=== PATIENT | female | born 1950 | race Caucasian/White ===

== ENCOUNTER 2017-04-17 20:16 | Inpatient (IN) | payer BC, MEDICARE ==
[~2017-04-17] VITALS: Ht 160 cm; Wt 51.5 kg
[~2017-04-17 20:16] MED LIST: ASPIRIN EC81 MG ORAL; BIOTIN5000 MCG PO; CENTRUM SILVER1 EAC4 PO; CRESTOR40 MG ORAL; METOPROLOL SUCC25 MG ORAL; VITAMIN D1000 UNI1 ORAL; VITAMIN E400 UNI5 PO
[2017-04-17] MEDS ORDERED: Hydromorphone 0.5mg/0.5ml inj IVP ONE ×3 (20:30→23:30)
[2017-04-17 20:31] VITALS: BP 158/82
--- NOTE | 2017-04-17 20:36 | Emergency Room Report ---
History of Present Illness General Chief Complaint: Abdominal Pain Source: Patient Present Illness HPI Is a 66-year-old female with no significant past medical history. She presents with chief complaint abdominal pain. Onset was around 2 PM. She has sharp pain mostly in the right lower quadrant. She has nausea and vomiting. Small amount of diarrhea. Pain is 9/10. She took her Compazine without much relief. Been vomiting nonstop. She called 911. Denies any trauma. No fever or chills. Vomiting is nonbloody nonbilious. Ate normally around noon. Allergies: Coded Allergies: No Known Allergies (Unverified , 04/17/17) Patient History Past Medical History: see triage record, old chart reviewed Past Surgical History: other Pertinent Family History: none Social History: Denies: smoking Last Menstrual Period: n/a Now: No Immunizations: other Reviewed Nursing Documentation: PMH: Agreed, PSxH: Agreed Nursing Documentation-PM Past Medical History: No Stated History Review of Systems Eye: Denies: blurred vision, eye pain ENT: Denies: ear pain, nose congestion, throat swelling Respiratory: Denies: cough, shortness of breath Cardiovascular: Denies: chest pain, palpitations Gastrointestinal: Reports: abdominal pain, nausea, vomiting, Denies: diarrhea Musculoskeletal: Denies: back pain, joint pain Skin: Denies: rash Neurological: Denies: headache, numbness Endocrine: Denies: increased thirst, increased urine Hematologic/Lymphatic: Denies: easy bruising All Other Systems: negative except mentioned in HPI Physical Exam Vital Signs Date Time Temp Pulse Resp B/P Pulse Ox O2 Delivery O2 Flow Rate FiO2 04/17/17 20:31 74 19 158/82 100 Room Air vitals with hypertension. Sp02 EP Interpretation: reviewed, normal General Appearance: well appearing, no apparent distress, alert Head: normocephalic, atraumatic Eyes: bilateral eye EOMI, bilateral eye PERRL ENT: hearing grossly normal, normal pharynx Neck: full range of motion, supple, no meningismus Respiratory: chest non-tender, lungs clear, normal breath sounds Cardiovascular #1: regular rate, rhythm, no murmur Gastrointestinal: normal bowel sounds, no mass, no organomegaly, no bruit, non- distended, tenderness - Right lower quadrant Musculoskeletal: back normal, gait/station normal, normal range of motion Psychiatric: mood/affect normal Skin: warm/dry Medical Decision Making Diagnostic Impression: Primary Impression: SBO (small bowel obstruction) ER Course Patient presents with abdominal pain and had a small bowel obstruction. She has no previous abdominal surgery. NG tube placed to low intermittent suction. I discussed the case with Dr. Austin, who will see her as surgical consultation. I discussed the case with Dr. Caldwell who will admit. Lab Results Impression labs with mild leukocytosis Rhythm Strip Diag. Results Rhythm Strip Time: 00:51 EP Interpretation: yes Rate: 70 Rhythm: NSR, no PVC's, no ectopy CT/MRI/US Diagnostic Results CT/MRI/US Diagnostic Results : Imaging Test Ordered: CT abdomen and pelvis Impression read by radiologist. Small bowel obstruction with transition point in the right upper pelvis Last Vital Signs Date Time Temp Pulse Resp B/P Pulse Ox O2 Delivery O2 Flow Rate FiO2 04/17/17 20:31 74 19 158/82 100 Room Air Status: improved Disposition: ADMITTED INPATIENT Condition: Serious JIMMY GRACIA M.D. Apr 17, 2017 20:36
[2017-04-17 20:43] VITALS: BP 156/76
[2017-04-17 20:48] LABS: MEAN CORPUSCULAR HEMOGLOBIN 33.3 PG (27.0-31.0); MEAN CORPUSCULAR HGB CONC 34.6 G/DL (32.0-36.0); MEAN CORPUSCULAR VOLUME 96 FL (80-99); MEAN PLATELET VOLUME 6.6 FL (6.5-10.1); PLATELET COUNT 224 K/UL (150-450); RED BLOOD COUNT 4.18 M/UL (4.20-5.40); RED CELL DISTRIBUTION WIDTH 11.5 % (11.6-14.8); WHITE BLOOD COUNT 13.9 K/UL (4.8-10.8)
[2017-04-17 20:52] LABS: LYMPHOCYTES % (AUTO) 7.9 % (20.0-45.0); MONOCYTES % (AUTO) 3.2 % (1.0-10.0); NEUTROPHILS % (AUTO) 88.4 % (45.0-75.0)
[2017-04-17 20:53] LABS: BASOPHILS % (AUTO) 0.5 % (0.0-2.0)
[2017-04-17 21:03] VITALS: BP 147/66
[2017-04-17 21:06] LABS: ALANINE AMINOTRANSFERASE 24 U/L (3-33); ALBUMIN/GLOBULIN RATIO 1.6 (1.0-2.7); ANION GAP 14 (5-15); ASPARTATE AMINO TRANSFERASE 27 U/L (5-40); CALCIUM 9.5 mg/dL (8.6-10.2); CARBON DIOXIDE 24 mEQ/L (20-30); CHLORIDE 96 mEQ/L (98-107); CREATININE 0.6 mg/dL (0.5-0.9); GLOMERULAR FILTRATION RATE > 60 mL/min (>60); HEMOLYSIS 5; LIPASE 21 U/L (< 60); POTASSIUM 4.2 mEQ/L (3.4-4.9); SODIUM 134 mEQ/L (135-145); TOTAL PROTEIN 7.5 g/dL (6.6-8.7)
[2017-04-17 21:28] LABS: APPEARANCE,URINE SLIGHTLY CLOUDY; KETONES,URINE 3+ (NEGATIVE); LEUKOCYTE ESTERASE ,URINE 1+ (NEGATIVE); NITRITE,URINE NEGATIVE (NEGATIVE); PH,URINE 5 (4.5-8.0); PROTEIN,URINE 2+ (NEGATIVE); UROBILINOGEN,URINE 1 MG/DL (0.0-1.0)
[2017-04-17 21:36] LABS: RBC,URINE 0-2 /HPF (0 - 2); SQUAMOUS EPITHELIAL CELL,UR OCCASIONAL /LPF (NONE/OCC)
[2017-04-17 21:37] LABS: MUCUS,URINE MANY /LPF (NONE/OCC)
[2017-04-17 22:45] VITALS: BP 134/62
[2017-04-17] MEDS ORDERED: LORazepam Inj 2mg/ml 1ml IV ONE (23:30)
[2017-04-18 01:00] VITALS: BP 140/64
[2017-04-18] MEDS ORDERED: Zosyn 3.375gm inj ONE (01:28)
[2017-04-18] MEDS ORDERED: D5NS 1,000 ML IV SCH (01:30)
[2017-04-18] MEDS: Metoprolol Tartrate 12.5mg TAB ORAL SCH ×3 (01:42→21:05)
[2017-04-18] MEDS: Piperacillin/Tazobactam 3.375 GM in D5W 110 ML IVPB SCH ×3 (01:42→17:36)
[2017-04-18] MEDS: Heparin 5000 units/ml inj SUBQ SCH ×3 (01:43→21:06)
[2017-04-18] MEDS: Hydromorphone 0.5mg/0.5ml inj IVP PRN ×4 (04:25→22:07)
[2017-04-18] MEDS ORDERED: Tubing IV Secondary IV ONE (08:14)
[2017-04-18] MEDS ORDERED: D5NS 1000ml IV ONE (08:14)
[2017-04-18 08:21] VITALS: BP 153/79
--- NOTE | 2017-04-18 08:53 | History & Physical ---
History and Physical History & Physicial seen and examined.Dictation completed Marilu Caldwell MD Apr 18, 2017 08:53
--- NOTE | 2017-04-18 08:54 | General Progress Note ---
Assessment/Plan Status: stable Assessment/Plan 1- Acute Abdomen 2- Bowel Obstruction (partial vs complete) 2- HTN 3- Gi-DVT prophylaxia Plan: Surgery and GI services are consulted. Continue NPO. Started empirical antibiotic Subjective ROS Limited/Unobtainable: No Constitutional: Reports: other - pain Cardiovascular: Reports: no symptoms Respiratory: Reports: no symptoms Gastrointestinal/Abdominal: Reports: abdomen distended, abdominal pain Neurologic/Psychiatric: Reports: no symptoms Allergies: Coded Allergies: No Known Allergies (Unverified , 04/17/17) Objective Last 24 Hour Vital Signs Date Time Temp Pulse Resp B/P Pulse Ox O2 Delivery O2 Flow Rate FiO2 04/18/17 08:21 98.3 84 20 153/79 97 Nasal Cannula 2.0 04/18/17 04:00 97.3 82 20 96 04/18/17 01:42 88 140/57 04/18/17 01:00 98.1 91 20 140/64 96 Nasal Cannula 2.0 04/18/17 00:45 88 15 140/57 96 Nasal Cannula 2.0 04/17/17 22:45 97.9 73 12 134/62 96 Room Air 04/17/17 21:03 87 13 147/66 96 Room Air 04/17/17 20:43 97.8 74 22 156/76 100 Room Air 04/17/17 20:31 74 19 158/82 100 Room Air Intake and Output 04/17/17 04/18/17 19:00 07:00 Intake Total 210.0 ml Output Total 100 ml Balance 110.0 ml Intake Oral 25 ml IV Total 185.0 ml Output Gastric Drainage Total 100 ml # Voids 6 Laboratory Tests 04/17/17 20:00: White Blood Count 13.9H, Red Blood Count 4.18L, Hemoglobin 13.9, Hematocrit 40.2 , Mean Corpuscular Volume 96, Mean Corpuscular Hemoglobin 33.3H, Mean Corpuscular Hemoglobin Concent 34.6, Red Cell Distribution Width 11.5L, Platelet Count 224, Mean Platelet Volume 6.6, Neutrophils (%) (Auto) 88.4H, Lymphocytes (%) (Auto) 7.9L, Monocytes (%) (Auto) 3.2, Eosinophils (%) (Auto) 0.0, Basophils (%) (Auto) 0.5, Sodium Level 134L, Potassium Level 4.2, Chloride Level 96L, Carbon Dioxide Level 24, Anion Gap 14, Blood Urea Nitrogen 21, Creatinine 0.6, Estimat Glomerular Filtration Rate > 60, Glucose Level 156H, Calcium Level 9.5, Total Bilirubin 0.3, Aspartate Amino Transf (AST/SGOT) 27, Alanine Aminotransferase (ALT/SGPT) 24, Alkaline Phosphatase 78, Total Protein 7.5, Albumin 4.7, Globulin 2.8, Albumin/Globulin Ratio 1.6, Lipase 21 04/17/17 21:24: Urine Color Yellow, Urine Appearance Slightly cloudy, Urine pH 5, Urine Specific [place] 1.025, Urine Protein 2+H, Urine Glucose (UA) Negative, Urine Ketones 3+H, Urine Occult Blood Negative, Urine Nitrite Negative, Urine Bilirubin Negative, Urine Urobilinogen 1H, Urine Leukocyte Esterase 1+H, Urine RBC 0-2, Urine WBC 2-4, Urine Squamous Epithelial Cells Occasional, Urine Bacteria None, Urine Mucus ManyH Height (Feet): 5 Height (Inches): 3.00 Weight (Pounds): 127 General Appearance: no apparent distress EENT: PERRL/EOMI Neck: supple Extremities: non-tender 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
[2017-04-18 09:22] LABS: PROTHROMBIN TIME 10.1 SEC (9.30-11.50)
--- NOTE | 2017-04-18 10:18 | Diagnostic Imaging Report ---
Indication: Abdominal pain. Comparison: None available. Technique: Utilizing a multislice CT scanner, a CT of the abdomen and pelvis was performed after the administration of intravenous contrast. All CT scans at this facility use dose modulation, iterative reconstruction, and/or weight based dosing when appropriate to reduce radiation dose to as low as reasonably achievable. CTDIvol (mGy): 15 DLP (mGy-cm): 765 Findings: The visualized lung bases are clear. Trace perihepatic ascites is noted. Punctate calcified granuloma is noted in the right hepatic lobe inferiorly. There is a punctate low-attenuation lesion in the right posterior hepatic lobe, likely a cyst but otherwise not accurately characterized. Low attenuation region in the left hepatic lobe adjacent to the falciform ligament likely represents transient hepatic attenuation difference. There is a 20 x 16 mm region of relative hypoenhancement in the left lateral hepatic lobe (segment II) which is not accurately characterized. Further evaluation with triple phase contrast enhanced CT or MRI of the abdomen to exclude malignancy is recommended. The gallbladder is unremarkable. The pancreas, spleen and adrenal glands are unremarkable. No calculus is identified within either kidney, along the expected course of the ureters or within the urinary bladder. There is no evidence of hydronephrosis or asymmetric perirenal inflammatory change. There is a subcentimeter cyst arising exophytically from the upper right kidney. The urinary bladder is grossly unremarkable. The pelvic organs are grossly unremarkable. Trace free pelvic fluid is noted. Moderately dilated small bowel loops in the lower abdomen/pelvis containing fecal/inspissated material are identified, with an apparent transition point in the right lower quadrant and midpelvis. Moderate wall thickening and hyperemia involving several of these bowel loops noted. A short segment of small bowel in the mid pelvis exhibits poor enhancement of its wall with extensive surrounding mesenteric stranding, suspicious for bowel ischemia. Closed-loop obstruction should be considered. Evaluation is limited without enteric contrast. Urgent surgical consultation is recommended. There is no extraluminal gas or organized fluid collection. Mild sigmoid diverticulosis is noted. The sigmoid wall appears diffusely thickened but not optimally evaluated due to under distention. Consider colonoscopy when the appropriate. There are no enlarged lymph nodes. There is extensive calcified atherosclerotic disease of the the abdominal aorta. Moderate degenerative disc disease with disc vacuum phenomenon and endplate sclerotic changes noted at L3-L4. Impression: 1. Moderately distended small bowel loops in the lower abdomen/pelvis, with an apparent transition point in the right lower quadrant and midpelvis. Moderate bowel wall thickening and hyperemia noted involving several loops. However, a short segment of small bowel in the midpelvis exhibits poor wall enhancement with surrounding mesenteric stranding. Closed loop obstruction and bowel ischemia should be considered. Urgent surgical consultation is recommended. Small volume ascites. No evidence of free intraperitoneal air or loculated fluid collection. 2. Sigmoid diverticulosis with apparent sigmoid wall thickening. Consider colonoscopy when possible to exclude underlying malignancy. 3. Nonspecific 2 cm region of relative hypoenhancement in the left hepatic lobe, accurately characterized on single phase CT. Further evaluation with contrast enhanced CT or MRI of the abdomen with liver tumor protocol to exclude malignancy is recommended.
[2017-04-18] MEDS ORDERED: DiphenhydrAMINE 50mg/ml Inj IVP PRN (11:00)
--- NOTE | 2017-04-18 11:09 | Diagnostic Imaging Report ---
Clinical history: Abdominal pain, concern for obstruction. Technique: Single frontal abdominal radiograph was obtained. Comparisons: Abdomen/pelvis CT dated 04/17/17. Findings: An enteric tube ends in the proximal stomach with the sidehole at the GE junction. Recommend advancing the tube by 5 cm. Moderate air distention of several bowel loops in the abdomen is noted. Contrast from recent CT is noted in the urinary bladder. IMPRESSION: 1. Enteric tube ends in the proximal stomach with the sidehole at the GE junction. Recommend advancing the tube by 5 cm. 2. Air distended small bowel loops suspicious for bowel obstruction. Please refer to the recent abdomen/pelvis CT report for description of significant findings.
[2017-04-18 11:43] VITALS: BP 135/86
[2017-04-18 11:46] LABS: MEAN CORPUSCULAR HEMOGLOBIN 32.3 PG (27.0-31.0); MEAN CORPUSCULAR HGB CONC 33.5 G/DL (32.0-36.0); MEAN CORPUSCULAR VOLUME 96 FL (80-99); MEAN PLATELET VOLUME 6.6 FL (6.5-10.1); PLATELET COUNT 229 K/UL (150-450); RED BLOOD COUNT 4.52 M/UL (4.20-5.40); RED CELL DISTRIBUTION WIDTH 11.5 % (11.6-14.8); WHITE BLOOD COUNT 13.9 K/UL (4.8-10.8)
[2017-04-18 13:18] LABS: BAND NEUTROPHILS % (MANUAL) 0 % (0-8); BASOPHILS % (MANUAL) 0 % (0-2); EOSINOPHILS % (MANUAL) 0 % (0-3); LYMPHOCYTES % (MANUAL) 4 % (20-45); NEUTROPHILS % (MANUAL) 92 % (45-75); PLATELET ESTIMATE ADEQUATE; PLATELET MORPHOLOGY NORMAL; TOTAL CELLS COUNTED 100
--- NOTE | 2017-04-18 13:19 | General Surgery Progress Note ---
General Surgery-Progress Note Subjective Reason for Consult abdominal pain, possible SBO. Symptoms: improved - since last pm admission, pain same or less, no further nausea or emesis, no fever or chills. BM yest normal Additional Comments Pt refers 6 weeks or so of softening of bowel movements with watery loose BM like "soup" at the end, 2-4 times a day, no blood or mucus. Had 2-3 " accidents where she thought she was passing flatus and watery diarrhea ocurred. Had weight loss during bad L4 disc herniation period earlier this year, has regained 5 lbs back. No hx of any surgeries, no ruptured ovarian cysts, . Had 1 bout of mild diverticulitis, resolved with antibiotics po. Objective Last 24 Hour Vital Signs Date Time Temp Pulse Resp B/P Pulse Ox O2 Delivery O2 Flow Rate FiO2 04/18/17 11:43 98.1 71 19 135/86 96 Nasal Cannula 2.0 04/18/17 09:21 98.3 04/18/17 08:51 84 153/79 04/18/17 08:21 98.3 84 20 153/79 97 Nasal Cannula 2.0 04/18/17 04:00 97.3 82 20 96 04/18/17 01:42 88 140/57 04/18/17 01:00 98.1 91 20 140/64 96 Nasal Cannula 2.0 04/18/17 00:45 88 15 140/57 96 Nasal Cannula 2.0 04/17/17 22:45 97.9 73 12 134/62 96 Room Air 04/17/17 21:03 87 13 147/66 96 Room Air 04/17/17 20:43 97.8 74 22 156/76 100 Room Air 04/17/17 20:31 74 19 158/82 100 Room Air I&O Intake and Output 04/17/17 04/18/17 19:00 07:00 Intake Total 210.0 ml Output Total 100 ml Balance 110.0 ml Intake Oral 25 ml IV Total 185.0 ml Output Gastric Drainage Total 100 ml # Voids 6 Cardiovascular: RSR Respiratory: clear Abdomen: soft, distended - 1-2 +, , tenderness - 1-2+ lower abdomen, no mass, peristalsis hypoactive with occ minimal "balderrama" but no tinkling or high pitches peristalsis Extremities: edema Laboratory Tests Test 04/17/17 20:00 04/17/17 21:24 04/18/17 09:00 White Blood Count 13.9 K/UL (4.8-10.8) H 13.9 K/UL (4.8-10.8) H Red Blood Count 4.18 M/UL (4.20-5.40) L 4.52 M/UL (4.20-5.40) Hemoglobin 13.9 G/DL (12.0-16.0) 14.6 G/DL (12.0-16.0) Hematocrit 40.2 % (37.0-47.0) 43.6 % (37.0-47.0) Mean Corpuscular Volume 96 FL (80-99) 96 FL (80-99) Mean Corpuscular Hemoglobin 33.3 PG (27.0-31.0) H 32.3 PG (27.0-31.0) H Mean Corpuscular Hemoglobin Concent 34.6 G/DL (32.0-36.0) 33.5 G/DL (32.0-36.0) Red Cell Distribution Width 11.5 % (11.6-14.8) L 11.5 % (11.6-14.8) L Platelet Count 224 K/UL (150-450) 229 K/UL (150-450) Mean Platelet Volume 6.6 FL (6.5-10.1) 6.6 FL (6.5-10.1) Neutrophils (%) (Auto) 88.4 % (45.0-75.0) H % (45.0-75.0) Lymphocytes (%) (Auto) 7.9 % (20.0-45.0) L % (20.0-45.0) Monocytes (%) (Auto) 3.2 % (1.0-10.0) % (1.0-10.0) Eosinophils (%) (Auto) 0.0 % (0.0-3.0) % (0.0-3.0) Basophils (%) (Auto) 0.5 % (0.0-2.0) % (0.0-2.0) Sodium Level 134 mEQ/L (135-145) L Potassium Level 4.2 mEQ/L (3.4-4.9) Chloride Level 96 mEQ/L (98-107) L Carbon Dioxide Level 24 mEQ/L (20-30) Anion Gap 14 (5-15) Blood Urea Nitrogen 21 mg/dL (7-23) Creatinine 0.6 mg/dL (0.5-0.9) Estimat Glomerular Filtration Rate > 60 mL/min (>60) Glucose Level 156 mg/dL (74-106) H Calcium Level 9.5 mg/dL (8.6-10.2) Total Bilirubin 0.3 mg/dL (0.0-1.2) Aspartate Amino Transf (AST/SGOT) 27 U/L (5-40) Alanine Aminotransferase (ALT/SGPT) 24 U/L (3-33) Alkaline Phosphatase 78 U/L (35-104) Total Protein 7.5 g/dL (6.6-8.7) Albumin 4.7 g/dL (3.5-5.2) Globulin 2.8 g/dL Albumin/Globulin Ratio 1.6 (1.0-2.7) Lipase 21 U/L (< 60) Urine Color Yellow Urine Appearance Slightly cloudy Urine pH 5 (4.5-8.0) Urine Specific [place] 1.025 (1.005-1.035) Urine Protein 2+ (NEGATIVE) H Urine Glucose (UA) Negative (NEGATIVE) Urine Ketones 3+ (NEGATIVE) H Urine Occult Blood Negative (NEGATIVE) Urine Nitrite Negative (NEGATIVE) Urine Bilirubin Negative (NEGATIVE) Urine Urobilinogen 1 MG/DL (0.0-1.0) H Urine Leukocyte Esterase 1+ (NEGATIVE) H Urine RBC 0-2 /HPF (0 - 2) Urine WBC 2-4 /HPF (0 - 2) Urine Squamous Epithelial Cells Occasional /LPF Urine Bacteria None /HPF (NONE) Urine Mucus Many /LPF (NONE/OCC) H Neutrophils % (Manual) Pending Lymphocytes % (Manual) Pending Platelet Estimate Pending Platelet Morphology Pending Prothrombin Time 10.1 SEC (9.30-11.50) Prothromb Time International Ratio 1.0 (0.9-1.1) Activated Partial Thromboplast Time 25 SEC (23-33) Lactic Acid Level 1.20 mmol/L (0.66-2.22) Imaging CAT scan of abdomen and pelvis last pm, early this am abd xrays: distal ileum slightly thickened bowel with edema, minimal distention, no proximal bowel or gastric distention. ?? early SBO??, enteritis, IBD ??. Infectious? Trace ascites above liver and minimally in pelvis. No [employer] LEV[employer]RAFTER obvious problems, diverticulosis of low lying sigmoid colon , but no diverticulitis. No abscess. Additional Comments Abdominal pain, distal small bowel inflammatory process, cause undetermined in non-operated abdomen, associated change in stool habits with daily loose or even "watery" BMs. Normal lactate, sl elevated WBC. Not a typical SBO, more likely an inflammatory ileum process, such as Chron's disease or Campylobacter infection, but must be ready to explore either laparoscopically or open if need be, (diagnostic or therapeutic procedure) Discussed at length with Dr. Ashraf and with Dr. Caldwell. suggested an MRI enterography vs UGI with small bowel follow through and stool cultures. Will repeat labs in am and follow clinically. Pt understands and is frustrated about having to stay in the hospital. ARTUR MAJANO Apr 18, 2017 13:19
--- NOTE | 2017-04-18 14:48 | Infectious Diseases Prog Note ---
Assessment/Plan Assessment/Plan ID kristy patterson # [id number] Subjective Allergies: Coded Allergies: No Known Allergies (Unverified , 04/17/17) Objective Vital Signs Last 24 Hour Vital Signs Date Time Temp Pulse Resp B/P Pulse Ox O2 Delivery O2 Flow Rate FiO2 04/18/17 11:43 98.1 71 19 135/86 96 Nasal Cannula 2.0 04/18/17 09:21 98.3 04/18/17 08:51 84 153/79 04/18/17 08:21 98.3 84 20 153/79 97 Nasal Cannula 2.0 04/18/17 04:00 97.3 82 20 96 04/18/17 01:42 88 140/57 04/18/17 01:00 98.1 91 20 140/64 96 Nasal Cannula 2.0 04/18/17 00:45 88 15 140/57 96 Nasal Cannula 2.0 04/17/17 22:45 97.9 73 12 134/62 96 Room Air 04/17/17 21:03 87 13 147/66 96 Room Air 04/17/17 20:43 97.8 74 22 156/76 100 Room Air 04/17/17 20:31 74 19 158/82 100 Room Air Height (Feet): 5 Height (Inches): 3.00 Weight (Pounds): 127 Laboratory Tests Test 04/17/17 20:00 04/17/17 21:24 04/18/17 09:00 White Blood Count 13.9 K/UL (4.8-10.8) H 13.9 K/UL (4.8-10.8) H Red Blood Count 4.18 M/UL (4.20-5.40) L 4.52 M/UL (4.20-5.40) Hemoglobin 13.9 G/DL (12.0-16.0) 14.6 G/DL (12.0-16.0) Hematocrit 40.2 % (37.0-47.0) 43.6 % (37.0-47.0) Mean Corpuscular Volume 96 FL (80-99) 96 FL (80-99) Mean Corpuscular Hemoglobin 33.3 PG (27.0-31.0) H 32.3 PG (27.0-31.0) H Mean Corpuscular Hemoglobin Concent 34.6 G/DL (32.0-36.0) 33.5 G/DL (32.0-36.0) Red Cell Distribution Width 11.5 % (11.6-14.8) L 11.5 % (11.6-14.8) L Platelet Count 224 K/UL (150-450) 229 K/UL (150-450) Mean Platelet Volume 6.6 FL (6.5-10.1) 6.6 FL (6.5-10.1) Neutrophils (%) (Auto) 88.4 % (45.0-75.0) H % (45.0-75.0) Lymphocytes (%) (Auto) 7.9 % (20.0-45.0) L % (20.0-45.0) Monocytes (%) (Auto) 3.2 % (1.0-10.0) % (1.0-10.0) Eosinophils (%) (Auto) 0.0 % (0.0-3.0) % (0.0-3.0) Basophils (%) (Auto) 0.5 % (0.0-2.0) % (0.0-2.0) Sodium Level 134 mEQ/L (135-145) L Potassium Level 4.2 mEQ/L (3.4-4.9) Chloride Level 96 mEQ/L (98-107) L Carbon Dioxide Level 24 mEQ/L (20-30) Anion Gap 14 (5-15) Blood Urea Nitrogen 21 mg/dL (7-23) Creatinine 0.6 mg/dL (0.5-0.9) Estimat Glomerular Filtration Rate > 60 mL/min (>60) Glucose Level 156 mg/dL (74-106) H Calcium Level 9.5 mg/dL (8.6-10.2) Total Bilirubin 0.3 mg/dL (0.0-1.2) Aspartate Amino Transf (AST/SGOT) 27 U/L (5-40) Alanine Aminotransferase (ALT/SGPT) 24 U/L (3-33) Alkaline Phosphatase 78 U/L (35-104) Total Protein 7.5 g/dL (6.6-8.7) Albumin 4.7 g/dL (3.5-5.2) Globulin 2.8 g/dL Albumin/Globulin Ratio 1.6 (1.0-2.7) Lipase 21 U/L (< 60) Urine Color Yellow Urine Appearance Slightly cloudy Urine pH 5 (4.5-8.0) Urine Specific [place] 1.025 (1.005-1.035) Urine Protein 2+ (NEGATIVE) H Urine Glucose (UA) Negative (NEGATIVE) Urine Ketones 3+ (NEGATIVE) H Urine Occult Blood Negative (NEGATIVE) Urine Nitrite Negative (NEGATIVE) Urine Bilirubin Negative (NEGATIVE) Urine Urobilinogen 1 MG/DL (0.0-1.0) H Urine Leukocyte Esterase 1+ (NEGATIVE) H Urine RBC 0-2 /HPF (0 - 2) Urine WBC 2-4 /HPF (0 - 2) Urine Squamous Epithelial Cells Occasional /LPF Urine Bacteria None /HPF (NONE) Urine Mucus Many /LPF (NONE/OCC) H Differential Total Cells Counted 100 Neutrophils % (Manual) 92 % (45-75) H Lymphocytes % (Manual) 4 % (20-45) L Monocytes % (Manual) 4 % (1-10) Eosinophils % (Manual) 0 % (0-3) Basophils % (Manual) 0 % (0-2) Band Neutrophils 0 % (0-8) Platelet Estimate Adequate Platelet Morphology Normal Red Blood Cell Morphology Normal Hypochromasia Prothrombin Time 10.1 SEC (9.30-11.50) Prothromb Time International Ratio 1.0 (0.9-1.1) Activated Partial Thromboplast Time 25 SEC (23-33) Lactic Acid Level 1.20 mmol/L (0.66-2.22) Current Medications Medications (Trade) Dose Ordered Sig/Renuka Route PRN Reason Start Time Stop Time Status Last Admin Dose Admin Dextrose/ Electrolytes (D5 0.45%NS W/ KCl 20mEq) 1,000 ml @ 100 mls/hr Q10H IV 04/18/17 14:00 05/18/17 13:59 Diphenhydramine HCl 25 mg 25 mg Q6H PRN IVP Itching 04/18/17 11:00 05/18/17 10:59 04/18/17 11:11 Heparin Sodium (Porcine) (Heparin 5000 units/ml) 5,000 units EVERY 12 HOURS SUBQ 04/18/17 00:30 05/18/17 00:29 04/18/17 08:53 Hydromorphone HCl (Dilaudid) 0.5 mg Q4H PRN IVP For Pain 04/18/17 04:00 04/25/17 03:59 04/18/17 13:37 Lorazepam (Ativan 2mg/ml 1ml) 0.5 mg Q6H PRN IV For Anxiety 04/18/17 04:00 04/25/17 03:59 Metoprolol Tartrate (Lopressor) 12.5 mg Q12HR ORAL 04/18/17 01:00 05/18/17 00:59 04/18/17 08:51 Ondansetron HCl (Zofran) 4 mg Q6H PRN IVP Nausea & Vomiting 04/18/17 04:00 05/18/17 03:59 04/18/17 13:52 Pantoprazole (Protonix) 40 mg DAILY ORAL 04/18/17 09:00 05/18/17 08:59 04/18/17 08:51 Piperacillin Sod/ Tazobactam Sod/ Dextrose (Zosyn/D5W) 110 ml @ 27.5 mls/hr Q8H IVPB 04/18/17 01:00 04/25/17 00:59 04/18/17 08:51 ADRIANNA FRANZ Apr 18, 2017 14:48
[2017-04-18] MEDS: D5 1/2NS w/KCl 20mEq 1,000 ML IV SCH (14:51)
--- NOTE | 2017-04-18 15:11 | General Progress Note ---
Assessment/Plan Assessment/Plan Assessment Dictated Presentation of segmental SB inflammation and SBO - narrow differential ? Campylobacter ileitis ? Acute Crohn's disease ? mechanical (intussucception, hamartoma) Recommendations - NPO - IVF - NGT - MRE (If not available, then SBFT) to eval small bowel - check stool cultures - check CRP/ESR (will check if lab can run Calprotectin) Thank you Ken Ashraf MD Subjective Allergies: Coded Allergies: No Known Allergies (Unverified , 04/17/17) Objective Last 24 Hour Vital Signs Date Time Temp Pulse Resp B/P Pulse Ox O2 Delivery O2 Flow Rate FiO2 04/18/17 11:43 98.1 71 19 135/86 96 Nasal Cannula 2.0 04/18/17 09:21 98.3 04/18/17 08:51 84 153/79 04/18/17 08:21 98.3 84 20 153/79 97 Nasal Cannula 2.0 04/18/17 04:00 97.3 82 20 96 04/18/17 01:42 88 140/57 04/18/17 01:00 98.1 91 20 140/64 96 Nasal Cannula 2.0 04/18/17 00:45 88 15 140/57 96 Nasal Cannula 2.0 04/17/17 22:45 97.9 73 12 134/62 96 Room Air 04/17/17 21:03 87 13 147/66 96 Room Air 04/17/17 20:43 97.8 74 22 156/76 100 Room Air 04/17/17 20:31 74 19 158/82 100 Room Air Intake and Output 04/17/17 04/18/17 19:00 07:00 Intake Total 210.0 ml Output Total 100 ml Balance 110.0 ml Intake Oral 25 ml IV Total 185.0 ml Output Gastric Drainage Total 100 ml # Voids 6 Laboratory Tests 04/17/17 20:00: White Blood Count 13.9H, Red Blood Count 4.18L, Hemoglobin 13.9, Hematocrit 40.2 , Mean Corpuscular Volume 96, Mean Corpuscular Hemoglobin 33.3H, Mean Corpuscular Hemoglobin Concent 34.6, Red Cell Distribution Width 11.5L, Platelet Count 224, Mean Platelet Volume 6.6, Neutrophils (%) (Auto) 88.4H, Lymphocytes (%) (Auto) 7.9L, Monocytes (%) (Auto) 3.2, Eosinophils (%) (Auto) 0.0, Basophils (%) (Auto) 0.5, Sodium Level 134L, Potassium Level 4.2, Chloride Level 96L, Carbon Dioxide Level 24, Anion Gap 14, Blood Urea Nitrogen 21, Creatinine 0.6, Estimat Glomerular Filtration Rate > 60, Glucose Level 156H, Calcium Level 9.5, Total Bilirubin 0.3, Aspartate Amino Transf (AST/SGOT) 27, Alanine Aminotransferase (ALT/SGPT) 24, Alkaline Phosphatase 78, Total Protein 7.5, Albumin 4.7, Globulin 2.8, Albumin/Globulin Ratio 1.6, Lipase 21 04/17/17 21:24: Urine Color Yellow, Urine Appearance Slightly cloudy, Urine pH 5, Urine Specific [place] 1.025, Urine Protein 2+H, Urine Glucose (UA) Negative, Urine Ketones 3+H, Urine Occult Blood Negative, Urine Nitrite Negative, Urine Bilirubin Negative, Urine Urobilinogen 1H, Urine Leukocyte Esterase 1+H, Urine RBC 0-2, Urine WBC 2-4, Urine Squamous Epithelial Cells Occasional, Urine Bacteria None, Urine Mucus ManyH 04/18/17 09:00: White Blood Count 13.9H, Red Blood Count 4.52, Hemoglobin 14.6, Hematocrit 43.6 , Mean Corpuscular Volume 96, Mean Corpuscular Hemoglobin 32.3H, Mean Corpuscular Hemoglobin Concent 33.5, Red Cell Distribution Width 11.5L, Platelet Count 229, Mean Platelet Volume 6.6, Neutrophils (%) (Auto) , Lymphocytes (%) (Auto) , Monocytes (%) (Auto) , Eosinophils (%) (Auto) , Basophils (%) (Auto) , Differential Total Cells Counted 100, Neutrophils % ( Manual) 92H, Lymphocytes % (Manual) 4L, Monocytes % (Manual) 4, Eosinophils % ( Manual) 0, Basophils % (Manual) 0, Band Neutrophils 0, Platelet Estimate Adequate, Platelet Morphology Normal, Red Blood Cell Morphology Normal, Hypochromasia , Prothrombin Time 10.1, Prothromb Time International Ratio 1.0, Activated Partial Thromboplast Time 25, Lactic Acid Level 1.20 Height (Feet): 5 Height (Inches): 3.00 Weight (Pounds): 127 KEN ASHRAF Apr 18, 2017 15:11
[2017-04-18 16:00] VITALS: BP 169/83
[2017-04-18] MEDS: LORazepam Inj 2mg/ml 1ml IV PRN (19:16)
[2017-04-18 20:00] VITALS: BP 139/85
[2017-04-19] VITALS (7 sets, daily range): BP systolic 125–161; BP diastolic 75–89
--- NOTE | 2017-04-19 00:45 | Consultation ---
DATE OF CONSULTATION: 04/18/2017 INFECTIOUS DISEASE CONSULT This consult is for coverage of Dr. Castro. PRIMARY ATTENDING PHYSICIAN: Marilu Caldwell M.D. REASON FOR CONSULTATION: small bowel obstruction, enteritis. HISTORY OF PRESENT ILLNESS: The patient is a 66-year-old female, admitted yesterday with sudden onset of abdominal pain more in the midline. Had nausea and vomiting. The patient had chronic diarrhea in the past couple of weeks. Denies any fever. PAST MEDICAL HISTORY: Significant except for hypertension. MEDICATIONS: Given Benadryl, Protonix, hydromorphone, Zofran, Zosyn, metoprolol, and heparin. ALLERGIES: No known drug allergies. SOCIAL HISTORY: No history of alcohol or drug abuse or smoking. Single. Not . Has no children. Lives alone. REVIEW OF SYSTEMS: Has pain mostly in the lower part of the abdomen today. PHYSICAL EXAMINATION: VITAL SIGNS: Temperature 98.1 degrees, pulse 71, and blood pressure 135/86. GENERAL APPEARANCE: No acute distress. Awake, alert, and oriented x3. HEAD AND NECK: Has NG tube connected to suction. [place] conjunctivae. No oral lesions. HEART: S1 and S2. Regular. LUNGS: Clear. ABDOMEN: Tender in the lower quadrants, more in the left side. EXTREMITIES: She has no edema. LABORATORY DATA: WBC 13.9, hemoglobin 14.6, hematocrit 43.6, and platelets is 229,000. Sodium 134, potassium 4.2, chloride 96, and bicarbonate 24. BUN 21, creatinine 0.6, and glucose 156. KUB showed extended small bowel loops. CT scan of the abdomen and pelvis showed again distended bowel loops and also showed diverticulosis in sigmoid area. She also had degenerative disk disease. IMPRESSION: Small bowel obstruction, seems to be partial, cannot rule out enteritis. The patient has hypertension and sigmoid diverticulosis. RECOMMENDATIONS: We will continue with Zosyn. We will follow up the labs. At the end of my exam, I thank Dr. Caldwell for involving me in the care of this patient. Yobany Villasenor M.D. DR: BARBARA JOB#: [id number] CC: MOMO
[2017-04-19] MEDS: Piperacillin/Tazobactam 3.375 GM in D5W 110 ML IVPB SCH ×3 (00:53→16:28)
--- NOTE | 2017-04-19 01:30 | Consultation ---
DATE OF CONSULTATION: 04/18/2017 NOTE: POOR AUDIO QUALITY GASTROLOGY CONSULTATION CONSULTING PHYSICIAN: Ken Ashraf M.D. CHIEF COMPLAINT: I was asked to see this patient for abnormal CT scan. HISTORY OF PRESENT ILLNESS: The patient is a pleasant 66-year-old white woman w/o GI history comes in to the hospital with a 4 to 6-week history of diarrhea. The patient states diarrhea is two times a day and often at night as well. She denies any hematochezia or any family history of inflammatory bowel disease. She has had no fevers or chills. Her last colonoscopy was about eight years ago. She did have an episode of diverticulitis several years ago, but that was a one time episode. She has had some occasional dry heaves over the past 4 to 6 weeks, but no fritz vomiting until 24 hours prior to admission. She was admitted to the hospital, was found to have small bowel obstruction from segmental inflammatory process with bowel obstruction in the distal small bowel. PAST MEDICAL HISTORY: History of herniated disk, history of hypercholesterolemia, and history of hypertension. MEDICATIONS: Crestor, lisinopril, and aspirin. SOCIAL HISTORY: The patient smokes one pack of cigarettes a day and drinks occasionally. FAMILY HISTORY: Negative for significant gastroesophageal disorders including inflammatory bowel disease. REVIEW OF SYSTEMS: Otherwise negative. PHYSICAL EXAMINATION: GENERAL: The patient is a pleasant white woman, seen with the surgeon at bedside. HEENT: Normocephalic and atraumatic. Sclerae anicteric. Oropharynx clear. NECK: Supple. CHEST: Clear to auscultation. CARDIOVASCULAR: Regular rhythm and rate. ABDOMEN: Soft. Good bowel sounds. There is some mild lower quadrant tenderness to palpation without guarding or rebound. No masses. EXTREMITIES: Revealed no edema. LABORATORY DATA: Noted. IMAGING STUDIES: CT scan was noted. ASSESSMENT: This patient presents with six weeks history of diarrhea and now the bowel obstruction in the distal small bowel. The differential diagnosis for this time per the patient is somewhat narrow since the patient never had any abdominal surgeries. One possibly would be Campylobacter ileitis although this illness usually does not protracted to six weeks. Stool culture should be checked. There is the new onset of Crohn's disease would be another consideration. The patient will have to have evaluation for that including sedimentation CRP and if it is available at [place], a calprotectin level of stool. The diagnosis of Crohn's disease may be somewhat difficult and further imaging studies such as an MR enterography or small-bowel follow-through can be done to evaluate the area better. For the time being consider management including bowel rest and nasogastric decompression would be appropriate. Endoscopy and colonoscopy can be done once the patient has improved to evaluate the upper and lower gastrointestinal tract to secure more information. Otherwise, the diagnosis may be somewhat difficult. Capsule endoscopy would not be advisable since the capsule be obstructed. The double balloon evaluation can be considered. The patient is a stabilized for outpatient evaluation and blood can be sent for inflammatory bowel disease markers. Although, this is workup would be done sequentially. RECOMMENDATIONS: 1. Keep the patient NPO. 2. IV fluids. 3. Nasogastric decompression. 4. Magnetic resonance enterography if available tomorrow. 5. Check CRP and sedimentation rate in the stools. 6. Check stool calprotectin . 7. Check stool cultures especially for Campylobacter. Thank you for asking me to participate in care of this patient. Ken Ashraf M.D. DR: PHU JOB#: [id number] CC: MOMO
[2017-04-19] MEDS: LORazepam Inj 2mg/ml 1ml IV PRN ×2 (02:49→13:49)
[2017-04-19 07:05] LABS: BASOPHILS % (AUTO) 0.3 % (0.0-2.0); MEAN CORPUSCULAR HEMOGLOBIN 33.4 PG (27.0-31.0); MEAN CORPUSCULAR HGB CONC 34.8 G/DL (32.0-36.0); MEAN CORPUSCULAR VOLUME 96 FL (80-99); MONOCYTES % (AUTO) 8.3 % (1.0-10.0); NEUTROPHILS % (AUTO) 79.4 % (45.0-75.0); PLATELET COUNT 198 K/UL (150-450); RED BLOOD COUNT 4.24 M/UL (4.20-5.40); RED CELL DISTRIBUTION WIDTH 11.5 % (11.6-14.8); WHITE BLOOD COUNT 11.2 K/UL (4.8-10.8)
[2017-04-19 07:53] LABS: ALANINE AMINOTRANSFERASE 14 U/L (3-33); ALBUMIN/GLOBULIN RATIO 1.5 (1.0-2.7); ANION GAP 12 (5-15); ASPARTATE AMINO TRANSFERASE 18 U/L (5-40); CALCIUM 8.3 mg/dL (8.6-10.2); CARBON DIOXIDE 26 mEQ/L (20-30); CHLORIDE 101 mEQ/L (98-107); CREATININE 0.5 mg/dL (0.5-0.9); GLOMERULAR FILTRATION RATE > 60 mL/min (>60); HEMOLYSIS 4; POTASSIUM 3.5 mEQ/L (3.4-4.9); SODIUM 139 mEQ/L (135-145); TOTAL PROTEIN 6.4 g/dL (6.6-8.7)
[2017-04-19] MEDS: Metoprolol Tartrate 12.5mg TAB ORAL SCH ×2 (08:51→21:05)
[2017-04-19] MEDS: Heparin 5000 units/ml inj SUBQ SCH ×2 (09:03→21:07)
[2017-04-19] MEDS: Hydromorphone 0.5mg/0.5ml inj IVP PRN ×3 (09:08→22:28)
[2017-04-19] MEDS: D5 1/2NS w/KCl 20mEq 1,000 ML IV SCH ×3 (10:00→20:00)
--- NOTE | 2017-04-19 10:18 | Infectious Diseases Prog Note ---
Assessment/Plan Assessment/Plan ASSESSMENT: 66 y/o female with: // Distal small bowel process r/o infection - stool studies pending - UGIS/SBFT: pending - CT A/P: Moderately distended small bowel loops in the lower abdomen/pelvis , with an apparent transition point in the right lower quadrant and midpelvis. Moderate bowel wall thickening and hyperemia noted involving several loops. However, a short segment of small bowel in the midpelvis exhibits poor wall enhancement with surrounding mesenteric stranding. Closed loop obstruction and bowel ischemia should be considered. Small volume ascites. No evidence of free intraperitoneal air or loculated fluid collection. // Leukocytosis - improved, afebrile // Possible hepatic mass 2cm // Diverticulosis // Elevated CRP // NKDA // Full Code PLAN: - continue empiric zosyn d# 2 - f/u cultures - f/u UGIS/SBFT - monitor CBC, temperatures - monitor BMP - GI, surgery following Subjective Allergies: Coded Allergies: No Known Allergies (Unverified , 04/17/17) Subjective remains afebrile. no new complaint Objective Vital Signs Last 24 Hour Vital Signs Date Time Temp Pulse Resp B/P Pulse Ox O2 Delivery O2 Flow Rate FiO2 04/19/17 08:51 102 161/88 04/19/17 08:00 98.2 102 20 161/88 93 Room Air 04/19/17 04:00 98.1 87 20 130/75 Room Air 04/19/17 00:00 98.2 85 20 125/84 Room Air 04/18/17 22:34 98.4 04/18/17 21:05 84 139/85 04/18/17 20:00 98.4 84 20 139/85 92 Room Air 04/18/17 16:00 99.0 95 20 169/83 93 Room Air 04/18/17 11:43 98.1 71 19 135/86 96 Nasal Cannula 2.0 Height (Feet): 5 Height (Inches): 3.00 Weight (Pounds): 127 General Appearance: no acute distress Respiratory/Chest: no respiratory distress Cardiovascular: normal rate Abdomen: normal bowel sounds, soft, non tender, non distended Laboratory Tests Test 04/19/17 06:05 White Blood Count 11.2 K/UL (4.8-10.8) H Red Blood Count 4.24 M/UL (4.20-5.40) Hemoglobin 14.2 G/DL (12.0-16.0) Hematocrit 40.7 % (37.0-47.0) Mean Corpuscular Volume 96 FL (80-99) Mean Corpuscular Hemoglobin 33.4 PG (27.0-31.0) H Mean Corpuscular Hemoglobin Concent 34.8 G/DL (32.0-36.0) Red Cell Distribution Width 11.5 % (11.6-14.8) L Platelet Count 198 K/UL (150-450) Mean Platelet Volume 7.0 FL (6.5-10.1) Neutrophils (%) (Auto) 79.4 % (45.0-75.0) H Lymphocytes (%) (Auto) 12.0 % (20.0-45.0) L Monocytes (%) (Auto) 8.3 % (1.0-10.0) Eosinophils (%) (Auto) 0.0 % (0.0-3.0) Basophils (%) (Auto) 0.3 % (0.0-2.0) Erythrocyte Sedimentation Rate 23 MM/HR (0-30) Sodium Level 139 mEQ/L (135-145) Potassium Level 3.5 mEQ/L (3.4-4.9) Chloride Level 101 mEQ/L (98-107) Carbon Dioxide Level 26 mEQ/L (20-30) Anion Gap 12 (5-15) Blood Urea Nitrogen 18 mg/dL (7-23) Creatinine 0.5 mg/dL (0.5-0.9) Estimat Glomerular Filtration Rate > 60 mL/min (>60) Glucose Level 133 mg/dL (74-106) H Lactic Acid Level 1.10 mmol/L (0.66-2.22) Calcium Level 8.3 mg/dL (8.6-10.2) L Total Bilirubin 0.4 mg/dL (0.0-1.2) Aspartate Amino Transf (AST/SGOT) 18 U/L (5-40) Alanine Aminotransferase (ALT/SGPT) 14 U/L (3-33) Alkaline Phosphatase 58 U/L (35-104) C-Reactive Protein, Quantitative 4.5 mg/dL (< 0.5) H Total Protein 6.4 g/dL (6.6-8.7) L Albumin 3.9 g/dL (3.5-5.2) Globulin 2.5 g/dL Albumin/Globulin Ratio 1.5 (1.0-2.7) Current Medications Medications (Trade) Dose Ordered Sig/Renuka Route PRN Reason Start Time Stop Time Status Last Admin Dose Admin Atorvastatin Calcium (Lipitor) 40 mg BEDTIME ORAL 04/18/17 21:00 05/18/17 20:59 04/18/17 21:05 Dextrose/ Electrolytes (D5 0.45%NS W/ KCl 20mEq) 1,000 ml @ 100 mls/hr Q10H IV 04/18/17 14:00 05/18/17 13:59 04/18/17 14:51 Diphenhydramine HCl 25 mg 25 mg Q6H PRN IVP Itching 04/18/17 11:00 05/18/17 10:59 04/18/17 11:11 Heparin Sodium (Porcine) (Heparin 5000 units/ml) 5,000 units EVERY 12 HOURS SUBQ 04/18/17 00:30 05/18/17 00:29 04/19/17 09:03 Hydromorphone HCl (Dilaudid) 0.5 mg Q4H PRN IVP For Pain 04/18/17 04:00 04/25/17 03:59 04/19/17 09:08 Lorazepam (Ativan 2mg/ml 1ml) 0.5 mg Q6H PRN IV For Anxiety 04/18/17 04:00 04/25/17 03:59 04/19/17 02:49 Metoprolol Tartrate (Lopressor) 12.5 mg Q12HR ORAL 04/18/17 01:00 05/18/17 00:59 04/19/17 08:51 Ondansetron HCl (Zofran) 4 mg Q6H PRN IVP Nausea & Vomiting 04/18/17 04:00 05/18/17 03:59 04/19/17 08:46 Pantoprazole (Protonix) 40 mg DAILY ORAL 04/18/17 09:00 05/18/17 08:59 04/19/17 08:51 Piperacillin Sod/ Tazobactam Sod/ Dextrose (Zosyn/D5W) 110 ml @ 27.5 mls/hr Q8H IVPB 04/18/17 01:00 04/25/17 00:59 04/19/17 08:51 JEAN-PIERRE KAY Apr 19, 2017 10:18
--- NOTE | 2017-04-19 11:25 | Diagnostic Imaging Report ---
Indication: ABD DIST abdominal distention Technique: Supine and upright views of the abdomen Comparison: 04/18/2017 Findings: Considerable gas is borderline dilated small bowel loops. There are air-fluid levels in small bowel and colon. Nasogastric tube is again demonstrated, position improved. Air-fluid levels were not evident previously, but the degree of distention is similar. Impression: Mild dilatation of small bowel loops, unchanged over one day, consistent with small bowel obstruction described on prior CT Improved position of nasogastric tube
--- NOTE | 2017-04-19 11:34 | GI Progress Note ---
Assessment/Plan Problems: (1) Ileus ICD Codes: K56.7 - Ileus, unspecified SNOMED: 611990707 (2) Sigmoid thickening ICD Codes: K63.9 - Disease of intestine, unspecified SNOMED: 606415262 (3) Leukocytosis ICD Codes: D72.829 - Elevated white blood cell count, unspecified SNOMED: 618940444, 439129958 (4) SBO (small bowel obstruction) ICD Codes: K56.69 - Other intestinal obstruction SNOMED: 083300518 Status: unchanged Status Narrative Discussed with Dr. Vega. Assessment/Plan Presentation of segmental SB inflammation and SBO - narrow differential ? Campylobacter ileitis ? Acute Crohn's disease ? mechanical (intussucception, hamartoma) Recommendations surgical recs NPO for bowel rest IV hydration NGT for bowel decompression MRE (If not available, then SBFT) to eval small bowel check stool cultures check CRP/ESR (will check if lab can run Calprotectin) fu stool cultures abx fu labs Subjective Gastrointestinal/Abdominal: Reports: no symptoms Objective Last 24 Hour Vital Signs Date Time Temp Pulse Resp B/P Pulse Ox O2 Delivery O2 Flow Rate FiO2 04/19/17 08:51 102 161/88 04/19/17 08:00 98.2 102 20 161/88 93 Room Air 04/19/17 04:00 98.1 87 20 130/75 Room Air 04/19/17 00:00 98.2 85 20 125/84 Room Air 04/18/17 22:34 98.4 04/18/17 21:05 84 139/85 04/18/17 20:00 98.4 84 20 139/85 92 Room Air 04/18/17 16:00 99.0 95 20 169/83 93 Room Air 04/18/17 11:43 98.1 71 19 135/86 96 Nasal Cannula 2.0 Intake and Output 04/18/17 04/19/17 19:00 07:00 Intake Total 312.65 ml 742.5 ml Output Total 100 ml Balance 212.65 ml 742.5 ml Intake Oral 0 ml IV Total 312.65 ml 742.5 ml Output Urine Total 0 ml Emesis 100 ml # Voids 4 1 Laboratory Tests Test 04/19/17 06:05 White Blood Count 11.2 K/UL (4.8-10.8) H Red Blood Count 4.24 M/UL (4.20-5.40) Hemoglobin 14.2 G/DL (12.0-16.0) Hematocrit 40.7 % (37.0-47.0) Mean Corpuscular Volume 96 FL (80-99) Mean Corpuscular Hemoglobin 33.4 PG (27.0-31.0) H Mean Corpuscular Hemoglobin Concent 34.8 G/DL (32.0-36.0) Red Cell Distribution Width 11.5 % (11.6-14.8) L Platelet Count 198 K/UL (150-450) Mean Platelet Volume 7.0 FL (6.5-10.1) Neutrophils (%) (Auto) 79.4 % (45.0-75.0) H Lymphocytes (%) (Auto) 12.0 % (20.0-45.0) L Monocytes (%) (Auto) 8.3 % (1.0-10.0) Eosinophils (%) (Auto) 0.0 % (0.0-3.0) Basophils (%) (Auto) 0.3 % (0.0-2.0) Erythrocyte Sedimentation Rate 23 MM/HR (0-30) Sodium Level 139 mEQ/L (135-145) Potassium Level 3.5 mEQ/L (3.4-4.9) Chloride Level 101 mEQ/L (98-107) Carbon Dioxide Level 26 mEQ/L (20-30) Anion Gap 12 (5-15) Blood Urea Nitrogen 18 mg/dL (7-23) Creatinine 0.5 mg/dL (0.5-0.9) Estimat Glomerular Filtration Rate > 60 mL/min (>60) Glucose Level 133 mg/dL (74-106) H Lactic Acid Level 1.10 mmol/L (0.66-2.22) Calcium Level 8.3 mg/dL (8.6-10.2) L Total Bilirubin 0.4 mg/dL (0.0-1.2) Aspartate Amino Transf (AST/SGOT) 18 U/L (5-40) Alanine Aminotransferase (ALT/SGPT) 14 U/L (3-33) Alkaline Phosphatase 58 U/L (35-104) C-Reactive Protein, Quantitative 4.5 mg/dL (< 0.5) H Total Protein 6.4 g/dL (6.6-8.7) L Albumin 3.9 g/dL (3.5-5.2) Globulin 2.5 g/dL Albumin/Globulin Ratio 1.5 (1.0-2.7) Height (Feet): 5 Height (Inches): 3.00 Weight (Pounds): 127 General Appearance: no apparent distress, alert, thin Cardiovascular: normal rate Respiratory/Chest: normal breath sounds, no respiratory distress, other Abdominal Exam: normal bowel sounds, other - NGT to LIS Extremities: normal range of motion Yaneth Young N.P. Apr 19, 2017 11:34
--- NOTE | 2017-04-19 11:54 | General Progress Note ---
Assessment/Plan Status: stable Assessment/Plan 1- Acute Abdomen 2- Small Bowel Obstruction (partial vs complete) 2- HTN 3- Gi-DVT prophylaxia Plan: Surgery and GI services Notes are reveiwed. Continue NPO. continue with empirical antibiotic Subjective ROS Limited/Unobtainable: No HEENT: Reports: no symptoms Cardiovascular: Reports: no symptoms Gastrointestinal/Abdominal: Reports: abdominal pain Allergies: Coded Allergies: No Known Allergies (Unverified , 04/17/17) Objective Last 24 Hour Vital Signs Date Time Temp Pulse Resp B/P Pulse Ox O2 Delivery O2 Flow Rate FiO2 04/19/17 09:38 98.2 04/19/17 08:51 102 161/88 04/19/17 08:00 98.2 102 20 161/88 93 Room Air 04/19/17 04:00 98.1 87 20 130/75 Room Air 04/19/17 00:00 98.2 85 20 125/84 Room Air 04/18/17 21:05 84 139/85 04/18/17 20:00 98.4 84 20 139/85 92 Room Air 04/18/17 16:00 99.0 95 20 169/83 93 Room Air Intake and Output 04/18/17 04/19/17 19:00 07:00 Intake Total 312.65 ml 742.5 ml Output Total 100 ml Balance 212.65 ml 742.5 ml Intake Oral 0 ml IV Total 312.65 ml 742.5 ml Output Urine Total 0 ml Emesis 100 ml # Voids 4 1 Laboratory Tests 04/19/17 06:05: White Blood Count 11.2H, Red Blood Count 4.24, Hemoglobin 14.2, Hematocrit 40.7 , Mean Corpuscular Volume 96, Mean Corpuscular Hemoglobin 33.4H, Mean Corpuscular Hemoglobin Concent 34.8, Red Cell Distribution Width 11.5L, Platelet Count 198, Mean Platelet Volume 7.0, Neutrophils (%) (Auto) 79.4H, Lymphocytes (%) (Auto) 12.0L, Monocytes (%) (Auto) 8.3, Eosinophils (%) (Auto) 0.0, Basophils (%) (Auto) 0.3, Erythrocyte Sedimentation Rate 23, Sodium Level 139, Potassium Level 3.5, Chloride Level 101, Carbon Dioxide Level 26, Anion Gap 12, Blood Urea Nitrogen 18, Creatinine 0.5, Estimat Glomerular Filtration Rate > 60, Glucose Level 133H, Lactic Acid Level 1.10, Calcium Level 8.3L, Total Bilirubin 0.4, Aspartate Amino Transf (AST/SGOT) 18, Alanine Aminotransferase (ALT/SGPT) 14, Alkaline Phosphatase 58, C-Reactive Protein, Quantitative 4.5H, Total Protein 6.4L, Albumin 3.9, Globulin 2.5, Albumin/ Globulin Ratio 1.5 Height (Feet): 5 Height (Inches): 3.00 Weight (Pounds): 127 General Appearance: WD/WN EENT: PERRL/EOMI Neck: supple Cardiovascular: normal rate Respiratory/Chest: lungs clear Abdomen: distended, guarding Extremities: non-tender Neurologic: director patient financial services II-XII grossly normal Marilu Caldwell MD Apr 19, 2017 11:54
--- NOTE | 2017-04-19 11:55 | History & Physical ---
History and Physical History & Physicial A second HP is Dictated. Confirmation # [id number] Marilu Caldwell MD Apr 19, 2017 11:55
--- NOTE | 2017-04-19 12:28 | General Surgery Progress Note ---
General Surgery-Progress Note Subjective Symptoms: improved Additional Comments patient seen and examined at bedside. no acute events. states pain improved. mild nausea. NG tube output improved. no flatus or BM since admission. Objective Last 24 Hour Vital Signs Date Time Temp Pulse Resp B/P Pulse Ox O2 Delivery O2 Flow Rate FiO2 04/19/17 09:38 98.2 04/19/17 08:51 102 161/88 04/19/17 08:00 98.2 102 20 161/88 93 Room Air 04/19/17 04:00 98.1 87 20 130/75 Room Air 04/19/17 00:00 98.2 85 20 125/84 Room Air 04/18/17 21:05 84 139/85 04/18/17 20:00 98.4 84 20 139/85 92 Room Air 04/18/17 16:00 99.0 95 20 169/83 93 Room Air I&O Intake and Output 04/18/17 04/19/17 19:00 07:00 Intake Total 312.65 ml 742.5 ml Output Total 100 ml Balance 212.65 ml 742.5 ml Intake Oral 0 ml IV Total 312.65 ml 742.5 ml Output Urine Total 0 ml Emesis 100 ml # Voids 4 1 Cardiovascular: RSR Respiratory: clear Abdomen: soft, flat, non-tender, absent bowel sounds Laboratory Tests Test 04/19/17 06:05 White Blood Count 11.2 K/UL (4.8-10.8) H Red Blood Count 4.24 M/UL (4.20-5.40) Hemoglobin 14.2 G/DL (12.0-16.0) Hematocrit 40.7 % (37.0-47.0) Mean Corpuscular Volume 96 FL (80-99) Mean Corpuscular Hemoglobin 33.4 PG (27.0-31.0) H Mean Corpuscular Hemoglobin Concent 34.8 G/DL (32.0-36.0) Red Cell Distribution Width 11.5 % (11.6-14.8) L Platelet Count 198 K/UL (150-450) Mean Platelet Volume 7.0 FL (6.5-10.1) Neutrophils (%) (Auto) 79.4 % (45.0-75.0) H Lymphocytes (%) (Auto) 12.0 % (20.0-45.0) L Monocytes (%) (Auto) 8.3 % (1.0-10.0) Eosinophils (%) (Auto) 0.0 % (0.0-3.0) Basophils (%) (Auto) 0.3 % (0.0-2.0) Erythrocyte Sedimentation Rate 23 MM/HR (0-30) Sodium Level 139 mEQ/L (135-145) Potassium Level 3.5 mEQ/L (3.4-4.9) Chloride Level 101 mEQ/L (98-107) Carbon Dioxide Level 26 mEQ/L (20-30) Anion Gap 12 (5-15) Blood Urea Nitrogen 18 mg/dL (7-23) Creatinine 0.5 mg/dL (0.5-0.9) Estimat Glomerular Filtration Rate > 60 mL/min (>60) Glucose Level 133 mg/dL (74-106) H Lactic Acid Level 1.10 mmol/L (0.66-2.22) Calcium Level 8.3 mg/dL (8.6-10.2) L Total Bilirubin 0.4 mg/dL (0.0-1.2) Aspartate Amino Transf (AST/SGOT) 18 U/L (5-40) Alanine Aminotransferase (ALT/SGPT) 14 U/L (3-33) Alkaline Phosphatase 58 U/L (35-104) C-Reactive Protein, Quantitative 4.5 mg/dL (< 0.5) H Total Protein 6.4 g/dL (6.6-8.7) L Albumin 3.9 g/dL (3.5-5.2) Globulin 2.5 g/dL Albumin/Globulin Ratio 1.5 (1.0-2.7) Plan Problems: (1) SBO (small bowel obstruction) Assessment & Plan: 66F with no prior abdominal surgery who presents with abdominal pain, nausea, and CT scan findings consistent with possible SBO. Thickening of bowel also noted. Afebrile, HD stable, leukocytosis improved. lactate improved. Today pain improved. Exam benign. NG tube output was initially bilious but now just small amounts of clear gastric contents. Unsure of etiology possible SBO for congenital adhesion vs infectious? Fortunately improving with bowel rest NPO with IV fluids NG tube to wall suction Will monitor abdominal exam Improving with bowel rest. If continues to improve will hopefully resolve soon. If worsening will have to consider surgery. Once resolved will also need to further work up etiology (will consider small bowel follow through) Ozzy Yoon Apr 19, 2017 12:28
--- NOTE | 2017-04-19 15:45 | History and Physical Report ---
DATE OF ADMISSION: 04/17/2017 SOURCE OF INFORMATION: The patient and EMR. HISTORY OF PRESENT ILLNESS: The patient is a pleasant 66-year-old white female. The patient is complaining of abdominal pain and bloating for the last three to four days. The patient reported it did get worse and it localized now to the right lower quadrant. Negative for bowel movement. Positive for passing gas. Positive for vomitus x1 bilious content. Negative for diarrhea. REVIEW OF SYSTEMS: All 12 points of review of systems are reviewed. Pertinent positives and negatives reviewed as above. PAST MEDICAL HISTORY: Hypertension. MEDICATIONS: Hospital medications including, but not limited to Zosyn, Zofran, Dilaudid p.r.n. pain management, heparin subcutaneous, and metoprolol. ALLERGIES: NKDA. SOCIAL HISTORY: Negative for history of illicit drug abuse, smoking, or alcohol abuse. The patient is not and no children. The patient lives by herself. PAST SURGICAL HISTORY: Denies. PHYSICAL EXAMINATION: VITAL SIGNS: Blood pressure 130/80, temperature 98.2, pulse oximetry 98% on room air, and pulse rate 92. HEAD AND NECK: Atraumatic and normocephalic. CHEST: Clear to auscultation. HEART: S1 and S2. Regular rate and rhythm. ABDOMEN: Tenderness all over the abdomen. Negative for rebound tenderness. NEUROLOGIC: The patient is awake, alert, and oriented x3. MUSCULOSKELETAL: No gross focal motor deficit. LABORATORY AND DIAGNOSTIC DATA: Results dated 04/17/2017, WBC 13.9, hemoglobin 13.9, and platelets 222,000. Sodium 134, potassium 4.2, BUN 21, and creatinine 0.6. Imaging, CT scan of the abdomen dated 04/17/2017 reviewed. ASSESSMENT: 1. Acute abdomen. 2. Partial versus complete small bowel obstruction. 3. Hypertension. 4. Systemic inflammatory response syndrome. 5. Gastrointestinal and deep vein thrombosis prophylaxis. PLAN OF CARE: Surgeon Dr. Austin and GI Dr. Vega, have been consulted and notified. COMMENT: This is a duplicate dictation. The initial dictation dated 04/18/2017 at 8 a.m. cannot be retrieved. Therefore, a second dictation is made. Obviously, the time of this dictation does not reflect the time of encounter, which happened on 04/18/2017 8 a.m. Marliu Caldwell M.D. DR: BRENDEN JOB#: [id number] CC:
[2017-04-20] VITALS (7 sets, daily range): BP systolic 129–179; BP diastolic 69–98
[2017-04-20] MEDS: Piperacillin/Tazobactam 3.375 GM in D5W 110 ML IVPB SCH ×3 (01:52→17:01)
[2017-04-20] MEDS: D5 1/2NS w/KCl 20mEq 1,000 ML IV SCH ×2 (01:52→17:00)
[2017-04-20] MEDS: LORazepam Inj 2mg/ml 1ml IV PRN ×3 (03:21→21:54)
[2017-04-20 06:41] LABS: BASOPHILS % (AUTO) 0.4 % (0.0-2.0); EOSINOPHILS % (AUTO) 0.1 % (0.0-3.0); LYMPHOCYTES % (AUTO) 11.4 % (20.0-45.0); MEAN CORPUSCULAR HEMOGLOBIN 33.5 PG (27.0-31.0); MEAN CORPUSCULAR HGB CONC 34.6 G/DL (32.0-36.0); MEAN CORPUSCULAR VOLUME 97 FL (80-99); MEAN PLATELET VOLUME 6.7 FL (6.5-10.1); MONOCYTES % (AUTO) 7.5 % (1.0-10.0); NEUTROPHILS % (AUTO) 80.6 % (45.0-75.0); PLATELET COUNT 187 K/UL (150-450); RED CELL DISTRIBUTION WIDTH 11.4 % (11.6-14.8); WHITE BLOOD COUNT 11.6 K/UL (4.8-10.8)
[2017-04-20 07:34] LABS: ALANINE AMINOTRANSFERASE 12 U/L (3-33); ALBUMIN/GLOBULIN RATIO 1.3 (1.0-2.7); ANION GAP 13 (5-15); ASPARTATE AMINO TRANSFERASE 16 U/L (5-40); CALCIUM 8.4 mg/dL (8.6-10.2); CARBON DIOXIDE 26 mEQ/L (20-30); CHLORIDE 101 mEQ/L (98-107); CREATININE 0.5 mg/dL (0.5-0.9); GLOMERULAR FILTRATION RATE > 60 mL/min (>60); HEMOLYSIS 3; POTASSIUM 3.5 mEQ/L (3.4-4.9); SODIUM 140 mEQ/L (135-145); TOTAL PROTEIN 6.2 g/dL (6.6-8.7)
[2017-04-20] MEDS: Metoprolol Tartrate 12.5mg TAB ORAL SCH (09:00)
--- NOTE | 2017-04-20 09:08 | General Progress Note ---
Assessment/Plan Status: stable Assessment/Plan 1- Acute Abdomen 2- Small Bowel Obstruction (partial vs complete) 2- HTN 3- Gi-DVT prophylaxia Plan: Surgery and GI services Notes are reviewed. Continue NPO. continue with empirical antibiotic No BM or Flatus yet Subjective ROS Limited/Unobtainable: No Constitutional: Reports: no symptoms HEENT: Reports: no symptoms Cardiovascular: Reports: no symptoms Gastrointestinal/Abdominal: Reports: abdominal pain Allergies: Coded Allergies: No Known Allergies (Unverified , 04/17/17) Objective Last 24 Hour Vital Signs Date Time Temp Pulse Resp B/P Pulse Ox O2 Delivery O2 Flow Rate FiO2 04/20/17 08:04 97.7 109 19 161/82 95 Room Air 04/20/17 03:51 97.8 76 18 130/74 91 Room Air 04/20/17 00:00 97.3 76 20 129/69 94 Room Air 2.0 04/19/17 22:58 97.3 04/19/17 21:05 98 142/80 04/19/17 20:00 97.3 98 20 142/80 95 Room Air 2.0 04/19/17 18:25 98.4 92 18 140/76 96 Room Air 04/19/17 16:00 98.4 103 16 159/89 92 04/19/17 12:00 98.0 96 20 142/77 Room Air Intake and Output 04/19/17 04/20/17 19:00 07:00 Intake Total 310.0 ml 610.0 ml Output Total 200 ml Balance 110.0 ml 610.0 ml IV Total 310.0 ml 610.0 ml Other 200 ml # Voids 3 5 Laboratory Tests 04/20/17 05:40: White Blood Count 11.6H, Red Blood Count 4.00L, Hemoglobin 13.4, Hematocrit 38.7 , Mean Corpuscular Volume 97, Mean Corpuscular Hemoglobin 33.5H, Mean Corpuscular Hemoglobin Concent 34.6, Red Cell Distribution Width 11.4L, Platelet Count 187, Mean Platelet Volume 6.7, Neutrophils (%) (Auto) 80.6H, Lymphocytes (%) (Auto) 11.4L, Monocytes (%) (Auto) 7.5, Eosinophils (%) (Auto) 0.1, Basophils (%) (Auto) 0.4, Sodium Level 140, Potassium Level 3.5, Chloride Level 101, Carbon Dioxide Level 26, Anion Gap 13, Blood Urea Nitrogen 17, Creatinine 0.5, Estimat Glomerular Filtration Rate > 60, Glucose Level 161H, Calcium Level 8.4L, Total Bilirubin 0.4, Aspartate Amino Transf (AST/SGOT) 16, Alanine Aminotransferase (ALT/SGPT) 12, Alkaline Phosphatase 67, Total Protein 6.2L, Albumin 3.6, Globulin 2.6, Albumin/Globulin Ratio 1.3 Height (Feet): 5 Height (Inches): 3.00 Weight (Pounds): 127 General Appearance: WD/WN, alert EENT: PERRL/EOMI Neck: supple Cardiovascular: normal rate Respiratory/Chest: lungs clear Abdomen: distended, guarding Extremities: non-tender 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
[2017-04-20] MEDS: Heparin 5000 units/ml inj SUBQ SCH ×2 (09:35→21:19)
--- NOTE | 2017-04-20 09:53 | General Surgery Progress Note ---
General Surgery-Progress Note Subjective Symptoms: improved Additional Comments patient seen and examined at bedside. doing well. no acute events. states that she has some nausea with "retching" this morning. passed flatus this AM. NG tube output minimal. Objective Last 24 Hour Vital Signs Date Time Temp Pulse Resp B/P Pulse Ox O2 Delivery O2 Flow Rate FiO2 04/20/17 08:04 97.7 109 19 161/82 95 Room Air 04/20/17 03:51 97.8 76 18 130/74 91 Room Air 04/20/17 00:00 97.3 76 20 129/69 94 Room Air 2.0 04/19/17 22:58 97.3 04/19/17 21:05 98 142/80 04/19/17 20:00 97.3 98 20 142/80 95 Room Air 2.0 04/19/17 18:25 98.4 92 18 140/76 96 Room Air 04/19/17 16:00 98.4 103 16 159/89 92 04/19/17 12:00 98.0 96 20 142/77 Room Air I&O Intake and Output 04/19/17 04/20/17 19:00 07:00 Intake Total 310.0 ml 610.0 ml Output Total 200 ml Balance 110.0 ml 610.0 ml IV Total 310.0 ml 610.0 ml Other 200 ml # Voids 3 5 Cardiovascular: RSR Respiratory: clear Abdomen: soft, non-tender, absent bowel sounds, other - soft, mild distention, minimal tenderness, decreased bowel sounds. Extremities: no tenderness Laboratory Tests Test 04/20/17 05:40 White Blood Count 11.6 K/UL (4.8-10.8) H Red Blood Count 4.00 M/UL (4.20-5.40) L Hemoglobin 13.4 G/DL (12.0-16.0) Hematocrit 38.7 % (37.0-47.0) Mean Corpuscular Volume 97 FL (80-99) Mean Corpuscular Hemoglobin 33.5 PG (27.0-31.0) H Mean Corpuscular Hemoglobin Concent 34.6 G/DL (32.0-36.0) Red Cell Distribution Width 11.4 % (11.6-14.8) L Platelet Count 187 K/UL (150-450) Mean Platelet Volume 6.7 FL (6.5-10.1) Neutrophils (%) (Auto) 80.6 % (45.0-75.0) H Lymphocytes (%) (Auto) 11.4 % (20.0-45.0) L Monocytes (%) (Auto) 7.5 % (1.0-10.0) Eosinophils (%) (Auto) 0.1 % (0.0-3.0) Basophils (%) (Auto) 0.4 % (0.0-2.0) Sodium Level 140 mEQ/L (135-145) Potassium Level 3.5 mEQ/L (3.4-4.9) Chloride Level 101 mEQ/L (98-107) Carbon Dioxide Level 26 mEQ/L (20-30) Anion Gap 13 (5-15) Blood Urea Nitrogen 17 mg/dL (7-23) Creatinine 0.5 mg/dL (0.5-0.9) Estimat Glomerular Filtration Rate > 60 mL/min (>60) Glucose Level 161 mg/dL (74-106) H Calcium Level 8.4 mg/dL (8.6-10.2) L Total Bilirubin 0.4 mg/dL (0.0-1.2) Aspartate Amino Transf (AST/SGOT) 16 U/L (5-40) Alanine Aminotransferase (ALT/SGPT) 12 U/L (3-33) Alkaline Phosphatase 67 U/L (35-104) Total Protein 6.2 g/dL (6.6-8.7) L Albumin 3.6 g/dL (3.5-5.2) Globulin 2.6 g/dL Albumin/Globulin Ratio 1.3 (1.0-2.7) Plan Problems: (1) SBO (small bowel obstruction) Assessment & Plan: 66F with no prior abdominal surgery who presents with abdominal pain, nausea, and CT scan findings consistent with possible SBO. Thickening of bowel also noted. Afebrile, HD stable, leukocytosis improved. lactate improved. Today pain improved. Exam benign. NG tube output was initially bilious but now just small amounts of clear gastric contents. Unsure of etiology possible SBO for congenital adhesion vs infectious? Fortunately improving with bowel rest NPO with IV fluids NG tube to wall suction Will monitor abdominal exam Improving with bowel rest. If continues to improve will hopefully resolve soon. If worsening will have to consider surgery. Once resolved will also need to further work up etiology (will consider small bowel follow through) Ozzy Ospina Apr 20, 2017 09:53
[2017-04-20] MEDS: Pantoprazole Inj IVP SCH (11:05)
[2017-04-20] MEDS ORDERED: Metoprolol Tartrate 12.5mg TAB NG ONE (12:30)
--- NOTE | 2017-04-20 13:54 | GI Progress Note ---
Assessment/Plan Problems: (1) Ileus ICD Codes: K56.7 - Ileus, unspecified SNOMED: 083702631 (2) Sigmoid thickening ICD Codes: K63.9 - Disease of intestine, unspecified SNOMED: 036759177 (3) Leukocytosis ICD Codes: D72.829 - Elevated white blood cell count, unspecified SNOMED: 304817919, 557453573 (4) SBO (small bowel obstruction) ICD Codes: K56.69 - Other intestinal obstruction SNOMED: 110477896 Status: unchanged Status Narrative Discussed with Dr. Vega. Assessment/Plan Presentation of segmental SB inflammation and SBO - narrow differential ? Campylobacter ileitis ? Acute Crohn's disease ? mechanical (intussucception, hamartoma) No BM with small amounts of flatus Recommendations surgical recs NPO for bowel rest IV hydration NGT for bowel decompression consider SBFT fu stool cultures check CRP/ESR fu stool cultures abx prn imaging studies fu labs Subjective Gastrointestinal/Abdominal: Reports: abdomen distended Subjective min amount of flatus Objective Last 24 Hour Vital Signs Date Time Temp Pulse Resp B/P Pulse Ox O2 Delivery O2 Flow Rate FiO2 04/20/17 12:09 107 165/86 04/20/17 11:44 97.1 106 20 179/98 93 Room Air 04/20/17 08:04 97.7 109 19 161/82 95 Room Air 04/20/17 03:51 97.8 76 18 130/74 91 Room Air 04/20/17 00:00 97.3 76 20 129/69 94 Room Air 2.0 04/19/17 22:58 97.3 04/19/17 21:05 98 142/80 04/19/17 20:00 97.3 98 20 142/80 95 Room Air 2.0 04/19/17 18:25 98.4 92 18 140/76 96 Room Air 04/19/17 16:00 98.4 103 16 159/89 92 Intake and Output 04/19/17 04/20/17 19:00 07:00 Intake Total 310.0 ml 610.0 ml Output Total 200 ml Balance 110.0 ml 610.0 ml IV Total 310.0 ml 610.0 ml Other 200 ml # Voids 3 5 Laboratory Tests Test 04/20/17 05:40 White Blood Count 11.6 K/UL (4.8-10.8) H Red Blood Count 4.00 M/UL (4.20-5.40) L Hemoglobin 13.4 G/DL (12.0-16.0) Hematocrit 38.7 % (37.0-47.0) Mean Corpuscular Volume 97 FL (80-99) Mean Corpuscular Hemoglobin 33.5 PG (27.0-31.0) H Mean Corpuscular Hemoglobin Concent 34.6 G/DL (32.0-36.0) Red Cell Distribution Width 11.4 % (11.6-14.8) L Platelet Count 187 K/UL (150-450) Mean Platelet Volume 6.7 FL (6.5-10.1) Neutrophils (%) (Auto) 80.6 % (45.0-75.0) H Lymphocytes (%) (Auto) 11.4 % (20.0-45.0) L Monocytes (%) (Auto) 7.5 % (1.0-10.0) Eosinophils (%) (Auto) 0.1 % (0.0-3.0) Basophils (%) (Auto) 0.4 % (0.0-2.0) Sodium Level 140 mEQ/L (135-145) Potassium Level 3.5 mEQ/L (3.4-4.9) Chloride Level 101 mEQ/L (98-107) Carbon Dioxide Level 26 mEQ/L (20-30) Anion Gap 13 (5-15) Blood Urea Nitrogen 17 mg/dL (7-23) Creatinine 0.5 mg/dL (0.5-0.9) Estimat Glomerular Filtration Rate > 60 mL/min (>60) Glucose Level 161 mg/dL (74-106) H Calcium Level 8.4 mg/dL (8.6-10.2) L Total Bilirubin 0.4 mg/dL (0.0-1.2) Aspartate Amino Transf (AST/SGOT) 16 U/L (5-40) Alanine Aminotransferase (ALT/SGPT) 12 U/L (3-33) Alkaline Phosphatase 67 U/L (35-104) Total Protein 6.2 g/dL (6.6-8.7) L Albumin 3.6 g/dL (3.5-5.2) Globulin 2.6 g/dL Albumin/Globulin Ratio 1.3 (1.0-2.7) Height (Feet): 5 Height (Inches): 3.00 Weight (Pounds): 127 General Appearance: no apparent distress, alert Cardiovascular: normal rate Respiratory/Chest: normal breath sounds, no respiratory distress Abdominal Exam: normal bowel sounds, non tender, soft Extremities: normal range of motion Yaneth Young N.P. Apr 20, 2017 13:54
--- NOTE | 2017-04-20 14:24 | Infectious Diseases Prog Note ---
Assessment/Plan Assessment/Plan ASSESSMENT: 66 y/o female with: // Distal small bowel process r/o infection - stool studies pending - UGIS/SBFT: pending - CT A/P: Moderately distended small bowel loops in the lower abdomen/pelvis , with an apparent transition point in the right lower quadrant and midpelvis. Moderate bowel wall thickening and hyperemia noted involving several loops. However, a short segment of small bowel in the midpelvis exhibits poor wall enhancement with surrounding mesenteric stranding. Closed loop obstruction and bowel ischemia should be considered. Small volume ascites. No evidence of free intraperitoneal air or loculated fluid collection. // Leukocytosis - improved, afebrile // Possible hepatic mass 2cm // Diverticulosis // Elevated CRP // NKDA // Full Code PLAN: - continue empiric zosyn d# 3 - f/u cultures - f/u UGIS/SBFT - monitor CBC, temperatures - monitor BMP - bowel rest - GI, surgery following Subjective Allergies: Coded Allergies: No Known Allergies (Unverified , 04/17/17) Subjective remains afebrile. no new complaint passing flatus Objective Vital Signs Last 24 Hour Vital Signs Date Time Temp Pulse Resp B/P Pulse Ox O2 Delivery O2 Flow Rate FiO2 04/20/17 12:09 107 165/86 04/20/17 11:44 97.1 106 20 179/98 93 Room Air 04/20/17 08:04 97.7 109 19 161/82 95 Room Air 04/20/17 03:51 97.8 76 18 130/74 91 Room Air 04/20/17 00:00 97.3 76 20 129/69 94 Room Air 2.0 04/19/17 22:58 97.3 04/19/17 21:05 98 142/80 04/19/17 20:00 97.3 98 20 142/80 95 Room Air 2.0 04/19/17 18:25 98.4 92 18 140/76 96 Room Air 04/19/17 16:00 98.4 103 16 159/89 92 Height (Feet): 5 Height (Inches): 3.00 Weight (Pounds): 127 General Appearance: no acute distress Respiratory/Chest: no respiratory distress Cardiovascular: normal rate, regular rhythm Abdomen: normal bowel sounds, soft, non tender, non distended Laboratory Tests Test 04/20/17 05:40 White Blood Count 11.6 K/UL (4.8-10.8) H Red Blood Count 4.00 M/UL (4.20-5.40) L Hemoglobin 13.4 G/DL (12.0-16.0) Hematocrit 38.7 % (37.0-47.0) Mean Corpuscular Volume 97 FL (80-99) Mean Corpuscular Hemoglobin 33.5 PG (27.0-31.0) H Mean Corpuscular Hemoglobin Concent 34.6 G/DL (32.0-36.0) Red Cell Distribution Width 11.4 % (11.6-14.8) L Platelet Count 187 K/UL (150-450) Mean Platelet Volume 6.7 FL (6.5-10.1) Neutrophils (%) (Auto) 80.6 % (45.0-75.0) H Lymphocytes (%) (Auto) 11.4 % (20.0-45.0) L Monocytes (%) (Auto) 7.5 % (1.0-10.0) Eosinophils (%) (Auto) 0.1 % (0.0-3.0) Basophils (%) (Auto) 0.4 % (0.0-2.0) Sodium Level 140 mEQ/L (135-145) Potassium Level 3.5 mEQ/L (3.4-4.9) Chloride Level 101 mEQ/L (98-107) Carbon Dioxide Level 26 mEQ/L (20-30) Anion Gap 13 (5-15) Blood Urea Nitrogen 17 mg/dL (7-23) Creatinine 0.5 mg/dL (0.5-0.9) Estimat Glomerular Filtration Rate > 60 mL/min (>60) Glucose Level 161 mg/dL (74-106) H Calcium Level 8.4 mg/dL (8.6-10.2) L Total Bilirubin 0.4 mg/dL (0.0-1.2) Aspartate Amino Transf (AST/SGOT) 16 U/L (5-40) Alanine Aminotransferase (ALT/SGPT) 12 U/L (3-33) Alkaline Phosphatase 67 U/L (35-104) Total Protein 6.2 g/dL (6.6-8.7) L Albumin 3.6 g/dL (3.5-5.2) Globulin 2.6 g/dL Albumin/Globulin Ratio 1.3 (1.0-2.7) Current Medications Medications (Trade) Dose Ordered Sig/Renuka Route PRN Reason Start Time Stop Time Status Last Admin Dose Admin Atorvastatin Calcium (Lipitor) 40 mg BEDTIME ORAL 04/18/17 21:00 05/18/17 20:59 04/19/17 21:05 Dextrose/ Electrolytes (D5 0.45%NS W/ KCl 20mEq) 1,000 ml @ 100 mls/hr Q10H IV 04/18/17 14:00 05/18/17 13:59 04/20/17 01:52 Diphenhydramine HCl 25 mg 25 mg Q6H PRN IVP Itching 04/18/17 11:00 05/18/17 10:59 04/18/17 11:11 Heparin Sodium (Porcine) (Heparin 5000 units/ml) 5,000 units EVERY 12 HOURS SUBQ 04/18/17 00:30 05/18/17 00:29 04/20/17 09:35 Hydromorphone HCl (Dilaudid) 0.5 mg Q4H PRN IVP For Pain 04/18/17 04:00 04/25/17 03:59 04/19/17 22:28 Lorazepam (Ativan 2mg/ml 1ml) 0.5 mg Q6H PRN IV For Anxiety 04/18/17 04:00 04/25/17 03:59 04/20/17 03:21 Metoprolol Tartrate (Lopressor) 12.5 mg Q12HR ORAL 04/18/17 01:00 05/18/17 00:59 04/19/17 21:05 Ondansetron HCl (Zofran) 4 mg Q6H PRN IVP Nausea & Vomiting 04/18/17 04:00 05/18/17 03:59 04/20/17 11:05 Pantoprazole (Protonix) 40 mg DAILY IVP 04/20/17 11:00 05/20/17 10:59 04/20/17 11:05 Piperacillin Sod/ Tazobactam Sod/ Dextrose (Zosyn/D5W) 110 ml @ 27.5 mls/hr Q8H IVPB 04/18/17 01:00 04/25/17 00:59 04/20/17 09:34 JEAN-PIERRE KAY Apr 20, 2017 14:24
[2017-04-20] MEDS ORDERED: Metoprolol 25mg tab NG ONE (17:30)
[2017-04-20 18:00] LABS: TROPONIN I < 0.30 ng/mL (<=0.30)
[2017-04-20] MEDS: Metoprolol Tartrate 12.5mg TAB NG SCH (20:47)
[2017-04-20] MEDS ORDERED: Zolpidem 5mg tab ORAL PRN (21:15)
[2017-04-21] VITALS (8 sets, daily range): BP systolic 122–158; BP diastolic 61–83
[2017-04-21] MEDS: Piperacillin/Tazobactam 3.375 GM in D5W 110 ML IVPB SCH ×3 (00:51→18:10)
[2017-04-21] MEDS: Hydromorphone 0.5mg/0.5ml inj IVP PRN ×3 (00:55→19:11)
[2017-04-21] MEDS: D5 1/2NS w/KCl 20mEq 1,000 ML IV SCH ×3 (03:34→22:24)
[2017-04-21 07:28] LABS: BASOPHILS % (AUTO) 0.5 % (0.0-2.0); EOSINOPHILS % (AUTO) 0.1 % (0.0-3.0); LYMPHOCYTES % (AUTO) 10.3 % (20.0-45.0); MEAN CORPUSCULAR HEMOGLOBIN 32.7 PG (27.0-31.0); MEAN CORPUSCULAR HGB CONC 33.8 G/DL (32.0-36.0); MEAN CORPUSCULAR VOLUME 97 FL (80-99); MEAN PLATELET VOLUME 6.5 FL (6.5-10.1); MONOCYTES % (AUTO) 8.8 % (1.0-10.0); NEUTROPHILS % (AUTO) 80.3 % (45.0-75.0); PLATELET COUNT 206 K/UL (150-450); RED BLOOD COUNT 4.06 M/UL (4.20-5.40); RED CELL DISTRIBUTION WIDTH 11.3 % (11.6-14.8); WHITE BLOOD COUNT 12.4 K/UL (4.8-10.8)
[2017-04-21 07:32] LABS: ALANINE AMINOTRANSFERASE 12 U/L (3-33); ALBUMIN/GLOBULIN RATIO 1.1 (1.0-2.7); ANION GAP 11 (5-15); ASPARTATE AMINO TRANSFERASE 19 U/L (5-40); CALCIUM 8.4 mg/dL (8.6-10.2); CARBON DIOXIDE 27 mEQ/L (20-30); CHLORIDE 98 mEQ/L (98-107); CREATININE 0.5 mg/dL (0.5-0.9); GLOMERULAR FILTRATION RATE > 60 mL/min (>60); HEMOLYSIS 2; POTASSIUM 4.1 mEQ/L (3.4-4.9); SODIUM 136 mEQ/L (135-145)
[2017-04-21] MEDS: Metoprolol Tartrate 12.5mg TAB NG SCH ×2 (08:37→21:46)
[2017-04-21] MEDS: Triamterene/Hctz 37.5/25 cap ORAL SCH (08:37)
--- NOTE | 2017-04-21 08:42 | Diagnostic Imaging Report ---
Indications: Abdominal distention Technique: Portable supine AP abdomen Findings: Comparison: 04/19/17 Gaseous distention of small bowel persists, decreased. Loops now demonstrating more stacked appearance. Nasogastric tube remains within the stomach. Paucity of colonic gas persists. No other interval change IMPRESSION: Decrease in degree of small bowel dilation with reorientation of small bowel loops as described. Small bowel obstruction continues to be a consideration.
[2017-04-21] MEDS: Pantoprazole Inj IVP SCH (08:49)
[2017-04-21] MEDS: Heparin 5000 units/ml inj SUBQ SCH ×2 (08:50→21:00)
--- NOTE | 2017-04-21 08:53 | General Progress Note ---
Assessment/Plan Status: stable Assessment/Plan 1- Acute Abdomen 2- Small Bowel Obstruction (partial vs complete) 3- HTN 4- Gi-DVT prophylaxia Plan: Surgery and GI services Notes are reviewed. Continue NPO. continue with empirical antibiotic positive for BM continue with conservative management Subjective ROS Limited/Unobtainable: No Constitutional: Reports: no symptoms HEENT: Reports: no symptoms Cardiovascular: Reports: no symptoms Gastrointestinal/Abdominal: Reports: abdominal pain - relatively improving Allergies: Coded Allergies: No Known Allergies (Unverified , 04/17/17) Objective Last 24 Hour Vital Signs Date Time Temp Pulse Resp B/P Pulse Ox O2 Delivery O2 Flow Rate FiO2 04/21/17 08:37 91 141/77 04/21/17 08:00 98.1 91 20 141/77 93 Room Air 04/21/17 04:00 98.2 86 19 131/71 91 Room Air 04/21/17 00:00 98.1 84 18 143/83 95 Room Air 04/20/17 20:47 98 171/95 04/20/17 19:53 97.7 98 20 171/95 94 Room Air 04/20/17 18:40 108 150/94 04/20/17 17:37 110 164/100 04/20/17 16:15 98.6 103 21 169/98 97 Room Air 04/20/17 12:09 107 165/86 04/20/17 11:44 97.1 106 20 179/98 93 Room Air Intake and Output 04/20/17 04/21/17 19:00 07:00 Intake Total 155 ml 1265.0 ml Output Total 275 ml 275 ml Balance -120 ml 990.0 ml IV Total 155 ml 1265.0 ml Gastric Drainage Total 275 ml Other 275 ml # Voids 2 2 Laboratory Tests 04/20/17 15:10: Stool Occult Blood [Pending] 04/21/17 06:10: White Blood Count 12.4H, Red Blood Count 4.06L, Hemoglobin 13.3, Hematocrit 39.2 , Mean Corpuscular Volume 97, Mean Corpuscular Hemoglobin 32.7H, Mean Corpuscular Hemoglobin Concent 33.8, Red Cell Distribution Width 11.3L, Platelet Count 206, Mean Platelet Volume 6.5, Neutrophils (%) (Auto) 80.3H, Lymphocytes (%) (Auto) 10.3L, Monocytes (%) (Auto) 8.8, Eosinophils (%) (Auto) 0.1, Basophils (%) (Auto) 0.5, Sodium Level 136, Potassium Level 4.1, Chloride Level 98, Carbon Dioxide Level 27, Anion Gap 11, Blood Urea Nitrogen 18, Creatinine 0.5, Estimat Glomerular Filtration Rate > 60, Glucose Level 178H, Calcium Level 8.4L, Total Bilirubin 0.3, Aspartate Amino Transf (AST/SGOT) 19, Alanine Aminotransferase (ALT/SGPT) 12, Alkaline Phosphatase 58, Total Protein 6.0L, Albumin 3.2L, Globulin 2.8, Albumin/Globulin Ratio 1.1 Height (Feet): 5 Height (Inches): 3.00 Weight (Pounds): 127 General Appearance: WD/WN EENT: PERRL/EOMI Neck: supple Cardiovascular: normal rate Respiratory/Chest: lungs clear Abdomen: guarding - improving Extremities: non-tender 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
[2017-04-21] MEDS ORDERED: LORazepam Inj 2mg/ml 1ml IV ONE (11:00)
--- NOTE | 2017-04-21 12:08 | GI Progress Note ---
Assessment/Plan Problems: (1) Ileus ICD Codes: K56.7 - Ileus, unspecified SNOMED: 419193289 (2) Sigmoid thickening ICD Codes: K63.9 - Disease of intestine, unspecified SNOMED: 629895994 (3) Leukocytosis ICD Codes: D72.829 - Elevated white blood cell count, unspecified SNOMED: 051226531, 539270879 (4) SBO (small bowel obstruction) ICD Codes: K56.69 - Other intestinal obstruction SNOMED: 141872800 Status: stable, progressing Status Narrative Discussed with Dr. Vega. Assessment/Plan Presentation of segmental SB inflammation and SBO - narrow differential BM x1 yesterday >> OB stool negative Recommendations colonoscopy to scheduled this Wednesday surgical recs >> NGT reinserted due to dislodgement. fu SBFT NPO for bowel rest IV hydration NGT for bowel decompression abx prn imaging studies fu labs Subjective Subjective BM x 1 yesterday abdominal distention better Objective Last 24 Hour Vital Signs Date Time Temp Pulse Resp B/P Pulse Ox O2 Delivery O2 Flow Rate FiO2 04/21/17 08:37 91 141/77 04/21/17 08:00 98.1 91 20 141/77 93 Room Air 04/21/17 04:00 98.2 86 19 131/71 91 Room Air 04/21/17 00:00 98.1 84 18 143/83 95 Room Air 04/20/17 20:47 98 171/95 04/20/17 19:53 97.7 98 20 171/95 94 Room Air 04/20/17 18:40 108 150/94 04/20/17 17:37 110 164/100 04/20/17 16:15 98.6 103 21 169/98 97 Room Air 04/20/17 12:09 107 165/86 Intake and Output 04/20/17 04/21/17 19:00 07:00 Intake Total 155 ml 1265.0 ml Output Total 275 ml 275 ml Balance -120 ml 990.0 ml IV Total 155 ml 1265.0 ml Gastric Drainage Total 275 ml Other 275 ml # Voids 2 2 Laboratory Tests Test 04/20/17 15:10 04/21/17 06:10 Stool Occult Blood Negative (NEGATIVE) White Blood Count 12.4 K/UL (4.8-10.8) H Red Blood Count 4.06 M/UL (4.20-5.40) L Hemoglobin 13.3 G/DL (12.0-16.0) Hematocrit 39.2 % (37.0-47.0) Mean Corpuscular Volume 97 FL (80-99) Mean Corpuscular Hemoglobin 32.7 PG (27.0-31.0) H Mean Corpuscular Hemoglobin Concent 33.8 G/DL (32.0-36.0) Red Cell Distribution Width 11.3 % (11.6-14.8) L Platelet Count 206 K/UL (150-450) Mean Platelet Volume 6.5 FL (6.5-10.1) Neutrophils (%) (Auto) 80.3 % (45.0-75.0) H Lymphocytes (%) (Auto) 10.3 % (20.0-45.0) L Monocytes (%) (Auto) 8.8 % (1.0-10.0) Eosinophils (%) (Auto) 0.1 % (0.0-3.0) Basophils (%) (Auto) 0.5 % (0.0-2.0) Sodium Level 136 mEQ/L (135-145) Potassium Level 4.1 mEQ/L (3.4-4.9) Chloride Level 98 mEQ/L (98-107) Carbon Dioxide Level 27 mEQ/L (20-30) Anion Gap 11 (5-15) Blood Urea Nitrogen 18 mg/dL (7-23) Creatinine 0.5 mg/dL (0.5-0.9) Estimat Glomerular Filtration Rate > 60 mL/min (>60) Glucose Level 178 mg/dL (74-106) H Calcium Level 8.4 mg/dL (8.6-10.2) L Total Bilirubin 0.3 mg/dL (0.0-1.2) Aspartate Amino Transf (AST/SGOT) 19 U/L (5-40) Alanine Aminotransferase (ALT/SGPT) 12 U/L (3-33) Alkaline Phosphatase 58 U/L (35-104) Total Protein 6.0 g/dL (6.6-8.7) L Albumin 3.2 g/dL (3.5-5.2) L Globulin 2.8 g/dL Albumin/Globulin Ratio 1.1 (1.0-2.7) Height (Feet): 5 Height (Inches): 3.00 Weight (Pounds): 127 General Appearance: no apparent distress, alert Cardiovascular: normal rate Respiratory/Chest: lungs clear Abdominal Exam: normal bowel sounds, non tender, soft Extremities: normal range of motion Yaneth Young N.P. Apr 21, 2017 12:08
--- NOTE | 2017-04-21 12:54 | Infectious Diseases Prog Note ---
Assessment/Plan Assessment/Plan ASSESSMENT: 66 y/o female with: // Distal small bowel process r/o infection - stool studies pending - UGIS/SBFT: pending - CT A/P: Moderately distended small bowel loops in the lower abdomen/pelvis , with an apparent transition point in the right lower quadrant and midpelvis. Moderate bowel wall thickening and hyperemia noted involving several loops. However, a short segment of small bowel in the midpelvis exhibits poor wall enhancement with surrounding mesenteric stranding. Closed loop obstruction and bowel ischemia should be considered. Small volume ascites. No evidence of free intraperitoneal air or loculated fluid collection. // Leukocytosis - persistent, mild, afebrile // Possible hepatic mass 2cm // Diverticulosis // Elevated CRP // NKDA // Full Code PLAN: - continue empiric zosyn d# 4 / 5-7 - f/u cultures - f/u UGIS/SBFT - monitor CBC, temperatures - monitor BMP - bowel rest - GI, surgery following Subjective Allergies: Coded Allergies: No Known Allergies (Unverified , 04/17/17) Subjective remains afebrile. no new complaint passing flatus Objective Vital Signs Last 24 Hour Vital Signs Date Time Temp Pulse Resp B/P Pulse Ox O2 Delivery O2 Flow Rate FiO2 04/21/17 08:37 91 141/77 04/21/17 08:00 98.1 91 20 141/77 93 Room Air 04/21/17 04:00 98.2 86 19 131/71 91 Room Air 04/21/17 00:00 98.1 84 18 143/83 95 Room Air 04/20/17 20:47 98 171/95 04/20/17 19:53 97.7 98 20 171/95 94 Room Air 04/20/17 18:40 108 150/94 04/20/17 17:37 110 164/100 04/20/17 16:15 98.6 103 21 169/98 97 Room Air Height (Feet): 5 Height (Inches): 3.00 Weight (Pounds): 127 General Appearance: no acute distress Respiratory/Chest: no respiratory distress Cardiovascular: normal rate, regular rhythm Abdomen: normal bowel sounds, soft, non tender, non distended Laboratory Tests Test 04/20/17 15:10 04/21/17 06:10 Stool Occult Blood Negative (NEGATIVE) White Blood Count 12.4 K/UL (4.8-10.8) H Red Blood Count 4.06 M/UL (4.20-5.40) L Hemoglobin 13.3 G/DL (12.0-16.0) Hematocrit 39.2 % (37.0-47.0) Mean Corpuscular Volume 97 FL (80-99) Mean Corpuscular Hemoglobin 32.7 PG (27.0-31.0) H Mean Corpuscular Hemoglobin Concent 33.8 G/DL (32.0-36.0) Red Cell Distribution Width 11.3 % (11.6-14.8) L Platelet Count 206 K/UL (150-450) Mean Platelet Volume 6.5 FL (6.5-10.1) Neutrophils (%) (Auto) 80.3 % (45.0-75.0) H Lymphocytes (%) (Auto) 10.3 % (20.0-45.0) L Monocytes (%) (Auto) 8.8 % (1.0-10.0) Eosinophils (%) (Auto) 0.1 % (0.0-3.0) Basophils (%) (Auto) 0.5 % (0.0-2.0) Sodium Level 136 mEQ/L (135-145) Potassium Level 4.1 mEQ/L (3.4-4.9) Chloride Level 98 mEQ/L (98-107) Carbon Dioxide Level 27 mEQ/L (20-30) Anion Gap 11 (5-15) Blood Urea Nitrogen 18 mg/dL (7-23) Creatinine 0.5 mg/dL (0.5-0.9) Estimat Glomerular Filtration Rate > 60 mL/min (>60) Glucose Level 178 mg/dL (74-106) H Calcium Level 8.4 mg/dL (8.6-10.2) L Total Bilirubin 0.3 mg/dL (0.0-1.2) Aspartate Amino Transf (AST/SGOT) 19 U/L (5-40) Alanine Aminotransferase (ALT/SGPT) 12 U/L (3-33) Alkaline Phosphatase 58 U/L (35-104) Total Protein 6.0 g/dL (6.6-8.7) L Albumin 3.2 g/dL (3.5-5.2) L Globulin 2.8 g/dL Albumin/Globulin Ratio 1.1 (1.0-2.7) Current Medications Medications (Trade) Dose Ordered Sig/Renuka Route PRN Reason Start Time Stop Time Status Last Admin Dose Admin Atorvastatin Calcium (Lipitor) 40 mg BEDTIME ORAL 04/18/17 21:00 05/18/17 20:59 04/20/17 20:48 Clonidine HCl (Catapres) 0.1 mg EVERY 8 HOURS PRN ORAL For High Blood Pressure 04/20/17 21:30 05/20/17 21:29 Dextrose/ Electrolytes (D5 0.45%NS W/ KCl 20mEq) 1,000 ml @ 100 mls/hr Q10H IV 04/18/17 14:00 05/18/17 13:59 04/21/17 03:34 Diphenhydramine HCl 25 mg 25 mg Q6H PRN IVP Itching 04/18/17 11:00 05/18/17 10:59 04/18/17 11:11 Heparin Sodium (Porcine) (Heparin 5000 units/ml) 5,000 units EVERY 12 HOURS SUBQ 04/18/17 00:30 05/18/17 00:29 04/20/17 21:19 Hydromorphone HCl (Dilaudid) 0.5 mg Q4H PRN IVP For Pain 04/18/17 04:00 04/25/17 03:59 04/21/17 07:30 Lorazepam (Ativan 2mg/ml 1ml) 0.5 mg Q6H PRN IV For Anxiety 04/18/17 04:00 04/25/17 03:59 04/20/17 21:54 Metoprolol Tartrate (Lopressor) 25 mg Q12HR NG 04/20/17 21:00 05/20/17 20:59 04/21/17 08:37 Ondansetron HCl (Zofran) 4 mg Q6H PRN IVP Nausea & Vomiting 04/18/17 04:00 05/18/17 03:59 04/21/17 07:32 Pantoprazole (Protonix) 40 mg DAILY IVP 04/20/17 11:00 05/20/17 10:59 04/21/17 08:49 Piperacillin Sod/ Tazobactam Sod/ Dextrose (Zosyn/D5W) 110 ml @ 27.5 mls/hr Q8H IVPB 04/18/17 01:00 04/25/17 00:59 04/21/17 08:38 Triamterene/HCTZ (Dyazide) 1 cap DAILY ORAL 04/21/17 09:00 05/21/17 08:59 04/21/17 08:37 Zolpidem Tartrate (Ambien) 5 mg HSPRN PRN ORAL Insomnia 04/20/17 21:15 05/20/17 21:14 JEAN-PIERRE KAY Apr 21, 2017 12:54
--- NOTE | 2017-04-21 14:08 | General Surgery Progress Note ---
General Surgery-Progress Note Subjective Reason for Consult partial SBO, abd. pain Chief Complaint: still with somee pain, mostly NG related gagging. Symptoms: pain same, BM - small soft BM Additional Comments UGI with SBFT 1 hr: contrast in mid jejunum, not to ileum yet. Mild to moderate SB dilatation as before, some descending colon gas. No abnormal mucosal pattern thus far. Objective Last 24 Hour Vital Signs Date Time Temp Pulse Resp B/P Pulse Ox O2 Delivery O2 Flow Rate FiO2 04/21/17 08:37 91 141/77 04/21/17 08:00 98.1 91 20 141/77 93 Room Air 04/21/17 04:00 98.2 86 19 131/71 91 Room Air 04/21/17 00:00 98.1 84 18 143/83 95 Room Air 04/20/17 20:47 98 171/95 04/20/17 19:53 97.7 98 20 171/95 94 Room Air 04/20/17 18:40 108 150/94 04/20/17 17:37 110 164/100 04/20/17 16:15 98.6 103 21 169/98 97 Room Air I&O Intake and Output 04/20/17 04/21/17 19:00 07:00 Intake Total 155 ml 1365.0 ml Output Total 275 ml 275 ml Balance -120 ml 1090.0 ml IV Total 155 ml 1365.0 ml Gastric Drainage Total 275 ml Other 275 ml # Voids 2 2 Cardiovascular: RSR Respiratory: clear Abdomen: distended - 2-3+, fenton and sl more tender lower abdomen. , present bowel sounds Extremities: no edema Laboratory Tests Test 04/20/17 15:10 04/21/17 06:10 Stool Occult Blood Negative (NEGATIVE) White Blood Count 12.4 K/UL (4.8-10.8) H Red Blood Count 4.06 M/UL (4.20-5.40) L Hemoglobin 13.3 G/DL (12.0-16.0) Hematocrit 39.2 % (37.0-47.0) Mean Corpuscular Volume 97 FL (80-99) Mean Corpuscular Hemoglobin 32.7 PG (27.0-31.0) H Mean Corpuscular Hemoglobin Concent 33.8 G/DL (32.0-36.0) Red Cell Distribution Width 11.3 % (11.6-14.8) L Platelet Count 206 K/UL (150-450) Mean Platelet Volume 6.5 FL (6.5-10.1) Neutrophils (%) (Auto) 80.3 % (45.0-75.0) H Lymphocytes (%) (Auto) 10.3 % (20.0-45.0) L Monocytes (%) (Auto) 8.8 % (1.0-10.0) Eosinophils (%) (Auto) 0.1 % (0.0-3.0) Basophils (%) (Auto) 0.5 % (0.0-2.0) Sodium Level 136 mEQ/L (135-145) Potassium Level 4.1 mEQ/L (3.4-4.9) Chloride Level 98 mEQ/L (98-107) Carbon Dioxide Level 27 mEQ/L (20-30) Anion Gap 11 (5-15) Blood Urea Nitrogen 18 mg/dL (7-23) Creatinine 0.5 mg/dL (0.5-0.9) Estimat Glomerular Filtration Rate > 60 mL/min (>60) Glucose Level 178 mg/dL (74-106) H Calcium Level 8.4 mg/dL (8.6-10.2) L Total Bilirubin 0.3 mg/dL (0.0-1.2) Aspartate Amino Transf (AST/SGOT) 19 U/L (5-40) Alanine Aminotransferase (ALT/SGPT) 12 U/L (3-33) Alkaline Phosphatase 58 U/L (35-104) Total Protein 6.0 g/dL (6.6-8.7) L Albumin 3.2 g/dL (3.5-5.2) L Globulin 2.8 g/dL Albumin/Globulin Ratio 1.1 (1.0-2.7) Additional Comments Partial SBO , r/o Chron's disease , infectious problem Assessment Additional Comments Spoke with Dr. Xavier in Radiology, Dr. Cuello and Dr. Vega. Pt would benefit from colonoscopy and attempt to enter distal ileum and hopefully be able to biopsy involved area and obtain a diagnosis and IF possible, avoid an operation. Dr. Vega will see her and plan on colonoscopy etc if he agrees. For now, will remove NG once UGI with SBFT done, hopefully can remove. MAJANO,ARTUR Apr 21, 2017 14:08
--- NOTE | 2017-04-21 15:45 | History and Physical Report ---
SOURCE OF INFORMATION: The patient and EMR. HISTORY OF PRESENT ILLNESS: The patient is a pleasant 66-year-old female, presented with abdominal pain reported for a couple of hours before coming to the emergency room. The patient describes the pain in the right lower quadrant. Positive for radiation to the inguinal area and to the back. Positive for nausea or vomitus. Denies any hematochezia or diarrhea. ALLERGIES: NKDA. SOCIAL HISTORY: Positive for tobacco. Negative for illicit drug abuse, smoking, or alcohol abuse. FAMILY HISTORY: Reviewed. Noncontributory. PAST MEDICAL HISTORY: Hypertension and hyperlipidemia. PHYSICAL EXAMINATION: VITAL SIGNS: Blood pressure 160/80, temperature 98.2, pulse oximetry 100% on room air, pulse rate 70-80, and respiratory rate 18-20. HEAD AND NECK: Atraumatic and normocephalic. CHEST: Clear to auscultation. HEART: S1 and S2. Regular rate and rhythm. ABDOMEN: Positive for tenderness, more prominent in the periumbilical area. Limited examination for evaluation of his size of the organ. MUSCULOSKELETAL: No gross focal or motor deficit. NEUROLOGY: The patient is awake, alert, and oriented x3. DIAGNOSTIC DATA: Imagings have been reviewed. The official report is pending. LABORATORY DATA: Dated 04/17/2017, showed WBC of 13.9, hemoglobin 13.9, and platelets 224,000. Sodium 134, potassium 4.2, BUN 21, and creatinine 0.6. Urinalysis is positive for 3+ blood, 3+ glucose, otherwise unremarkable. IMPRESSION: 1. Acute abdomen. 2. Hypertension. 3. Gastrointestinal and deep vein thrombosis prophylaxes. PLAN OF CARE: Surgery Dr. Austin and GI Dr. Vega have already been consulted. We will continue to put the patient NPO. Continue with the IV antibiotics. Marilu Caldwell M.D. DR: BRENDEN JOB#: [id number] CC:
[2017-04-21] MEDS: LORazepam Inj 2mg/ml 1ml IV PRN (16:41)
[2017-04-22] MEDS: Piperacillin/Tazobactam 3.375 GM in D5W 110 ML IVPB SCH ×3 (00:46→17:07)
[2017-04-22] MEDS: Hydromorphone 0.5mg/0.5ml inj IVP PRN ×4 (03:15→21:51)
[2017-04-22 04:00] VITALS: BP_SYST 135; BP_SYST 159; BP_DIAS 75; BP_DIAS 99
[2017-04-22 07:12] LABS: BASOPHILS % (AUTO) 0.4 % (0.0-2.0); EOSINOPHILS % (AUTO) 0.1 % (0.0-3.0); MEAN CORPUSCULAR HEMOGLOBIN 32.8 PG (27.0-31.0); MEAN CORPUSCULAR HGB CONC 34.3 G/DL (32.0-36.0); MEAN CORPUSCULAR VOLUME 96 FL (80-99); MEAN PLATELET VOLUME 6.8 FL (6.5-10.1); MONOCYTES % (AUTO) 9.4 % (1.0-10.0); NEUTROPHILS % (AUTO) 79.1 % (45.0-75.0); PLATELET COUNT 231 K/UL (150-450); RED BLOOD COUNT 4.01 M/UL (4.20-5.40); RED CELL DISTRIBUTION WIDTH 11.5 % (11.6-14.8)
[2017-04-22 07:19] LABS: ANION GAP 12 (5-15); CALCIUM 8.4 mg/dL (8.6-10.2); CARBON DIOXIDE 29 mEQ/L (20-30); CHLORIDE 94 mEQ/L (98-107); CREATININE 0.6 mg/dL (0.5-0.9); GLOMERULAR FILTRATION RATE > 60 mL/min (>60); HEMOLYSIS 4; POTASSIUM 3.6 mEQ/L (3.4-4.9); SODIUM 135 mEQ/L (135-145)
[2017-04-22 07:52] VITALS: BP 159/86
[2017-04-22] MEDS: D5 1/2NS w/KCl 20mEq 1,000 ML IV SCH ×2 (08:27→17:59)
[2017-04-22] MEDS: Pantoprazole Inj IVP SCH (08:28)
[2017-04-22] MEDS: Triamterene/Hctz 37.5/25 cap ORAL SCH (08:29)
[2017-04-22] MEDS: Metoprolol Tartrate 12.5mg TAB NG SCH ×2 (08:29→22:05)
[2017-04-22] MEDS: LORazepam Inj 2mg/ml 1ml IV PRN ×2 (08:30→17:07)
[2017-04-22] MEDS: Heparin 5000 units/ml inj SUBQ SCH ×2 (08:35→21:00)
--- NOTE | 2017-04-22 10:22 | General Progress Note ---
Assessment/Plan Status: stable Assessment/Plan 1- Acute Abdomen, currently on conservative management 2. Abdominal pain 2- Small Bowel Obstruction (partial vs complete) 3- HTN 4- Gi-DVT prophylaxia Plan: Surgery and GI services Notes are reviewed. Continue NPO. continue with empirical antibiotic continue with conservative management Surveillance per surgery service Subjective ROS Limited/Unobtainable: No Constitutional: Reports: weakness HEENT: Reports: no symptoms Cardiovascular: Reports: no symptoms Respiratory: Reports: no symptoms Neurologic/Psychiatric: Reports: no symptoms Allergies: Coded Allergies: No Known Allergies (Unverified , 04/17/17) Objective Last 24 Hour Vital Signs Date Time Temp Pulse Resp B/P Pulse Ox O2 Delivery O2 Flow Rate FiO2 04/22/17 08:29 90 159/86 04/22/17 07:52 98.2 90 18 159/86 91 Room Air 04/22/17 04:00 97.9 100 20 159/99 91 Room Air 04/21/17 23:56 97.5 84 20 143/77 92 Room Air 04/21/17 21:46 106 134/75 04/21/17 21:37 134/75 04/21/17 20:00 97.7 106 20 122/81 Room Air 04/21/17 16:00 98.1 100 20 158/61 92 Room Air 04/21/17 12:00 98.6 80 20 157/68 93 Room Air Intake and Output 04/21/17 04/22/17 19:00 07:00 Intake Total 400 ml 1020.0 ml Output Total 150 ml 120 ml Balance 250 ml 900.0 ml IV Total 400 ml 1020.0 ml Other 150 ml 120 ml # Voids 4 2 # Bowel Movements 1 Laboratory Tests 04/22/17 05:50: White Blood Count 13.0H, Red Blood Count 4.01L, Hemoglobin 13.1, Hematocrit 38.3 , Mean Corpuscular Volume 96, Mean Corpuscular Hemoglobin 32.8H, Mean Corpuscular Hemoglobin Concent 34.3, Red Cell Distribution Width 11.5L, Platelet Count 231, Mean Platelet Volume 6.8, Neutrophils (%) (Auto) 79.1H, Lymphocytes (%) (Auto) 11.0L, Monocytes (%) (Auto) 9.4, Eosinophils (%) (Auto) 0.1, Basophils (%) (Auto) 0.4, Sodium Level 135, Potassium Level 3.6, Chloride Level 94L, Carbon Dioxide Level 29, Anion Gap 12, Blood Urea Nitrogen 20, Creatinine 0.6, Estimat Glomerular Filtration Rate > 60, Glucose Level 164H, Lactic Acid Level 1.30, Calcium Level 8.4L, Phosphorus Level 4.0, Magnesium Level 2.0 Height (Feet): 5 Height (Inches): 3.00 Weight (Pounds): 127 General Appearance: no apparent distress EENT: PERRL/EOMI Neck: supple Cardiovascular: normal rate Respiratory/Chest: lungs clear Abdomen: guarding Extremities: non-tender 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
[2017-04-22] MEDS ORDERED: Tubing IV Secondary IV ONE (10:41)
[2017-04-22 11:52] VITALS: BP 165/85
--- NOTE | 2017-04-22 11:56 | General Progress Note ---
Progress Note Progress Note Surgery: patient seen and examined at bedside. still with abdominal pain today. nausea and dry heaves. +soft BM. no fever or chills upper GI yesterday noted very slow transit and pooling in distal small bowel ( stalking). still contrast noted on AM KUB today Leukocytosis 13k. NG tube output noted Unfortunately does not seem to be improving and will likely require a diagnostic laparoscopy at the least. etiology of obstruction unknown. she has a virgin abdomen. could potentially be infections causing significant edema in that area or some for of IBD, could be congenital adhesion cause partial obstruction, but so far diagnostic studies have not identified etiology and clinically not improving. Spoke with patient about above findings and differential. given lack of improvement I believe she warrants a diagnostic laparoscopy. may require exploration and bowel resection if etiology dictates. Plan for surgery tomorrow. Ozzy Yoon Apr 22, 2017 11:56
--- NOTE | 2017-04-22 11:57 | Pre-Procedure Note/Attestation ---
Pre-Procedure Note/Attestation Complete Prior to Procedure Planned Procedure: not applicable Procedure Narrative: diagnostic laparoscopy, possible laparotomy, possible bowel resection Attestation I attest that I discussed the nature of the procedure; its benefits; risks and complications; and alternatives (and the risks and benefits of such alternatives ), prior to the procedure, with the patient (or the patient's legal insurance account representative). I attest that, if there was a reasonable possibility of needing a blood transfusion, the patient (or the patient's legal insurance account representative) was given the [facility] standardized written summary, pursuant to the [employer] Blood Safety Act ([place] Health and Safety Code # 1645, as amended). I attest that I re-evaluated the patient just prior to the surgery and that there has been no change in the patient's H&P, except as documented below: Ozzy Yoon Apr 22, 2017 11:57
--- NOTE | 2017-04-22 13:35 | GI Progress Note ---
Assessment/Plan Problems: (1) Ileus ICD Codes: K56.7 - Ileus, unspecified SNOMED: 482346968 (2) Sigmoid thickening ICD Codes: K63.9 - Disease of intestine, unspecified SNOMED: 784193576 (3) Leukocytosis ICD Codes: D72.829 - Elevated white blood cell count, unspecified SNOMED: 119351641, 596237174 (4) SBO (small bowel obstruction) ICD Codes: K56.69 - Other intestinal obstruction SNOMED: 921134929 Status: stable, unchanged Status Narrative Discussed with Dr. Vega. Assessment/Plan Presentation of segmental SB inflammation and SBO - narrow differential BM x1 yesterday >> OB stool negative SBFT reviewed >> very slow transit and pooling in distal small bowel. Recommendations colonoscopy deferred >> pt scheduled for exp lap tomorrow. NPO IV hydration NGT for bowel decompression abx prn imaging studies fu labs Subjective Subjective BM x 1 abdominal distention better Objective Last 24 Hour Vital Signs Date Time Temp Pulse Resp B/P Pulse Ox O2 Delivery O2 Flow Rate FiO2 04/22/17 11:52 96.8 90 18 165/85 90 Nasal Cannula 04/22/17 08:29 90 159/86 04/22/17 07:52 98.2 90 18 159/86 91 Room Air 04/22/17 04:00 97.9 100 20 159/99 91 Room Air 04/21/17 23:56 97.5 84 20 143/77 92 Room Air 04/21/17 21:46 106 134/75 04/21/17 21:37 134/75 04/21/17 20:00 97.7 106 20 122/81 Room Air 04/21/17 16:00 98.1 100 20 158/61 92 Room Air Intake and Output 04/21/17 04/22/17 19:00 07:00 Intake Total 400 ml 1020.0 ml Output Total 150 ml 120 ml Balance 250 ml 900.0 ml IV Total 400 ml 1020.0 ml Other 150 ml 120 ml # Voids 4 2 # Bowel Movements 1 Laboratory Tests Test 04/22/17 05:50 White Blood Count 13.0 K/UL (4.8-10.8) H Red Blood Count 4.01 M/UL (4.20-5.40) L Hemoglobin 13.1 G/DL (12.0-16.0) Hematocrit 38.3 % (37.0-47.0) Mean Corpuscular Volume 96 FL (80-99) Mean Corpuscular Hemoglobin 32.8 PG (27.0-31.0) H Mean Corpuscular Hemoglobin Concent 34.3 G/DL (32.0-36.0) Red Cell Distribution Width 11.5 % (11.6-14.8) L Platelet Count 231 K/UL (150-450) Mean Platelet Volume 6.8 FL (6.5-10.1) Neutrophils (%) (Auto) 79.1 % (45.0-75.0) H Lymphocytes (%) (Auto) 11.0 % (20.0-45.0) L Monocytes (%) (Auto) 9.4 % (1.0-10.0) Eosinophils (%) (Auto) 0.1 % (0.0-3.0) Basophils (%) (Auto) 0.4 % (0.0-2.0) Sodium Level 135 mEQ/L (135-145) Potassium Level 3.6 mEQ/L (3.4-4.9) Chloride Level 94 mEQ/L (98-107) L Carbon Dioxide Level 29 mEQ/L (20-30) Anion Gap 12 (5-15) Blood Urea Nitrogen 20 mg/dL (7-23) Creatinine 0.6 mg/dL (0.5-0.9) Estimat Glomerular Filtration Rate > 60 mL/min (>60) Glucose Level 164 mg/dL (74-106) H Lactic Acid Level 1.30 mmol/L (0.66-2.22) Calcium Level 8.4 mg/dL (8.6-10.2) L Phosphorus Level 4.0 mg/dL (2.5-4.8) Magnesium Level 2.0 mg/dL (1.7-2.5) Height (Feet): 5 Height (Inches): 3.00 Weight (Pounds): 127 General Appearance: no apparent distress, alert Cardiovascular: normal rate Respiratory/Chest: normal breath sounds, no respiratory distress Abdominal Exam: normal bowel sounds, non tender, soft, distended Extremities: normal range of motion Yaneth Young N.PGrey Apr 22, 2017 13:35
[2017-04-22 16:11] VITALS: BP 157/90
--- NOTE | 2017-04-22 16:30 | Diagnostic Imaging Report ---
Indication: Abdominal distention and pain Comparison: 04/21/2017 Single view of the abdomen obtained There is considerable residual contrast material within multiple dilated loops of small bowel. The contrast was given an upper GI exam small bowel follow-through yesterday. There is contrast in the colon. One dense focus of contrast noted within the midline lower abdomen. This is probably within small bowel. Impression: Multiple dilated loops of contrast-filled small bowel almost 24-hour swallowing upper GI examination. Findings likely indicate small bowel obstruction. The obstruction is not complete as there is contrast has passed into the colon.
--- NOTE | 2017-04-22 18:45 | Infectious Diseases Prog Note ---
Assessment/Plan Assessment/Plan ASSESSMENT: 66 y/o female with: // segmental small bowel inflammation with SBO, pending ex lap. not limited to TI. stool cx negative for yersenia and campylobacter. - CT A/P: Moderately distended small bowel loops in the lower abdomen/pelvis , with an apparent transition point in the right lower quadrant and midpelvis. Moderate bowel wall thickening and hyperemia noted involving several loops. However, a short segment of small bowel in the midpelvis exhibits poor wall enhancement with surrounding mesenteric stranding. Closed loop obstruction and bowel ischemia should be considered. Small volume ascites. No evidence of free intraperitoneal air or loculated fluid collection. // Leukocytosis - persistent, mild, afebrile // Possible hepatic mass 2cm // Diverticulosis // Elevated CRP // NKDA // Full Code PLAN: - continue empiric zosyn d# 5 / 7. to be continued in maurice-op period. plan to d/c 24-48 hrs post ex lap depending on findings. - f/u results of ex lap tommorrow - monitor CBC, temperatures - monitor BMP - bowel rest - GI, surgery following Subjective Constitutional: Reports: no symptoms Gastrointestinal/Abdominal: Reports: bloating Allergies: Coded Allergies: No Known Allergies (Unverified , 04/17/17) Objective Vital Signs Last 24 Hour Vital Signs Date Time Temp Pulse Resp B/P Pulse Ox O2 Delivery O2 Flow Rate FiO2 04/22/17 16:11 97.5 87 18 157/90 97 Room Air 04/22/17 11:52 96.8 90 18 165/85 90 Nasal Cannula 04/22/17 08:29 90 159/86 04/22/17 07:52 98.2 90 18 159/86 91 Room Air 04/22/17 04:00 97.9 100 20 159/99 91 Room Air 04/21/17 23:56 97.5 84 20 143/77 92 Room Air 04/21/17 21:46 106 134/75 04/21/17 21:37 134/75 04/21/17 20:00 97.7 106 20 122/81 Room Air Height (Feet): 5 Height (Inches): 3.00 Weight (Pounds): 127 General Appearance: no acute distress HEENT: anicteric Respiratory/Chest: lungs clear Cardiovascular: normal rate, regular rhythm Abdomen: hypoactive bowel sounds, distended, other - NGT in place Genitourinary: normal external genitalia Extremities: no cyanosis, no clubbing Skin: no rash, no lesions, no ulcers, rash Musculoskeletal: normal muscle bulk Microbiology Date/Time Source Procedure Growth Status 04/20/17 15:10 Stool Stool Culture - Preliminary NORMAL FECAL TEENA. Resulted Laboratory Tests Test 04/22/17 05:50 White Blood Count 13.0 K/UL (4.8-10.8) H Red Blood Count 4.01 M/UL (4.20-5.40) L Hemoglobin 13.1 G/DL (12.0-16.0) Hematocrit 38.3 % (37.0-47.0) Mean Corpuscular Volume 96 FL (80-99) Mean Corpuscular Hemoglobin 32.8 PG (27.0-31.0) H Mean Corpuscular Hemoglobin Concent 34.3 G/DL (32.0-36.0) Red Cell Distribution Width 11.5 % (11.6-14.8) L Platelet Count 231 K/UL (150-450) Mean Platelet Volume 6.8 FL (6.5-10.1) Neutrophils (%) (Auto) 79.1 % (45.0-75.0) H Lymphocytes (%) (Auto) 11.0 % (20.0-45.0) L Monocytes (%) (Auto) 9.4 % (1.0-10.0) Eosinophils (%) (Auto) 0.1 % (0.0-3.0) Basophils (%) (Auto) 0.4 % (0.0-2.0) Sodium Level 135 mEQ/L (135-145) Potassium Level 3.6 mEQ/L (3.4-4.9) Chloride Level 94 mEQ/L (98-107) L Carbon Dioxide Level 29 mEQ/L (20-30) Anion Gap 12 (5-15) Blood Urea Nitrogen 20 mg/dL (7-23) Creatinine 0.6 mg/dL (0.5-0.9) Estimat Glomerular Filtration Rate > 60 mL/min (>60) Glucose Level 164 mg/dL (74-106) H Lactic Acid Level 1.30 mmol/L (0.66-2.22) Calcium Level 8.4 mg/dL (8.6-10.2) L Phosphorus Level 4.0 mg/dL (2.5-4.8) Magnesium Level 2.0 mg/dL (1.7-2.5) Current Medications Medications (Trade) Dose Ordered Sig/Renuka Route PRN Reason Start Time Stop Time Status Last Admin Dose Admin Atorvastatin Calcium (Lipitor) 40 mg BEDTIME ORAL 04/18/17 21:00 05/18/17 20:59 04/21/17 21:46 Clonidine HCl (Catapres) 0.1 mg EVERY 8 HOURS PRN ORAL For High Blood Pressure 04/20/17 21:30 05/20/17 21:29 Dextrose/ Electrolytes (D5 0.45%NS W/ KCl 20mEq) 1,000 ml @ 100 mls/hr Q10H IV 04/18/17 14:00 05/18/17 13:59 04/22/17 17:59 Diphenhydramine HCl 25 mg 25 mg Q6H PRN IVP Itching 04/18/17 11:00 05/18/17 10:59 04/18/17 11:11 Heparin Sodium (Porcine) (Heparin 5000 units/ml) 5,000 units EVERY 12 HOURS SUBQ 04/18/17 00:30 05/18/17 00:29 04/22/17 08:35 Hydromorphone HCl (Dilaudid) 0.5 mg Q4H PRN IVP For Pain 04/18/17 04:00 04/25/17 03:59 04/22/17 16:16 Lorazepam (Ativan 2mg/ml 1ml) 0.5 mg Q6H PRN IV For Anxiety 04/18/17 04:00 04/25/17 03:59 04/22/17 17:07 Metoprolol Tartrate (Lopressor) 25 mg Q12HR NG 04/20/17 21:00 05/20/17 20:59 04/22/17 08:29 Ondansetron HCl (Zofran) 4 mg Q6H PRN IVP Nausea & Vomiting 04/18/17 04:00 05/18/17 03:59 04/22/17 08:29 Pantoprazole (Protonix) 40 mg DAILY IVP 04/20/17 11:00 05/20/17 10:59 04/22/17 08:28 Piperacillin Sod/ Tazobactam Sod/ Dextrose (Zosyn/D5W) 110 ml @ 27.5 mls/hr Q8H IVPB 04/18/17 01:00 04/25/17 00:59 04/22/17 17:07 Triamterene/HCTZ (Dyazide) 1 cap DAILY ORAL 04/21/17 09:00 05/21/17 08:59 04/22/17 08:29 Zolpidem Tartrate (Ambien) 5 mg HSPRN PRN ORAL Insomnia 04/20/17 21:15 05/20/17 21:14 Celestino Connell M.D. Apr 22, 2017 18:45
[2017-04-22 20:00] VITALS: BP 167/88
[2017-04-23] VITALS (13 sets, daily range): BP systolic 123–156; BP diastolic 62–76
[2017-04-23] MEDS: Piperacillin/Tazobactam 3.375 GM in D5W 110 ML IVPB SCH ×3 (00:34→17:00)
[2017-04-23] MEDS: LORazepam Inj 2mg/ml 1ml IV PRN ×2 (03:06→22:21)
--- NOTE | 2017-04-23 03:45 | Consultation ---
DATE OF CONSULTATION: 04/22/2017 CARDIOLOGY CONSULTATION CONSULTING PHYSICIAN: Jefry Mclaughlin M.D. REFERRING PHYSICIAN: Marilu Caldwell M.D. REASON FOR CONSULTATION: Management of accelerated hypertension. HISTORY OF PRESENT ILLNESS: The patient is a very unfortunate 66-year-old female, who presents to the hospital with abdominal pain mostly in the right lower quadrant associated with nausea and vomiting and some small diarrhea. She called 911, after she did not get relief using Compazine. In the emergency department, the patient underwent CT of abdomen and pelvis showed small bowel obstruction. The patient was admitted to known telemetry unit after placement of NG tube to low intermittent suction. In the course of hospitalization, the patient had accelerated hypertension with blood pressure as high as 179/98 mmHg. Cardiology consultation was made at request of Dr. Caldwell for management of this condition. 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 Her blood pressure is controlled with metoprolol. She currently denies any chest pain or shortness of breath. She has an NG tube feeding. She receives metoprolol and Maxzide ordered over the phone with no relief and with no control in her current blood pressure. PAST MEDICAL HISTORY: Hypertension and dyslipidemia. PAST SURGICAL HISTORY: None. LIST OF MEDICATIONS: Aspirin 81 mg p.o. daily, Biotin 5000 mcg p.o. daily, vitamin D 1000 units p.o. daily, metoprolol 25 mg p.o. daily, Centrum Silver one tablet p.o. daily, Crestor 40 mg p.o. at bedtime, and vitamin E 400 units p.o. daily. ALLERGIES: No known drug allergies. FAMILY HISTORY: The patient continues to smoke about a pack per day. Denies any alcohol or illicit drug use. FAMILY HISTORY: No premature coronary artery disease in first-degree relatives. REVIEW OF SYSTEMS: HEENT: Denies any headache, diplopia, or blurred vision. Constitutional: Denies generalized weakness, but no fever, chills, or night sweats. Cardiovascular: Denies any chest pain, shortness of breath, PND, orthopnea, leg swelling, palpitations, or syncope. Pulmonary: Denies any cough or hemoptysis. Gastrointestinal: She had nausea, vomiting, and abdominal distention. Decrease in passing gas and also some diarrhea prior to these episodes. SHE DID NOT HAVE ANY HEMATOCHEZIA, MELANOTIC STOOLS, OR HEMATEMESIS. GENITOURINARY: Denies any hematuria, dysuria, or incontinence. Neurology: Denies any motor dysfunction, sensory deficit, or altered speech. PHYSICAL EXAMINATION: VITAL SIGNS: Blood pressure was 158/82. The highest blood pressure recorded was 171/95 mmHg, heart rate of 109 on admission, respiration of 19, and O2 saturation of 95% on room air. GENERAL: The patient is a very unfortunate 66-year-old lady, in no apparent respiratory distress. NG tube in place. HEENT: Atraumatic and normocephalic. Anicteric. Pupils are equal, round, and reactive to light and accommodation. Extraocular muscles are intact. NECK: JVP is less than 5 cm. No carotid bruits. Carotid upstrokes 2+ bilaterally. CARDIOVASCULAR: Normal S1 and S2. Regular rate and rhythm. No murmurs, gallops, or rubs. PMI is at fourth intercostal space in the midclavicular line. LUNGS: Clear to auscultation bilaterally. ABDOMEN: Distended with diminished bowel sounds. No hepatosplenomegaly. Positive bowel sounds. EXTREMITIES: No evidence of edema, clubbing, or cyanosis. LABORATORY AND DIAGNOSTIC DATA: WBC is 13.9, hemoglobin 13.9, hematocrit 40.2, and platelet count is 224,000. Sodium is 134, potassium 4.2, chloride 96, bicarbonate 24, BUN 21, creatinine 0.6, and glucose 156. Calcium is 9.5. INR is 1.0. A 12-lead electrocardiogram showed sinus rhythm at a rate of 81 with normal axis, prolonged QT interval and single ventricular premature complex. ASSESSMENT AND PLAN: The patient is a very unfortunate 66-year-old female, seen in Cardiology consultation at request of Dr. Caldwell. 1. Accelerated hypertension. Systolic blood pressure as high as 179 mmHg. We will like to order metoprolol 5 mg intravenous piggyback q.4 hours. However, the patient is in the Med/Surg and intravenous cannot be administered. I would like to try out clonidine patch TTS #1 for the period of hospitalization. The patient's blood pressure has been controlled with metoprolol 25 mg twice daily. Apparently, the current antihypertensive regimen including metoprolol and Maxzide have not being successful given orally has not been successful probably secondary to lack of absorption. I will continue to monitor the blood pressure throughout this hospitalization. 2. Small bowel obstruction. NG tube and suction . 3. History of dyslipidemia. 4. History of hypertension in the past. I would like to thank, Dr. Caldwell for courtesy of this consultation. Jefry Mclaughlin M.D. DR: MACK JOB#: [id number] CC:
[2017-04-23] MEDS: D5 1/2NS w/KCl 20mEq 1,000 ML IV SCH ×2 (04:00→08:45)
[2017-04-23] MEDS: Hydromorphone 0.5mg/0.5ml inj IVP PRN ×4 (05:38→20:51)
[2017-04-23 06:25] LABS: BASOPHILS % (AUTO) 0.4 % (0.0-2.0); EOSINOPHILS % (AUTO) 0.6 % (0.0-3.0); LYMPHOCYTES % (AUTO) 13.1 % (20.0-45.0); MEAN CORPUSCULAR HGB CONC 34.4 G/DL (32.0-36.0); MEAN CORPUSCULAR VOLUME 96 FL (80-99); MEAN PLATELET VOLUME 6.1 FL (6.5-10.1); MONOCYTES % (AUTO) 10.3 % (1.0-10.0); NEUTROPHILS % (AUTO) 75.6 % (45.0-75.0); PLATELET COUNT 214 K/UL (150-450); RED BLOOD COUNT 3.56 M/UL (4.20-5.40); RED CELL DISTRIBUTION WIDTH 11.4 % (11.6-14.8); WHITE BLOOD COUNT 12.1 K/UL (4.8-10.8)
[2017-04-23 06:43] LABS: PROTHROMBIN TIME 10.5 SEC (9.30-11.50)
[2017-04-23 06:56] LABS: ALANINE AMINOTRANSFERASE 19 U/L (3-33); ALBUMIN/GLOBULIN RATIO 1.5 (1.0-2.7); ANION GAP 9 (5-15); ASPARTATE AMINO TRANSFERASE 28 U/L (5-40); CALCIUM 8.1 mg/dL (8.6-10.2); CARBON DIOXIDE 28 mEQ/L (20-30); CHLORIDE 96 mEQ/L (98-107); CREATININE 0.5 mg/dL (0.5-0.9); GLOMERULAR FILTRATION RATE > 60 mL/min (>60); HEMOLYSIS 2; POTASSIUM 3.1 mEQ/L (3.4-4.9); SODIUM 133 mEQ/L (135-145); TOTAL PROTEIN 5.7 g/dL (6.6-8.7)
[2017-04-23] MEDS: Pantoprazole Inj IVP SCH (08:45)
[2017-04-23] MEDS: Triamterene/Hctz 37.5/25 cap ORAL SCH (08:45)
[2017-04-23] MEDS: Metoprolol Tartrate 12.5mg TAB NG SCH ×2 (08:45→21:00)
[2017-04-23] MEDS: Heparin 5000 units/ml inj SUBQ SCH ×2 (08:56→20:52)
--- NOTE | 2017-04-23 09:46 | Diagnostic Imaging Report ---
Indication: ABD PAIN abdominal pain, suspected small bowel obstruction, abnormal prior CT scans Technique: Mixture of thin liquid barium and water soluble contrast instilled be the a nasogastric tube under fluoroscopic supervision. Overhead and spot images were obtained Total fluoroscopy time 2.6 minutes. Total dose area product 259 dGycm2 Comparison: Hotel Security Officer film compared to abdomen radiographs dated 04/20/2017 Findings: Initial assistant office manager image demonstrates no evidence of a nasogastric tube in the stomach, subsequent image taken higher up demonstrates nasogastric tube in the proximal esophagus. Patient was returned to the nursing unit, nasogastric tube advanced, and patient returned. Subsequent images demonstrate nasogastric tube tip in the gastric fundus, proximal within it I don't hernia above the diaphragm. Initial injection demonstrates reflux of contrast into the esophagus, as did subsequent overhead images, as well as a small sliding-type hiatal hernia. A grossly normal stomach otherwise. Proximal small bowel demonstrates normal mucosal pattern. The distal jejunum and ileum are dilated. These demonstrate normal mucosal pattern. Unfortunately, the requested delayed images were not obtained, last film of this series is taken 5 hours, demonstrates contrast throughout dilated small bowel, no colonic contrast. A subsequent radiograph taken in the next morning and reported separately does demonstrate a small amount of contrast within the colon. Impression: Findings compatible partial but nonetheless high-grade small bowel obstruction. No definite features to suggest inflammatory enteritis demonstrated. However, evaluation for such is limited, as the distal small bowel was not well imaged. Hiatal hernia and gastroesophageal reflux
--- NOTE | 2017-04-23 11:01 | GI Progress Note ---
Assessment/Plan Problems: (1) Ileus ICD Codes: K56.7 - Ileus, unspecified SNOMED: 197069189 (2) Sigmoid thickening ICD Codes: K63.9 - Disease of intestine, unspecified SNOMED: 798443162 (3) Leukocytosis ICD Codes: D72.829 - Elevated white blood cell count, unspecified SNOMED: 577581539, 286246463 (4) SBO (small bowel obstruction) ICD Codes: K56.69 - Other intestinal obstruction SNOMED: 351521421 Status: stable Status Narrative Discussed with Dr. Vega. Assessment/Plan Presentation of segmental SB inflammation and SBO - narrow differential BM x1 yesterday >> OB stool negative SBFT reviewed >> very slow transit and pooling in distal small bowel. Recommendations colonoscopy deferred >> ex lap today, see surgical note. NPO IV hydration NGT for bowel decompression abx prn imaging studies fu labs Subjective Subjective abdominal distention Objective Last 24 Hour Vital Signs Date Time Temp Pulse Resp B/P Pulse Ox O2 Delivery O2 Flow Rate FiO2 04/23/17 08:45 86 137/71 04/23/17 08:00 97.7 86 18 137/71 93 Nasal Cannula 2.0 04/23/17 04:00 97.7 87 20 135/75 91 Nasal Cannula 2.0 04/23/17 00:00 97.0 74 20 126/73 92 Room Air 04/22/17 22:05 87 157/86 04/22/17 21:58 157/86 04/22/17 20:00 97.0 87 20 167/88 96 Nasal Cannula 2.0 04/22/17 16:11 97.5 87 18 157/90 97 Room Air 04/22/17 11:52 96.8 90 18 165/85 90 Nasal Cannula Intake and Output 04/22/17 04/23/17 19:00 07:00 Intake Total 900 ml 1120.0 ml Output Total 400 ml Balance 900 ml 720.0 ml IV Total 900 ml 1120.0 ml Other 400 ml # Voids 2 # Bowel Movements 2 Laboratory Tests Test 04/23/17 05:10 White Blood Count 12.1 K/UL (4.8-10.8) H Red Blood Count 3.56 M/UL (4.20-5.40) L Hemoglobin 11.8 G/DL (12.0-16.0) L Hematocrit 34.2 % (37.0-47.0) L Mean Corpuscular Volume 96 FL (80-99) Mean Corpuscular Hemoglobin 33.0 PG (27.0-31.0) H Mean Corpuscular Hemoglobin Concent 34.4 G/DL (32.0-36.0) Red Cell Distribution Width 11.4 % (11.6-14.8) L Platelet Count 214 K/UL (150-450) Mean Platelet Volume 6.1 FL (6.5-10.1) L Neutrophils (%) (Auto) 75.6 % (45.0-75.0) H Lymphocytes (%) (Auto) 13.1 % (20.0-45.0) L Monocytes (%) (Auto) 10.3 % (1.0-10.0) H Eosinophils (%) (Auto) 0.6 % (0.0-3.0) Basophils (%) (Auto) 0.4 % (0.0-2.0) Prothrombin Time 10.5 SEC (9.30-11.50) Prothromb Time International Ratio 1.0 (0.9-1.1) Activated Partial Thromboplast Time 26 SEC (23-33) Sodium Level 133 mEQ/L (135-145) L Potassium Level 3.1 mEQ/L (3.4-4.9) L Chloride Level 96 mEQ/L (98-107) L Carbon Dioxide Level 28 mEQ/L (20-30) Anion Gap 9 (5-15) Blood Urea Nitrogen 16 mg/dL (7-23) Creatinine 0.5 mg/dL (0.5-0.9) Estimat Glomerular Filtration Rate > 60 mL/min (>60) Glucose Level 124 mg/dL (74-106) H Calcium Level 8.1 mg/dL (8.6-10.2) L Total Bilirubin 0.4 mg/dL (0.0-1.2) Aspartate Amino Transf (AST/SGOT) 28 U/L (5-40) Alanine Aminotransferase (ALT/SGPT) 19 U/L (3-33) Alkaline Phosphatase 42 U/L (35-104) Total Protein 5.7 g/dL (6.6-8.7) L Albumin 3.5 g/dL (3.5-5.2) Globulin 2.2 g/dL Albumin/Globulin Ratio 1.5 (1.0-2.7) Height (Feet): 5 Height (Inches): 3.00 Weight (Pounds): 127 General Appearance: no apparent distress, alert, thin Cardiovascular: normal rate Respiratory/Chest: normal breath sounds, no respiratory distress Abdominal Exam: normal bowel sounds, non tender, soft Extremities: normal range of motion Yaneth Young N.P. Apr 23, 2017 11:01
--- NOTE | 2017-04-23 11:23 | General Progress Note ---
Assessment/Plan Status: stable Assessment/Plan 1- Acute Abdomen, currently on conservative management 2. Abdominal pain 2- Small Bowel Obstruction (partial vs complete) 3- HTN 4- Gi-DVT prophylaxia Plan: Surgery and GI services Notes are reviewed. Continue NPO. continue with empirical antibiotic Surveillance per surgery service Expl. laparotomy today Subjective ROS Limited/Unobtainable: No Gastrointestinal/Abdominal: Reports: other - NG tube in place. Allergies: Coded Allergies: No Known Allergies (Unverified , 04/17/17) Objective Last 24 Hour Vital Signs Date Time Temp Pulse Resp B/P Pulse Ox O2 Delivery O2 Flow Rate FiO2 04/23/17 08:45 86 137/71 04/23/17 08:00 97.7 86 18 137/71 93 Nasal Cannula 2.0 04/23/17 04:00 97.7 87 20 135/75 91 Nasal Cannula 2.0 04/23/17 00:00 97.0 74 20 126/73 92 Room Air 04/22/17 22:05 87 157/86 04/22/17 21:58 157/86 04/22/17 20:00 97.0 87 20 167/88 96 Nasal Cannula 2.0 04/22/17 16:11 97.5 87 18 157/90 97 Room Air 04/22/17 11:52 96.8 90 18 165/85 90 Nasal Cannula Intake and Output 04/22/17 04/23/17 19:00 07:00 Intake Total 900 ml 1120.0 ml Output Total 400 ml Balance 900 ml 720.0 ml IV Total 900 ml 1120.0 ml Other 400 ml # Voids 2 # Bowel Movements 2 Laboratory Tests 04/23/17 05:10: White Blood Count 12.1H, Red Blood Count 3.56L, Hemoglobin 11.8L, Hematocrit 34.2L, Mean Corpuscular Volume 96, Mean Corpuscular Hemoglobin 33.0H, Mean Corpuscular Hemoglobin Concent 34.4, Red Cell Distribution Width 11.4L, Platelet Count 214, Mean Platelet Volume 6.1L, Neutrophils (%) (Auto) 75.6H, Lymphocytes (%) (Auto) 13.1L, Monocytes (%) (Auto) 10.3H, Eosinophils (%) (Auto ) 0.6, Basophils (%) (Auto) 0.4, Prothrombin Time 10.5, Prothromb Time International Ratio 1.0, Activated Partial Thromboplast Time 26, Sodium Level 133L, Potassium Level 3.1L, Chloride Level 96L, Carbon Dioxide Level 28, Anion Gap 9, Blood Urea Nitrogen 16, Creatinine 0.5, Estimat Glomerular Filtration Rate > 60, Glucose Level 124H, Calcium Level 8.1L, Total Bilirubin 0.4, Aspartate Amino Transf (AST/SGOT) 28, Alanine Aminotransferase (ALT/SGPT) 19, Alkaline Phosphatase 42, Total Protein 5.7L, Albumin 3.5, Globulin 2.2, Albumin/ Globulin Ratio 1.5 Height (Feet): 5 Height (Inches): 3.00 Weight (Pounds): 127 General Appearance: no apparent distress EENT: PERRL/EOMI Neck: supple Cardiovascular: normal rate Respiratory/Chest: lungs clear Abdomen: guarding, other Extremities: non-tender Neurologic: admissions clerk II-XII grossly normal Marilu Caldwell MD Apr 23, 2017 11:23
[2017-04-23] MEDS ORDERED: Bupivacaine w/Epi 0.5% 30ml Vial INJ ONE (13:22)
[2017-04-23] MEDS ORDERED: Propofol 10mg/ml 20ml IV ONE (16:47)
--- NOTE | 2017-04-23 17:34 | Infectious Diseases Prog Note ---
Assessment/Plan Assessment/Plan ASSESSMENT: 66 y/o female with: // segmental small bowel inflammation with SBO, to ex lap today. inflammation visible on CT not limited to TI. stool cx negative for yersenia and campylobacter. - CT A/P: Moderately distended small bowel loops in the lower abdomen/pelvis , with an apparent transition point in the right lower quadrant and midpelvis. Moderate bowel wall thickening and hyperemia noted involving several loops. However, a short segment of small bowel in the midpelvis exhibits poor wall enhancement with surrounding mesenteric stranding. Closed loop obstruction and bowel ischemia should be considered. Small volume ascites. No evidence of free intraperitoneal air or loculated fluid collection. // Leukocytosis - persistent, mild, afebrile // Possible hepatic mass 2cm // Diverticulosis // Elevated CRP // NKDA // Full Code PLAN: - continue empiric zosyn d# 6 / 7. to be continued in maurice-op period. plan to d/c 24-48 hrs post ex lap depending on findings. - f/u results of ex lap - monitor CBC, temperatures - monitor BMP - bowel rest - GI, surgery following Subjective ROS Limited/Unobtainable: Yes Allergies: Coded Allergies: No Known Allergies (Unverified , 04/17/17) Objective Vital Signs Last 24 Hour Vital Signs Date Time Temp Pulse Resp B/P Pulse Ox O2 Delivery O2 Flow Rate FiO2 04/23/17 12:00 97.7 75 17 134/72 95 Nasal Cannula 2.0 04/23/17 08:45 86 137/71 04/23/17 08:00 97.7 86 18 137/71 93 Nasal Cannula 2.0 04/23/17 04:00 97.7 87 20 135/75 91 Nasal Cannula 2.0 04/23/17 00:00 97.0 74 20 126/73 92 Room Air 04/22/17 22:05 87 157/86 04/22/17 21:58 157/86 04/22/17 20:00 97.0 87 20 167/88 96 Nasal Cannula 2.0 Height (Feet): 5 Height (Inches): 3.00 Weight (Pounds): 127 General Appearance: other - patient in OR stool cx: normal fecal alonso. Laboratory Tests Test 04/23/17 05:10 White Blood Count 12.1 K/UL (4.8-10.8) H Red Blood Count 3.56 M/UL (4.20-5.40) L Hemoglobin 11.8 G/DL (12.0-16.0) L Hematocrit 34.2 % (37.0-47.0) L Mean Corpuscular Volume 96 FL (80-99) Mean Corpuscular Hemoglobin 33.0 PG (27.0-31.0) H Mean Corpuscular Hemoglobin Concent 34.4 G/DL (32.0-36.0) Red Cell Distribution Width 11.4 % (11.6-14.8) L Platelet Count 214 K/UL (150-450) Mean Platelet Volume 6.1 FL (6.5-10.1) L Neutrophils (%) (Auto) 75.6 % (45.0-75.0) H Lymphocytes (%) (Auto) 13.1 % (20.0-45.0) L Monocytes (%) (Auto) 10.3 % (1.0-10.0) H Eosinophils (%) (Auto) 0.6 % (0.0-3.0) Basophils (%) (Auto) 0.4 % (0.0-2.0) Prothrombin Time 10.5 SEC (9.30-11.50) Prothromb Time International Ratio 1.0 (0.9-1.1) Activated Partial Thromboplast Time 26 SEC (23-33) Sodium Level 133 mEQ/L (135-145) L Potassium Level 3.1 mEQ/L (3.4-4.9) L Chloride Level 96 mEQ/L (98-107) L Carbon Dioxide Level 28 mEQ/L (20-30) Anion Gap 9 (5-15) Blood Urea Nitrogen 16 mg/dL (7-23) Creatinine 0.5 mg/dL (0.5-0.9) Estimat Glomerular Filtration Rate > 60 mL/min (>60) Glucose Level 124 mg/dL (74-106) H Calcium Level 8.1 mg/dL (8.6-10.2) L Total Bilirubin 0.4 mg/dL (0.0-1.2) Aspartate Amino Transf (AST/SGOT) 28 U/L (5-40) Alanine Aminotransferase (ALT/SGPT) 19 U/L (3-33) Alkaline Phosphatase 42 U/L (35-104) Total Protein 5.7 g/dL (6.6-8.7) L Albumin 3.5 g/dL (3.5-5.2) Globulin 2.2 g/dL Albumin/Globulin Ratio 1.5 (1.0-2.7) Current Medications Medications (Trade) Dose Ordered Sig/Renuka Route PRN Reason Start Time Stop Time Status Last Admin Dose Admin Atorvastatin Calcium (Lipitor) 40 mg BEDTIME ORAL 04/18/17 21:00 05/18/17 20:59 04/22/17 21:49 Clonidine HCl (Catapres TTS-1) 1 patch QWEEK TDERMAL 04/22/17 21:00 05/22/17 20:59 04/22/17 21:58 Clonidine HCl (Catapres) 0.1 mg EVERY 8 HOURS PRN ORAL For High Blood Pressure 04/20/17 21:30 05/20/17 21:29 Dextrose/ Electrolytes (D5 0.45%NS W/ KCl 20mEq) 1,000 ml @ 100 mls/hr Q10H IV 04/18/17 14:00 05/18/17 13:59 04/23/17 08:45 Diphenhydramine HCl 25 mg 25 mg Q6H PRN IVP Itching 04/18/17 11:00 05/18/17 10:59 04/18/17 11:11 Heparin Sodium (Porcine) (Heparin 5000 units/ml) 5,000 units EVERY 12 HOURS SUBQ 04/18/17 00:30 05/18/17 00:29 04/22/17 08:35 Hydromorphone HCl (Dilaudid) 0.5 mg Q4H PRN IVP For Pain 04/18/17 04:00 04/25/17 03:59 04/23/17 14:28 Lorazepam (Ativan 2mg/ml 1ml) 0.5 mg Q6H PRN IV For Anxiety 04/18/17 04:00 04/25/17 03:59 04/23/17 03:06 Metoprolol Tartrate (Lopressor) 25 mg Q12HR NG 04/20/17 21:00 05/20/17 20:59 04/23/17 08:45 Ondansetron HCl (Zofran) 4 mg Q6H PRN IVP Nausea & Vomiting 04/18/17 04:00 05/18/17 03:59 04/23/17 05:37 Pantoprazole (Protonix) 40 mg DAILY IVP 04/20/17 11:00 05/20/17 10:59 04/23/17 08:45 Piperacillin Sod/ Tazobactam Sod/ Dextrose (Zosyn/D5W) 110 ml @ 27.5 mls/hr Q8H IVPB 04/18/17 01:00 04/25/17 00:59 04/23/17 08:56 Triamterene/HCTZ (Dyazide) 1 cap DAILY ORAL 04/21/17 09:00 05/21/17 08:59 04/23/17 08:45 Zolpidem Tartrate (Ambien) 5 mg HSPRN PRN ORAL Insomnia 04/20/17 21:15 05/20/17 21:14 Celestino Connell M.D. Apr 23, 2017 17:34
[2017-04-23] MEDS ORDERED: Ketorolac 30mg Inj IV PRN (18:00)
[2017-04-23] MEDS ORDERED: Metoclopramide 10mg/2ml Inj IVP PRN (18:00)
[2017-04-23] MEDS ORDERED: DiphenhydrAMINE 50mg/ml Inj IVP PRN (18:00)
[2017-04-23] MEDS ORDERED: Meperidine 25mg/0.5ml Inj (FOR RIGORS ONLY) IV PRN (18:00)
[2017-04-23] MEDS ORDERED: Midazolam 2mg/2ml Inj IVP PRN (18:00)
[2017-04-23] MEDS ORDERED: Hydromorphone 0.5mg/0.5ml inj IVP PRN (18:00)
--- NOTE | 2017-04-23 18:00 | Anethesia Preoperative Eval ---
Anesthesia Pre-op PMH/ROS General Date of Evaluation: Apr 23, 2017 Time of Evaluation: 16:46 Anesthesiologist: Grace ASA Score: ASA 2 Mallampati Score Class I : Soft palate, uvula, fauces, pillars visible Class II: Soft palate, uvula, fauces visible Class III: Soft palate, base of uvula visible Class IV: Only hard plate visible Mallampati Classification: Class II Surgeon: Erika Diagnosis: Small bowel obctraction Surgical Procedure: Diagnostic laparoscopy Anesthesia History: none Social History: current smoker Family History: no anesthesia problems Allergies: Coded Allergies: No Known Allergies (Unverified , 04/17/17) Medications: see eMAR Past Medical History Cardiovascular: Reports: HTN, Denies: CAD, MD, arrhythmia, other, valve dz Pulmonary: Denies: COPD, MILLY, asthma, other Gastrointestinal/Genitourinary: Reports: GERD, Denies: CRI, ESRD, other Neurologic/Psychiatric: Reports: depression/anxiety, Denies: CVA, TIA, dementia, other Endocrine: Reports: hypothyroidism, Denies: DM, other, steroids HEENT: Denies: ROSEBUD (L), ROSEBUD (R), cataract (L), cataract (R), glaucoma, other Hematology/Immune: Denies: DVT, anemia, bleeding disorder, other Musculoskeletal/Integumentary: Reports: DJD, Denies: DDD, OA, RA, edema, other PMH Narrative: as above PSxH Narrative: Admitted for acute abdominal pain N&V Anesthesia Pre-op Phys. Exam Physician Exam Last Vital Signs Date Time Temp Pulse Resp B/P Pulse Ox O2 Delivery O2 Flow Rate FiO2 04/23/17 12:00 97.7 75 17 134/72 95 Nasal Cannula 2.0 Constitutional: NAD Neurologic: CN 2-12 intact Cardiovascular: RRR, no M/R/G Respiratory: CTA Gastrointestinal: other - distended tender Airway Exam Mallampati Score: Class II MO: limited Neck: stiff ROM: limited Teeth: intact Dentures: no lower, no upper Anesthesia Pre-op A/P Labs Hematology Test 04/23/17 05:10 White Blood Count 12.1 K/UL (4.8-10.8) H Red Blood Count 3.56 M/UL (4.20-5.40) L Hemoglobin 11.8 G/DL (12.0-16.0) L Hematocrit 34.2 % (37.0-47.0) L Mean Corpuscular Volume 96 FL (80-99) Mean Corpuscular Hemoglobin 33.0 PG (27.0-31.0) H Mean Corpuscular Hemoglobin Concent 34.4 G/DL (32.0-36.0) Red Cell Distribution Width 11.4 % (11.6-14.8) L Platelet Count 214 K/UL (150-450) Mean Platelet Volume 6.1 FL (6.5-10.1) L Neutrophils (%) (Auto) 75.6 % (45.0-75.0) H Lymphocytes (%) (Auto) 13.1 % (20.0-45.0) L Monocytes (%) (Auto) 10.3 % (1.0-10.0) H Eosinophils (%) (Auto) 0.6 % (0.0-3.0) Basophils (%) (Auto) 0.4 % (0.0-2.0) Coagulation Test 04/23/17 05:10 Prothrombin Time 10.5 SEC (9.30-11.50) Prothromb Time International Ratio 1.0 (0.9-1.1) Activated Partial Thromboplast Time 26 SEC (23-33) Chemistry Test 04/23/17 05:10 Sodium Level 133 mEQ/L (135-145) L Potassium Level 3.1 mEQ/L (3.4-4.9) L Chloride Level 96 mEQ/L (98-107) L Carbon Dioxide Level 28 mEQ/L (20-30) Anion Gap 9 (5-15) Blood Urea Nitrogen 16 mg/dL (7-23) Creatinine 0.5 mg/dL (0.5-0.9) Estimat Glomerular Filtration Rate > 60 mL/min (>60) Glucose Level 124 mg/dL (74-106) H Calcium Level 8.1 mg/dL (8.6-10.2) L Total Bilirubin 0.4 mg/dL (0.0-1.2) Aspartate Amino Transf (AST/SGOT) 28 U/L (5-40) Alanine Aminotransferase (ALT/SGPT) 19 U/L (3-33) Alkaline Phosphatase 42 U/L (35-104) Total Protein 5.7 g/dL (6.6-8.7) L Albumin 3.5 g/dL (3.5-5.2) Globulin 2.2 g/dL Albumin/Globulin Ratio 1.5 (1.0-2.7) Studies Pre-op Studies: EKG - NSR Risk Assessment & Plan Assessment: ASA 2 Plan: GA with ETT Status Change Before Surgery: No Pre-Antibiotics Drug: as scheduled Given Within 1 Hr of Incision: Yes Time Given: 17:21 COLLINS GARCIA M.D. Apr 23, 2017 18:00
--- NOTE | 2017-04-23 18:35 | Brief Operative Note ---
Immediate Post Operative Note Operative Note Pre-op Diagnosis: abdominal pain, bowel obstruction Procedure: diagnostic laparoscopy laparoscopic lysis of adhesion Post-op Diagnosis: same as pre-op plus - adhesive small bowel obstruction Surgeon: karon Anesthesiologist: debra Anesthesia: general Specimen: none Complications: none Condition: stable Fluids: see records Estimated Blood Loss: minimal Drains: none Implant(s) used?: Ozzy Serra Apr 23, 2017 18:34
[2017-04-23] MEDS ORDERED: NS Irrig 4000ml IRRIG ONE (18:39)
--- NOTE | 2017-04-23 18:46 | Immediate Post-Op Evaluation ---
Immediate Post-Op Evalulation Immediate Post-Op Evalulation Procedure: Laparoscopic lysis of adhesions Date of Evaluation: Apr 23, 2017 Time of Evaluation: 18:45 IV Fluids: 800 Blood Products: none Estimated Blood Loss: min Urinary Output: 150 Blood Pressure Systolic: 145 Blood Pressure Diastolic: 67 Pulse Rate: 84 Respiratory Rate: 22 O2 Sat by Pulse Oximetry: 98 Temperature (Fahrenheit): 98.6 Pain Score (1-10): 2 Nausea: No Vomiting: No Complications none Patient Status: reacts, patent, extubated, none Hydration Status: adequate COLLINS GARCIA M.D. Apr 23, 2017 18:46
[2017-04-23] MEDS ORDERED: LR 1000ml 1,000 ML IVLG SCH (20:00)
--- NOTE | 2017-04-23 23:19 | Cardiology Progress Note ---
Assessment/Plan Assessment/Plan 1. Accelerated hypertension, continue clonidine patch 2. Small bowel obstruction, s/p adhesion release, POD #0, no periop cardiac events. 3. History of dyslipidemia. Subjective Subjective s/p Lap lysis of adhesions for SBO, POD #0 No maurice-op cardiac events. Objective Last 24 Hour Vital Signs Date Time Temp Pulse Resp B/P Pulse Ox O2 Delivery O2 Flow Rate FiO2 04/23/17 20:00 98.1 75 20 141/76 99 Nasal Cannula 5.0 04/23/17 19:45 98.1 77 16 150/71 96 Nasal Cannula 5.0 04/23/17 19:30 98.1 77 17 156/72 97 Nasal Cannula 5.0 04/23/17 19:15 76 18 149/67 96 Nasal Cannula 5.0 04/23/17 19:07 75 19 144/66 93 Nasal Cannula 5.0 04/23/17 18:57 77 18 148/72 97 Simple Mask 6.0 04/23/17 18:47 76 17 149/72 97 Simple Mask 6.0 04/23/17 18:46 84 22 98 04/23/17 18:42 84 16 145/67 97 Simple Mask 6.0 04/23/17 18:37 98.1 82 15 123/62 97 Simple Mask 6.0 04/23/17 12:00 97.7 75 17 134/72 95 Nasal Cannula 2.0 04/23/17 08:45 86 137/71 04/23/17 08:00 97.7 86 18 137/71 93 Nasal Cannula 2.0 04/23/17 04:00 97.7 87 20 135/75 91 Nasal Cannula 2.0 04/23/17 00:00 97.0 74 20 126/73 92 Room Air Intake and Output 04/22/17 04/23/17 19:00 07:00 Intake Total 900 ml 1120.0 ml Output Total 400 ml Balance 900 ml 720.0 ml IV Total 900 ml 1120.0 ml Other 400 ml # Voids 2 # Bowel Movements 2 Laboratory Tests Test 04/23/17 05:10 White Blood Count 12.1 K/UL (4.8-10.8) H Red Blood Count 3.56 M/UL (4.20-5.40) L Hemoglobin 11.8 G/DL (12.0-16.0) L Hematocrit 34.2 % (37.0-47.0) L Mean Corpuscular Volume 96 FL (80-99) Mean Corpuscular Hemoglobin 33.0 PG (27.0-31.0) H Mean Corpuscular Hemoglobin Concent 34.4 G/DL (32.0-36.0) Red Cell Distribution Width 11.4 % (11.6-14.8) L Platelet Count 214 K/UL (150-450) Mean Platelet Volume 6.1 FL (6.5-10.1) L Neutrophils (%) (Auto) 75.6 % (45.0-75.0) H Lymphocytes (%) (Auto) 13.1 % (20.0-45.0) L Monocytes (%) (Auto) 10.3 % (1.0-10.0) H Eosinophils (%) (Auto) 0.6 % (0.0-3.0) Basophils (%) (Auto) 0.4 % (0.0-2.0) Prothrombin Time 10.5 SEC (9.30-11.50) Prothromb Time International Ratio 1.0 (0.9-1.1) Activated Partial Thromboplast Time 26 SEC (23-33) Sodium Level 133 mEQ/L (135-145) L Potassium Level 3.1 mEQ/L (3.4-4.9) L Chloride Level 96 mEQ/L (98-107) L Carbon Dioxide Level 28 mEQ/L (20-30) Anion Gap 9 (5-15) Blood Urea Nitrogen 16 mg/dL (7-23) Creatinine 0.5 mg/dL (0.5-0.9) Estimat Glomerular Filtration Rate > 60 mL/min (>60) Glucose Level 124 mg/dL (74-106) H Calcium Level 8.1 mg/dL (8.6-10.2) L Total Bilirubin 0.4 mg/dL (0.0-1.2) Aspartate Amino Transf (AST/SGOT) 28 U/L (5-40) Alanine Aminotransferase (ALT/SGPT) 19 U/L (3-33) Alkaline Phosphatase 42 U/L (35-104) Total Protein 5.7 g/dL (6.6-8.7) L Albumin 3.5 g/dL (3.5-5.2) Globulin 2.2 g/dL Albumin/Globulin Ratio 1.5 (1.0-2.7) Objective HEENT: Atraumatic and normocephalic. Anicteric. Pupils are equal, round, and reactive to light and accommodation. Extraocular muscles are intact. NECK: JVP is less than 5 cm. No carotid bruits. Carotid upstrokes 2+ bilaterally. CARDIOVASCULAR: Normal S1 and S2. Regular rate and rhythm. No murmurs, gallops, or rubs. PMI is at fourth intercostal space in the midclavicular line. LUNGS: Clear to auscultation bilaterally. ABDOMEN: Distended with diminished bowel sounds. No hepatosplenomegaly. Positive bowel sounds. EXTREMITIES: No evidence of edema, clubbing, or cyanosis. HANDY MADRID Apr 23, 2017 23:19
--- NOTE | 2017-04-23 23:30 | Operative Note - Dictated ---
DATE OF OPERATION: 04/23/2017 PREOPERATIVE DIAGNOSES: 1. Abdominal pain. 2. Small bowel obstruction. POSTOPERATIVE DIAGNOSIS: Partial distal small bowel obstruction secondary to adhesions. OPERATION PERFORMED: 1. Diagnostic laparoscopy. 2. Laparoscopic lysis of adhesions. ATTENDING SURGEON: Ozzy Yoon M.D. ANESTHESIOLOGIST: Yan Edwards M.D. ANESTHESIA: General PHARMACEUTICAL SPECIALTY REPRESENTATIVE. ESTIMATED BLOOD LOSS: Minimal. IV FLUIDS: Please see Anesthesia records. WOUND CLASSIFICATION: Class 1. COMPLICATIONS: None. SPECIMENS: None. DRAINS: None. COUNTS: Sponge and needle count correct x2. ANTIBIOTICS: The patient was on scheduled Zosyn IV prior to entering the operating room. PERTINENT OPERATIVE FINDINGS: 1. 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 2. Small bowel run from the ligament of Treitz to the ileocecal valve after lysis of adhesions without any other abnormalities being noted. 3. 800 mL of serosanguineous fluid evacuated from the abdomen. INDICATIONS FOR PROCEDURE: This is a 66-year-old female who presents to the emergency department complaining of abdominal pain with associated nausea and emesis. The patient was initially admitted and managed conservatively, but noted to not be progressing over the subsequent days. Upper GI series with Gastrografin was performed and demonstrated pooling of contrast in the lower abdomen even after 24 hours indicative of obstruction, but only partial given some did transverse into the colon. Given these findings and the lack of patient progressing over a few days of conservative management, a decision was made to take the patient to the operating room for diagnostic laparoscopy. The risks, benefits, and alternatives of surgery were discussed with the patient in detail preoperatively. The patient expressed understanding and consented for surgery. OPERATIVE NOTE: The patient was taken to the operating room and placed on the operating table in supine position with bilateral arms out. All bony prominences were well padded with gel pads. SCDs were placed. Appropriate time-out was taken identifying the patient, procedure, operating staff, and surgical staff. General anesthesia was induced and the patient was intubated. A Ballard catheter was inserted using sterile technique. The abdomen was then prepped and draped in standard surgical fashion. A #11 blade was used to make an infraumbilical incision. Incision was taken down to the fascia with blunt dissection and electrocautery. The fascia was grasped with Jael and elevated and incised. Open entry into the abdomen was obtained using Olga technique without complication. Olga trocar was placed and the abdomen was insufflated to 12 to 15 mmHg. The laparoscope was then inserted and the abdomen was inspected. There was a significant amount of serosanguineous fluid noted in all four quadrants and the pelvis. No immediate complications of trocar placement or etiology of the patient's condition was identified. Secondary trocars were then placed under direct visualization starting with a 5 mm trocar in the left lower quadrant followed by 5 mm trocar in the suprapubic region, both placed under direct visualization without complication. The fluid in the abdomen was then evacuated, a total of approximately 800 mL. We then turned our attention to the lower abdomen and pelvis to identify the area that was seen on the Gastrografin study with possible obstruction. In mobilizing the right lower quadrant to identify the cecum, the appendix was identified and noted to be normal. The terminal ileum was identified and noted to be very congested. In trying to dissect out the terminal ileum, there was an internal hernia noted through some congenital adhesive bands from the what appeared to be sigmoid colon to the perimesenteric fat of the cecum. Using endoscopic scissors, the adhesive bands were lysed. Approximately 2 dense adhesive bands were lysed without bleeding or complication. Once this was complete, the internal hernia was reduced and the bowel was easily and comfortably opening up. We then evaluated the cecum, ascending colon, and appendix, which all appeared to be normal. The bowel was then run from the terminal ileum to the ligament of Treitz without noting any abnormality. To make sure there were no other abnormalities, the bowel was then run again from the ligament of Treitz to the terminal ileum and the bowel was noted to be free and without any mesenteric twisting or herniation or other abnormality. The liver and gallbladder were inspected and noted to be normal. The left upper quadrant and left lower quadrant were identified and noted to be normal. The pelvis was identified and noted to be otherwise satisfactory including the sigmoid colon. The abdomen was then irrigated with copious amounts of sterile normal saline, and the fluid was evacuated. At this time, decision was made to conclude the procedure. The infraumbilical trocar site fascia was closed using a #0 Vicryl [id number]-[id number] suture followed by closing of the remainders of the skin incisions using a 4-0 Monocryl suture. Steri-Strips and dressings were applied. Ballard catheter was removed and the patient was extubated and taken to the postanesthetic care unit in stable condition. Ozzy Yoon M.D. DR: Dougie JOB#: [id number] CC:
[2017-04-24] VITALS: BP 107/62
[2017-04-24] MEDS: Piperacillin/Tazobactam 3.375 GM in D5W 110 ML IVPB SCH ×2 (00:29→08:21)
[2017-04-24 04:00] VITALS: BP 123/63
[2017-04-24] MEDS: Hydromorphone 0.5mg/0.5ml inj IVP PRN ×3 (05:10→20:36)
[2017-04-24] MEDS: D5 1/2NS w/KCl 20mEq 1,000 ML IV SCH ×3 (07:05→20:35)
[2017-04-24 08:00] VITALS: BP 127/68
[2017-04-24] MEDS: LORazepam Inj 2mg/ml 1ml IV PRN ×2 (08:02→22:34)
--- NOTE | 2017-04-24 08:19 | General Progress Note ---
Assessment/Plan Problem List: (1) SBO (small bowel obstruction) ICD Codes: K56.69 - Other intestinal obstruction SNOMED: [id number] Assessment/Plan s/p surgery npo ivf iv abx DVT prophylaxix fu surgery recs Subjective ROS Limited/Unobtainable: Yes Allergies: Coded Allergies: No Known Allergies (Unverified , 04/17/17) Subjective no flatus Objective Last 24 Hour Vital Signs Date Time Temp Pulse Resp B/P Pulse Ox O2 Delivery O2 Flow Rate FiO2 04/24/17 04:00 97.4 83 19 123/63 100 Room Air 04/24/17 00:00 97.0 65 18 107/62 99 Nasal Cannula 5.0 04/23/17 20:00 98.1 75 20 141/76 99 Nasal Cannula 5.0 04/23/17 19:45 98.1 77 16 150/71 96 Nasal Cannula 5.0 04/23/17 19:30 98.1 77 17 156/72 97 Nasal Cannula 5.0 04/23/17 19:15 76 18 149/67 96 Nasal Cannula 5.0 04/23/17 19:07 75 19 144/66 93 Nasal Cannula 5.0 04/23/17 18:57 77 18 148/72 97 Simple Mask 6.0 04/23/17 18:47 76 17 149/72 97 Simple Mask 6.0 04/23/17 18:46 84 22 98 04/23/17 18:42 84 16 145/67 97 Simple Mask 6.0 04/23/17 18:37 98.1 82 15 123/62 97 Simple Mask 6.0 04/23/17 12:00 97.7 75 17 134/72 95 Nasal Cannula 2.0 04/23/17 08:45 86 137/71 Intake and Output 04/23/17 04/24/17 19:00 07:00 Intake Total 1310.0 ml 1110.0 ml Output Total 150 ml Balance 1160.0 ml 1110.0 ml IV Total 1310.0 ml 1110.0 ml Output Urine Total 150 ml # Voids 7 4 # Bowel Movements 1 Height (Feet): 5 Height (Inches): 3.00 Weight (Pounds): 127 General Appearance: alert EENT: normal ENT inspection Neck: supple Cardiovascular: normal rate Respiratory/Chest: lungs clear Abdomen: decreased bowel sounds, tender Extremities: non-tender VOSOGHI,TIM Apr 24, 2017 08:19
[2017-04-24] MEDS: Pantoprazole Inj IVP SCH (08:20)
[2017-04-24] MEDS: Heparin 5000 units/ml inj SUBQ SCH ×2 (08:22→20:37)
[2017-04-24] MEDS: Triamterene/Hctz 37.5/25 cap ORAL SCH (09:00)
[2017-04-24] MEDS: Metoprolol Tartrate 12.5mg TAB NG SCH ×3 (09:00→20:35)
[2017-04-24 09:03] LABS: BASOPHILS % (AUTO) 0.6 % (0.0-2.0); EOSINOPHILS % (AUTO) 0.9 % (0.0-3.0); LYMPHOCYTES % (AUTO) 9.2 % (20.0-45.0); MEAN CORPUSCULAR HEMOGLOBIN 32.5 PG (27.0-31.0); MEAN CORPUSCULAR HGB CONC 33.3 G/DL (32.0-36.0); MEAN CORPUSCULAR VOLUME 97 FL (80-99); MEAN PLATELET VOLUME 5.9 FL (6.5-10.1); MONOCYTES % (AUTO) 6.4 % (1.0-10.0); NEUTROPHILS % (AUTO) 82.9 % (45.0-75.0); PLATELET COUNT 203 K/UL (150-450); RED BLOOD COUNT 3.38 M/UL (4.20-5.40); RED CELL DISTRIBUTION WIDTH 11.6 % (11.6-14.8); WHITE BLOOD COUNT 10.1 K/UL (4.8-10.8)
[2017-04-24 09:16] LABS: ANION GAP 8 (5-15); CALCIUM 8.4 mg/dL (8.6-10.2); CARBON DIOXIDE 31 mEQ/L (20-30); CHLORIDE 97 mEQ/L (98-107); CREATININE 0.5 mg/dL (0.5-0.9); GLOMERULAR FILTRATION RATE > 60 mL/min (>60); HEMOLYSIS 3; POTASSIUM 3.9 mEQ/L (3.4-4.9); SODIUM 136 mEQ/L (135-145)
--- NOTE | 2017-04-24 10:38 | 48 Hour Post Anesthesia Eval ---
Post Anesthesia Evaluation Procedure: Laparoscopic lysis of adhesions Date of Evaluation: Apr 24, 2017 Time of Evaluation: 10:37 Blood Pressure Systolic: 118 0: 62 Pulse Rate: 64 Respiratory Rate: 20 Temperature (Fahrenheit): 97.6 O2 Sat by Pulse Oximetry: 96 Airway: patent Nausea: No Vomiting: No Pain Intensity: 2 Hydration Status: adequate Cardiopulmonary Status: stable Mental Status/LOC: patient returned to baseline Follow-up Care/Observations: n/a Post-Anesthesia Complications: none Follow-up care needed: N/A COLLINS GARCIA M.D. Apr 24, 2017 10:38
--- NOTE | 2017-04-24 11:55 | General Progress Note ---
Progress Note Progress Note Surgery: doing well. incisional tenderness. no n/v/f/c. labs improved abd soft, nt/nd, flat today, improved. incisions c/d/i s/p laparoscopic lysis of adhesion for internal hernia caused by single dense adhesion -Start clear liquid diet -ambulate and oob Ozzy Yoon Apr 24, 2017 11:55
[2017-04-24 12:00] VITALS: BP 123/65
[2017-04-24] MEDS ORDERED: Hydrocortisone 1% Oint 30gm TOPIC PRN (13:45)
[2017-04-24 16:00] VITALS: BP 137/83
--- NOTE | 2017-04-24 17:18 | Infectious Diseases Prog Note ---
Assessment/Plan Assessment/Plan ASSESSMENT: 66 y/o female with: // segmental small bowel inflammation with SBO secondary to hernia with single dense adhesions s/p ex lap and YAIMA POD#1. inflammation visible on CT not limited to TI. stool cx negative for yersenia and campylobacter. - CT A/P: Moderately distended small bowel loops in the lower abdomen/pelvis , with an apparent transition point in the right lower quadrant and midpelvis. Moderate bowel wall thickening and hyperemia noted involving several loops. However, a short segment of small bowel in the midpelvis exhibits poor wall enhancement with surrounding mesenteric stranding. Closed loop obstruction and bowel ischemia should be considered. Small volume ascites. No evidence of free intraperitoneal air or loculated fluid collection. // Leukocytosis - mild, normalizing, has been afebrile //post op low grade temp this afternoon // Possible hepatic mass 2cm // Diverticulosis // Elevated CRP // NKDA // Full Code PLAN: - monitor off abx 04/24/17 (s/p 7d empiric zosyn) -if persitent low grade temp, will obtain PCXR, u/a, urine cx, and blood cx x2 -encourage incentive spirometry and good pulmonary toilet. - monitor CBC, temperatures - monitor BMP - bowel rest - GI, surgery following Subjective Constitutional: Reports: no symptoms Allergies: Coded Allergies: No Known Allergies (Unverified , 04/17/17) Objective Vital Signs Last 24 Hour Vital Signs Date Time Temp Pulse Resp B/P Pulse Ox O2 Delivery O2 Flow Rate FiO2 04/24/17 16:00 100.4 99 18 137/83 92 Venturi Mask 04/24/17 12:00 98.6 80 18 123/65 91 Nasal Cannula 3.0 04/24/17 10:38 64 20 96 04/24/17 09:00 77 127/68 04/24/17 08:00 97.9 77 20 127/68 95 Nasal Cannula 5.0 04/24/17 04:00 97.4 83 19 123/63 100 Room Air 04/24/17 00:00 97.0 65 18 107/62 99 Nasal Cannula 5.0 04/23/17 20:00 98.1 75 20 141/76 99 Nasal Cannula 5.0 04/23/17 19:45 98.1 77 16 150/71 96 Nasal Cannula 5.0 04/23/17 19:30 98.1 77 17 156/72 97 Nasal Cannula 5.0 04/23/17 19:15 76 18 149/67 96 Nasal Cannula 5.0 04/23/17 19:07 75 19 144/66 93 Nasal Cannula 5.0 04/23/17 18:57 77 18 148/72 97 Simple Mask 6.0 04/23/17 18:47 76 17 149/72 97 Simple Mask 6.0 04/23/17 18:46 84 22 98 04/23/17 18:42 84 16 145/67 97 Simple Mask 6.0 04/23/17 18:37 98.1 82 15 123/62 97 Simple Mask 6.0 Height (Feet): 5 Height (Inches): 3.00 Weight (Pounds): 127 Objective non toxic appearing. lungs cta rrr, no murmurs surgical dressing in place. normal incisional tenderness. no fullness. no rash Laboratory Tests Test 04/24/17 08:15 White Blood Count 10.1 K/UL (4.8-10.8) Red Blood Count 3.38 M/UL (4.20-5.40) L Hemoglobin 11.0 G/DL (12.0-16.0) L Hematocrit 32.9 % (37.0-47.0) L Mean Corpuscular Volume 97 FL (80-99) Mean Corpuscular Hemoglobin 32.5 PG (27.0-31.0) H Mean Corpuscular Hemoglobin Concent 33.3 G/DL (32.0-36.0) Red Cell Distribution Width 11.6 % (11.6-14.8) Platelet Count 203 K/UL (150-450) Mean Platelet Volume 5.9 FL (6.5-10.1) L Neutrophils (%) (Auto) 82.9 % (45.0-75.0) H Lymphocytes (%) (Auto) 9.2 % (20.0-45.0) L Monocytes (%) (Auto) 6.4 % (1.0-10.0) Eosinophils (%) (Auto) 0.9 % (0.0-3.0) Basophils (%) (Auto) 0.6 % (0.0-2.0) Sodium Level 136 mEQ/L (135-145) Potassium Level 3.9 mEQ/L (3.4-4.9) Chloride Level 97 mEQ/L (98-107) L Carbon Dioxide Level 31 mEQ/L (20-30) H Anion Gap 8 (5-15) Blood Urea Nitrogen 8 mg/dL (7-23) Creatinine 0.5 mg/dL (0.5-0.9) Estimat Glomerular Filtration Rate > 60 mL/min (>60) Glucose Level 113 mg/dL (74-106) H Calcium Level 8.4 mg/dL (8.6-10.2) L Current Medications Medications (Trade) Dose Ordered Sig/Renuka Route PRN Reason Start Time Stop Time Status Last Admin Dose Admin Atorvastatin Calcium (Lipitor) 40 mg BEDTIME ORAL 04/18/17 21:00 05/18/17 20:59 04/22/17 21:49 Clonidine HCl (Catapres TTS-1) 1 patch QWEEK TDERMAL 04/22/17 21:00 05/22/17 20:59 04/22/17 21:58 Clonidine HCl (Catapres) 0.1 mg EVERY 8 HOURS PRN ORAL For High Blood Pressure 04/20/17 21:30 05/20/17 21:29 Dextrose/ Electrolytes (D5 0.45%NS W/ KCl 20mEq) 1,000 ml @ 100 mls/hr Q10H IV 04/18/17 14:00 05/18/17 13:59 04/24/17 07:05 Diphenhydramine HCl 25 mg 25 mg Q6H PRN IVP Itching 04/18/17 11:00 05/18/17 10:59 04/18/17 11:11 Heparin Sodium (Porcine) (Heparin 5000 units/ml) 5,000 units EVERY 12 HOURS SUBQ 04/18/17 00:30 05/18/17 00:29 04/24/17 08:22 Hydrocortisone (Hydrocortisone) 1 applic Q6H PRN TOPIC Itching 04/24/17 13:45 05/24/17 13:44 Hydromorphone HCl (Dilaudid) 0.5 mg Q4H PRN IVP For Pain 04/18/17 04:00 04/25/17 03:59 04/24/17 12:05 Lorazepam (Ativan 2mg/ml 1ml) 0.5 mg Q6H PRN IV For Anxiety 04/18/17 04:00 04/25/17 03:59 04/24/17 08:02 Metoprolol Tartrate (Lopressor) 25 mg Q12HR NG 04/20/17 21:00 05/20/17 20:59 04/23/17 08:45 Ondansetron HCl (Zofran) 4 mg Q6H PRN IVP Nausea & Vomiting 04/18/17 04:00 05/18/17 03:59 04/23/17 05:37 Triamterene/HCTZ (Dyazide) 1 cap DAILY ORAL 04/21/17 09:00 05/21/17 08:59 04/23/17 08:45 Zolpidem Tartrate (Ambien) 5 mg HSPRN PRN ORAL Insomnia 04/20/17 21:15 05/20/17 21:14 Celestino Connell M.D. Apr 24, 2017 17:18
[2017-04-24] MEDS: DuoNeb 0.5-3(2.5)mg/3ml neb HHN PRN (17:30)
[2017-04-24 17:55] LABS: MEAN CORPUSCULAR HEMOGLOBIN 34.7 PG (27.0-31.0); MEAN CORPUSCULAR VOLUME 94 FL (80-99); MEAN PLATELET VOLUME 5.9 FL (6.5-10.1); PLATELET COUNT 201 K/UL (150-450); RED CELL DISTRIBUTION WIDTH 11.8 % (11.6-14.8); WHITE BLOOD COUNT 14.1 K/UL (4.8-10.8)
[2017-04-24 17:57] LABS: BASOPHILS % (AUTO) 1.1 % (0.0-2.0); EOSINOPHILS % (AUTO) 0.6 % (0.0-3.0); LYMPHOCYTES % (AUTO) 6.6 % (20.0-45.0); MONOCYTES % (AUTO) 4.7 % (1.0-10.0)
[2017-04-24 18:10] LABS: ALANINE AMINOTRANSFERASE 28 U/L (3-33); ALBUMIN/GLOBULIN RATIO 1.3 (1.0-2.7); ANION GAP 9 (5-15); ASPARTATE AMINO TRANSFERASE 35 U/L (5-40); CALCIUM 8.1 mg/dL (8.6-10.2); CARBON DIOXIDE 30 mEQ/L (20-30); CHLORIDE 96 mEQ/L (98-107); CREATININE 0.5 mg/dL (0.5-0.9); GLOMERULAR FILTRATION RATE > 60 mL/min (>60); HEMOLYSIS 4; SODIUM 135 mEQ/L (135-145); TOTAL PROTEIN 5.7 g/dL (6.6-8.7); TROPONIN I < 0.30 ng/mL (<=0.30)
--- NOTE | 2017-04-24 18:31 | Consultation ---
History of Present Illness General Date patient seen: Apr 24, 2017 Time patient seen: 17:00 Chief Complaint: Abdominal Pain Referring physician: dr Caldwell Reason for Consultation: hypoxia Present Illness HPI 66 y/old female with PMH of HTN, hyperlipidemia initially admitted for abdominal pain, found to have bowel obstructions and subsequently undergone on 04/23 diagnostic laparoscopy with laparoscopic lysis of adhesions. Later that day she became hypoxic and required placement of simple mask to keep pulse oximetry above 92% Pulmonary consult was requested Patient denies chest pain, reports occasional shortness of breath no cough, no congestion, currently on VM 55%, uncomfortable leukocytosis today ( 1 st postop day), low grade fever- 100.4 denies wheezing, hemoptysis upon questioning found that the patient is a smoker for many years, smokes 1 pack/day never was diagnosed with COPD, no hx of asthma not taking any inhalers, Allergies: Coded Allergies: No Known Allergies (Unverified , 04/17/17) Medication History Scheduled Albuterol Sulfate* (Proair Hfa*), 1 PUFF INH Q6H, (Reported) Albuterol Sulfate* (Proair Hfa*), 1 PUFF INH Q6H, (Reported) Aspirin Ec* (Aspirin Ec*), 81 MG ORAL DAILY, (Reported) Cholecalciferol (Vitamin D3)* (Vitamin D*), 1,000 UNIT ORAL DAILY, (Reported) Rosuvastatin Calcium* (Crestor*), 40 MG ORAL DAILY, (Reported) Scheduled PRN Zolpidem Tartrate* (Ambien*), 5 MG ORAL HSPRN PRN Zolpidem Tartrate* (Ambien*), 5 MG ORAL BEDTIME PRN for Insomnia, (Reported) Miscellaneous Medications Biotin (Biotin), 5,000 MCG PO, (Reported) Mu-Vits-Min Th/Lycopene/Lutein (Centrum Silver Tablet), 1 EACH PO, (Reported) Vitamin E Mixed (Vitamin E), 400 UNIT PO, (Reported) Discontinued Medications Metoprolol Succinate* (Metoprolol Succinate*), 25 MG ORAL DAILY, (Reported) Discontinued Reason: MD discontinued med Patient History Healthcare decision maker Resuscitation status Full Code Advanced Directive on File No Past Medical/Surgical History Past Medical/Surgical History: (1) Hyperlipidemia (2) Hypertension Social History Social History: (1) Current tobacco use Review of Systems Constitutional: Reports: weakness Eye: Reports: no symptoms ENT: Reports: no symptoms Respiratory: Reports: see HPI Cardiovascular: Reports: no symptoms, other - HTN Gastrointestinal: Reports: see HPI Genitourinary: Reports: no symptoms Musculoskeletal: Reports: no symptoms Skin: Reports: no symptoms Psychiatric: Reports: no symptoms Endocrine: Reports: no symptoms Hematologic/Lymphatic: Reports: no symptoms Physical Exam General Appearance: WD/WN, no apparent distress, alert Lines, tubes and drains: peripheral HEENT: normocephalic, atraumatic, anicteric, PERRL Neck: non-tender, supple Respiratory/Chest: lungs clear - with moderate air exchange , no respiratory distress, no accessory muscle use Cardiovascular/Chest: normal peripheral pulses, normal rate, regular rhythm, no JVD Abdomen: non tender, soft, hypoactive bowel sounds, other - dressing C/D/I Extremities: normal range of motion, non-tender, no calf tenderness, normal capillary refill Neurologic: no motor/sensory deficits, alert, oriented x 3, responsive Musculoskeletal: normal muscle bulk Last 24 Hour Vital Signs Date Time Temp Pulse Resp B/P Pulse Ox O2 Delivery O2 Flow Rate FiO2 04/24/17 17:41 110 18 95 Venturi Mask 12.0 50 04/24/17 17:33 104 18 Venturi Mask 12.0 50 04/24/17 17:28 104 18 82 Venturi Mask 12.0 50 04/24/17 16:00 100.4 99 18 137/83 92 Venturi Mask 04/24/17 12:00 98.6 80 18 123/65 91 Nasal Cannula 3.0 04/24/17 10:38 64 20 96 04/24/17 09:00 77 127/68 04/24/17 08:00 97.9 77 20 127/68 95 Nasal Cannula 5.0 04/24/17 04:00 97.4 83 19 123/63 100 Room Air 04/24/17 00:00 97.0 65 18 107/62 99 Nasal Cannula 5.0 04/23/17 20:00 98.1 75 20 141/76 99 Nasal Cannula 5.0 04/23/17 19:45 98.1 77 16 150/71 96 Nasal Cannula 5.0 04/23/17 19:30 98.1 77 17 156/72 97 Nasal Cannula 5.0 04/23/17 19:15 76 18 149/67 96 Nasal Cannula 5.0 04/23/17 19:07 75 19 144/66 93 Nasal Cannula 5.0 04/23/17 18:57 77 18 148/72 97 Simple Mask 6.0 04/23/17 18:47 76 17 149/72 97 Simple Mask 6.0 04/23/17 18:46 84 22 98 04/23/17 18:42 84 16 145/67 97 Simple Mask 6.0 04/23/17 18:37 98.1 82 15 123/62 97 Simple Mask 6.0 Intake and Output 04/23/17 04/24/17 19:00 07:00 Intake Total 1310.0 ml 1110.0 ml Output Total 150 ml Balance 1160.0 ml 1110.0 ml IV Total 1310.0 ml 1110.0 ml Output Urine Total 150 ml # Voids 7 4 # Bowel Movements 1 Laboratory Tests Test 04/24/17 08:15 04/24/17 17:40 White Blood Count 10.1 K/UL (4.8-10.8) 14.1 K/UL (4.8-10.8) H Red Blood Count 3.38 M/UL (4.20-5.40) L 3.20 M/UL (4.20-5.40) L Hemoglobin 11.0 G/DL (12.0-16.0) L 11.1 G/DL (12.0-16.0) L Hematocrit 32.9 % (37.0-47.0) L 30.0 % (37.0-47.0) L Mean Corpuscular Volume 97 FL (80-99) 94 FL (80-99) Mean Corpuscular Hemoglobin 32.5 PG (27.0-31.0) H 34.7 PG (27.0-31.0) H Mean Corpuscular Hemoglobin Concent 33.3 G/DL (32.0-36.0) 37.0 G/DL (32.0-36.0) H Red Cell Distribution Width 11.6 % (11.6-14.8) 11.8 % (11.6-14.8) Platelet Count 203 K/UL (150-450) 201 K/UL (150-450) Mean Platelet Volume 5.9 FL (6.5-10.1) L 5.9 FL (6.5-10.1) L Neutrophils (%) (Auto) 82.9 % (45.0-75.0) H 87.0 % (45.0-75.0) H Lymphocytes (%) (Auto) 9.2 % (20.0-45.0) L 6.6 % (20.0-45.0) L Monocytes (%) (Auto) 6.4 % (1.0-10.0) 4.7 % (1.0-10.0) Eosinophils (%) (Auto) 0.9 % (0.0-3.0) 0.6 % (0.0-3.0) Basophils (%) (Auto) 0.6 % (0.0-2.0) 1.1 % (0.0-2.0) Sodium Level 136 mEQ/L (135-145) 135 mEQ/L (135-145) Potassium Level 3.9 mEQ/L (3.4-4.9) 4.0 mEQ/L (3.4-4.9) Chloride Level 97 mEQ/L (98-107) L 96 mEQ/L (98-107) L Carbon Dioxide Level 31 mEQ/L (20-30) H 30 mEQ/L (20-30) Anion Gap 8 (5-15) 9 (5-15) Blood Urea Nitrogen 8 mg/dL (7-23) 7 mg/dL (7-23) Creatinine 0.5 mg/dL (0.5-0.9) 0.5 mg/dL (0.5-0.9) Estimat Glomerular Filtration Rate > 60 mL/min (>60) > 60 mL/min (>60) Glucose Level 113 mg/dL (74-106) H 119 mg/dL (74-106) H Calcium Level 8.4 mg/dL (8.6-10.2) L 8.1 mg/dL (8.6-10.2) L Total Bilirubin 0.4 mg/dL (0.0-1.2) Aspartate Amino Transf (AST/SGOT) 35 U/L (5-40) Alanine Aminotransferase (ALT/SGPT) 28 U/L (3-33) Alkaline Phosphatase 49 U/L (35-104) Troponin I < 0.30 ng/mL (<=0.30) Total Protein 5.7 g/dL (6.6-8.7) L Albumin 3.3 g/dL (3.5-5.2) L Globulin 2.4 g/dL Albumin/Globulin Ratio 1.3 (1.0-2.7) Height (Feet): 5 Height (Inches): 3.00 Weight (Pounds): 127 Medications Current Medications Medications (Trade) Dose Ordered Sig/Renuka Route PRN Reason Start Time Stop Time Status Last Admin Dose Admin Acetaminophen (Tylenol) 650 mg Q4H PRN ORAL Mild Pain/Temp > 100.5 04/24/17 17:15 05/24/17 17:14 04/24/17 17:24 Albuterol/ Ipratropium (DuoNeb 0.5-3(2.5)mg/3ml) 3 ml Q4H PRN HHN Shortness of Breath 04/24/17 17:15 04/29/17 17:14 04/24/17 17:30 Atorvastatin Calcium (Lipitor) 40 mg BEDTIME ORAL 04/18/17 21:00 05/18/17 20:59 04/22/17 21:49 Clonidine HCl (Catapres TTS-1) 1 patch QWEEK TDERMAL 04/22/17 21:00 05/22/17 20:59 04/22/17 21:58 Clonidine HCl (Catapres) 0.1 mg EVERY 8 HOURS PRN ORAL For High Blood Pressure 04/20/17 21:30 05/20/17 21:29 Dextrose/ Electrolytes (D5 0.45%NS W/ KCl 20mEq) 1,000 ml @ 100 mls/hr Q10H IV 04/18/17 14:00 05/18/17 13:59 04/24/17 07:05 Diphenhydramine HCl 25 mg 25 mg Q6H PRN IVP Itching 04/18/17 11:00 05/18/17 10:59 04/18/17 11:11 Heparin Sodium (Porcine) (Heparin 5000 units/ml) 5,000 units EVERY 12 HOURS SUBQ 04/18/17 00:30 05/18/17 00:29 04/24/17 08:22 Hydrocortisone (Hydrocortisone) 1 applic Q6H PRN TOPIC Itching 04/24/17 13:45 05/24/17 13:44 Hydromorphone HCl (Dilaudid) 0.5 mg Q4H PRN IVP For Pain 04/18/17 04:00 04/25/17 03:59 04/24/17 12:05 Lorazepam (Ativan 2mg/ml 1ml) 0.5 mg Q6H PRN IV For Anxiety 04/18/17 04:00 04/25/17 03:59 04/24/17 08:02 Metoprolol Tartrate (Lopressor) 25 mg Q12HR NG 04/20/17 21:00 05/20/17 20:59 04/23/17 08:45 Ondansetron HCl (Zofran) 4 mg Q6H PRN IVP Nausea & Vomiting 04/18/17 04:00 05/18/17 03:59 04/23/17 05:37 Triamterene/HCTZ (Dyazide) 1 cap DAILY ORAL 04/21/17 09:00 05/21/17 08:59 04/23/17 08:45 Zolpidem Tartrate (Ambien) 5 mg HSPRN PRN ORAL Insomnia 04/20/17 21:15 05/20/17 21:14 Assessment/Plan Assessment/Plan ASSESSMENT acute hypoxemic respirator failure leukocytosis possible aspiration PNA possible COPD tobacco abuse abdominal pain. partial distal small bowel obstruction secondary to adhesions. s/p 04/23 laparoscopy with laparoscopic lysis of adhesions HTN hyperlipidemia PLAN OF CARE MS floor CXR to r/o PNA may consider empiric abx, depending on CXR IS at the bedside taught and encourage to use OOB as tolerated and ambulate Venous Duplex BLE to r/o acute DVT Pulmonary toilet as needed supplemental oxygen , try to wean via NC for comfort- to keep sat above 92% if CXR and Venous Duplex prove to be negative, hypoxemia likely related to COPD , possible PNA, or possible depression of respiratory drive with anesthetic during surgery however will do venous Duplex to r/o DVT no evidence of COPD exacerbation patient was counseled on smoking cessation, not ready to quit declined Nicotine patch will likely benefit from inhalers on dc and fup as outpatient with bakery sales clerk for PFT or bedside spirometry postop care as per surgery surgery clsoely follows started on CL diet, monitor tolerance a/emetic prn pain management DVT, GI prophayxlis wound care BP management with current regimen and optimize as needed - per PMD Thank you for this consult! case discussed and evaluated by supervising physician Sudheer (Caitlin),Darlene MENDOZA Apr 24, 2017 18:31
[2017-04-24 20:00] VITALS: BP 131/85
--- NOTE | 2017-04-24 20:30 | General Progress Note ---
Assessment/Plan Status: unchanged Assessment/Plan 1- Acute Abdomen, status post expl.laparotomy 2. Abdominal pain 2- Small Bowel Obstruction (partial vs complete), status post expl.laparotomy 3- HTN 4- Gi-DVT prophylaxia 5. Hypoxemic Respiratory failure Plan: Surgery and GI services Notes are reviewed. Leukocytosis with low grade fever? S/p Expl. laparotomy today troponin, LE duplex Pulmunary consut Subjective ROS Limited/Unobtainable: No HEENT: Reports: no symptoms Cardiovascular: Reports: no symptoms Respiratory: Reports: cough Gastrointestinal/Abdominal: Reports: abdominal pain - site of laparotomy incisions are clean and not tender Allergies: Coded Allergies: No Known Allergies (Unverified , 04/17/17) Objective Last 24 Hour Vital Signs Date Time Temp Pulse Resp B/P Pulse Ox O2 Delivery O2 Flow Rate FiO2 04/24/17 18:23 99.3 04/24/17 17:41 110 18 95 Venturi Mask 12.0 50 04/24/17 17:33 104 18 Venturi Mask 12.0 50 04/24/17 17:28 104 18 82 Venturi Mask 12.0 50 04/24/17 16:00 100.4 99 18 137/83 92 Venturi Mask 04/24/17 12:00 98.6 80 18 123/65 91 Nasal Cannula 3.0 04/24/17 10:38 64 20 96 04/24/17 09:00 77 127/68 04/24/17 08:00 97.9 77 20 127/68 95 Nasal Cannula 5.0 04/24/17 04:00 97.4 83 19 123/63 100 Room Air 04/24/17 00:00 97.0 65 18 107/62 99 Nasal Cannula 5.0 Intake and Output 04/23/17 04/24/17 19:00 07:00 Intake Total 1310.0 ml 1110.0 ml Output Total 150 ml Balance 1160.0 ml 1110.0 ml IV Total 1310.0 ml 1110.0 ml Output Urine Total 150 ml # Voids 7 4 # Bowel Movements 1 Laboratory Tests 04/24/17 08:15: White Blood Count 10.1, Red Blood Count 3.38L, Hemoglobin 11.0L, Hematocrit 32.9L, Mean Corpuscular Volume 97, Mean Corpuscular Hemoglobin 32.5H, Mean Corpuscular Hemoglobin Concent 33.3, Red Cell Distribution Width 11.6, Platelet Count 203, Mean Platelet Volume 5.9L, Neutrophils (%) (Auto) 82.9H, Lymphocytes (%) (Auto) 9.2L, Monocytes (%) (Auto) 6.4, Eosinophils (%) (Auto) 0.9, Basophils (%) (Auto) 0.6, Sodium Level 136, Potassium Level 3.9, Chloride Level 97L, Carbon Dioxide Level 31H, Anion Gap 8, Blood Urea Nitrogen 8, Creatinine 0.5, Estimat Glomerular Filtration Rate > 60, Glucose Level 113H, Calcium Level 8.4L 04/24/17 17:40: White Blood Count 14.1H, Red Blood Count 3.20L, Hemoglobin 11.1L, Hematocrit 30.0L, Mean Corpuscular Volume 94, Mean Corpuscular Hemoglobin 34.7H, Mean Corpuscular Hemoglobin Concent 37.0H, Red Cell Distribution Width 11.8, Platelet Count 201, Mean Platelet Volume 5.9L, Neutrophils (%) (Auto) 87.0H, Lymphocytes (%) (Auto) 6.6L, Monocytes (%) (Auto) 4.7, Eosinophils (%) (Auto) 0.6, Basophils (%) (Auto) 1.1, Sodium Level 135, Potassium Level 4.0, Chloride Level 96L, Carbon Dioxide Level 30, Anion Gap 9, Blood Urea Nitrogen 7, Creatinine 0.5, Estimat Glomerular Filtration Rate > 60, Glucose Level 119H, Calcium Level 8.1L, Total Bilirubin 0.4, Aspartate Amino Transf (AST/SGOT) 35, Alanine Aminotransferase (ALT/SGPT) 28, Alkaline Phosphatase 49, Troponin I < 0.30, Total Protein 5.7L, Albumin 3.3L, Globulin 2.4, Albumin/Globulin Ratio 1.3 Height (Feet): 5 Height (Inches): 3.00 Weight (Pounds): 127 General Appearance: mild distress EENT: PERRL/EOMI Neck: supple Cardiovascular: tachycardia Respiratory/Chest: rhonchi - bilaterally Extremities: non-tender Neurologic: manager data warehousing II-XII grossly normal Marilu Caldwell MD Apr 24, 2017 20:30
[2017-04-24] MEDS ORDERED: NS 550ML IV ONE (21:27)
[2017-04-24] MEDS ORDERED: Tubing IV Secondary IV ONE (21:27)
[2017-04-25] VITALS (7 sets, daily range): BP systolic 109–160; BP diastolic 47–86
[2017-04-25] MEDS: DuoNeb 0.5-3(2.5)mg/3ml neb HHN PRN ×2 (04:03→07:54)
[2017-04-25] MEDS: D5 1/2NS w/KCl 20mEq 1,000 ML IV SCH ×4 (05:35→21:01)
[2017-04-25] MEDS ORDERED: LORazepam 0.5mg tab ORAL PRN (07:45)
[2017-04-25] MEDS ORDERED: HYDROmorphone 1mg/ml Carpuject IVP PRN ×2 (07:45→10:30)
[2017-04-25 07:57] LABS: MEAN CORPUSCULAR HEMOGLOBIN 32.3 PG (27.0-31.0); MEAN CORPUSCULAR HGB CONC 33.3 G/DL (32.0-36.0); MEAN CORPUSCULAR VOLUME 97 FL (80-99); MEAN PLATELET VOLUME 6.1 FL (6.5-10.1); PLATELET COUNT 241 K/UL (150-450); RED BLOOD COUNT 3.42 M/UL (4.20-5.40); RED CELL DISTRIBUTION WIDTH 11.4 % (11.6-14.8); WHITE BLOOD COUNT 15.5 K/UL (4.8-10.8)
[2017-04-25 08:21] LABS: ANION GAP 13 (5-15); CALCIUM 8.4 mg/dL (8.6-10.2); CARBON DIOXIDE 26 mEQ/L (20-30); CHLORIDE 98 mEQ/L (98-107); CREATININE 0.4 mg/dL (0.5-0.9); GLOMERULAR FILTRATION RATE > 60 mL/min (>60); HEMOLYSIS 4; POTASSIUM 3.9 mEQ/L (3.4-4.9); SODIUM 137 mEQ/L (135-145)
[2017-04-25 08:26] LABS: LYMPHOCYTES % (MANUAL) 3 % (20-45); NEUTROPHILS % (MANUAL) 94 % (45-75); TOTAL CELLS COUNTED 100
[2017-04-25 08:27] LABS: BAND NEUTROPHILS % (MANUAL) 0 % (0-8); BASOPHILS % (MANUAL) 0 % (0-2); EOSINOPHILS % (MANUAL) 0 % (0-3); PLATELET ESTIMATE ADEQUATE; PLATELET MORPHOLOGY NORMAL
--- NOTE | 2017-04-25 09:12 | Diagnostic Imaging Report ---
Indication: SOB Technique: XRAY CHEST 1 V Comparison:None Findings: There is opacification of the right lung base. Some air bronchograms are present. There is blunting of the right cost phrenic angle. The heart is normal in size. There is some interstitial disease in the right upper lobe. The bones are unremarkable. Impression: Right pleural effusion. Right basilar infiltrate versus atelectasis. The above report is concordant with preliminary reading by [facility] .
[2017-04-25 09:21] LABS: ABG ALLEN TEST POSITIVE; ABG BASE EXCESS 2.3; ABG PCO2 36.1 mmHg (35.0-45.0)
--- NOTE | 2017-04-25 09:51 | Pulmonology Progress Note ---
Assessment/Plan Assessment/Plan ASSESSMENT acute hypoxemic respiratory failure leukocytosis likely aspiration PNA R pleural effusion possible COPD ( no evidence of exacerbation) abdominal pain. partial distal small bowel obstruction secondary to adhesions. s/p 04/23 laparoscopy with laparoscopic lysis of adhesions HTN hyperlipidemia tobacco abuse PLAN OF CARE transferred to [facility] stat- no acidosis, no hypercapnia, will try BiPAP ( as discussed with supervising physician) CXR 04/24 with R pleural effusion, possible infiltrate started on abx: Vanco and cefepime ID follows Pulmonary toilet ATC and as needed venous Duplex BLE negative IS at the bedside encourage to use OOB as tolerated and ambulate patient was counseled on smoking cessation, not ready to quit declined Nicotine patch will likely benefit from inhalers on dc and fup as outpatient with supply chain tech for PFT or bedside spirometry postop care as per surgery surgery closely follows started on CL diet, monitor tolerance and advance as per surgery a/emetic prn pain management DVT, GI prophayxlis wound care BP management with current regimen and optimize as needed - per PMD ADDENDUM: discussed with surgeon dr Mckeon, no BiPAP given her recent surgery , back on 100% NRM, sat 94-95 % case discussed and evaluated by supervising physician Subjective Allergies: Coded Allergies: No Known Allergies (Unverified , 04/17/17) Subjective patient desaturated, 87 % on 100% NRM leukocytosis with trend up, afebrile CXR with evidence of R pleural effusion venous Duplex BLE not done yet as ordered Objective Last 24 Hour Vital Signs Date Time Temp Pulse Resp B/P Pulse Ox O2 Delivery O2 Flow Rate FiO2 04/25/17 07:56 108 20 95 Nasal Cannula 2.0 28 04/25/17 07:50 107 22 Venturi Mask 12.0 50 04/25/17 07:50 107 22 83 Nasal Cannula 28.0 28 04/25/17 07:40 98.8 108 24 138/86 78 Nasal Cannula 6.0 04/25/17 04:12 88 20 96 Venturi Mask 12.0 50 04/25/17 04:06 93 18 83 Nasal Cannula 28.0 28 04/25/17 04:00 97.1 96 20 160/71 84 Nasal Cannula 2.0 04/25/17 00:00 100.0 77 20 109/62 96 Room Air 04/24/17 20:35 73 131/85 04/24/17 20:00 99.3 73 18 131/85 96 Nasal Cannula 5.0 04/24/17 18:23 99.3 04/24/17 17:41 110 18 95 Venturi Mask 12.0 50 04/24/17 17:33 104 18 Venturi Mask 12.0 50 04/24/17 17:28 104 18 82 Venturi Mask 12.0 50 04/24/17 16:00 100.4 99 18 137/83 92 Venturi Mask 04/24/17 12:00 98.6 80 18 123/65 91 Nasal Cannula 3.0 04/24/17 10:38 64 20 96 Intake and Output 04/24/17 04/25/17 19:00 07:00 Intake Total 2135.0 ml 900 ml Balance 2135.0 ml 900 ml Intake Oral 1080 ml IV Total 1055.0 ml 900 ml # Voids 7 2 # Bowel Movements 1 4 Objective General Appearance: WD/WN, mild distress, alert, anxious Lines, tubes and drains: peripheral HEENT: normocephalic, atraumatic, anicteric, PERRL, 100% NRM Neck: non-tender, supple Respiratory/Chest: lungs clear ith moderate air exchange , mild respiratory distress, but no accessory muscle use Cardiovascular/Chest: normal peripheral pulses, normal rate, regular rhythm, no JVD Abdomen: non tender, soft, hypoactive bowel sounds, dressing C/D/I Extremities: normal range of motion, non-tender, no calf tenderness, normal capillary refill Neurologic: no motor/sensory deficits, alert, oriented x 3, responsive Musculoskeletal: normal muscle bulk Laboratory Tests 04/24/17 17:40: White Blood Count 14.1H, Red Blood Count 3.20L, Hemoglobin 11.1L, Hematocrit 30.0L, Mean Corpuscular Volume 94, Mean Corpuscular Hemoglobin 34.7H, Mean Corpuscular Hemoglobin Concent 37.0H, Red Cell Distribution Width 11.8, Platelet Count 201, Mean Platelet Volume 5.9L, Neutrophils (%) (Auto) 87.0H, Lymphocytes (%) (Auto) 6.6L, Monocytes (%) (Auto) 4.7, Eosinophils (%) (Auto) 0.6, Basophils (%) (Auto) 1.1, Sodium Level 135, Potassium Level 4.0, Chloride Level 96L, Carbon Dioxide Level 30, Anion Gap 9, Blood Urea Nitrogen 7, Creatinine 0.5, Estimat Glomerular Filtration Rate > 60, Glucose Level 119H, Calcium Level 8.1L, Total Bilirubin 0.4, Aspartate Amino Transf (AST/SGOT) 35, Alanine Aminotransferase (ALT/SGPT) 28, Alkaline Phosphatase 49, Troponin I < 0.30, Total Protein 5.7L, Albumin 3.3L, Globulin 2.4, Albumin/Globulin Ratio 1.3 04/25/17 07:20: White Blood Count 15.5H, Red Blood Count 3.42L, Hemoglobin 11.0L, Hematocrit 33.2L, Mean Corpuscular Volume 97, Mean Corpuscular Hemoglobin 32.3H, Mean Corpuscular Hemoglobin Concent 33.3, Red Cell Distribution Width 11.4L, Platelet Count 241, Mean Platelet Volume 6.1L, Neutrophils (%) (Auto) , Lymphocytes (%) (Auto) , Monocytes (%) (Auto) , Eosinophils (%) (Auto) , Basophils (%) (Auto) , Sodium Level 137, Potassium Level 3.9, Chloride Level 98 , Carbon Dioxide Level 26, Anion Gap 13, Blood Urea Nitrogen 6L, Creatinine 0.4L , Estimat Glomerular Filtration Rate > 60, Glucose Level 137H, Calcium Level 8.4L, Differential Total Cells Counted 100, Neutrophils % (Manual) 94H, Lymphocytes % (Manual) 3L, Monocytes % (Manual) 3, Eosinophils % (Manual) 0, Basophils % (Manual) 0, Band Neutrophils 0, Platelet Estimate Adequate, Platelet Morphology Normal, Red Blood Cell Morphology Normal 04/25/17 09:15: Arterial Blood pH 7.472H, Arterial Blood Partial Pressure CO2 36.1, Arterial Blood Partial Pressure O2 59.4L, Arterial Blood HCO3 25.8, Arterial Blood Oxygen Saturation 91.1L, Arterial Blood Base Excess 2.3, Robert Test Positive Current Medications Medications (Trade) Dose Ordered Sig/Renuka Route PRN Reason Start Time Stop Time Status Last Admin Dose Admin Acetaminophen (Tylenol) 650 mg Q4H PRN ORAL Mild Pain/Temp > 100.5 04/24/17 17:15 05/24/17 17:14 04/24/17 17:24 Albuterol/ Ipratropium (DuoNeb 0.5-3(2.5)mg/3ml) 3 ml Q4H PRN HHN Shortness of Breath 04/24/17 17:15 04/29/17 17:14 04/25/17 07:54 Atorvastatin Calcium (Lipitor) 40 mg BEDTIME ORAL 04/18/17 21:00 05/18/17 20:59 04/24/17 20:35 Cefepime HCl 1 gm/ Dextrose 55 ml @ 110 mls/hr Q12HR IVPB 04/25/17 11:00 05/02/17 10:59 Clonidine HCl (Catapres TTS-1) 1 patch QWEEK TDERMAL 04/22/17 21:00 05/22/17 20:59 04/22/17 21:58 Clonidine HCl (Catapres) 0.1 mg EVERY 8 HOURS PRN ORAL For High Blood Pressure 04/20/17 21:30 05/20/17 21:29 Dextrose/ Electrolytes (D5 0.45%NS W/ KCl 20mEq) 1,000 ml @ 100 mls/hr Q10H IV 04/18/17 14:00 05/18/17 13:59 04/25/17 05:35 Diphenhydramine HCl 25 mg 25 mg Q6H PRN IVP Itching 04/18/17 11:00 05/18/17 10:59 04/18/17 11:11 Heparin Sodium (Porcine) (Heparin 5000 units/ml) 5,000 units EVERY 12 HOURS SUBQ 04/18/17 00:30 05/18/17 00:29 04/24/17 20:37 Hydrocortisone (Hydrocortisone) 1 applic Q6H PRN TOPIC Itching 04/24/17 13:45 05/24/17 13:44 Hydromorphone HCl (Dilaudid) 0.5 mg Q4H PRN IVP pain 4 - 10 04/25/17 07:45 05/02/17 07:44 Lorazepam (Ativan) 0.5 mg Q6H PRN ORAL For Anxiety 04/25/17 07:45 05/02/17 07:44 04/25/17 08:04 Metoprolol Tartrate (Lopressor) 25 mg Q12HR NG 04/20/17 21:00 05/20/17 20:59 04/24/17 20:35 Ondansetron HCl (Zofran) 4 mg Q6H PRN IVP Nausea & Vomiting 04/18/17 04:00 05/18/17 03:59 04/23/17 05:37 Triamterene/HCTZ (Dyazide) 1 cap DAILY ORAL 04/21/17 09:00 05/21/17 08:59 04/23/17 08:45 Vancomycin HCl 1 ea 1 ea DAILY PRN MISC Per rx protocol 04/25/17 09:00 05/25/17 08:59 Vancomycin HCl/ Dextrose 250 ml @ 166.667 mls/hr ONCE ONCE IVPB 04/25/17 12:00 04/25/17 13:29 Vancomycin HCl/ Dextrose (Vancomycin/D5W) 275 ml @ 183.708 mls/hr Q24H IVPB 04/26/17 12:00 05/01/17 11:59 Zolpidem Tartrate (Ambien) 5 mg HSPRN PRN ORAL Insomnia 04/20/17 21:15 05/20/17 21:14 Sudheer (Caitlin)Darlene NP Apr 25, 2017 09:51
[2017-04-25] MEDS: Metoprolol Tartrate 12.5mg TAB NG SCH ×2 (09:58→21:45)
[2017-04-25] MEDS: Triamterene/Hctz 37.5/25 cap ORAL SCH (09:59)
[2017-04-25] MEDS: Heparin 5000 units/ml inj SUBQ SCH ×2 (10:01→21:52)
--- NOTE | 2017-04-25 10:11 | General Progress Note ---
Assessment/Plan Problem List: (1) SBO (small bowel obstruction) ICD Codes: K56.69 - Other intestinal obstruction SNOMED: 182383442 Assessment/Plan s/p surgery npo ivf iv abx DVT prophylaxix fu surgery recs Subjective ROS Limited/Unobtainable: Yes Allergies: Coded Allergies: No Known Allergies (Unverified , 04/17/17) Subjective no event Objective Last 24 Hour Vital Signs Date Time Temp Pulse Resp B/P Pulse Ox O2 Delivery O2 Flow Rate FiO2 04/25/17 09:58 108 138/86 04/25/17 07:56 108 20 95 Nasal Cannula 2.0 28 04/25/17 07:50 107 22 Venturi Mask 12.0 50 04/25/17 07:50 107 22 83 Nasal Cannula 28.0 28 04/25/17 07:40 98.8 108 24 138/86 78 Nasal Cannula 6.0 04/25/17 04:12 88 20 96 Venturi Mask 12.0 50 04/25/17 04:06 93 18 83 Nasal Cannula 28.0 28 04/25/17 04:00 97.1 96 20 160/71 84 Nasal Cannula 2.0 04/25/17 00:00 100.0 77 20 109/62 96 Room Air 04/24/17 20:35 73 131/85 04/24/17 20:00 99.3 73 18 131/85 96 Nasal Cannula 5.0 04/24/17 18:23 99.3 04/24/17 17:41 110 18 95 Venturi Mask 12.0 50 04/24/17 17:33 104 18 Venturi Mask 12.0 50 04/24/17 17:28 104 18 82 Venturi Mask 12.0 50 04/24/17 16:00 100.4 99 18 137/83 92 Venturi Mask 04/24/17 12:00 98.6 80 18 123/65 91 Nasal Cannula 3.0 04/24/17 10:38 64 20 96 Intake and Output 04/24/17 04/25/17 19:00 07:00 Intake Total 2135.0 ml 900 ml Balance 2135.0 ml 900 ml Intake Oral 1080 ml IV Total 1055.0 ml 900 ml # Voids 7 2 # Bowel Movements 1 4 Laboratory Tests 04/24/17 17:40: White Blood Count 14.1H, Red Blood Count 3.20L, Hemoglobin 11.1L, Hematocrit 30.0L, Mean Corpuscular Volume 94, Mean Corpuscular Hemoglobin 34.7H, Mean Corpuscular Hemoglobin Concent 37.0H, Red Cell Distribution Width 11.8, Platelet Count 201, Mean Platelet Volume 5.9L, Neutrophils (%) (Auto) 87.0H, Lymphocytes (%) (Auto) 6.6L, Monocytes (%) (Auto) 4.7, Eosinophils (%) (Auto) 0.6, Basophils (%) (Auto) 1.1, Sodium Level 135, Potassium Level 4.0, Chloride Level 96L, Carbon Dioxide Level 30, Anion Gap 9, Blood Urea Nitrogen 7, Creatinine 0.5, Estimat Glomerular Filtration Rate > 60, Glucose Level 119H, Calcium Level 8.1L, Total Bilirubin 0.4, Aspartate Amino Transf (AST/SGOT) 35, Alanine Aminotransferase (ALT/SGPT) 28, Alkaline Phosphatase 49, Troponin I < 0.30, Total Protein 5.7L, Albumin 3.3L, Globulin 2.4, Albumin/Globulin Ratio 1.3 04/25/17 07:20: White Blood Count 15.5H, Red Blood Count 3.42L, Hemoglobin 11.0L, Hematocrit 33.2L, Mean Corpuscular Volume 97, Mean Corpuscular Hemoglobin 32.3H, Mean Corpuscular Hemoglobin Concent 33.3, Red Cell Distribution Width 11.4L, Platelet Count 241, Mean Platelet Volume 6.1L, Neutrophils (%) (Auto) , Lymphocytes (%) (Auto) , Monocytes (%) (Auto) , Eosinophils (%) (Auto) , Basophils (%) (Auto) , Sodium Level 137, Potassium Level 3.9, Chloride Level 98 , Carbon Dioxide Level 26, Anion Gap 13, Blood Urea Nitrogen 6L, Creatinine 0.4L , Estimat Glomerular Filtration Rate > 60, Glucose Level 137H, Calcium Level 8.4L, Differential Total Cells Counted 100, Neutrophils % (Manual) 94H, Lymphocytes % (Manual) 3L, Monocytes % (Manual) 3, Eosinophils % (Manual) 0, Basophils % (Manual) 0, Band Neutrophils 0, Platelet Estimate Adequate, Platelet Morphology Normal, Red Blood Cell Morphology Normal 04/25/17 09:15: Arterial Blood pH 7.472H, Arterial Blood Partial Pressure CO2 36.1, Arterial Blood Partial Pressure O2 59.4L, Arterial Blood HCO3 25.8, Arterial Blood Oxygen Saturation 91.1L, Arterial Blood Base Excess 2.3, Robert Test Positive Height (Feet): 5 Height (Inches): 3.00 Weight (Pounds): 127 General Appearance: alert EENT: normal ENT inspection Neck: supple Cardiovascular: normal rate Respiratory/Chest: decreased breath sounds Abdomen: soft, other - post surgical Extremities: non-tender TIM DSOUZA Apr 25, 2017 10:11
[2017-04-25] MEDS ORDERED: LORazepam Inj 2mg/ml 1ml IV PRN (10:15)
[2017-04-25] MEDS ORDERED: Hydrocortisone 1% Oint 30gm TOPIC PRN (11:00)
[2017-04-25] MEDS ORDERED: DuoNeb 0.5-3(2.5)mg/3ml neb HHN PRN (11:00)
[2017-04-25] MEDS ORDERED: Cefepime HCl 1 GM in D5W 55 ML IVPB SCH (11:00)
[2017-04-25] MEDS ORDERED: DiphenhydrAMINE 50mg/ml Inj IVP PRN (11:00)
--- NOTE | 2017-04-25 11:11 | General Progress Note ---
Assessment/Plan Status: unchanged Assessment/Plan 1- Sepsis: Likely Aspiration HCA-PNA 2.Aspiration HCA-PNA 2- Small Bowel Obstruction (partial vs complete), status post expl.laparotomy 3- HTN 4- Gi-DVT prophylaxia 5. Hypoxemic Respiratory failure Plan: Added Vanco S/p Expl. laparotomy today LE duplex Pulmunary consult LE Duplex is pending Subjective ROS Limited/Unobtainable: No Constitutional: Reports: no symptoms HEENT: Reports: no symptoms Cardiovascular: Reports: no symptoms Allergies: Coded Allergies: No Known Allergies (Unverified , 04/17/17) Objective Last 24 Hour Vital Signs Date Time Temp Pulse Resp B/P Pulse Ox O2 Delivery O2 Flow Rate FiO2 04/25/17 09:58 108 138/86 04/25/17 07:56 108 20 95 Nasal Cannula 2.0 28 04/25/17 07:50 107 22 Venturi Mask 12.0 50 04/25/17 07:50 107 22 83 Nasal Cannula 28.0 28 04/25/17 07:40 98.8 108 24 138/86 78 Nasal Cannula 6.0 04/25/17 04:12 88 20 96 Venturi Mask 12.0 50 04/25/17 04:06 93 18 83 Nasal Cannula 28.0 28 04/25/17 04:00 97.1 96 20 160/71 84 Nasal Cannula 2.0 04/25/17 00:00 100.0 77 20 109/62 96 Room Air 04/24/17 20:35 73 131/85 04/24/17 20:00 99.3 73 18 131/85 96 Nasal Cannula 5.0 04/24/17 18:23 99.3 04/24/17 17:41 110 18 95 Venturi Mask 12.0 50 04/24/17 17:33 104 18 Venturi Mask 12.0 50 04/24/17 17:28 104 18 82 Venturi Mask 12.0 50 04/24/17 16:00 100.4 99 18 137/83 92 Venturi Mask 04/24/17 12:00 98.6 80 18 123/65 91 Nasal Cannula 3.0 Intake and Output 04/24/17 04/25/17 19:00 07:00 Intake Total 2135.0 ml 900 ml Balance 2135.0 ml 900 ml Intake Oral 1080 ml IV Total 1055.0 ml 900 ml # Voids 7 2 # Bowel Movements 1 4 Laboratory Tests 04/24/17 17:40: White Blood Count 14.1H, Red Blood Count 3.20L, Hemoglobin 11.1L, Hematocrit 30.0L, Mean Corpuscular Volume 94, Mean Corpuscular Hemoglobin 34.7H, Mean Corpuscular Hemoglobin Concent 37.0H, Red Cell Distribution Width 11.8, Platelet Count 201, Mean Platelet Volume 5.9L, Neutrophils (%) (Auto) 87.0H, Lymphocytes (%) (Auto) 6.6L, Monocytes (%) (Auto) 4.7, Eosinophils (%) (Auto) 0.6, Basophils (%) (Auto) 1.1, Sodium Level 135, Potassium Level 4.0, Chloride Level 96L, Carbon Dioxide Level 30, Anion Gap 9, Blood Urea Nitrogen 7, Creatinine 0.5, Estimat Glomerular Filtration Rate > 60, Glucose Level 119H, Calcium Level 8.1L, Total Bilirubin 0.4, Aspartate Amino Transf (AST/SGOT) 35, Alanine Aminotransferase (ALT/SGPT) 28, Alkaline Phosphatase 49, Troponin I < 0.30, Total Protein 5.7L, Albumin 3.3L, Globulin 2.4, Albumin/Globulin Ratio 1.3 04/25/17 07:20: White Blood Count 15.5H, Red Blood Count 3.42L, Hemoglobin 11.0L, Hematocrit 33.2L, Mean Corpuscular Volume 97, Mean Corpuscular Hemoglobin 32.3H, Mean Corpuscular Hemoglobin Concent 33.3, Red Cell Distribution Width 11.4L, Platelet Count 241, Mean Platelet Volume 6.1L, Neutrophils (%) (Auto) , Lymphocytes (%) (Auto) , Monocytes (%) (Auto) , Eosinophils (%) (Auto) , Basophils (%) (Auto) , Sodium Level 137, Potassium Level 3.9, Chloride Level 98 , Carbon Dioxide Level 26, Anion Gap 13, Blood Urea Nitrogen 6L, Creatinine 0.4L , Estimat Glomerular Filtration Rate > 60, Glucose Level 137H, Calcium Level 8.4L, Differential Total Cells Counted 100, Neutrophils % (Manual) 94H, Lymphocytes % (Manual) 3L, Monocytes % (Manual) 3, Eosinophils % (Manual) 0, Basophils % (Manual) 0, Band Neutrophils 0, Platelet Estimate Adequate, Platelet Morphology Normal, Red Blood Cell Morphology Normal 04/25/17 09:15: Arterial Blood pH 7.472H, Arterial Blood Partial Pressure CO2 36.1, Arterial Blood Partial Pressure O2 59.4L, Arterial Blood HCO3 25.8, Arterial Blood Oxygen Saturation 91.1L, Arterial Blood Base Excess 2.3, Robert Test Positive Height (Feet): 5 Height (Inches): 3.00 Weight (Pounds): 127 General Appearance: no apparent distress EENT: PERRL/EOMI Neck: supple Cardiovascular: normal rate Respiratory/Chest: rhonchi - bilaterally Abdomen: soft, other - No severe tenderness Extremities: non-tender 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
--- NOTE | 2017-04-25 11:40 | General Surgery Progress Note ---
General Surgery-Progress Note Subjective Symptoms: improved Objective Last 24 Hour Vital Signs Date Time Temp Pulse Resp B/P Pulse Ox O2 Delivery O2 Flow Rate FiO2 04/25/17 09:58 108 138/86 04/25/17 07:56 108 20 95 Nasal Cannula 2.0 28 04/25/17 07:50 107 22 Venturi Mask 12.0 50 04/25/17 07:50 107 22 83 Nasal Cannula 28.0 28 04/25/17 07:40 98.8 108 24 138/86 78 Nasal Cannula 6.0 04/25/17 04:12 88 20 96 Venturi Mask 12.0 50 04/25/17 04:06 93 18 83 Nasal Cannula 28.0 28 04/25/17 04:00 97.1 96 20 160/71 84 Nasal Cannula 2.0 04/25/17 00:00 100.0 77 20 109/62 96 Room Air 04/24/17 20:35 73 131/85 04/24/17 20:00 99.3 73 18 131/85 96 Nasal Cannula 5.0 04/24/17 18:23 99.3 04/24/17 17:41 110 18 95 Venturi Mask 12.0 50 04/24/17 17:33 104 18 Venturi Mask 12.0 50 04/24/17 17:28 104 18 82 Venturi Mask 12.0 50 04/24/17 16:00 100.4 99 18 137/83 92 Venturi Mask 04/24/17 12:00 98.6 80 18 123/65 91 Nasal Cannula 3.0 I&O Intake and Output 04/24/17 04/25/17 19:00 07:00 Intake Total 2135.0 ml 900 ml Balance 2135.0 ml 900 ml Intake Oral 1080 ml IV Total 1055.0 ml 900 ml # Voids 7 2 # Bowel Movements 1 4 Dressing: dry Wound: clean Drains: none Cardiovascular: RSR Respiratory: decreased breath sounds Abdomen: soft Extremities: no edema Laboratory Tests Test 04/24/17 17:40 04/25/17 07:20 04/25/17 09:15 White Blood Count 14.1 K/UL (4.8-10.8) H 15.5 K/UL (4.8-10.8) H Red Blood Count 3.20 M/UL (4.20-5.40) L 3.42 M/UL (4.20-5.40) L Hemoglobin 11.1 G/DL (12.0-16.0) L 11.0 G/DL (12.0-16.0) L Hematocrit 30.0 % (37.0-47.0) L 33.2 % (37.0-47.0) L Mean Corpuscular Volume 94 FL (80-99) 97 FL (80-99) Mean Corpuscular Hemoglobin 34.7 PG (27.0-31.0) H 32.3 PG (27.0-31.0) H Mean Corpuscular Hemoglobin Concent 37.0 G/DL (32.0-36.0) H 33.3 G/DL (32.0-36.0) Red Cell Distribution Width 11.8 % (11.6-14.8) 11.4 % (11.6-14.8) L Platelet Count 201 K/UL (150-450) 241 K/UL (150-450) Mean Platelet Volume 5.9 FL (6.5-10.1) L 6.1 FL (6.5-10.1) L Neutrophils (%) (Auto) 87.0 % (45.0-75.0) H % (45.0-75.0) Lymphocytes (%) (Auto) 6.6 % (20.0-45.0) L % (20.0-45.0) Monocytes (%) (Auto) 4.7 % (1.0-10.0) % (1.0-10.0) Eosinophils (%) (Auto) 0.6 % (0.0-3.0) % (0.0-3.0) Basophils (%) (Auto) 1.1 % (0.0-2.0) % (0.0-2.0) Sodium Level 135 mEQ/L (135-145) 137 mEQ/L (135-145) Potassium Level 4.0 mEQ/L (3.4-4.9) 3.9 mEQ/L (3.4-4.9) Chloride Level 96 mEQ/L (98-107) L 98 mEQ/L (98-107) Carbon Dioxide Level 30 mEQ/L (20-30) 26 mEQ/L (20-30) Anion Gap 9 (5-15) 13 (5-15) Blood Urea Nitrogen 7 mg/dL (7-23) 6 mg/dL (7-23) L Creatinine 0.5 mg/dL (0.5-0.9) 0.4 mg/dL (0.5-0.9) L Estimat Glomerular Filtration Rate > 60 mL/min (>60) > 60 mL/min (>60) Glucose Level 119 mg/dL (74-106) H 137 mg/dL (74-106) H Calcium Level 8.1 mg/dL (8.6-10.2) L 8.4 mg/dL (8.6-10.2) L Total Bilirubin 0.4 mg/dL (0.0-1.2) Aspartate Amino Transf (AST/SGOT) 35 U/L (5-40) Alanine Aminotransferase (ALT/SGPT) 28 U/L (3-33) Alkaline Phosphatase 49 U/L (35-104) Troponin I < 0.30 ng/mL (<=0.30) Total Protein 5.7 g/dL (6.6-8.7) L Albumin 3.3 g/dL (3.5-5.2) L Globulin 2.4 g/dL Albumin/Globulin Ratio 1.3 (1.0-2.7) Differential Total Cells Counted 100 Neutrophils % (Manual) 94 % (45-75) H Lymphocytes % (Manual) 3 % (20-45) L Monocytes % (Manual) 3 % (1-10) Eosinophils % (Manual) 0 % (0-3) Basophils % (Manual) 0 % (0-2) Band Neutrophils 0 % (0-8) Platelet Estimate Adequate Platelet Morphology Normal Red Blood Cell Morphology Normal Arterial Blood pH 7.472 (7.350-7.450) Arterial Blood Partial Pressure CO2 36.1 mmHg (35.0-45.0) Arterial Blood Partial Pressure O2 59.4 mmHg (75.0-100.0) L Arterial Blood HCO3 25.8 mmol/L (22.0-26.0) Arterial Blood Oxygen Saturation 91.1 % (92.0-98.0) L Arterial Blood Base Excess 2.3 Robert Test Positive Additional Comments Pt had some SOB, feels anxious about withdrawl of her Dilaudid and Ativan. O2 sat was 88% after removal of her O2 mask, she denies N or V, had a small BM. Plan Additional Comments We will get her up in a chair, would not advise BIPAP apparatus as this will increase air swallowing and gut distention, pt also told that Dilaudid will slow down GI tract. Anand Mckeon MD Apr 25, 2017 11:40
[2017-04-25] MEDS: Cefepime HCl 1 GM in D5W 55 ML IVPB SCH ×2 (11:44→21:47)
[2017-04-25] MEDS ORDERED: Vancomycin 1250mg/D5W 250ml 250 ML IVPB ONE (12:00)
[2017-04-25] MEDS ORDERED: Vancomycin 1250mg/D5W 250ml IVPB ONE (12:00)
[2017-04-25] MEDS ORDERED: Levalbuterol Inh UD 1.25mg/0.5ml HHN SCH (13:00)
--- NOTE | 2017-04-25 14:48 | Infectious Diseases Prog Note ---
Assessment/Plan Assessment/Plan ASSESSMENT: 66 y/o female with: //post operative RLL aspiration pneumonia //acute hypoxia --secondary to pneumonia --ble dopplers negative for DVT today //fevers--secondary to pneumonia. resolved // segmental small bowel inflammation with SBO secondary to hernia with single dense adhesions s/p ex lap and YAIMA POD#1. inflammation visible on CT not limited to TI. stool cx negative for yersenia and campylobacter. - CT A/P: Moderately distended small bowel loops in the lower abdomen/pelvis , with an apparent transition point in the right lower quadrant and midpelvis. Moderate bowel wall thickening and hyperemia noted involving several loops. However, a short segment of small bowel in the midpelvis exhibits poor wall enhancement with surrounding mesenteric stranding. Closed loop obstruction and bowel ischemia should be considered. Small volume ascites. No evidence of free intraperitoneal air or loculated fluid collection. //s/p perioperative zosyn d#7, completed 04/24/17 midday // Leukocytosis - recurrent post op // Possible hepatic mass 2cm // Diverticulosis // Elevated CRP // NKDA // Full Code PLAN: - vancomycin and IV cefepime D#1 of 10 04/24/17 (s/p 7d empiric zosyn) -encourage incentive spirometry and good pulmonary toilet. - monitor CBC, temperatures - monitor BMP - bowel rest - GI, surgery following Subjective Constitutional: Reports: chills, fatigue HEENT: Reports: no symptoms Respiratory: Reports: dry cough, shortness of breath Gastrointestinal/Abdominal: Reports: nausea, vomiting Genitourinary: Reports: no symptoms Skin: Reports: no symptoms Allergies: Coded Allergies: No Known Allergies (Unverified , 04/17/17) Subjective 24 hr events; acute desat last night with TM 100.4F, continues to require supplemental O2 by high flow face mask. PCXR with new RLL infiltrate vs atelectasis and small b/l pleural effusions. This infiltrate was not seen on CT a/p performed on 04/17/17. now on empiric Vanc/cefepime started today after her IV zosyn had been discontinued yesterday at midday. Objective Vital Signs Last 24 Hour Vital Signs Date Time Temp Pulse Resp B/P Pulse Ox O2 Delivery O2 Flow Rate FiO2 04/25/17 12:00 99.3 97 26 134/47 95 Non-Rebreather 100 04/25/17 12:00 85 04/25/17 10:00 98.9 113 24 149/67 92 Non-Rebreather 100 04/25/17 10:00 116 04/25/17 09:58 108 138/86 04/25/17 07:56 108 20 95 Nasal Cannula 2.0 28 04/25/17 07:50 107 22 Venturi Mask 12.0 50 04/25/17 07:50 107 22 83 Nasal Cannula 28.0 28 04/25/17 07:40 98.8 108 24 138/86 78 Nasal Cannula 6.0 04/25/17 04:12 88 20 96 Venturi Mask 12.0 50 04/25/17 04:06 93 18 83 Nasal Cannula 28.0 28 04/25/17 04:00 97.1 96 20 160/71 84 Nasal Cannula 2.0 04/25/17 00:00 100.0 77 20 109/62 96 Room Air 04/24/17 20:35 73 131/85 04/24/17 20:00 99.3 73 18 131/85 96 Nasal Cannula 5.0 04/24/17 18:23 99.3 04/24/17 17:41 110 18 95 Venturi Mask 12.0 50 04/24/17 17:33 104 18 Venturi Mask 12.0 50 04/24/17 17:28 104 18 82 Venturi Mask 12.0 50 04/24/17 16:00 100.4 99 18 137/83 92 Venturi Mask Height (Feet): 5 Height (Inches): 3.00 Weight (Pounds): 127 Objective a/ox3, tachypneic, on high flow face mask with O2 sats 95-96%, mentating well lungs decreased breath sounds at R base tachycardic, no murmurs abd surgical dressing in place from laparoscopic procedure. normal incisional tenderness. no fullness. no rash. urine clear just up to toilet Laboratory Tests Test 04/24/17 17:40 04/25/17 07:20 04/25/17 09:15 White Blood Count 14.1 K/UL (4.8-10.8) H 15.5 K/UL (4.8-10.8) H Red Blood Count 3.20 M/UL (4.20-5.40) L 3.42 M/UL (4.20-5.40) L Hemoglobin 11.1 G/DL (12.0-16.0) L 11.0 G/DL (12.0-16.0) L Hematocrit 30.0 % (37.0-47.0) L 33.2 % (37.0-47.0) L Mean Corpuscular Volume 94 FL (80-99) 97 FL (80-99) Mean Corpuscular Hemoglobin 34.7 PG (27.0-31.0) H 32.3 PG (27.0-31.0) H Mean Corpuscular Hemoglobin Concent 37.0 G/DL (32.0-36.0) H 33.3 G/DL (32.0-36.0) Red Cell Distribution Width 11.8 % (11.6-14.8) 11.4 % (11.6-14.8) L Platelet Count 201 K/UL (150-450) 241 K/UL (150-450) Mean Platelet Volume 5.9 FL (6.5-10.1) L 6.1 FL (6.5-10.1) L Neutrophils (%) (Auto) 87.0 % (45.0-75.0) H % (45.0-75.0) Lymphocytes (%) (Auto) 6.6 % (20.0-45.0) L % (20.0-45.0) Monocytes (%) (Auto) 4.7 % (1.0-10.0) % (1.0-10.0) Eosinophils (%) (Auto) 0.6 % (0.0-3.0) % (0.0-3.0) Basophils (%) (Auto) 1.1 % (0.0-2.0) % (0.0-2.0) Sodium Level 135 mEQ/L (135-145) 137 mEQ/L (135-145) Potassium Level 4.0 mEQ/L (3.4-4.9) 3.9 mEQ/L (3.4-4.9) Chloride Level 96 mEQ/L (98-107) L 98 mEQ/L (98-107) Carbon Dioxide Level 30 mEQ/L (20-30) 26 mEQ/L (20-30) Anion Gap 9 (5-15) 13 (5-15) Blood Urea Nitrogen 7 mg/dL (7-23) 6 mg/dL (7-23) L Creatinine 0.5 mg/dL (0.5-0.9) 0.4 mg/dL (0.5-0.9) L Estimat Glomerular Filtration Rate > 60 mL/min (>60) > 60 mL/min (>60) Glucose Level 119 mg/dL (74-106) H 137 mg/dL (74-106) H Calcium Level 8.1 mg/dL (8.6-10.2) L 8.4 mg/dL (8.6-10.2) L Total Bilirubin 0.4 mg/dL (0.0-1.2) Aspartate Amino Transf (AST/SGOT) 35 U/L (5-40) Alanine Aminotransferase (ALT/SGPT) 28 U/L (3-33) Alkaline Phosphatase 49 U/L (35-104) Troponin I < 0.30 ng/mL (<=0.30) Total Protein 5.7 g/dL (6.6-8.7) L Albumin 3.3 g/dL (3.5-5.2) L Globulin 2.4 g/dL Albumin/Globulin Ratio 1.3 (1.0-2.7) Differential Total Cells Counted 100 Neutrophils % (Manual) 94 % (45-75) H Lymphocytes % (Manual) 3 % (20-45) L Monocytes % (Manual) 3 % (1-10) Eosinophils % (Manual) 0 % (0-3) Basophils % (Manual) 0 % (0-2) Band Neutrophils 0 % (0-8) Platelet Estimate Adequate Platelet Morphology Normal Red Blood Cell Morphology Normal Arterial Blood pH 7.472 (7.350-7.450) Arterial Blood Partial Pressure CO2 36.1 mmHg (35.0-45.0) Arterial Blood Partial Pressure O2 59.4 mmHg (75.0-100.0) L Arterial Blood HCO3 25.8 mmol/L (22.0-26.0) Arterial Blood Oxygen Saturation 91.1 % (92.0-98.0) L Arterial Blood Base Excess 2.3 Robert Test Positive Current Medications Medications (Trade) Dose Ordered Sig/Renuka Route PRN Reason Start Time Stop Time Status Last Admin Dose Admin Acetaminophen (Tylenol) 650 mg Q4H PRN ORAL Mild Pain/Temp > 100.5 04/25/17 10:30 05/25/17 10:29 Albuterol/ Ipratropium (DuoNeb 0.5-3(2.5)mg/3ml) 3 ml Q4H PRN HHN Shortness of Breath 04/25/17 11:00 04/30/17 10:59 Atorvastatin Calcium (Lipitor) 40 mg BEDTIME ORAL 04/25/17 21:00 05/25/17 20:59 Cefepime HCl 1 gm/ Dextrose 55 ml @ 110 mls/hr Q12HR IVPB 04/25/17 11:00 05/02/17 10:59 04/25/17 11:44 Clonidine HCl (Catapres TTS-1) 1 patch QWEEK TDERMAL 04/29/17 21:00 05/29/17 20:59 Clonidine HCl (Catapres) 0.1 mg Q8H PRN ORAL For High Blood Pressure 04/25/17 10:30 05/25/17 10:29 Dextrose/ Electrolytes 1,000 ml @ 100 mls/hr Q10H IV 04/25/17 11:00 05/25/17 10:59 04/25/17 12:57 Diphenhydramine HCl (Benadryl) 25 mg Q6H PRN IVP Itching 04/25/17 11:00 05/25/17 10:59 Heparin Sodium (Porcine) (Heparin 5000 units/ml) 5,000 units EVERY 12 HOURS SUBQ 04/25/17 21:00 05/25/17 20:59 Hydrocortisone (Hydrocortisone) 1 applic Q6H PRN TOPIC Itching 04/25/17 11:00 05/25/17 10:59 Hydromorphone HCl (Dilaudid) 0.5 mg Q4H PRN IVP pain 4 - 10 04/25/17 10:30 05/02/17 10:29 Levalbuterol HCl (Xopenex) 1.25 mg TIDRT HHN 04/25/17 13:00 04/30/17 12:59 Lorazepam (Ativan 2mg/ml 1ml) 0.5 mg Q4H PRN IV For Anxiety 04/25/17 11:00 05/02/17 10:59 Metoprolol Tartrate (Lopressor) 25 mg Q12HR NG 04/25/17 21:00 05/25/17 20:59 Ondansetron HCl (Zofran) 4 mg Q6H PRN IVP Nausea & Vomiting 04/25/17 10:30 05/25/17 10:29 Triamterene/HCTZ (Dyazide) 1 cap DAILY ORAL 04/26/17 09:00 05/26/17 08:59 Vancomycin HCl (Vanco rx to dose) 1 ea DAILY PRN MISC Per rx protocol 04/25/17 11:00 05/25/17 10:59 Vancomycin HCl/ Dextrose (Vancomycin/D5W) 275 ml @ 183.708 mls/hr Q24H IVPB 04/26/17 13:00 05/01/17 12:59 Zolpidem Tartrate (Ambien) 5 mg HSPRN PRN ORAL Insomnia 04/25/17 21:15 05/25/17 21:14 Celestino Connell M.D. Apr 25, 2017 14:48
[2017-04-25] MEDS: Levalbuterol Inh UD 1.25mg/0.5ml HHN SCH ×2 (15:08→19:16)
[2017-04-25] MEDS: LORazepam Inj 2mg/ml 1ml IV PRN (20:03)
[2017-04-25] MEDS ORDERED: Zolpidem 5mg tab ORAL PRN (21:15)
[2017-04-26] VITALS: BP 101/60
[2017-04-26] MEDS: LORazepam Inj 2mg/ml 1ml IV PRN ×3 (00:23→15:42)
[2017-04-26 04:00] VITALS: BP 111/69
[2017-04-26] MEDS: D5 1/2NS w/KCl 20mEq 1,000 ML IV SCH ×2 (04:52→13:25)
[2017-04-26 05:34] LABS: CALCIUM 8.5 mg/dL (8.6-10.2); CARBON DIOXIDE 25 mEQ/L (20-30); CREATININE 0.4 mg/dL (0.5-0.9); GLOMERULAR FILTRATION RATE > 60 mL/min (>60); HEMOLYSIS 35
[2017-04-26 06:08] LABS: MEAN CORPUSCULAR HEMOGLOBIN 33.9 PG (27.0-31.0); MEAN CORPUSCULAR HGB CONC 35.4 G/DL (32.0-36.0); MEAN CORPUSCULAR VOLUME 96 FL (80-99); MEAN PLATELET VOLUME 5.6 FL (6.5-10.1); PLATELET COUNT 258 K/UL (150-450); RED BLOOD COUNT 3.41 M/UL (4.20-5.40); RED CELL DISTRIBUTION WIDTH 11.4 % (11.6-14.8); WHITE BLOOD COUNT 15.1 K/UL (4.8-10.8)
[2017-04-26 06:23] LABS: ANION GAP 12 (5-15); CHLORIDE 96 mEQ/L (98-107); POTASSIUM 3.6 mEQ/L (3.4-4.9); SODIUM 133 mEQ/L (135-145)
[2017-04-26] MEDS: Levalbuterol Inh UD 1.25mg/0.5ml HHN SCH ×3 (07:06→20:24)
[2017-04-26 07:59] VITALS: BP 114/56
[2017-04-26 08:14] LABS: BAND NEUTROPHILS % (MANUAL) 0 % (0-8); BASOPHILS % (MANUAL) 0 % (0-2); EOSINOPHILS % (MANUAL) 0 % (0-3); LYMPHOCYTES % (MANUAL) 13 % (20-45); NEUTROPHILS % (MANUAL) 79 % (45-75); PLATELET ESTIMATE ADEQUATE; PLATELET MORPHOLOGY NORMAL; TOTAL CELLS COUNTED 100
[2017-04-26 08:15] LABS: HYPOCHROMASIA 1+
[2017-04-26] MEDS ORDERED: LR 1000ml ONE (08:24)
[2017-04-26] MEDS ORDERED: Propofol 10mg/ml 20ml IV ONE (08:24)
[2017-04-26] MEDS ORDERED: NS Irrig 4000ml IRRIG ONE (08:24)
[2017-04-26] MEDS ORDERED: fentaNYL 100 mcg/2 mL IV ONE (08:24)
[2017-04-26] MEDS ORDERED: Neostigmine 1mg/ml 10ml Inj ONE (08:24)
[2017-04-26] MEDS ORDERED: Midazolam 2mg/2ml Inj ONE (08:24)
[2017-04-26] MEDS ORDERED: Ketorolac 30mg Inj ONE (08:24)
[2017-04-26] MEDS: Cefepime HCl 1 GM in D5W 55 ML IVPB SCH ×2 (08:32→21:26)
[2017-04-26] MEDS: Metoprolol Tartrate 12.5mg TAB NG SCH (08:33)
[2017-04-26] MEDS: Triamterene/Hctz 37.5/25 cap ORAL SCH (08:34)
[2017-04-26] MEDS: Heparin 5000 units/ml inj SUBQ SCH ×2 (08:34→21:28)
[2017-04-26 09:14] LABS: ABG PCO2 31.2 mmHg (35.0-45.0)
[2017-04-26 09:15] LABS: ABG ALLEN TEST POSITIVE
--- NOTE | 2017-04-26 11:06 | GI Progress Note ---
Assessment/Plan Problems: (1) Ileus ICD Codes: K56.7 - Ileus, unspecified SNOMED: 209032539 (2) Sigmoid thickening ICD Codes: K63.9 - Disease of intestine, unspecified SNOMED: 438113818 (3) Leukocytosis ICD Codes: D72.829 - Elevated white blood cell count, unspecified SNOMED: 304369805, 707840237 (4) SBO (small bowel obstruction) ICD Codes: K56.69 - Other intestinal obstruction SNOMED: 624773511 Status: progressing Status Narrative Discussed with Dr. Vega. Assessment/Plan Presentation of segmental SB inflammation and SBO - narrow differential OB stool negative Recommendations colonoscopy deferred >> s/p surgery, see note. fu surgery recs CLD ivf+ iv abx DVT prophylaxis prn imaging studies PT eval fu labs Subjective Subjective abdominal pain diarrhea Objective Last 24 Hour Vital Signs Date Time Temp Pulse Resp B/P Pulse Ox O2 Delivery O2 Flow Rate FiO2 04/26/17 08:33 98 114/56 04/26/17 08:00 98 04/26/17 07:59 97.8 98 22 114/56 97 Non-Rebreather 100 04/26/17 07:11 92 20 93 Non-Rebreather 15.0 100 04/26/17 07:08 Non-Rebreather 15.0 100 04/26/17 06:55 100 04/26/17 06:55 98 24 91 Non-Rebreather 15.0 100 04/26/17 06:54 91 Non-Rebreather 15.0 100 04/26/17 06:54 91 Non-Rebreather 15.0 100 04/26/17 04:00 98.0 97 23 111/69 97 Non-Rebreather 100 04/26/17 03:40 91 04/26/17 00:49 Non-Rebreather 15.0 100 04/26/17 00:49 93 Non-Rebreather 15.0 100 04/26/17 00:00 97.9 80 24 101/60 99 Non-Rebreather 100 04/25/17 23:32 84 04/25/17 21:45 107 117/68 04/25/17 20:15 102 04/25/17 19:42 98.8 107 23 117/68 92 Non-Rebreather 100 04/25/17 19:22 110 18 78 Non-Rebreather 15.0 100 04/25/17 19:15 104 18 94 Non-Rebreather 15.0 100 04/25/17 19:15 104 18 Non-Rebreather 15.0 100 04/25/17 19:15 100 04/25/17 16:00 94 04/25/17 16:00 98.8 107 25 130/74 92 Non-Rebreather 100 04/25/17 15:10 97 20 88 Non-Rebreather 15.0 100 04/25/17 15:00 99 20 97 Non-Rebreather 15.0 100 04/25/17 12:00 99.3 97 26 134/47 95 Non-Rebreather 100 04/25/17 12:00 85 Intake and Output 04/25/17 04/26/17 19:00 07:00 Intake Total 1055 ml 872 ml Balance 1055 ml 872 ml Intake Oral 200 ml IV Total 855 ml 872 ml # Voids 5 3 # Bowel Movements 4 6 Laboratory Tests Test 04/26/17 03:30 04/26/17 09:00 White Blood Count 15.1 K/UL (4.8-10.8) H Red Blood Count 3.41 M/UL (4.20-5.40) L Hemoglobin 11.6 G/DL (12.0-16.0) L Hematocrit 32.7 % (37.0-47.0) L Mean Corpuscular Volume 96 FL (80-99) Mean Corpuscular Hemoglobin 33.9 PG (27.0-31.0) H Mean Corpuscular Hemoglobin Concent 35.4 G/DL (32.0-36.0) Red Cell Distribution Width 11.4 % (11.6-14.8) L Platelet Count 258 K/UL (150-450) Mean Platelet Volume 5.6 FL (6.5-10.1) L Neutrophils (%) (Auto) % (45.0-75.0) Lymphocytes (%) (Auto) % (20.0-45.0) Monocytes (%) (Auto) % (1.0-10.0) Eosinophils (%) (Auto) % (0.0-3.0) Basophils (%) (Auto) % (0.0-2.0) Differential Total Cells Counted 100 Neutrophils % (Manual) 79 % (45-75) H Lymphocytes % (Manual) 13 % (20-45) L Monocytes % (Manual) 8 % (1-10) Eosinophils % (Manual) 0 % (0-3) Basophils % (Manual) 0 % (0-2) Band Neutrophils 0 % (0-8) Platelet Estimate Adequate Platelet Morphology Normal Hypochromasia 1+ Sodium Level 133 mEQ/L (135-145) L Potassium Level 3.6 mEQ/L (3.4-4.9) Chloride Level 96 mEQ/L (98-107) L Carbon Dioxide Level 25 mEQ/L (20-30) Anion Gap 12 (5-15) Blood Urea Nitrogen 4 mg/dL (7-23) L Creatinine 0.4 mg/dL (0.5-0.9) L Estimat Glomerular Filtration Rate > 60 mL/min (>60) Glucose Level 158 mg/dL (74-106) H Calcium Level 8.5 mg/dL (8.6-10.2) L Arterial Blood pH 7.498 (7.350-7.450) Arterial Blood Partial Pressure CO2 31.2 mmHg (35.0-45.0) L Arterial Blood Partial Pressure O2 78.6 mmHg (75.0-100.0) Arterial Blood HCO3 23.7 mmol/L (22.0-26.0) Arterial Blood Oxygen Saturation 95.5 % (92.0-98.0) Arterial Blood Base Excess 1.0 Robert Test Positive Height (Feet): 5 Height (Inches): 3.00 Weight (Pounds): 127 General Appearance: no apparent distress, alert Cardiovascular: normal rate Respiratory/Chest: no respiratory distress, other - non rebreather Abdominal Exam: non tender, soft, other - CLD Yaneth Young N.P. Apr 26, 2017 11:06
[2017-04-26 11:10] VITALS: BP 108/61
--- NOTE | 2017-04-26 11:45 | General Progress Note ---
Progress Note Progress Note Surgery: patient seen and examined at bedside. recently began desaturating requiring O2. tolerating clears. having loose BM's. passing flatus. no n/v/f/c. abdomen soft, incisional tenderness, non distended, incisions c/d/i. s/p laparoscopic lysis of adhesion. recovering but with recent SOB requiring O2. PE vs pneumonia? -Diet as tolerated -Ordered CTA chest and lower extremity duplex to evaluate for possible DVT/PE. Started therapeutic lovenox for now -Cont IV Abx as could also potentially be pneumonia as well Ozzy Yoon Apr 26, 2017 11:45
--- NOTE | 2017-04-26 11:46 | General Progress Note ---
Assessment/Plan Status: stable Assessment/Plan 1- Sepsis: Likely Aspiration HCA-PNA 2.Aspiration HCA-PNA 2- Small Bowel Obstruction (partial vs complete), status post expl.laparotomy 3- HTN 4- Gi-DVT prophylaxia 5. Hypoxemic Respiratory failure Plan: Added Vanco S/p Expl. laparotomy today LE duplex Pulmunary and ID sevices notes are reviewed Subjective ROS Limited/Unobtainable: No Constitutional: Reports: weakness HEENT: Reports: no symptoms Cardiovascular: Reports: no symptoms Respiratory: Reports: shortness of breath - interval improvement Allergies: Coded Allergies: No Known Allergies (Unverified , 04/17/17) Objective Last 24 Hour Vital Signs Date Time Temp Pulse Resp B/P Pulse Ox O2 Delivery O2 Flow Rate FiO2 04/26/17 11:10 98.2 83 21 108/61 97 Non-Rebreather 100 04/26/17 11:06 83 04/26/17 11:06 15.0 100 04/26/17 08:33 98 114/56 04/26/17 08:00 98 04/26/17 07:59 97.8 98 22 114/56 97 Non-Rebreather 100 04/26/17 07:11 92 20 93 Non-Rebreather 15.0 100 04/26/17 07:08 Non-Rebreather 15.0 100 04/26/17 06:55 100 04/26/17 06:55 98 24 91 Non-Rebreather 15.0 100 04/26/17 06:54 91 Non-Rebreather 15.0 100 04/26/17 06:54 91 Non-Rebreather 15.0 100 04/26/17 04:00 98.0 97 23 111/69 97 Non-Rebreather 100 04/26/17 03:40 91 04/26/17 00:49 Non-Rebreather 15.0 100 04/26/17 00:49 93 Non-Rebreather 15.0 100 04/26/17 00:00 97.9 80 24 101/60 99 Non-Rebreather 100 04/25/17 23:32 84 04/25/17 21:45 107 117/68 04/25/17 20:15 102 04/25/17 19:42 98.8 107 23 117/68 92 Non-Rebreather 100 8/6/17 19:22 110 18 78 Non-Rebreather 15.0 100 04/25/17 19:15 104 18 94 Non-Rebreather 15.0 100 04/25/17 19:15 104 18 Non-Rebreather 15.0 100 04/25/17 19:15 100 04/25/17 16:00 94 04/25/17 16:00 98.8 107 25 130/74 92 Non-Rebreather 100 04/25/17 15:10 97 20 88 Non-Rebreather 15.0 100 04/25/17 15:00 99 20 97 Non-Rebreather 15.0 100 04/25/17 12:00 99.3 97 26 134/47 95 Non-Rebreather 100 04/25/17 12:00 85 Intake and Output 04/25/17 04/26/17 19:00 07:00 Intake Total 1055 ml 872 ml Balance 1055 ml 872 ml Intake Oral 200 ml IV Total 855 ml 872 ml # Voids 5 3 # Bowel Movements 4 6 Laboratory Tests 04/26/17 03:30: White Blood Count 15.1H, Red Blood Count 3.41L, Hemoglobin 11.6L, Hematocrit 32.7L, Mean Corpuscular Volume 96, Mean Corpuscular Hemoglobin 33.9H, Mean Corpuscular Hemoglobin Concent 35.4, Red Cell Distribution Width 11.4L, Platelet Count 258, Mean Platelet Volume 5.6L, Neutrophils (%) (Auto) , Lymphocytes (%) (Auto) , Monocytes (%) (Auto) , Eosinophils (%) (Auto) , Basophils (%) (Auto) , Differential Total Cells Counted 100, Neutrophils % ( Manual) 79H, Lymphocytes % (Manual) 13L, Monocytes % (Manual) 8, Eosinophils % ( Manual) 0, Basophils % (Manual) 0, Band Neutrophils 0, Platelet Estimate Adequate, Platelet Morphology Normal, Hypochromasia 1+, Sodium Level 133L, Potassium Level 3.6, Chloride Level 96L, Carbon Dioxide Level 25, Anion Gap 12, Blood Urea Nitrogen 4L, Creatinine 0.4L, Estimat Glomerular Filtration Rate > 60 , Glucose Level 158H, Calcium Level 8.5L 04/26/17 09:00: Arterial Blood pH 7.498H, Arterial Blood Partial Pressure CO2 31.2L, Arterial Blood Partial Pressure O2 78.6, Arterial Blood HCO3 23.7, Arterial Blood Oxygen Saturation 95.5, Arterial Blood Base Excess 1.0, Robert Test Positive Height (Feet): 5 Height (Inches): 3.00 Weight (Pounds): 127 General Appearance: no apparent distress EENT: PERRL/EOMI Neck: supple Cardiovascular: normal rate Respiratory/Chest: rhonchi - bilaterally Abdomen: guarding, other - less distenetion Extremities: non-tender Neurologic: taxation agent II-XII grossly normal Marilu Caldwell MD Apr 26, 2017 11:46
[2017-04-26] MEDS ORDERED: Vancomycin 1gm/D5W 275ml IVPB SCH ×2 (12:00)
--- NOTE | 2017-04-26 12:21 | Pulmonology Progress Note ---
Assessment/Plan Problems: (1) Acute respiratory failure (2) Pulmonary edema (3) Pleural effusion (4) S/P laparoscopy (5) Ileus Assessment/Plan start Lasix drip echo respiratory treatment venous doppler check BNP Subjective ROS Limited/Unobtainable: No Constitutional: Reports: no symptoms HEENT: Repors: no symptoms Allergies: Coded Allergies: No Known Allergies (Unverified , 04/17/17) Objective Last 24 Hour Vital Signs Date Time Temp Pulse Resp B/P Pulse Ox O2 Delivery O2 Flow Rate FiO2 04/26/17 11:10 98.2 83 21 108/61 97 Non-Rebreather 100 04/26/17 11:06 83 04/26/17 11:06 15.0 100 04/26/17 08:33 98 114/56 04/26/17 08:00 98 04/26/17 07:59 97.8 98 22 114/56 97 Non-Rebreather 100 04/26/17 07:11 92 20 93 Non-Rebreather 15.0 100 04/26/17 07:08 Non-Rebreather 15.0 100 04/26/17 06:55 100 04/26/17 06:55 98 24 91 Non-Rebreather 15.0 100 04/26/17 06:54 91 Non-Rebreather 15.0 100 04/26/17 06:54 91 Non-Rebreather 15.0 100 04/26/17 04:00 98.0 97 23 111/69 97 Non-Rebreather 100 04/26/17 03:40 91 04/26/17 00:49 Non-Rebreather 15.0 100 04/26/17 00:49 93 Non-Rebreather 15.0 100 04/26/17 00:00 97.9 80 24 101/60 99 Non-Rebreather 100 04/25/17 23:32 84 04/25/17 21:45 107 117/68 04/25/17 20:15 102 04/25/17 19:42 98.8 107 23 117/68 92 Non-Rebreather 100 04/25/17 19:22 110 18 78 Non-Rebreather 15.0 100 04/25/17 19:15 104 18 94 Non-Rebreather 15.0 100 04/25/17 19:15 104 18 Non-Rebreather 15.0 100 04/25/17 19:15 100 04/25/17 16:00 94 04/25/17 16:00 98.8 107 25 130/74 92 Non-Rebreather 100 04/25/17 15:10 97 20 88 Non-Rebreather 15.0 100 04/25/17 15:00 99 20 97 Non-Rebreather 15.0 100 Intake and Output 04/25/17 04/26/17 19:00 07:00 Intake Total 1055 ml 872 ml Balance 1055 ml 872 ml Intake Oral 200 ml IV Total 855 ml 872 ml # Voids 5 3 # Bowel Movements 4 6 General Appearance: WD/WN HEENT: normocephalic, atraumatic Respiratory/Chest: chest wall non-tender, accessory muscle use, crackles/rales Cardiovascular: normal peripheral pulses, normal rate, regularly irregular Abdomen: normal bowel sounds, no organomegaly, no mass Extremities: no cyanosis, no clubbing Skin: no lesions, no ulcers Neurologic/Psychiatric: no motor/sensory deficits, abnormal gait, normal mood/ affect Lymphatic: no groin adenopathy Musculoskeletal: normal muscle bulk Laboratory Tests 04/26/17 03:30: White Blood Count 15.1H, Red Blood Count 3.41L, Hemoglobin 11.6L, Hematocrit 32.7L, Mean Corpuscular Volume 96, Mean Corpuscular Hemoglobin 33.9H, Mean Corpuscular Hemoglobin Concent 35.4, Red Cell Distribution Width 11.4L, Platelet Count 258, Mean Platelet Volume 5.6L, Neutrophils (%) (Auto) , Lymphocytes (%) (Auto) , Monocytes (%) (Auto) , Eosinophils (%) (Auto) , Basophils (%) (Auto) , Differential Total Cells Counted 100, Neutrophils % ( Manual) 79H, Lymphocytes % (Manual) 13L, Monocytes % (Manual) 8, Eosinophils % ( Manual) 0, Basophils % (Manual) 0, Band Neutrophils 0, Platelet Estimate Adequate, Platelet Morphology Normal, Hypochromasia 1+, Sodium Level 133L, Potassium Level 3.6, Chloride Level 96L, Carbon Dioxide Level 25, Anion Gap 12, Blood Urea Nitrogen 4L, Creatinine 0.4L, Estimat Glomerular Filtration Rate > 60 , Glucose Level 158H, Calcium Level 8.5L 04/26/17 09:00: Arterial Blood pH 7.498H, Arterial Blood Partial Pressure CO2 31.2L, Arterial Blood Partial Pressure O2 78.6, Arterial Blood HCO3 23.7, Arterial Blood Oxygen Saturation 95.5, Arterial Blood Base Excess 1.0, Robert Test Positive Current Medications Medications (Trade) Dose Ordered Sig/Renuka Route PRN Reason Start Time Stop Time Status Last Admin Dose Admin Acetaminophen (Tylenol) 650 mg Q4H PRN ORAL Mild Pain/Temp > 100.5 04/25/17 10:30 05/25/17 10:29 Albuterol/ Ipratropium (DuoNeb 0.5-3(2.5)mg/3ml) 3 ml Q4H PRN HHN Shortness of Breath 04/25/17 11:00 04/30/17 10:59 Atorvastatin Calcium (Lipitor) 40 mg BEDTIME ORAL 04/25/17 21:00 05/25/17 20:59 04/25/17 21:46 Cefepime HCl 1 gm/ Dextrose 55 ml @ 110 mls/hr Q12HR IVPB 04/25/17 11:00 05/02/17 10:59 04/26/17 08:32 Clonidine HCl (Catapres TTS-1) 1 patch QWEEK TDERMAL 04/29/17 21:00 05/29/17 20:59 Clonidine HCl (Catapres) 0.1 mg Q8H PRN ORAL For High Blood Pressure 04/25/17 10:30 05/25/17 10:29 Dextrose/ Electrolytes (D5 0.45%NS W/ KCl 20mEq) 1,000 ml @ 75 mls/hr [id number] IV 04/26/17 13:00 05/26/17 12:59 Diphenhydramine HCl (Benadryl) 25 mg Q6H PRN IVP Itching 04/25/17 11:00 05/25/17 10:59 Enoxaparin Sodium 60 mg 60 mg Q12HR SUBQ 04/26/17 13:00 05/26/17 12:59 Hydrocortisone (Hydrocortisone) 1 applic Q6H PRN TOPIC Itching 04/25/17 11:00 05/25/17 10:59 Hydromorphone HCl (Dilaudid) 0.5 mg Q4H PRN IVP pain 4 - 10 04/25/17 10:30 8/13/17 10:29 Levalbuterol HCl (Xopenex) 1.25 mg TIDRT HHN 04/25/17 13:00 04/30/17 12:59 04/26/17 07:06 Lorazepam (Ativan 2mg/ml 1ml) 0.5 mg Q4H PRN IV For Anxiety 04/25/17 11:00 05/02/17 10:59 04/26/17 06:36 Metoprolol Tartrate (Lopressor) 25 mg Q12HR NG 04/25/17 21:00 05/25/17 20:59 04/26/17 08:33 Ondansetron HCl (Zofran) 4 mg Q6H PRN IVP Nausea & Vomiting 04/25/17 10:30 05/25/17 10:29 Triamterene/HCTZ (Dyazide) 1 cap DAILY ORAL 04/26/17 09:00 05/26/17 08:59 04/26/17 08:34 Vancomycin HCl (Vanco rx to dose) 1 ea DAILY PRN MISC Per rx protocol 04/25/17 11:00 05/25/17 10:59 Vancomycin HCl/ Dextrose (Vancomycin/D5W) 275 ml @ 183.708 mls/hr Q24H IVPB 04/26/17 13:00 05/01/17 12:59 Zolpidem Tartrate (Ambien) 5 mg HSPRN PRN ORAL Insomnia 04/25/17 21:15 05/25/17 21:14 PABLO NAPOLES Apr 26, 2017 12:21
[2017-04-26] MEDS ORDERED: Enoxaparin 60mg Inj SUBQ SCH (13:00)
[2017-04-26 13:12] LABS: INR 1.1 (0.9-1.1); PROTHROMBIN TIME 11.5 SEC (9.30-11.50)
[2017-04-26] MEDS: Vancomycin 1 GM in D5W 275 ML IVPB SCH (13:27)
--- NOTE | 2017-04-26 13:29 | Infectious Diseases Prog Note ---
Assessment/Plan Assessment/Plan ASSESSMENT: 66 y/o female with: //post operative RLL aspiration pneumonia //acute hypoxia --secondary to pneumonia --ble dopplers negative for DVT today, pending CTA to r/o PE //fevers--secondary to pneumonia. resolved //diarrhea--likely secondary to resolution of SBO, but with recent broad spectrum abx and persistent leukocytosis, will r/o C diff // segmental small bowel inflammation with SBO secondary to hernia with single dense adhesions s/p ex lap and YAIMA POD#2. inflammation visible on CT not limited to TI. stool cx negative for yersenia and campylobacter. - CT A/P: Moderately distended small bowel loops in the lower abdomen/pelvis , with an apparent transition point in the right lower quadrant and midpelvis. Moderate bowel wall thickening and hyperemia noted involving several loops. However, a short segment of small bowel in the midpelvis exhibits poor wall enhancement with surrounding mesenteric stranding. Closed loop obstruction and bowel ischemia should be considered. Small volume ascites. No evidence of free intraperitoneal air or loculated fluid collection. //s/p perioperative zosyn d#7 for empiric abd coverage, completed 04/24/17 midday // Leukocytosis - recurrent post op, stable/persistent for 48 hrs // Possible hepatic mass 2cm // Diverticulosis // Elevated CRP // NKDA // Full Code PLAN: - vancomycin and IV cefepime D#2 of 10 04/24/17 (s/p 7d empiric zosyn) - stool C diff - f/u results of CTA chest -encourage incentive spirometry and good pulmonary toilet. - monitor CBC, temperatures - monitor BMP - bowel rest - GI, surgery following Subjective Constitutional: Reports: no symptoms Respiratory: Reports: shortness of breath Gastrointestinal/Abdominal: Reports: diarrhea Skin: Reports: no symptoms Hematologic: Reports: no symptoms Allergies: Coded Allergies: No Known Allergies (Unverified , 04/17/17) Subjective 24 hr events; acute desat 2 nights ago with TM 100.4F, has remained afebrile since that time on IV vanc/cefepime. PCXR with new RLL infiltrate vs atelectasis and small b/l pleural effusions, but hasn't had significant cough. continues to require supplemental O2 by high flow face mask. This infiltrate was not seen on CT a/p performed on 04/17/17. Objective Vital Signs Last 24 Hour Vital Signs Date Time Temp Pulse Resp B/P Pulse Ox O2 Delivery O2 Flow Rate FiO2 04/26/17 11:10 98.2 83 21 108/61 97 Non-Rebreather 100 04/26/17 11:06 83 04/26/17 11:06 15.0 100 04/26/17 08:33 98 114/56 04/26/17 08:00 98 04/26/17 07:59 97.8 98 22 114/56 97 Non-Rebreather 100 04/26/17 07:11 92 20 93 Non-Rebreather 15.0 100 04/26/17 07:08 Non-Rebreather 15.0 100 04/26/17 06:55 100 04/26/17 06:55 98 24 91 Non-Rebreather 15.0 100 04/26/17 06:54 91 Non-Rebreather 15.0 100 04/26/17 06:54 91 Non-Rebreather 15.0 100 04/26/17 04:00 98.0 97 23 111/69 97 Non-Rebreather 100 04/26/17 03:40 91 04/26/17 00:49 Non-Rebreather 15.0 100 04/26/17 00:49 93 Non-Rebreather 15.0 100 04/26/17 00:00 97.9 80 24 101/60 99 Non-Rebreather 100 04/25/17 23:32 84 04/25/17 21:45 107 117/68 04/25/17 20:15 102 04/25/17 19:42 98.8 107 23 117/68 92 Non-Rebreather 100 04/25/17 19:22 110 18 78 Non-Rebreather 15.0 100 04/25/17 19:15 104 18 94 Non-Rebreather 15.0 100 04/25/17 19:15 104 18 Non-Rebreather 15.0 100 04/25/17 19:15 100 04/25/17 16:00 94 04/25/17 16:00 98.8 107 25 130/74 92 Non-Rebreather 100 04/25/17 15:10 97 20 88 Non-Rebreather 15.0 100 04/25/17 15:00 99 20 97 Non-Rebreather 15.0 100 Height (Feet): 5 Height (Inches): 3.00 Weight (Pounds): 127 Objective a/ox3, tachypneic, on high flow face mask with O2 sats 95-96%, mentating well, ABG less hypoxic today than yesterday lungs decreased breath sounds at R base, stable from yesterday rrr, no murmurs abd surgical dressing in place from laparoscopic procedure. normal incisional tenderness. no fullness. no rash. urine clear Laboratory Tests Test 04/26/17 03:30 04/26/17 09:00 04/26/17 12:30 White Blood Count 15.1 K/UL (4.8-10.8) H Red Blood Count 3.41 M/UL (4.20-5.40) L Hemoglobin 11.6 G/DL (12.0-16.0) L Hematocrit 32.7 % (37.0-47.0) L Mean Corpuscular Volume 96 FL (80-99) Mean Corpuscular Hemoglobin 33.9 PG (27.0-31.0) H Mean Corpuscular Hemoglobin Concent 35.4 G/DL (32.0-36.0) Red Cell Distribution Width 11.4 % (11.6-14.8) L Platelet Count 258 K/UL (150-450) Mean Platelet Volume 5.6 FL (6.5-10.1) L Neutrophils (%) (Auto) % (45.0-75.0) Lymphocytes (%) (Auto) % (20.0-45.0) Monocytes (%) (Auto) % (1.0-10.0) Eosinophils (%) (Auto) % (0.0-3.0) Basophils (%) (Auto) % (0.0-2.0) Differential Total Cells Counted 100 Neutrophils % (Manual) 79 % (45-75) H Lymphocytes % (Manual) 13 % (20-45) L Monocytes % (Manual) 8 % (1-10) Eosinophils % (Manual) 0 % (0-3) Basophils % (Manual) 0 % (0-2) Band Neutrophils 0 % (0-8) Platelet Estimate Adequate Platelet Morphology Normal Hypochromasia 1+ Sodium Level 133 mEQ/L (135-145) L Potassium Level 3.6 mEQ/L (3.4-4.9) Chloride Level 96 mEQ/L (98-107) L Carbon Dioxide Level 25 mEQ/L (20-30) Anion Gap 12 (5-15) Blood Urea Nitrogen 4 mg/dL (7-23) L Creatinine 0.4 mg/dL (0.5-0.9) L Estimat Glomerular Filtration Rate > 60 mL/min (>60) Glucose Level 158 mg/dL (74-106) H Calcium Level 8.5 mg/dL (8.6-10.2) L Arterial Blood pH 7.498 (7.350-7.450) Arterial Blood Partial Pressure CO2 31.2 mmHg (35.0-45.0) L Arterial Blood Partial Pressure O2 78.6 mmHg (75.0-100.0) Arterial Blood HCO3 23.7 mmol/L (22.0-26.0) Arterial Blood Oxygen Saturation 95.5 % (92.0-98.0) Arterial Blood Base Excess 1.0 Robert Test Positive Prothrombin Time 11.5 SEC (9.30-11.50) Prothromb Time International Ratio 1.1 (0.9-1.1) Activated Partial Thromboplast Time 32 SEC (23-33) Pro-B-Type Natriuretic Peptide 258 pg/mL (0-125) H Current Medications Medications (Trade) Dose Ordered Sig/Renuka Route PRN Reason Start Time Stop Time Status Last Admin Dose Admin Acetaminophen (Tylenol) 650 mg Q4H PRN ORAL Mild Pain/Temp > 100.5 04/25/17 10:30 05/25/17 10:29 Albuterol/ Ipratropium (DuoNeb 0.5-3(2.5)mg/3ml) 3 ml Q4H PRN HHN Shortness of Breath 04/25/17 11:00 04/30/17 10:59 Atorvastatin Calcium (Lipitor) 40 mg BEDTIME ORAL 04/25/17 21:00 05/25/17 20:59 04/25/17 21:46 Cefepime HCl 1 gm/ Dextrose 55 ml @ 110 mls/hr Q12HR IVPB 04/25/17 11:00 05/02/17 10:59 04/26/17 08:32 Clonidine HCl (Catapres) 0.1 mg Q8H PRN ORAL For High Blood Pressure 04/25/17 10:30 05/25/17 10:29 Dextrose/ Electrolytes 1,000 ml @ 75 mls/hr [id number] IV 04/26/17 13:00 05/26/17 12:59 Diphenhydramine HCl (Benadryl) 25 mg Q6H PRN IVP Itching 04/25/17 11:00 05/25/17 10:59 Enoxaparin Sodium 60 mg 60 mg Q12HR SUBQ 04/26/17 13:00 05/26/17 12:59 Furosemide/ Dextrose (Lasix/D5W) 110 ml @ 11 mls/hr Q10H IV 04/26/17 13:15 05/26/17 13:14 Hydrocortisone (Hydrocortisone) 1 applic Q6H PRN TOPIC Itching 04/25/17 11:00 05/25/17 10:59 Hydromorphone HCl (Dilaudid) 0.5 mg Q4H PRN IVP pain 4 - 10 04/25/17 10:30 05/02/17 10:29 Levalbuterol HCl (Xopenex) 1.25 mg TIDRT HHN 04/25/17 13:00 04/30/17 12:59 04/26/17 07:06 Lorazepam (Ativan 2mg/ml 1ml) 0.5 mg Q4H PRN IV For Anxiety 04/25/17 11:00 05/02/17 10:59 04/26/17 06:36 Ondansetron HCl (Zofran) 4 mg Q6H PRN IVP Nausea & Vomiting 04/25/17 10:30 05/25/17 10:29 Triamterene/HCTZ (Dyazide) 1 cap DAILY ORAL 04/26/17 09:00 05/26/17 08:59 04/26/17 08:34 Vancomycin HCl (Vanco rx to dose) 1 ea DAILY PRN MISC Per rx protocol 04/25/17 11:00 05/25/17 10:59 Vancomycin HCl/ Dextrose (Vancomycin/D5W) 275 ml @ 183.708 mls/hr Q24H IVPB 04/26/17 13:00 05/01/17 12:59 Zolpidem Tartrate (Ambien) 5 mg HSPRN PRN ORAL Insomnia 04/25/17 21:15 05/25/17 21:14 Celestino Connell M.D. Apr 26, 2017 13:29
--- NOTE | 2017-04-26 13:54 | Cardiology Report ---
APPROVED REPORT EXAM: Two-dimensional and M-mode echocardiogram with Doppler and color Doppler. INDICATION Left Ventricular Function M-Mode DIMENSIONS IVSd1.0 (0.7-1.1cm)Left Atrium (MM)3.0 (1.6-4.0cm) LVDd4.1 (3.5-5.6cm)Aortic Root2.5 (2.0-3.7cm) PWd0.7 (0.7-1.1cm)Aortic Cusp Exc.2.0 (1.5-2.0cm) LVDs2.5 (2.5-4.0cm) PWs1.0 cm Normal left ventricular chamber size, systolic function and wall motion. Left ventricular ejection fraction estimated to be 60 %. No evidence of ventricular hypertrophy. No evidence of pericardial fat or effusion. All other cardiac chamber sizes are within normal limits. Normal appearing aortic valves. Mild mildly thickened mitral valve leaflets with normal excursion. Mild mitral annulus and aortic root calcification. Pulmonic valve not well visualized. Normal tricuspid valve structure. Subcostal views not obtainable. A color flow and spectral Doppler study was performed and revealed: No aortic regurgitation. Trace mitral regurgitation. Mitral diastolic velocities suggest reduced left ventricular relaxation (Grade I). Mild tricuspid regurgitation. Tricuspid systolic velocities suggests peak right ventricular systolic pressure of 15 mmHg. No pulmonic regurgitation present.
[2017-04-26 15:52] VITALS: BP 110/65
[2017-04-26 20:00] VITALS: BP 111/62
[2017-04-27] VITALS: BP 102/51
[2017-04-27] MEDS: LORazepam Inj 2mg/ml 1ml IV PRN ×3 (00:58→14:55)
[2017-04-27] MEDS: D5 1/2NS w/KCl 20mEq 1,000 ML IV SCH ×2 (02:49→16:28)
[2017-04-27 04:30] VITALS: BP 98/59
[2017-04-27 04:51] LABS: BASOPHILS % (AUTO) 0.5 % (0.0-2.0); EOSINOPHILS % (AUTO) 0.3 % (0.0-3.0); LYMPHOCYTES % (AUTO) 9.1 % (20.0-45.0); MEAN CORPUSCULAR HEMOGLOBIN 33.8 PG (27.0-31.0); MEAN CORPUSCULAR HGB CONC 35.5 G/DL (32.0-36.0); MEAN CORPUSCULAR VOLUME 95 FL (80-99); MEAN PLATELET VOLUME 5.7 FL (6.5-10.1); MONOCYTES % (AUTO) 6.4 % (1.0-10.0); NEUTROPHILS % (AUTO) 83.6 % (45.0-75.0); PLATELET COUNT 319 K/UL (150-450); RED BLOOD COUNT 3.43 M/UL (4.20-5.40); RED CELL DISTRIBUTION WIDTH 11.2 % (11.6-14.8); WHITE BLOOD COUNT 12.4 K/UL (4.8-10.8)
[2017-04-27 05:12] LABS: ALANINE AMINOTRANSFERASE 21 U/L (3-33); ALBUMIN/GLOBULIN RATIO 0.8 (1.0-2.7); ANION GAP 13 (5-15); ASPARTATE AMINO TRANSFERASE 22 U/L (5-40); CALCIUM 8.3 mg/dL (8.6-10.2); CARBON DIOXIDE 27 mEQ/L (20-30); CHLORIDE 92 mEQ/L (98-107); CREATININE 0.6 mg/dL (0.5-0.9); GLOMERULAR FILTRATION RATE > 60 mL/min (>60); HEMOLYSIS 2; POTASSIUM 2.8 mEQ/L (3.4-4.9); SODIUM 132 mEQ/L (135-145); TOTAL PROTEIN 6.4 g/dL (6.6-8.7)
[2017-04-27] MEDS: Levalbuterol Inh UD 1.25mg/0.5ml HHN SCH ×3 (07:29→19:31)
[2017-04-27 08:00] VITALS: BP 121/67
[2017-04-27] MEDS ORDERED: KCl 10% 40mEq/30ml liquid NG ONE (09:00)
--- NOTE | 2017-04-27 09:03 | Diagnostic Imaging Report ---
Indication: Chest pain and shortness of breath Technique: Continuous helical transaxial imaging of the chest was obtained from the thoracic inlet to the upper abdomen during rapid intravenous contrast administration. Arterial phase of enhancement obtained. Coronal 2-D reformats were also obtained and maximum intensity projection images in multiple planes. Study obtained in a Siemens sensation [address] Total Dose length Product (DLP): [address] Dose Index Volume (CTDIvol): 12.6, 0.2, 12.6, 21.8 mGy Comparison: None Findings: Pulmonary artery is well opacified and there is no filling defect to suggest pulmonary bullous. Aorta shows no evidence of aneurysm or dissection and there is mild calcium involving the wall. There is a moderate right pleural effusion and a small left pleural effusion. Posterior basilar atelectasis demonstrated. In addition there are patchy groundglass opacities involving portions of the lungs bilaterally. Ill-defined mixed interstitial/alveolar infiltrate and consolidation also demonstrated in the right upper lobe. The heart is normal in size. Impression: No evidence of pulmonary embolus, aortic dissection or aneurysm. Patchy interstitial disease bilaterally with consolidative opacification of the right upper lobe. Findings probably on the basis of asymmetric pulmonary edema. Please correlate clinically. Bilateral pleural effusions larger on the right. The CT scanner at [facility] is accredited by the [employer] and the scans are performed using dose optimization techniques as appropriate to a performed exam including Automatic Exposure control.
--- NOTE | 2017-04-27 09:04 | Diagnostic Imaging Report ---
Indication: Dyspnea Comparison: 04/24/17 A single view chest radiograph was obtained. Findings: Right pleural effusion is again demonstrated. Patchy alveolar and interstitial densities likely representing pulmonary edema noted. Heart is enlarged. Findings have advanced or progressed since the last study. Impression: Evidence of worsening congestive heart failure
--- NOTE | 2017-04-27 09:33 | General Progress Note ---
Assessment/Plan Status: stable Assessment/Plan 1- Hypoxemic Respiratory failure: less Likely Aspiration HCA-PNA 2. Pleural effusion 2- Small Bowel Obstruction (partial), status post expl.laparotomy 3- HTN 4- Gi-DVT prophylaxia 6- HypoNatremia Plan: lasix as tolerated S/p Expl. laparotomy today current pulmonary management Pulmunary and ID sevices notes are reviewed advancing diet as tolerated Subjective ROS Limited/Unobtainable: No Cardiovascular: Reports: no symptoms Respiratory: Reports: shortness of breath Gastrointestinal/Abdominal: Reports: no symptoms Allergies: Coded Allergies: No Known Allergies (Unverified , 04/17/17) Objective Last 24 Hour Vital Signs Date Time Temp Pulse Resp B/P Pulse Ox O2 Delivery O2 Flow Rate FiO2 04/27/17 08:00 98.2 109 22 121/67 98 Non-Rebreather 100 04/27/17 08:00 109 04/27/17 07:40 108 20 91 Nasal Cannula 7.0 48 04/27/17 07:34 Non-Rebreather 15.0 100 04/27/17 07:34 98 Non-Rebreather 15.0 100 04/27/17 07:33 88 20 98 Non-Rebreather 15.0 100 04/27/17 07:33 98 04/27/17 04:30 98.4 98 18 98/59 98 Non-Rebreather 15.0 100 04/27/17 04:00 88 04/27/17 00:00 98.1 96 22 102/51 97 Non-Rebreather 15.0 100 04/27/17 00:00 93 04/26/17 20:26 Non-Rebreather 15.0 100 04/26/17 20:26 96 Non-Rebreather 15.0 100 04/26/17 20:25 103 22 95 Non-Rebreather 15.0 100 04/26/17 20:20 102 22 95 Non-Rebreather 15.0 100 04/26/17 20:20 100 04/26/17 20:00 111 04/26/17 20:00 98.3 111 22 111/62 Non-Rebreather 100 04/26/17 20:00 15.0 100 04/26/17 15:52 98.1 104 22 110/65 Non-Rebreather 100 04/26/17 15:52 104 04/26/17 15:52 15.0 100 04/26/17 13:48 102 20 95 Non-Rebreather 15.0 100 04/26/17 13:39 100 04/26/17 13:39 99 22 94 Non-Rebreather 15.0 100 04/26/17 11:10 98.2 83 21 108/61 97 Non-Rebreather 100 04/26/17 11:06 83 04/26/17 11:06 15.0 100 Intake and Output 04/26/17 04/27/17 19:00 07:00 Intake Total 1057 ml 1165 ml Output Total 900 ml 2000 ml Balance 157 ml -835 ml Intake Oral 360 ml 120 ml IV Total 697 ml 1045 ml Output Urine Total 900 ml 2000 ml # Voids 4 # Bowel Movements 5 4 Laboratory Tests 04/26/17 12:30: Prothrombin Time 11.5, Prothromb Time International Ratio 1.1, Activated Partial Thromboplast Time 32, Pro-B-Type Natriuretic Peptide 258H 04/27/17 03:25: Pro-B-Type Natriuretic Peptide 173H, White Blood Count 12.4H, Red Blood Count 3.43L, Hemoglobin 11.6L, Hematocrit 32.7L, Mean Corpuscular Volume 95, Mean Corpuscular Hemoglobin 33.8H, Mean Corpuscular Hemoglobin Concent 35.5, Red Cell Distribution Width 11.2L, Platelet Count 319, Mean Platelet Volume 5.7L, Neutrophils (%) (Auto) 83.6H, Lymphocytes (%) (Auto) 9.1L, Monocytes (%) (Auto) 6.4, Eosinophils (%) (Auto) 0.3, Basophils (%) (Auto) 0.5, Sodium Level 132L, Potassium Level 2.8L, Chloride Level 92L, Carbon Dioxide Level 27, Anion Gap 13 , Blood Urea Nitrogen 5L, Creatinine 0.6, Estimat Glomerular Filtration Rate > 60, Glucose Level 140H, Calcium Level 8.3L, Total Bilirubin 0.5, Aspartate Amino Transf (AST/SGOT) 22, Alanine Aminotransferase (ALT/SGPT) 21, Alkaline Phosphatase 111H, Total Protein 6.4L, Albumin 3.0L, Globulin 3.4, Albumin/ Globulin Ratio 0.8L Height (Feet): 5 Height (Inches): 3.00 Weight (Pounds): 112 General Appearance: other - minimal shortness of breath EENT: PERRL/EOMI Neck: supple Cardiovascular: normal rate Respiratory/Chest: rhonchi - bilaterally Abdomen: soft Extremities: non-tender 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
--- NOTE | 2017-04-27 10:22 | Pulmonology Progress Note ---
Assessment/Plan Problems: (1) Acute respiratory failure (2) Pulmonary edema (3) Pleural effusion (4) S/P laparoscopy (5) Ileus Assessment/Plan start Lasix drip echo results noted CT angio results noted, no PE, alveolar and interstitial infiltrate respiratory treatment venous doppler negative check BNP ( decreasing thoracentesis today. Subjective ROS Limited/Unobtainable: No Interval Events: slightly better, no not worse Allergies: Coded Allergies: No Known Allergies (Unverified , 04/17/17) Objective Last 24 Hour Vital Signs Date Time Temp Pulse Resp B/P Pulse Ox O2 Delivery O2 Flow Rate FiO2 04/27/17 08:00 98.2 109 22 121/67 98 Non-Rebreather 100 04/27/17 08:00 109 04/27/17 07:40 108 20 91 Nasal Cannula 7.0 48 04/27/17 07:34 Non-Rebreather 15.0 100 04/27/17 07:34 98 Non-Rebreather 15.0 100 04/27/17 07:33 88 20 98 Non-Rebreather 15.0 100 04/27/17 07:33 98 04/27/17 04:30 98.4 98 18 98/59 98 Non-Rebreather 15.0 100 04/27/17 04:00 88 04/27/17 00:00 98.1 96 22 102/51 97 Non-Rebreather 15.0 100 04/27/17 00:00 93 04/26/17 20:26 Non-Rebreather 15.0 100 04/26/17 20:26 96 Non-Rebreather 15.0 100 04/26/17 20:25 103 22 95 Non-Rebreather 15.0 100 04/26/17 20:20 102 22 95 Non-Rebreather 15.0 100 04/26/17 20:20 100 04/26/17 20:00 111 04/26/17 20:00 98.3 111 22 111/62 Non-Rebreather 100 04/26/17 20:00 15.0 100 04/26/17 15:52 98.1 104 22 110/65 Non-Rebreather 100 04/26/17 15:52 104 04/26/17 15:52 15.0 100 04/26/17 13:48 102 20 95 Non-Rebreather 15.0 100 04/26/17 13:39 100 04/26/17 13:39 99 22 94 Non-Rebreather 15.0 100 04/26/17 11:10 98.2 83 21 108/61 97 Non-Rebreather 100 04/26/17 11:06 83 04/26/17 11:06 15.0 100 Intake and Output 04/26/17 04/27/17 19:00 07:00 Intake Total 1057 ml 1165 ml Output Total 900 ml 2000 ml Balance 157 ml -835 ml Intake Oral 360 ml 120 ml IV Total 697 ml 1045 ml Output Urine Total 900 ml 2000 ml # Voids 4 # Bowel Movements 5 4 General Appearance: cachetic HEENT: normocephalic, atraumatic Respiratory/Chest: chest wall non-tender, normal breath sounds Cardiovascular: normal peripheral pulses, normal rate Abdomen: normal bowel sounds, soft, non tender Extremities: no clubbing Skin: no rash, no ulcers 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, no motor/sensory deficits Lymphatic: no neck adenopathy Laboratory Tests 04/26/17 12:30: Prothrombin Time 11.5, Prothromb Time International Ratio 1.1, Activated Partial Thromboplast Time 32, Pro-B-Type Natriuretic Peptide 258H 04/27/17 03:25: Pro-B-Type Natriuretic Peptide 173H, White Blood Count 12.4H, Red Blood Count 3.43L, Hemoglobin 11.6L, Hematocrit 32.7L, Mean Corpuscular Volume 95, Mean Corpuscular Hemoglobin 33.8H, Mean Corpuscular Hemoglobin Concent 35.5, Red Cell Distribution Width 11.2L, Platelet Count 319, Mean Platelet Volume 5.7L, Neutrophils (%) (Auto) 83.6H, Lymphocytes (%) (Auto) 9.1L, Monocytes (%) (Auto) 6.4, Eosinophils (%) (Auto) 0.3, Basophils (%) (Auto) 0.5, Sodium Level 132L, Potassium Level 2.8L, Chloride Level 92L, Carbon Dioxide Level 27, Anion Gap 13 , Blood Urea Nitrogen 5L, Creatinine 0.6, Estimat Glomerular Filtration Rate > 60, Glucose Level 140H, Calcium Level 8.3L, Total Bilirubin 0.5, Aspartate Amino Transf (AST/SGOT) 22, Alanine Aminotransferase (ALT/SGPT) 21, Alkaline Phosphatase 111H, Total Protein 6.4L, Albumin 3.0L, Globulin 3.4, Albumin/ Globulin Ratio 0.8L Current Medications Medications (Trade) Dose Ordered Sig/Renuka Route PRN Reason Start Time Stop Time Status Last Admin Dose Admin Acetaminophen (Tylenol) 650 mg Q4H PRN ORAL Mild Pain/Temp > 100.5 04/25/17 10:30 05/25/17 10:29 Albuterol/ Ipratropium (DuoNeb 0.5-3(2.5)mg/3ml) 3 ml Q4H PRN HHN Shortness of Breath 04/25/17 11:00 04/30/17 10:59 Atorvastatin Calcium (Lipitor) 40 mg BEDTIME ORAL 04/25/17 21:00 05/25/17 20:59 04/26/17 21:26 Cefepime HCl 1 gm/ Dextrose 55 ml @ 110 mls/hr Q12HR IVPB 04/25/17 11:00 05/02/17 10:59 04/26/17 21:26 Clonidine HCl (Catapres) 0.1 mg Q8H PRN ORAL For High Blood Pressure 04/25/17 10:30 05/25/17 10:29 Dextrose/ Electrolytes 1,000 ml @ 75 mls/hr [id number] IV 04/26/17 13:00 05/26/17 12:59 04/27/17 02:49 Diphenhydramine HCl (Benadryl) 25 mg Q6H PRN IVP Itching 04/25/17 11:00 05/25/17 10:59 Furosemide/ Dextrose (Lasix/D5W) 110 ml @ 11 mls/hr Q10H IV 04/26/17 16:00 05/26/17 15:59 04/27/17 02:49 Heparin Sodium (Porcine) (Heparin 5000 units/ml) 5,000 units EVERY 12 HOURS SUBQ 04/26/17 21:00 05/26/17 20:59 04/26/17 21:28 Hydrocortisone (Hydrocortisone) 1 applic Q6H PRN TOPIC Itching 04/25/17 11:00 05/25/17 10:59 Hydromorphone HCl (Dilaudid) 0.5 mg Q4H PRN IVP pain 4 - 10 04/25/17 10:30 05/02/17 10:29 Levalbuterol HCl (Xopenex) 1.25 mg TIDRT HHN 04/25/17 13:00 04/30/17 12:59 04/27/17 07:29 Lorazepam (Ativan 2mg/ml 1ml) 0.5 mg Q4H PRN IV For Anxiety 04/25/17 11:00 05/02/17 10:59 04/27/17 00:58 Ondansetron HCl (Zofran) 4 mg Q6H PRN IVP Nausea & Vomiting 04/25/17 10:30 05/25/17 10:29 04/27/17 06:23 Potassium Chloride (KCl 10% 40mEq Oral solution) 40 meq Q1H ORAL 04/27/17 10:00 04/27/17 11:01 Triamterene/HCTZ (Dyazide) 1 cap DAILY ORAL 04/26/17 09:00 05/26/17 08:59 04/26/17 08:34 Vancomycin HCl (Vanco rx to dose) 1 ea DAILY PRN MISC Per rx protocol 04/25/17 11:00 05/25/17 10:59 Vancomycin HCl/ Dextrose (Vancomycin/D5W) 275 ml @ 183.708 mls/hr Q24H IVPB 04/26/17 13:00 05/01/17 12:59 04/26/17 13:27 Zolpidem Tartrate 5 mg 5 mg HSPRN PRN ORAL Insomnia 04/25/17 21:15 05/25/17 21:14 PABLO NAPOLES Apr 27, 2017 10:22
[2017-04-27] MEDS: Triamterene/Hctz 37.5/25 cap ORAL SCH (10:31)
[2017-04-27] MEDS: KCl 10% 40mEq/30ml liquid ORAL SCH ×2 (10:31→11:19)
[2017-04-27] MEDS: Cefepime HCl 1 GM in D5W 55 ML IVPB SCH ×2 (10:32→21:26)
[2017-04-27] MEDS: Heparin 5000 units/ml inj SUBQ SCH ×2 (10:33→21:27)
--- NOTE | 2017-04-27 11:41 | Diagnostic Imaging Report ---
APPROVED REPORT CPT Code: 02567 Present Symptoms Lower Extremity Pain: Bilateral BILATERAL: Imaging reveals a patent deep venous system bilaterally. There is no evidence of thrombus within the femoral, popliteal or tibial segments. The greater saphenous veins are also within normal limits. Doppler indicates normal spontaneous flow within these segments.
[2017-04-27 11:49] LABS: INR 1.1 (0.9-1.1)
[2017-04-27 12:33] VITALS: BP 95/58
--- NOTE | 2017-04-27 12:49 | Infectious Diseases Prog Note ---
Assessment/Plan Assessment/Plan ASSESSMENT: 66 y/o female with post operative pulmonary edema confirmed on CTA o /n that was negative for PE. May have R sided aspiration pneumonia with some RUL infiltrate, but appears primary cause of her acute respiratory distress is pulmonary edema. Leukocytosis downtrending to 12, and has not had recurrence of that transient low grade fever 72 hrs ago. : //post operative RLL aspiration pneumonia //acute hypoxia --secondary to pulmonary edema and R>L pleural effusion, now s/p net -1.8L diuresis o/n on lasix gtt and s/p R sided thoracentesis --ble dopplers negative for DVT today, s/p CTA neg for PE // low grade fever x1--secondary to pneumonia. resolved //diarrhea--likely secondary to resolution of SBO, but with recent broad spectrum abx and persistent leukocytosis, will r/o C diff // segmental small bowel inflammation with SBO secondary to hernia with single dense adhesions s/p ex lap and YAIMA on 04/24/17. inflammation visible on CT not limited to TI. stool cx negative for yersenia and campylobacter. - CT A/P: Moderately distended small bowel loops in the lower abdomen/pelvis , with an apparent transition point in the right lower quadrant and midpelvis. Moderate bowel wall thickening and hyperemia noted involving several loops. However, a short segment of small bowel in the midpelvis exhibits poor wall enhancement with surrounding mesenteric stranding. Closed loop obstruction and bowel ischemia should be considered. Small volume ascites. No evidence of free intraperitoneal air or loculated fluid collection. //s/p perioperative zosyn d#7 for empiric abd coverage, completed 04/24/17 midday // Leukocytosis - recurrent post op, improving // Possible hepatic mass 2cm // Diverticulosis // Elevated CRP // NKDA // Full Code PLAN: - Continue IV vancomycin and IV cefepime D#3 of 7. final day to be 05/01/17. 04/24/17 (s/p 7d empiric zosyn) - f/u results of stool C diff -f/u R pleural fluid gram stain, culture, Protein, LDH, but anticipate this is transudative -encourage incentive spirometry and good pulmonary toilet. - monitor CBC, temperatures - monitor BMP - bowel rest - GI, surgery following Subjective Constitutional: Reports: no symptoms Respiratory: Reports: dry cough, shortness of breath Cardiovascular: Reports: no symptoms Genitourinary: Reports: no symptoms Allergies: Coded Allergies: No Known Allergies (Unverified , 04/17/17) Subjective 24 hr events; acute desat on 8/5 PM with transient low grade TM 100.4F, has remained afebrile since that time on IV vanc/cefepime. PCXR with new RLL infiltrate vs atelectasis and small b/l pleural effusions, but hasn't had significant cough. continues to require supplemental O2 by high flow face mask now NRB. This infiltrate was not seen on CT a/p performed on 04/17/17. Objective Vital Signs Last 24 Hour Vital Signs Date Time Temp Pulse Resp B/P Pulse Ox O2 Delivery O2 Flow Rate FiO2 04/27/17 12:33 97.7 94 22 95/58 100 Non-Rebreather 100 04/27/17 11:24 109 04/27/17 08:00 98.2 109 22 121/67 98 Non-Rebreather 100 04/27/17 08:00 109 04/27/17 07:40 108 20 91 Nasal Cannula 7.0 48 04/27/17 07:34 Non-Rebreather 15.0 100 04/27/17 07:34 98 Non-Rebreather 15.0 100 04/27/17 07:33 88 20 98 Non-Rebreather 15.0 100 04/27/17 07:33 98 04/27/17 04:30 98.4 98 18 98/59 98 Non-Rebreather 15.0 100 04/27/17 04:00 88 04/27/17 00:00 98.1 96 22 102/51 97 Non-Rebreather 15.0 100 04/27/17 00:00 93 04/26/17 20:26 Non-Rebreather 15.0 100 04/26/17 20:26 96 Non-Rebreather 15.0 100 04/26/17 20:25 103 22 95 Non-Rebreather 15.0 100 04/26/17 20:20 102 22 95 Non-Rebreather 15.0 100 04/26/17 20:20 100 04/26/17 20:00 111 04/26/17 20:00 98.3 111 22 111/62 Non-Rebreather 100 04/26/17 20:00 15.0 100 04/26/17 15:52 98.1 104 22 110/65 Non-Rebreather 100 04/26/17 15:52 104 04/26/17 15:52 15.0 100 04/26/17 13:48 102 20 95 Non-Rebreather 15.0 100 04/26/17 13:39 100 04/26/17 13:39 99 22 94 Non-Rebreather 15.0 100 Height (Feet): 5 Height (Inches): 3.00 Weight (Pounds): 112 Objective a/ox3, tachypneic, NRB with O2 sats 95-96%, mentating well lungs decreased breath sounds at R base, stable from yesterday rrr, no murmurs abd surgical dressing in place from laparoscopic procedure. normal incisional tenderness. no fullness. no rash. urine clear Laboratory Tests Test 04/27/17 03:25 04/27/17 11:10 White Blood Count 12.4 K/UL (4.8-10.8) H Red Blood Count 3.43 M/UL (4.20-5.40) L Hemoglobin 11.6 G/DL (12.0-16.0) L Hematocrit 32.7 % (37.0-47.0) L Mean Corpuscular Volume 95 FL (80-99) Mean Corpuscular Hemoglobin 33.8 PG (27.0-31.0) H Mean Corpuscular Hemoglobin Concent 35.5 G/DL (32.0-36.0) Red Cell Distribution Width 11.2 % (11.6-14.8) L Platelet Count 319 K/UL (150-450) Mean Platelet Volume 5.7 FL (6.5-10.1) L Neutrophils (%) (Auto) 83.6 % (45.0-75.0) H Lymphocytes (%) (Auto) 9.1 % (20.0-45.0) L Monocytes (%) (Auto) 6.4 % (1.0-10.0) Eosinophils (%) (Auto) 0.3 % (0.0-3.0) Basophils (%) (Auto) 0.5 % (0.0-2.0) Sodium Level 132 mEQ/L (135-145) L Potassium Level 2.8 mEQ/L (3.4-4.9) L Chloride Level 92 mEQ/L (98-107) L Carbon Dioxide Level 27 mEQ/L (20-30) Anion Gap 13 (5-15) Blood Urea Nitrogen 5 mg/dL (7-23) L Creatinine 0.6 mg/dL (0.5-0.9) Estimat Glomerular Filtration Rate > 60 mL/min (>60) Glucose Level 140 mg/dL (74-106) H Calcium Level 8.3 mg/dL (8.6-10.2) L Total Bilirubin 0.5 mg/dL (0.0-1.2) Aspartate Amino Transf (AST/SGOT) 22 U/L (5-40) Alanine Aminotransferase (ALT/SGPT) 21 U/L (3-33) Alkaline Phosphatase 111 U/L (35-104) H Pro-B-Type Natriuretic Peptide 173 pg/mL (0-125) H Total Protein 6.4 g/dL (6.6-8.7) L Albumin 3.0 g/dL (3.5-5.2) L Globulin 3.4 g/dL Albumin/Globulin Ratio 0.8 (1.0-2.7) L Prothrombin Time 11.0 SEC (9.30-11.50) Prothromb Time International Ratio 1.1 (0.9-1.1) Activated Partial Thromboplast Time 32 SEC (23-33) Current Medications Medications (Trade) Dose Ordered Sig/Renuka Route PRN Reason Start Time Stop Time Status Last Admin Dose Admin Acetaminophen (Tylenol) 650 mg Q4H PRN ORAL Mild Pain/Temp > 100.5 04/25/17 10:30 05/25/17 10:29 Albuterol/ Ipratropium (DuoNeb 0.5-3(2.5)mg/3ml) 3 ml Q4H PRN HHN Shortness of Breath 04/25/17 11:00 04/30/17 10:59 Atorvastatin Calcium (Lipitor) 40 mg BEDTIME ORAL 04/25/17 21:00 05/25/17 20:59 04/26/17 21:26 Cefepime HCl 1 gm/ Dextrose 55 ml @ 110 mls/hr Q12HR IVPB 04/25/17 11:00 05/02/17 10:59 04/27/17 10:32 Clonidine HCl (Catapres) 0.1 mg Q8H PRN ORAL For High Blood Pressure 04/25/17 10:30 05/25/17 10:29 Dextrose/ Electrolytes 1,000 ml @ 75 mls/hr [id number] IV 04/26/17 13:00 05/26/17 12:59 04/27/17 02:49 Diphenhydramine HCl (Benadryl) 25 mg Q6H PRN IVP Itching 04/25/17 11:00 05/25/17 10:59 Furosemide/ Dextrose (Lasix/D5W) 110 ml @ 11 mls/hr Q10H IV 04/26/17 16:00 05/26/17 15:59 04/27/17 02:49 Heparin Sodium (Porcine) 5000 units 5,000 units EVERY 12 HOURS SUBQ 04/26/17 21:00 05/26/17 20:59 04/27/17 10:33 Hydrocortisone (Hydrocortisone) 1 applic Q6H PRN TOPIC Itching 04/25/17 11:00 05/25/17 10:59 Hydromorphone HCl (Dilaudid) 0.5 mg Q4H PRN IVP pain 4 - 10 04/25/17 10:30 05/02/17 10:29 Levalbuterol HCl (Xopenex) 1.25 mg TIDRT HHN 04/25/17 13:00 04/30/17 12:59 04/27/17 07:29 Lorazepam (Ativan 2mg/ml 1ml) 0.5 mg Q4H PRN IV For Anxiety 04/25/17 11:00 05/02/17 10:59 04/27/17 11:21 Ondansetron HCl (Zofran) 4 mg Q6H PRN IVP Nausea & Vomiting 04/25/17 10:30 05/25/17 10:29 04/27/17 06:23 Potassium Chloride (KCl 10mEq/100ml Premix) 100 ml @ 100 mls/hr Q1H IVPB 04/27/17 13:00 04/27/17 14:59 Triamterene/HCTZ (Dyazide) 1 cap DAILY ORAL 04/26/17 09:00 05/26/17 08:59 04/27/17 10:31 Vancomycin HCl (Vanco rx to dose) 1 ea DAILY PRN MISC Per rx protocol 04/25/17 11:00 05/25/17 10:59 Vancomycin HCl/ Dextrose (Vancomycin/D5W) 275 ml @ 183.708 mls/hr Q24H IVPB 04/26/17 13:00 05/01/17 12:59 04/26/17 13:27 Zolpidem Tartrate 5 mg 5 mg HSPRN PRN ORAL Insomnia 04/25/17 21:15 05/25/17 21:14 Celestino Connell M.D. Apr 27, 2017 12:49
[2017-04-27] MEDS: Vancomycin 1 GM in D5W 275 ML IVPB SCH (13:29)
[2017-04-27] MEDS: KCl 10mEq 100ml Premix IVPB SCH ×2 (13:29→14:55)
--- NOTE | 2017-04-27 14:48 | General Progress Note ---
Progress Note Progress Note Surgery: doing well. feels week and tired. tolerating diet. minimal ambulation. no n/ v/f/c. respiratory improved but still weak. exam benign afebrile, HD stable, leukocytosis improved. CTA chest negative. heavy smoker with long pack year. lungs with interstitial disease. pulm edema. -diet as tolerated -lasix as per primary -wean off oxygen -incentive spirometry -ambulate and oob Ozzy Yoon Apr 27, 2017 14:48
--- NOTE | 2017-04-27 15:07 | GI Progress Note ---
Assessment/Plan Problems: (1) Ileus ICD Codes: K56.7 - Ileus, unspecified SNOMED: 221261564 (2) Sigmoid thickening ICD Codes: K63.9 - Disease of intestine, unspecified SNOMED: 189231621 (3) Leukocytosis ICD Codes: D72.829 - Elevated white blood cell count, unspecified SNOMED: 746075864, 449933066 (4) SBO (small bowel obstruction) ICD Codes: K56.69 - Other intestinal obstruction SNOMED: 575223906 Status: stable, progressing Status Narrative Discussed with Dr. Vega. Assessment/Plan Presentation of segmental SB inflammation and SBO - narrow differential OB stool negative Recommendations colonoscopy deferred >> s/p surgery, see note. fu surgery recs regular diet ivf+ iv abx DVT prophylaxis prn imaging studies PT eval fu labs Subjective Subjective abdominal pain diarrhea wants to ambulate Objective Last 24 Hour Vital Signs Date Time Temp Pulse Resp B/P Pulse Ox O2 Delivery O2 Flow Rate FiO2 04/27/17 13:52 105 18 99 Non-Rebreather 15.0 100 04/27/17 13:49 98 04/27/17 13:47 103 16 98 Non-Rebreather 15.0 100 04/27/17 12:33 97.7 94 22 95/58 100 Non-Rebreather 100 04/27/17 11:24 109 04/27/17 08:00 98.2 109 22 121/67 98 Non-Rebreather 100 04/27/17 08:00 109 04/27/17 07:40 108 20 91 Nasal Cannula 7.0 48 04/27/17 07:34 Non-Rebreather 15.0 100 04/27/17 07:34 98 Non-Rebreather 15.0 100 04/27/17 07:33 88 20 98 Non-Rebreather 15.0 100 04/27/17 07:33 98 04/27/17 04:30 98.4 98 18 98/59 98 Non-Rebreather 15.0 100 04/27/17 04:00 88 04/27/17 00:00 98.1 96 22 102/51 97 Non-Rebreather 15.0 100 04/27/17 00:00 93 04/26/17 20:26 Non-Rebreather 15.0 100 04/26/17 20:26 96 Non-Rebreather 15.0 100 04/26/17 20:25 103 22 95 Non-Rebreather 15.0 100 04/26/17 20:20 102 22 95 Non-Rebreather 15.0 100 04/26/17 20:20 100 04/26/17 20:00 111 04/26/17 20:00 98.3 111 22 111/62 Non-Rebreather 100 04/26/17 20:00 15.0 100 04/26/17 15:52 98.1 104 22 110/65 Non-Rebreather 100 04/26/17 15:52 104 04/26/17 15:52 15.0 100 Intake and Output 04/26/17 04/27/17 19:00 07:00 Intake Total 1057 ml 1165 ml Output Total 900 ml 2000 ml Balance 157 ml -835 ml Intake Oral 360 ml 120 ml IV Total 697 ml 1045 ml Output Urine Total 900 ml 2000 ml # Voids 4 # Bowel Movements 5 4 Laboratory Tests Test 04/27/17 03:25 04/27/17 11:10 White Blood Count 12.4 K/UL (4.8-10.8) H Red Blood Count 3.43 M/UL (4.20-5.40) L Hemoglobin 11.6 G/DL (12.0-16.0) L Hematocrit 32.7 % (37.0-47.0) L Mean Corpuscular Volume 95 FL (80-99) Mean Corpuscular Hemoglobin 33.8 PG (27.0-31.0) H Mean Corpuscular Hemoglobin Concent 35.5 G/DL (32.0-36.0) Red Cell Distribution Width 11.2 % (11.6-14.8) L Platelet Count 319 K/UL (150-450) Mean Platelet Volume 5.7 FL (6.5-10.1) L Neutrophils (%) (Auto) 83.6 % (45.0-75.0) H Lymphocytes (%) (Auto) 9.1 % (20.0-45.0) L Monocytes (%) (Auto) 6.4 % (1.0-10.0) Eosinophils (%) (Auto) 0.3 % (0.0-3.0) Basophils (%) (Auto) 0.5 % (0.0-2.0) Sodium Level 132 mEQ/L (135-145) L Potassium Level 2.8 mEQ/L (3.4-4.9) L Chloride Level 92 mEQ/L (98-107) L Carbon Dioxide Level 27 mEQ/L (20-30) Anion Gap 13 (5-15) Blood Urea Nitrogen 5 mg/dL (7-23) L Creatinine 0.6 mg/dL (0.5-0.9) Estimat Glomerular Filtration Rate > 60 mL/min (>60) Glucose Level 140 mg/dL (74-106) H Calcium Level 8.3 mg/dL (8.6-10.2) L Total Bilirubin 0.5 mg/dL (0.0-1.2) Aspartate Amino Transf (AST/SGOT) 22 U/L (5-40) Alanine Aminotransferase (ALT/SGPT) 21 U/L (3-33) Alkaline Phosphatase 111 U/L (35-104) H Pro-B-Type Natriuretic Peptide 173 pg/mL (0-125) H Total Protein 6.4 g/dL (6.6-8.7) L Albumin 3.0 g/dL (3.5-5.2) L Globulin 3.4 g/dL Albumin/Globulin Ratio 0.8 (1.0-2.7) L Prothrombin Time 11.0 SEC (9.30-11.50) Prothromb Time International Ratio 1.1 (0.9-1.1) Activated Partial Thromboplast Time 32 SEC (23-33) Height (Feet): 5 Height (Inches): 3.00 Weight (Pounds): 112 General Appearance: alert, lethargic, thin Cardiovascular: normal rate Respiratory/Chest: normal breath sounds, no respiratory distress Abdominal Exam: normal bowel sounds, non tender, soft, incision site Extremities: normal range of motion Yaneth Young N.P. Apr 27, 2017 15:07
[2017-04-27 16:00] VITALS: BP 110/65
--- NOTE | 2017-04-27 16:12 | Diagnostic Imaging Report ---
Indication: DYSPNEA Technique: One view of the chest Comparison: 04/26/2017 Findings: Better inspiration on the current exam. There is interim marked improvement in previously demonstrated bilateral interstitial and alveolar congestion, with some residual disease persisting. Small bilateral pleural effusions persists, improved. Bilateral perihilar atelectatic changes are also present. Heart size is upper limits of normal. Impression: Improved but persistent interstitial and alveolar edema, over one day. Improved bilateral pleural fluid
[2017-04-27 20:00] VITALS: BP 118/83
[2017-04-27 20:01] LABS: APPEARANCE, BODY FLUID BLOODY; BD FL VOLUME 20 mL
[2017-04-27 20:02] LABS: BD FL SOURCE PLEURAL
[2017-04-27 20:03] LABS: BODY FLUID NUCLEATED CELLS 456 /CUMM; BODY FLUID RBC 15783 /CUMM; MONONUCLEAR WBC 19 %; POLYMORPHONUCLEAR WBC 67 %
--- NOTE | 2017-04-27 21:53 | Cardiology Progress Note ---
Assessment/Plan Assessment/Plan 1. Acute respiratory failure due to right lung aspiration, associated right pleural effusion, s/p thoracentesis, 2D echo normal LVEF, normal filling pressures. CTA ruled out PE. Continue IV ABx, pulmonary toilet. 2. History of dyslipidemia. 3. Small bowel obstruction, s/p adhesion release, POD #4, no perioperative cardiac events. 4. Hx of HTN, BP meds on hold due to hypotension. Subjective Subjective s/p Lap lysis of adhesions for SBO, POD #4 s/p right thoracentesis Objective Last 24 Hour Vital Signs Date Time Temp Pulse Resp B/P Pulse Ox O2 Delivery O2 Flow Rate FiO2 04/27/17 20:00 97.0 83 20 118/83 99 Nasal Cannula 5.0 04/27/17 19:33 98 Nasal Cannula 5.0 40 04/27/17 19:33 Nasal Cannula 5.0 40 04/27/17 19:32 99 18 99 Nasal Cannula 5.0 40 04/27/17 19:25 40 04/27/17 19:25 98 20 99 Nasal Cannula 5.0 40 04/27/17 19:19 101 04/27/17 16:00 97.3 120 20 110/65 97 04/27/17 16:00 122 04/27/17 13:52 105 18 99 Non-Rebreather 15.0 100 04/27/17 13:49 98 04/27/17 13:47 103 16 98 Non-Rebreather 15.0 100 04/27/17 12:33 97.7 94 22 95/58 100 Non-Rebreather 100 04/27/17 11:24 109 04/27/17 08:00 98.2 109 22 121/67 98 Non-Rebreather 100 04/27/17 08:00 109 04/27/17 07:40 108 20 91 Nasal Cannula 7.0 48 04/27/17 07:34 Non-Rebreather 15.0 100 04/27/17 07:34 98 Non-Rebreather 15.0 100 04/27/17 07:33 88 20 98 Non-Rebreather 15.0 100 04/27/17 07:33 98 04/27/17 04:30 98.4 98 18 98/59 98 Non-Rebreather 15.0 100 04/27/17 04:00 88 04/27/17 00:00 98.1 96 22 102/51 97 Non-Rebreather 15.0 100 04/27/17 00:00 93 Intake and Output 04/26/17 04/27/17 19:00 07:00 Intake Total 1057 ml 1165 ml Output Total 900 ml 2000 ml Balance 157 ml -835 ml Intake Oral 360 ml 120 ml IV Total 697 ml 1045 ml Output Urine Total 900 ml 2000 ml # Voids 4 # Bowel Movements 5 4 2D Echo: EF 60%, Grade I LVDD, normal filling pressures, RVSP 15 mmHg Laboratory Tests Test 04/27/17 03:25 04/27/17 11:10 04/27/17 15:55 White Blood Count 12.4 K/UL (4.8-10.8) H Red Blood Count 3.43 M/UL (4.20-5.40) L Hemoglobin 11.6 G/DL (12.0-16.0) L Hematocrit 32.7 % (37.0-47.0) L Mean Corpuscular Volume 95 FL (80-99) Mean Corpuscular Hemoglobin 33.8 PG (27.0-31.0) H Mean Corpuscular Hemoglobin Concent 35.5 G/DL (32.0-36.0) Red Cell Distribution Width 11.2 % (11.6-14.8) L Platelet Count 319 K/UL (150-450) Mean Platelet Volume 5.7 FL (6.5-10.1) L Neutrophils (%) (Auto) 83.6 % (45.0-75.0) H Lymphocytes (%) (Auto) 9.1 % (20.0-45.0) L Monocytes (%) (Auto) 6.4 % (1.0-10.0) Eosinophils (%) (Auto) 0.3 % (0.0-3.0) Basophils (%) (Auto) 0.5 % (0.0-2.0) Sodium Level 132 mEQ/L (135-145) L Potassium Level 2.8 mEQ/L (3.4-4.9) L Chloride Level 92 mEQ/L (98-107) L Carbon Dioxide Level 27 mEQ/L (20-30) Anion Gap 13 (5-15) Blood Urea Nitrogen 5 mg/dL (7-23) L Creatinine 0.6 mg/dL (0.5-0.9) Estimat Glomerular Filtration Rate > 60 mL/min (>60) Glucose Level 140 mg/dL (74-106) H Calcium Level 8.3 mg/dL (8.6-10.2) L Total Bilirubin 0.5 mg/dL (0.0-1.2) Aspartate Amino Transf (AST/SGOT) 22 U/L (5-40) Alanine Aminotransferase (ALT/SGPT) 21 U/L (3-33) Alkaline Phosphatase 111 U/L (35-104) H Pro-B-Type Natriuretic Peptide 173 pg/mL (0-125) H Total Protein 6.4 g/dL (6.6-8.7) L Albumin 3.0 g/dL (3.5-5.2) L Globulin 3.4 g/dL Albumin/Globulin Ratio 0.8 (1.0-2.7) L Prothrombin Time 11.0 SEC (9.30-11.50) Prothromb Time International Ratio 1.1 (0.9-1.1) Activated Partial Thromboplast Time 32 SEC (23-33) Body Fluid Source Pending Body Fluid Volume Pending Body Fluid Appearance Bloody Body Fluid RBC 52279 /CUMM Body Fluid Total Nucleated Cells 456 /CUMM Body Fluid Polynuclear WBCs (%) 67 % Body Fluid Mononuclear WBCs (%) 19 % Body Fluid Mesothelial Cells (%) 14 % Body Fluid Glucose Pending Body Fluid Total Protein Pending Body Fluid Albumin Pending Body Fluid Lactate Dehydrogenase Pending Objective HEENT: Atraumatic and normocephalic. Anicteric. Pupils are equal, round, and reactive to light and accommodation. Extraocular muscles are intact. NECK: JVP is less than 5 cm. No carotid bruits. Carotid upstrokes 2+ bilaterally. CARDIOVASCULAR: Normal S1 and S2. Regular rate and rhythm. No murmurs, gallops, or rubs. PMI is at fourth intercostal space in the midclavicular line. LUNGS: Diminished BS both bases, increased dullness ABDOMEN: Distended with diminished bowel sounds. No hepatosplenomegaly. Positive bowel sounds. EXTREMITIES: No evidence of edema, clubbing, or cyanosis. HANDY MADRID Apr 27, 2017 21:53
[2017-04-28] VITALS (7 sets, daily range): BP systolic 103–127; BP diastolic 60–75
[2017-04-28] MEDS: LORazepam Inj 2mg/ml 1ml IV PRN ×4 (02:24→20:53)
--- NOTE | 2017-04-28 05:52 | Infectious Diseases Prog Note ---
Assessment/Plan Assessment/Plan ASSESSMENT: 66 y/o female with post operative pulmonary edema confirmed on CTA o /n that was negative for PE. R sided aspiration pneumonia with some RUL infiltrate, but appears primary cause of her acute respiratory distress is pulmonary edema. Leukocytosis downtrending to 12 yesterday, and has not had recurrence of that transient low grade fever 72 hrs ago., and small vol R thoracentesis yesterday with Cell count not suggestive of parapneumonic effusion but pending other chem studies and micro. O2 requirement decreased to 5L NC today and overall more comfortable appearing s/p diuresis : //post operative RLL aspiration pneumonia //acute hypoxia --secondary to pulmonary edema and R>L pleural effusion, now s/p net -1.8L diuresis o/n on lasix gtt and s/p R sided thoracentesis --ble dopplers negative for DVT today, s/p CTA neg for PE // low grade fever x1--secondary to pneumonia. resolved //diarrhea--likely secondary to resolution of SBO, but with recent broad spectrum abx and persistent leukocytosis, will r/o C diff // segmental small bowel inflammation with SBO secondary to hernia with single dense adhesions s/p ex lap and YAIMA on 04/24/17. inflammation visible on CT not limited to TI. stool cx negative for yersenia and campylobacter. - CT A/P: Moderately distended small bowel loops in the lower abdomen/pelvis , with an apparent transition point in the right lower quadrant and midpelvis. Moderate bowel wall thickening and hyperemia noted involving several loops. However, a short segment of small bowel in the midpelvis exhibits poor wall enhancement with surrounding mesenteric stranding. Closed loop obstruction and bowel ischemia should be considered. Small volume ascites. No evidence of free intraperitoneal air or loculated fluid collection. //s/p perioperative zosyn d#7 for empiric abd coverage, completed 04/24/17 midday // Leukocytosis - recurrent post op, improving // Possible hepatic mass 2cm // Diverticulosis // Elevated CRP // NKDA // Full Code PLAN: - Continue IV vancomycin and IV cefepime D#4 of 7. final day to be 05/01/17. 04/24/17 (s/p 7d empiric zosyn) - f/u results of stool C diff -f/u R pleural fluid gram stain, culture, Protein, LDH, but anticipate this is transudative -encourage incentive spirometry and good pulmonary toilet. - monitor CBC, temperatures - monitor BMP - bowel rest - GI, surgery following Subjective Allergies: Coded Allergies: No Known Allergies (Unverified , 04/17/17) Subjective 24 hr events; acute desat on 8/5 PM with transient low grade TM 100.4F, has remained afebrile since that time on IV vanc/cefepime. PCXR with new RLL infiltrate vs atelectasis and R sided pleural effusion s/p 170cc thoracentesis yesterday. continues to diurese, now down to 5L NC. Objective Vital Signs Last 24 Hour Vital Signs Date Time Temp Pulse Resp B/P Pulse Ox O2 Delivery O2 Flow Rate FiO2 04/28/17 04:00 97.4 85 19 114/67 99 Nasal Cannula 5.0 04/28/17 04:00 88 04/28/17 00:00 87 04/28/17 00:00 97.3 96 19 126/61 99 Nasal Cannula 5.0 04/27/17 20:00 97.0 83 20 118/83 99 Nasal Cannula 5.0 04/27/17 19:33 98 Nasal Cannula 5.0 40 04/27/17 19:33 Nasal Cannula 5.0 40 04/27/17 19:32 99 18 99 Nasal Cannula 5.0 40 04/27/17 19:25 40 04/27/17 19:25 98 20 99 Nasal Cannula 5.0 40 04/27/17 19:19 101 04/27/17 16:00 97.3 120 20 110/65 97 04/27/17 16:00 122 04/27/17 13:52 105 18 99 Non-Rebreather 15.0 100 04/27/17 13:49 98 04/27/17 13:47 103 16 98 Non-Rebreather 15.0 100 04/27/17 12:33 97.7 94 22 95/58 100 Non-Rebreather 100 04/27/17 11:24 109 04/27/17 08:00 98.2 109 22 121/67 98 Non-Rebreather 100 04/27/17 08:00 109 04/27/17 07:40 108 20 91 Nasal Cannula 7.0 48 04/27/17 07:34 Non-Rebreather 15.0 100 04/27/17 07:34 98 Non-Rebreather 15.0 100 04/27/17 07:33 88 20 98 Non-Rebreather 15.0 100 04/27/17 07:33 98 Height (Feet): 5 Height (Inches): 3.00 Weight (Pounds): 110 Objective a/ox3, tachypneic, 5L NC with O2 sats 95-96%, mentating well lungs decreased breath sounds at R base, stable from yesterday, less tachypneic , appears more comfortable rrr, no murmurs abd surgical dressing in place from laparoscopic procedure. normal incisional tenderness. no fullness. no rash. urine clear Laboratory Tests Test 04/27/17 11:10 04/27/17 15:55 04/28/17 04:15 Prothrombin Time 11.0 SEC (9.30-11.50) Prothromb Time International Ratio 1.1 (0.9-1.1) Activated Partial Thromboplast Time 32 SEC (23-33) Body Fluid Source Pending Body Fluid Volume Pending Body Fluid Appearance Bloody Body Fluid RBC 15880 /CUMM Body Fluid Total Nucleated Cells 456 /CUMM Body Fluid Polynuclear WBCs (%) 67 % Body Fluid Mononuclear WBCs (%) 19 % Body Fluid Mesothelial Cells (%) 14 % Body Fluid Glucose Pending Body Fluid Total Protein Pending Body Fluid Albumin Pending Body Fluid Lactate Dehydrogenase Pending White Blood Count Pending Red Blood Count Pending Hemoglobin Pending Hematocrit Pending Mean Corpuscular Volume Pending Mean Corpuscular Hemoglobin Pending Mean Corpuscular Hemoglobin Concent Pending Red Cell Distribution Width Pending Platelet Count Pending Mean Platelet Volume Pending Neutrophils (%) (Auto) Pending Lymphocytes (%) (Auto) Pending Monocytes (%) (Auto) Pending Eosinophils (%) (Auto) Pending Basophils (%) (Auto) Pending Sodium Level Pending Potassium Level Pending Chloride Level Pending Carbon Dioxide Level Pending Blood Urea Nitrogen Pending Creatinine Pending Estimat Glomerular Filtration Rate Pending Glucose Level Pending Calcium Level Pending Total Bilirubin Pending Aspartate Amino Transf (AST/SGOT) Pending Alanine Aminotransferase (ALT/SGPT) Pending Alkaline Phosphatase Pending Pro-B-Type Natriuretic Peptide Pending Total Protein Pending Albumin Pending Globulin Pending Current Medications Medications (Trade) Dose Ordered Sig/Renuka Route PRN Reason Start Time Stop Time Status Last Admin Dose Admin Acetaminophen (Tylenol) 650 mg Q4H PRN ORAL Mild Pain/Temp > 100.5 04/25/17 10:30 05/25/17 10:29 04/27/17 16:18 Albuterol/ Ipratropium (DuoNeb 0.5-3(2.5)mg/3ml) 3 ml Q4H PRN HHN Shortness of Breath 04/25/17 11:00 04/30/17 10:59 Atorvastatin Calcium (Lipitor) 40 mg BEDTIME ORAL 04/25/17 21:00 05/25/17 20:59 04/27/17 21:26 Cefepime HCl 1 gm/ Dextrose 55 ml @ 110 mls/hr Q12HR IVPB 04/25/17 11:00 05/02/17 10:59 04/27/17 21:26 Clonidine HCl (Catapres) 0.1 mg Q8H PRN ORAL For High Blood Pressure 04/25/17 10:30 05/25/17 10:29 Dextrose/ Electrolytes 1,000 ml @ 75 mls/hr [id number] IV 04/26/17 13:00 05/26/17 12:59 04/27/17 16:28 Diphenhydramine HCl (Benadryl) 25 mg Q6H PRN IVP Itching 04/25/17 11:00 05/25/17 10:59 Furosemide/ Dextrose (Lasix/D5W) 110 ml @ 11 mls/hr Q10H IV 04/26/17 16:00 05/26/17 15:59 04/28/17 01:45 Heparin Sodium (Porcine) (Heparin 5000 units/ml) 5,000 units EVERY 12 HOURS SUBQ 04/26/17 21:00 05/26/17 20:59 04/27/17 21:27 Hydrocortisone (Hydrocortisone) 1 applic Q6H PRN TOPIC Itching 04/25/17 11:00 05/25/17 10:59 Hydromorphone HCl (Dilaudid) 0.5 mg Q4H PRN IVP pain 4 - 10 04/25/17 10:30 05/02/17 10:29 Levalbuterol HCl (Xopenex) 1.25 mg TIDRT HHN 04/25/17 13:00 04/30/17 12:59 04/27/17 19:31 Lorazepam (Ativan 2mg/ml 1ml) 0.5 mg Q4H PRN IV For Anxiety 04/25/17 11:00 05/02/17 10:59 04/28/17 02:24 Ondansetron HCl (Zofran) 4 mg Q6H PRN IVP Nausea & Vomiting 04/25/17 10:30 05/25/17 10:29 04/27/17 06:23 Vancomycin HCl (Vanco rx to dose) 1 ea DAILY PRN MISC Per rx protocol 04/25/17 11:00 05/25/17 10:59 Vancomycin HCl/ Dextrose (Vancomycin/D5W) 275 ml @ 183.708 mls/hr Q24H IVPB 04/26/17 13:00 05/01/17 12:59 04/27/17 13:29 Zolpidem Tartrate 5 mg 5 mg HSPRN PRN ORAL Insomnia 04/25/17 21:15 05/25/17 21:14 Celestino Connell M.D. Apr 28, 2017 05:51
[2017-04-28 05:58] LABS: BASOPHILS % (AUTO) 0.8 % (0.0-2.0); EOSINOPHILS % (AUTO) 1.6 % (0.0-3.0); LYMPHOCYTES % (AUTO) 9.1 % (20.0-45.0); MEAN CORPUSCULAR HEMOGLOBIN 32.8 PG (27.0-31.0); MEAN CORPUSCULAR HGB CONC 34.7 G/DL (32.0-36.0); MEAN CORPUSCULAR VOLUME 94 FL (80-99); MEAN PLATELET VOLUME 5.8 FL (6.5-10.1); MONOCYTES % (AUTO) 8.1 % (1.0-10.0); NEUTROPHILS % (AUTO) 80.4 % (45.0-75.0); PLATELET COUNT 371 K/UL (150-450); RED BLOOD COUNT 3.73 M/UL (4.20-5.40); WHITE BLOOD COUNT 9.4 K/UL (4.8-10.8)
[2017-04-28] MEDS: D5 1/2NS w/KCl 20mEq 1,000 ML IV SCH ×2 (06:16→10:41)
[2017-04-28 06:27] LABS: ALANINE AMINOTRANSFERASE 25 U/L (3-33); ALBUMIN/GLOBULIN RATIO 0.8 (1.0-2.7); ANION GAP 18 (5-15); ASPARTATE AMINO TRANSFERASE 23 U/L (5-40); CALCIUM 9.4 mg/dL (8.6-10.2); CARBON DIOXIDE 28 mEQ/L (20-30); CHLORIDE 86 mEQ/L (98-107); CREATININE 0.9 mg/dL (0.5-0.9); GLOMERULAR FILTRATION RATE > 60 mL/min (>60); HEMOLYSIS 4; POTASSIUM 3.4 mEQ/L (3.4-4.9); SODIUM 132 mEQ/L (135-145); TOTAL PROTEIN 7.5 g/dL (6.6-8.7)
[2017-04-28] MEDS: Levalbuterol Inh UD 1.25mg/0.5ml HHN SCH ×3 (07:29→20:02)
[2017-04-28] MEDS: Cefepime HCl 1 GM in D5W 55 ML IVPB SCH ×2 (08:16→20:52)
[2017-04-28] MEDS: Heparin 5000 units/ml inj SUBQ SCH ×2 (08:17→20:54)
--- NOTE | 2017-04-28 08:48 | Diagnostic Imaging Report ---
Indication: Postthoracentesis Technique: One view of the chest Comparison: 8 hours earlier Findings: Interim resolution of previously demonstrated small right pleural effusion, post thoracentesis. No gross pneumothorax demonstrated. There is right suprahilar atelectasis or scarring again noted. There is left infrahilar atelectasis versus scarring. The heart size is normal. Impression: Resolved right pleural effusion, post thoracentesis. No radiographically evident complication
--- NOTE | 2017-04-28 10:13 | Diagnostic Imaging Report ---
Indications: Pleural effusion Technique: Ultrasound used to localize optimal puncture site. Sterile prepping and draping chest. Local anesthesia with 1% lidocaine. Under real-time ultrasound guidance, puncture pleural space using thoracentesis needle. Stylet removed. Catheter placed to vacuum bottle suction. Total 130 milliliters of fluid aspirated. A specimen was sent to the lab. Patient tolerated procedure well, without immediate complication. Findings: Followup sonography demonstrates complete resolution of pleural fluid. Impression: Successful ultrasound-guided thoracentesis, yielding approximately 130 milliliters of fluid
--- NOTE | 2017-04-28 10:25 | GI Progress Note ---
Assessment/Plan Problems: (1) Ileus ICD Codes: K56.7 - Ileus, unspecified SNOMED: 101126891 (2) Sigmoid thickening ICD Codes: K63.9 - Disease of intestine, unspecified SNOMED: 322857971 (3) Leukocytosis ICD Codes: D72.829 - Elevated white blood cell count, unspecified SNOMED: 028970404, 522540381 (4) SBO (small bowel obstruction) ICD Codes: K56.69 - Other intestinal obstruction SNOMED: 894751296 Status: doing well, stable, progressing Status Narrative Discussed with Dr. Vega. Assessment/Plan Presentation of segmental SB inflammation and SBO - narrow differential OB stool negative OPERATIONS PERFORMED: 1. Diagnostic laparoscopy. 2. Laparoscopic lysis of adhesions. Recommendations colonoscopy deferred >> s/p surgery, see note. fu surgery recs regular diet ivf+ iv abx DVT prophylaxis prn imaging studies PT eval fu labs Subjective Subjective abdominal pain BM x 1 Objective Last 24 Hour Vital Signs Date Time Temp Pulse Resp B/P Pulse Ox O2 Delivery O2 Flow Rate FiO2 04/28/17 08:00 95 04/28/17 08:00 97.8 101 19 127/72 100 Nasal Cannula 4.0 04/28/17 07:39 105 20 100 Nasal Cannula 4.0 04/28/17 07:30 102 17 100 Nasal Cannula 4.0 04/28/17 07:30 100 Nasal Cannula 4.0 04/28/17 07:30 Nasal Cannula 4.0 04/28/17 04:00 97.4 85 19 114/67 99 Nasal Cannula 5.0 04/28/17 04:00 88 04/28/17 00:00 87 04/28/17 00:00 97.3 96 19 126/61 99 Nasal Cannula 5.0 04/27/17 20:00 97.0 83 20 118/83 99 Nasal Cannula 5.0 04/27/17 19:33 98 Nasal Cannula 5.0 40 04/27/17 19:33 Nasal Cannula 5.0 40 04/27/17 19:32 99 18 99 Nasal Cannula 5.0 40 04/27/17 19:25 40 04/27/17 19:25 98 20 99 Nasal Cannula 5.0 40 04/27/17 19:19 101 04/27/17 16:00 97.3 120 20 110/65 97 04/27/17 16:00 122 04/27/17 13:52 105 18 99 Non-Rebreather 15.0 100 04/27/17 13:49 98 04/27/17 13:47 103 16 98 Non-Rebreather 15.0 100 04/27/17 12:33 97.7 94 22 95/58 100 Non-Rebreather 100 04/27/17 11:24 109 Intake and Output 04/27/17 04/28/17 19:00 07:00 Intake Total 1276 ml 1532 ml Output Total 4520 ml 1560 ml Balance -3244 ml -28 ml Intake Oral 500 ml IV Total 1276 ml 1032 ml Output Urine Total 4350 ml 1560 ml Other 170 ml # Bowel Movements 4 1 Laboratory Tests Test 04/27/17 11:10 04/27/17 15:55 04/28/17 04:15 Prothrombin Time 11.0 SEC (9.30-11.50) Prothromb Time International Ratio 1.1 (0.9-1.1) Activated Partial Thromboplast Time 32 SEC (23-33) Body Fluid Source Pending Body Fluid Volume Pending Body Fluid Appearance Bloody Body Fluid RBC 28280 /CUMM Body Fluid Total Nucleated Cells 456 /CUMM Body Fluid Polynuclear WBCs (%) 67 % Body Fluid Mononuclear WBCs (%) 19 % Body Fluid Mesothelial Cells (%) 14 % Body Fluid Glucose Pending Body Fluid Total Protein Pending Body Fluid Albumin Pending Body Fluid Lactate Dehydrogenase Pending White Blood Count 9.4 K/UL (4.8-10.8) Red Blood Count 3.73 M/UL (4.20-5.40) L Hemoglobin 12.2 G/DL (12.0-16.0) Hematocrit 35.2 % (37.0-47.0) L Mean Corpuscular Volume 94 FL (80-99) Mean Corpuscular Hemoglobin 32.8 PG (27.0-31.0) H Mean Corpuscular Hemoglobin Concent 34.7 G/DL (32.0-36.0) Red Cell Distribution Width 11.0 % (11.6-14.8) L Platelet Count 371 K/UL (150-450) Mean Platelet Volume 5.8 FL (6.5-10.1) L Neutrophils (%) (Auto) 80.4 % (45.0-75.0) H Lymphocytes (%) (Auto) 9.1 % (20.0-45.0) L Monocytes (%) (Auto) 8.1 % (1.0-10.0) Eosinophils (%) (Auto) 1.6 % (0.0-3.0) Basophils (%) (Auto) 0.8 % (0.0-2.0) Sodium Level 132 mEQ/L (135-145) L Potassium Level 3.4 mEQ/L (3.4-4.9) Chloride Level 86 mEQ/L (98-107) L Carbon Dioxide Level 28 mEQ/L (20-30) Anion Gap 18 (5-15) H Blood Urea Nitrogen 13 mg/dL (7-23) Creatinine 0.9 mg/dL (0.5-0.9) Estimat Glomerular Filtration Rate > 60 mL/min (>60) Glucose Level 145 mg/dL (74-106) H Calcium Level 9.4 mg/dL (8.6-10.2) Total Bilirubin 0.4 mg/dL (0.0-1.2) Aspartate Amino Transf (AST/SGOT) 23 U/L (5-40) Alanine Aminotransferase (ALT/SGPT) 25 U/L (3-33) Alkaline Phosphatase 121 U/L (35-104) H Pro-B-Type Natriuretic Peptide 67 pg/mL (0-125) Total Protein 7.5 g/dL (6.6-8.7) Albumin 3.5 g/dL (3.5-5.2) Globulin 4.0 g/dL Albumin/Globulin Ratio 0.8 (1.0-2.7) L Height (Feet): 5 Height (Inches): 3.00 Weight (Pounds): 110 General Appearance: no apparent distress, alert, thin Cardiovascular: normal rate Respiratory/Chest: normal breath sounds, no respiratory distress Abdominal Exam: normal bowel sounds, non tender, soft Extremities: normal range of motion Yaneth Young N.P. Apr 28, 2017 10:25
--- NOTE | 2017-04-28 11:18 | Pulmonology Progress Note ---
Assessment/Plan Problems: (1) Acute respiratory failure (2) Pulmonary edema (3) Pleural effusion (4) S/P laparoscopy (5) Ileus Assessment/Plan stop Lasix drip echo results noted CT angio results noted, no PE, alveolar and interstitial infiltrate respiratory treatment venous doppler negative US guided thoracentesis yielded 130 cc of fluid pt can go to me/surg continue pt/ dc planning Subjective ROS Limited/Unobtainable: No Constitutional: Reports: no symptoms HEENT: Repors: no symptoms Respiratory: Reports: no symptoms Cardiovascular: Reports: no symptoms Allergies: Coded Allergies: No Known Allergies (Unverified , 04/17/17) Objective Last 24 Hour Vital Signs Date Time Temp Pulse Resp B/P Pulse Ox O2 Delivery O2 Flow Rate FiO2 04/28/17 08:00 95 04/28/17 08:00 97.8 101 19 127/72 100 Nasal Cannula 4.0 04/28/17 07:39 105 20 100 Nasal Cannula 4.0 04/28/17 07:30 102 17 100 Nasal Cannula 4.0 04/28/17 07:30 100 Nasal Cannula 4.0 04/28/17 07:30 Nasal Cannula 4.0 04/28/17 04:00 97.4 85 19 114/67 99 Nasal Cannula 5.0 04/28/17 04:00 88 04/28/17 00:00 87 04/28/17 00:00 97.3 96 19 126/61 99 Nasal Cannula 5.0 04/27/17 20:00 97.0 83 20 118/83 99 Nasal Cannula 5.0 04/27/17 19:33 98 Nasal Cannula 5.0 40 04/27/17 19:33 Nasal Cannula 5.0 40 04/27/17 19:32 99 18 99 Nasal Cannula 5.0 40 04/27/17 19:25 40 04/27/17 19:25 98 20 99 Nasal Cannula 5.0 40 04/27/17 19:19 101 04/27/17 16:00 97.3 120 20 110/65 97 04/27/17 16:00 122 04/27/17 13:52 105 18 99 Non-Rebreather 15.0 100 04/27/17 13:49 98 04/27/17 13:47 103 16 98 Non-Rebreather 15.0 100 04/27/17 12:33 97.7 94 22 95/58 100 Non-Rebreather 100 04/27/17 11:24 109 Intake and Output 04/27/17 04/28/17 19:00 07:00 Intake Total 1276 ml 1532 ml Output Total 4520 ml 1560 ml Balance -3244 ml -28 ml Intake Oral 500 ml IV Total 1276 ml 1032 ml Output Urine Total 4350 ml 1560 ml Other 170 ml # Bowel Movements 4 1 General Appearance: WD/WN HEENT: normocephalic, anicteric Respiratory/Chest: chest wall non-tender, lungs clear Cardiovascular: normal peripheral pulses, normal rate Abdomen: normal bowel sounds, soft, non tender Genitourinary: normal external genitalia Extremities: no cyanosis Lymphatic: no neck adenopathy Musculoskeletal: normal muscle bulk Microbiology Date/Time Source Procedure Growth Status 04/27/17 15:55 Pleural Fluid Gram Stain Pending Resulted 04/27/17 15:55 Pleural Fluid Body Fluid Culture - Preliminary NO GROWTH AFTER 24 HOURS Resulted Laboratory Tests 04/27/17 15:55: Body Fluid Source [Pending], Body Fluid Volume [Pending], Body Fluid Appearance Bloody, Body Fluid RBC 99726, Body Fluid Total Nucleated Cells 456, Body Fluid Polynuclear WBCs (%) 67, Body Fluid Mononuclear WBCs (%) 19, Body Fluid Mesothelial Cells (%) 14, Body Fluid Glucose [Pending], Body Fluid Total Protein [Pending], Body Fluid Albumin [Pending], Body Fluid Lactate Dehydrogenase [Pending] 04/28/17 04:15: White Blood Count 9.4, Red Blood Count 3.73L, Hemoglobin 12.2, Hematocrit 35.2L , Mean Corpuscular Volume 94, Mean Corpuscular Hemoglobin 32.8H, Mean Corpuscular Hemoglobin Concent 34.7, Red Cell Distribution Width 11.0L, Platelet Count 371, Mean Platelet Volume 5.8L, Neutrophils (%) (Auto) 80.4H, Lymphocytes (%) (Auto) 9.1L, Monocytes (%) (Auto) 8.1, Eosinophils (%) (Auto) 1.6, Basophils (%) (Auto) 0.8, Sodium Level 132L, Potassium Level 3.4, Chloride Level 86L, Carbon Dioxide Level 28, Anion Gap 18H, Blood Urea Nitrogen 13, Creatinine 0.9, Estimat Glomerular Filtration Rate > 60, Glucose Level 145H, Calcium Level 9.4, Total Bilirubin 0.4, Aspartate Amino Transf (AST/SGOT) 23, Alanine Aminotransferase (ALT/SGPT) 25, Alkaline Phosphatase 121H, Pro-B-Type Natriuretic Peptide 67, Total Protein 7.5, Albumin 3.5, Globulin 4.0, Albumin/ Globulin Ratio 0.8L Current Medications Medications (Trade) Dose Ordered Sig/Renuka Route PRN Reason Start Time Stop Time Status Last Admin Dose Admin Acetaminophen (Tylenol) 650 mg Q4H PRN ORAL Mild Pain/Temp > 100.5 04/25/17 10:30 05/25/17 10:29 04/27/17 16:18 Albuterol/ Ipratropium (DuoNeb 0.5-3(2.5)mg/3ml) 3 ml Q4H PRN HHN Shortness of Breath 04/25/17 11:00 04/30/17 10:59 Atorvastatin Calcium (Lipitor) 40 mg BEDTIME ORAL 04/25/17 21:00 05/25/17 20:59 04/27/17 21:26 Cefepime HCl 1 gm/ Dextrose 55 ml @ 110 mls/hr Q12HR IVPB 04/25/17 11:00 05/02/17 10:59 04/28/17 08:16 Clonidine HCl (Catapres) 0.1 mg Q8H PRN ORAL For High Blood Pressure 04/25/17 10:30 05/25/17 10:29 Dextrose/ Electrolytes 1,000 ml @ 75 mls/hr [id number] IV 04/26/17 13:00 05/26/17 12:59 04/28/17 10:41 Diphenhydramine HCl (Benadryl) 25 mg Q6H PRN IVP Itching 04/25/17 11:00 05/25/17 10:59 Furosemide/ Dextrose (Lasix/D5W) 110 ml @ 11 mls/hr Q10H IV 04/26/17 16:00 05/26/17 15:59 04/28/17 01:45 Heparin Sodium (Porcine) (Heparin 5000 units/ml) 5,000 units EVERY 12 HOURS SUBQ 04/26/17 21:00 05/26/17 20:59 04/28/17 08:17 Hydrocortisone (Hydrocortisone) 1 applic Q6H PRN TOPIC Itching 04/25/17 11:00 05/25/17 10:59 Hydromorphone HCl (Dilaudid) 0.5 mg Q4H PRN IVP pain 4 - 10 04/25/17 10:30 05/02/17 10:29 Levalbuterol HCl (Xopenex) 1.25 mg TIDRT HHN 04/25/17 13:00 04/30/17 12:59 04/28/17 07:29 Lorazepam (Ativan 2mg/ml 1ml) 0.5 mg Q4H PRN IV For Anxiety 04/25/17 11:00 05/02/17 10:59 04/28/17 09:23 Ondansetron HCl (Zofran) 4 mg Q6H PRN IVP Nausea & Vomiting 04/25/17 10:30 05/25/17 10:29 04/27/17 06:23 Vancomycin HCl (Vanco rx to dose) 1 ea DAILY PRN MISC Per rx protocol 04/25/17 11:00 05/25/17 10:59 Vancomycin HCl/ Dextrose (Vancomycin/D5W) 275 ml @ 183.708 mls/hr Q24H IVPB 04/26/17 13:00 05/01/17 12:59 04/27/17 13:29 Zolpidem Tartrate 5 mg 5 mg HSPRN PRN ORAL Insomnia 04/25/17 21:15 05/25/17 21:14 PABLO NAPOLES Apr 28, 2017 11:18
--- NOTE | 2017-04-28 12:37 | Diagnostic Imaging Report ---
Indication: DYSPNEA Technique: One view of the chest Comparison: 04/27/2017 Findings: There is some retrocardiac atelectasis or scarring, unchanged. Lungs and pleural spaces are otherwise clear. Previously demonstrated right suprahilar atelectasis has partially cleared Heart size is normal. Impression: Findings as noted. No definite acute process
[2017-04-28] MEDS: Vancomycin 1 GM in D5W 275 ML IVPB SCH (13:08)
--- NOTE | 2017-04-28 13:24 | General Progress Note ---
Assessment/Plan Status: stable Assessment/Plan 1- Hypoxemic Respiratory failure: less Likely Aspiration HCA-PNA 2. Pleural effusion 2- Small Bowel Obstruction (partial), status post expl.laparotomy 3- HTN 4- Gi-DVT prophylaxia 6- HypoNatremia 7. Pleural effusion: etio?! cytology in progress Plan: lasix as tolerated S/p Expl. laparotomy today current pulmonary management Pulmunary and ID sevices notes are reviewed advancing diet as tolerated will check Mg, Subjective ROS Limited/Unobtainable: No Constitutional: Reports: no symptoms HEENT: Reports: no symptoms Cardiovascular: Reports: no symptoms Respiratory: Reports: no symptoms Allergies: Coded Allergies: No Known Allergies (Unverified , 04/17/17) Objective Last 24 Hour Vital Signs Date Time Temp Pulse Resp B/P Pulse Ox O2 Delivery O2 Flow Rate FiO2 04/28/17 12:00 98.3 106 19 106/63 95 Nasal Cannula 4.0 04/28/17 12:00 96 04/28/17 08:00 95 04/28/17 08:00 97.8 101 19 127/72 100 Nasal Cannula 4.0 04/28/17 07:39 105 20 100 Nasal Cannula 4.0 04/28/17 07:30 102 17 100 Nasal Cannula 4.0 04/28/17 07:30 100 Nasal Cannula 4.0 04/28/17 07:30 Nasal Cannula 4.0 04/28/17 04:00 97.4 85 19 114/67 99 Nasal Cannula 5.0 04/28/17 04:00 88 04/28/17 00:00 87 04/28/17 00:00 97.3 96 19 126/61 99 Nasal Cannula 5.0 04/27/17 20:00 97.0 83 20 118/83 99 Nasal Cannula 5.0 04/27/17 19:33 98 Nasal Cannula 5.0 40 04/27/17 19:33 Nasal Cannula 5.0 40 04/27/17 19:32 99 18 99 Nasal Cannula 5.0 40 04/27/17 19:25 40 04/27/17 19:25 98 20 99 Nasal Cannula 5.0 40 04/27/17 19:19 101 04/27/17 16:00 97.3 120 20 110/65 97 04/27/17 16:00 122 04/27/17 13:52 105 18 99 Non-Rebreather 15.0 100 04/27/17 13:49 98 04/27/17 13:47 103 16 98 Non-Rebreather 15.0 100 Intake and Output 04/27/17 04/28/17 19:00 07:00 Intake Total 1276 ml 1532 ml Output Total 4520 ml 1560 ml Balance -3244 ml -28 ml Intake Oral 500 ml IV Total 1276 ml 1032 ml Output Urine Total 4350 ml 1560 ml Other 170 ml # Bowel Movements 4 1 Laboratory Tests 04/27/17 15:55: Body Fluid Source [Pending], Body Fluid Volume [Pending], Body Fluid Appearance Bloody, Body Fluid [place] [address], Body Fluid Total Nucleated Cells 456, Body Fluid Polynuclear WBCs (%) 67, Body Fluid Mononuclear WBCs (%) 19, Body Fluid Mesothelial Cells (%) 14, Body Fluid Glucose [Pending], Body Fluid Total Protein [Pending], Body Fluid Albumin [Pending], Body Fluid Lactate Dehydrogenase [Pending] 04/28/17 04:15: White Blood Count 9.4, Red Blood Count 3.73L, Hemoglobin 12.2, Hematocrit 35.2L , Mean Corpuscular Volume 94, Mean Corpuscular Hemoglobin 32.8H, Mean Corpuscular Hemoglobin Concent 34.7, Red Cell Distribution Width 11.0L, Platelet Count 371, Mean Platelet Volume 5.8L, Neutrophils (%) (Auto) 80.4H, Lymphocytes (%) (Auto) 9.1L, Monocytes (%) (Auto) 8.1, Eosinophils (%) (Auto) 1.6, Basophils (%) (Auto) 0.8, Sodium Level 132L, Potassium Level 3.4, Chloride Level 86L, Carbon Dioxide Level 28, Anion Gap 18H, Blood Urea Nitrogen 13, Creatinine 0.9, Estimat Glomerular Filtration Rate > 60, Glucose Level 145H, Calcium Level 9.4, Total Bilirubin 0.4, Aspartate Amino Transf (AST/SGOT) 23, Alanine Aminotransferase (ALT/SGPT) 25, Alkaline Phosphatase 121H, Pro-B-Type Natriuretic Peptide 67, Total Protein 7.5, Albumin 3.5, Globulin 4.0, Albumin/ Globulin Ratio 0.8L 04/28/17 12:02: Vancomycin Level Trough 6.9 Height (Feet): 5 Height (Inches): 3.00 Weight (Pounds): 110 General Appearance: no apparent distress EENT: PERRL/EOMI Neck: supple Cardiovascular: normal rate Respiratory/Chest: lungs clear Abdomen: soft Extremities: non-tender Neurologic: complaint adjuster II-XII grossly normal Marilu Caldwell MD Apr 28, 2017 13:24
[2017-04-28] MEDS ORDERED: Zolpidem 5mg tab ORAL PRN (16:00)
[2017-04-28] MEDS ORDERED: DuoNeb 0.5-3(2.5)mg/3ml neb HHN PRN (16:00)
[2017-04-28] MEDS ORDERED: DiphenhydrAMINE 50mg/ml Inj IVP PRN (16:00)
[2017-04-28] MEDS ORDERED: HYDROmorphone 1mg/ml Carpuject IVP PRN (16:00)
[2017-04-28] MEDS ORDERED: Hydrocortisone 1% Oint 30gm TOPIC PRN (17:00)
--- NOTE | 2017-04-28 22:21 | Cardiology Progress Note ---
Assessment/Plan Assessment/Plan 1. Acute respiratory failure, resolved, continue O2 NC, continue pulmonary toilet. 2. Normal LVEF, normal filling pressures. CTA ruled out PE. 3. History of dyslipidemia. 4. Small bowel obstruction, s/p adhesion release, POD #5, no perioperative cardiac events. 5. Hypotension, BP is currently normal with no BP on board. 6. Hx of HTN Subjective Subjective Transferred to the [facility] unit s/p Lap lysis of adhesions for SBO, POD #5 s/p right thoracentesis Awake and alert No CP or SOB.. Objective Last 24 Hour Vital Signs Date Time Temp Pulse Resp B/P Pulse Ox O2 Delivery O2 Flow Rate FiO2 04/28/17 20:11 107 18 100 Nasal Cannula 2.0 04/28/17 20:06 Nasal Cannula 4.0 04/28/17 20:06 98 Nasal Cannula 4.0 04/28/17 20:05 97 17 96 Nasal Cannula 3.0 32 04/28/17 20:00 97.0 98 20 115/75 97 Nasal Cannula 2.0 04/28/17 16:50 97.9 100 19 103/74 95 Room Air 04/28/17 15:41 98.2 118 20 105/60 98 Nasal Cannula 4.0 04/28/17 14:23 100 20 100 Nasal Cannula 2.0 04/28/17 14:06 101 16 95 Room Air 04/28/17 12:00 98.3 106 19 106/63 95 Nasal Cannula 4.0 04/28/17 12:00 96 04/28/17 08:00 95 04/28/17 08:00 97.8 101 19 127/72 100 Nasal Cannula 4.0 04/28/17 07:39 105 20 100 Nasal Cannula 4.0 04/28/17 07:30 102 17 100 Nasal Cannula 4.0 04/28/17 07:30 100 Nasal Cannula 4.0 04/28/17 07:30 Nasal Cannula 4.0 04/28/17 04:00 97.4 85 19 114/67 99 Nasal Cannula 5.0 04/28/17 04:00 88 04/28/17 00:00 87 04/28/17 00:00 97.3 96 19 126/61 99 Nasal Cannula 5.0 Intake and Output 04/27/17 04/28/17 19:00 07:00 Intake Total 1276 ml 1532 ml Output Total 4520 ml 1560 ml Balance -3244 ml -28 ml Intake Oral 500 ml IV Total 1276 ml 1032 ml Output Urine Total 4350 ml 1560 ml Other 170 ml # Bowel Movements 4 1 2D Echo: EF 60%, Grade I LVDD, normal filling pressures, RVSP 15 mmHg Laboratory Tests Test 04/28/17 04:15 04/28/17 12:02 White Blood Count 9.4 K/UL (4.8-10.8) Red Blood Count 3.73 M/UL (4.20-5.40) L Hemoglobin 12.2 G/DL (12.0-16.0) Hematocrit 35.2 % (37.0-47.0) L Mean Corpuscular Volume 94 FL (80-99) Mean Corpuscular Hemoglobin 32.8 PG (27.0-31.0) H Mean Corpuscular Hemoglobin Concent 34.7 G/DL (32.0-36.0) Red Cell Distribution Width 11.0 % (11.6-14.8) L Platelet Count 371 K/UL (150-450) Mean Platelet Volume 5.8 FL (6.5-10.1) L Neutrophils (%) (Auto) 80.4 % (45.0-75.0) H Lymphocytes (%) (Auto) 9.1 % (20.0-45.0) L Monocytes (%) (Auto) 8.1 % (1.0-10.0) Eosinophils (%) (Auto) 1.6 % (0.0-3.0) Basophils (%) (Auto) 0.8 % (0.0-2.0) Sodium Level 132 mEQ/L (135-145) L Potassium Level 3.4 mEQ/L (3.4-4.9) Chloride Level 86 mEQ/L (98-107) L Carbon Dioxide Level 28 mEQ/L (20-30) Anion Gap 18 (5-15) H Blood Urea Nitrogen 13 mg/dL (7-23) Creatinine 0.9 mg/dL (0.5-0.9) Estimat Glomerular Filtration Rate > 60 mL/min (>60) Glucose Level 145 mg/dL (74-106) H Calcium Level 9.4 mg/dL (8.6-10.2) Total Bilirubin 0.4 mg/dL (0.0-1.2) Aspartate Amino Transf (AST/SGOT) 23 U/L (5-40) Alanine Aminotransferase (ALT/SGPT) 25 U/L (3-33) Alkaline Phosphatase 121 U/L (35-104) H Pro-B-Type Natriuretic Peptide 67 pg/mL (0-125) Total Protein 7.5 g/dL (6.6-8.7) Albumin 3.5 g/dL (3.5-5.2) Globulin 4.0 g/dL Albumin/Globulin Ratio 0.8 (1.0-2.7) L Vancomycin Level Trough 6.9 ug/mL (5.0-12.0) Microbiology Date/Time Source Procedure Growth Status 04/27/17 15:55 Pleural Fluid Gram Stain - Final Resulted 04/27/17 15:55 Pleural Fluid Body Fluid Culture - Preliminary NO GROWTH AFTER 24 HOURS Resulted Objective HEENT: Atraumatic and normocephalic. Anicteric. Pupils are equal, round, and reactive to light and accommodation. Extraocular muscles are intact. NECK: JVP is less than 5 cm. No carotid bruits. Carotid upstrokes 2+ bilaterally. CARDIOVASCULAR: Normal S1 and S2. Regular rate and rhythm. No murmurs, gallops, or rubs. PMI is at fourth intercostal space in the midclavicular line. LUNGS: Diminished BS both bases, increased dullness ABDOMEN: Soft, non-distended, positive bowel sounds. EXTREMITIES: No evidence of edema, clubbing, or cyanosis. HANDY MADRID Apr 28, 2017 22:21
[2017-04-28 23:12] LABS: PROTEIN, BODY FLUID 3.7 g/dL (.)
[2017-04-29] VITALS: BP 111/81
[2017-04-29] MEDS ORDERED: Vancomycin 750mg/D5W 275ml IVPB SCH ×2 (01:00)
[2017-04-29] MEDS ORDERED: Vancomycin 750 MG in D5W 275 ML IVPB SCH (01:00)
[2017-04-29] MEDS: LORazepam Inj 2mg/ml 1ml IV PRN ×3 (01:59→17:58)
[2017-04-29 04:00] VITALS: BP 119/71
[2017-04-29 06:32] LABS: EOSINOPHILS % (AUTO) 2.8 % (0.0-3.0); LYMPHOCYTES % (AUTO) 24.6 % (20.0-45.0); MEAN CORPUSCULAR HGB CONC 35.1 G/DL (32.0-36.0); MEAN CORPUSCULAR VOLUME 94 FL (80-99); MEAN PLATELET VOLUME 5.8 FL (6.5-10.1); MONOCYTES % (AUTO) 10.5 % (1.0-10.0); NEUTROPHILS % (AUTO) 61.1 % (45.0-75.0); PLATELET COUNT 418 K/UL (150-450); RED BLOOD COUNT 3.62 M/UL (4.20-5.40); WHITE BLOOD COUNT 6.6 K/UL (4.8-10.8)
[2017-04-29 07:03] LABS: CALCIUM 9.4 mg/dL (8.6-10.2); GLOMERULAR FILTRATION RATE 55.3 mL/min (>60); POTASSIUM 3.1 mEQ/L (3.4-4.9)
[2017-04-29 07:51] LABS: BD FL SOURCE THORACENTESIS; BD FL VOLUME 20 mL
[2017-04-29 07:52] LABS: LDH, BODY FLUID 372 U/L
[2017-04-29] MEDS: Cefepime HCl 1 GM in D5W 55 ML IVPB SCH (08:18)
[2017-04-29] MEDS: Levalbuterol Inh UD 1.25mg/0.5ml HHN SCH ×3 (08:26→19:00)
[2017-04-29 08:35] VITALS: BP 114/68
[2017-04-29 09:04] LABS: COMMENT,BODY FLUID PATHOLOGIST COMMENT
[2017-04-29] MEDS: Heparin 5000 units/ml inj SUBQ SCH ×2 (09:09→20:46)
--- NOTE | 2017-04-29 10:26 | General Progress Note ---
Progress Note Progress Note Surgery: pt seen and examined at bedside. no acute events. still on nasal cannula. no n/v/f/c. oral intake improving. +flatus+BM exam benign labs reviewed and Na trending down, Cr up, GFR down D/C Abx Diet as tolerated Encourage oral intake Repeat AM labs patient not ready for discharge Ozzy Yoon Apr 29, 2017 10:26
--- NOTE | 2017-04-29 10:59 | General Progress Note ---
Assessment/Plan Status: stable Assessment/Plan 1- Hypoxemic Respiratory failure: less Likely Aspiration HCA-PNA 2. Pleural effusion 2- Small Bowel Obstruction (partial), status post expl.laparotomy 3- HTN 4- Gi-DVT prophylaxia 6- HypoNatremia 7. Pleural effusion: etio?! cytology in progress 8. Deconditioning: loss of muscle mass, 9. High Risk for fall Plan: lasix as tolerated S/p Expl. laparotomy today current pulmonary management Pulmunary and ID sevices notes are reviewed advancing diet as tolerated will check Mg, PT/OT followup DC antibiotic once cleared by Surgery, ARU vs Home+HHC placement Subjective ROS Limited/Unobtainable: No Constitutional: Reports: malaise HEENT: Reports: no symptoms Cardiovascular: Reports: no symptoms Allergies: Coded Allergies: No Known Allergies (Unverified , 04/17/17) Objective Last 24 Hour Vital Signs Date Time Temp Pulse Resp B/P Pulse Ox O2 Delivery O2 Flow Rate FiO2 04/29/17 08:35 98.2 94 18 114/68 97 Room Air 04/29/17 08:20 103 18 100 Nasal Cannula 2.0 04/29/17 08:16 Nasal Cannula 2.0 04/29/17 08:15 98 Nasal Cannula 2.0 04/29/17 08:10 98 18 98 Nasal Cannula 3.0 32 04/29/17 05:09 91 18 98 Nasal Cannula 2.0 28 04/29/17 04:00 98.1 94 20 119/71 97 Nasal Cannula 2.0 04/29/17 00:00 97.5 87 20 111/81 95 Nasal Cannula 2.0 04/28/17 20:11 107 18 100 Nasal Cannula 2.0 04/28/17 20:06 Nasal Cannula 4.0 04/28/17 20:06 98 Nasal Cannula 4.0 04/28/17 20:05 97 17 96 Nasal Cannula 3.0 32 04/28/17 20:00 97.0 98 20 115/75 97 Nasal Cannula 2.0 04/28/17 16:50 97.9 100 19 103/74 95 Room Air 04/28/17 15:41 98.2 118 20 105/60 98 Nasal Cannula 4.0 04/28/17 14:23 100 20 100 Nasal Cannula 2.0 04/28/17 14:06 101 16 95 Room Air 04/28/17 12:00 98.3 106 19 106/63 95 Nasal Cannula 4.0 04/28/17 12:00 96 Intake and Output 04/28/17 04/29/17 19:00 07:00 Intake Total 476.7 ml 477.416 ml Output Total 1200 ml 600 ml Balance -723.3 ml -122.584 ml IV Total 476.7 ml 477.416 ml Output Urine Total 1200 ml 600 ml # Bowel Movements 1 Laboratory Tests 04/28/17 12:02: Vancomycin Level Trough 6.9 04/29/17 04:40: White Blood Count 6.6, Red Blood Count 3.62L, Hemoglobin 11.9L, Hematocrit 34.0L , Mean Corpuscular Volume 94, Mean Corpuscular Hemoglobin 33.0H, Mean Corpuscular Hemoglobin Concent 35.1, Red Cell Distribution Width 11.0L, Platelet Count 418, Mean Platelet Volume 5.8L, Neutrophils (%) (Auto) 61.1, Lymphocytes (%) (Auto) 24.6, Monocytes (%) (Auto) 10.5H, Eosinophils (%) (Auto) 2.8, Basophils (%) (Auto) 1.0, Sodium Level 130L, Potassium Level 3.1L, Chloride Level 86L, Carbon Dioxide Level 29, Anion Gap 15, Blood Urea Nitrogen 22, Creatinine 1.0H, Estimat Glomerular Filtration Rate 55.3, Glucose Level 127H , Calcium Level 9.4, Magnesium Level 1.9 Height (Feet): 5 Height (Inches): 3.00 Weight (Pounds): 113 General Appearance: no apparent distress EENT: PERRL/EOMI Neck: supple Cardiovascular: normal rate Respiratory/Chest: rhonchi - bilaterally Abdomen: soft Extremities: non-tender, other - decreased muslce mass. Imbalance, Neurologic: paid search marketing analyst II-XII grossly normal Marilu Caldwell MD Apr 29, 2017 10:59
[2017-04-29] MEDS ORDERED: Hydromorphone 0.5mg/0.5ml inj IVP PRN (11:00)
--- NOTE | 2017-04-29 11:18 | GI Progress Note ---
Assessment/Plan Problems: (1) Ileus ICD Codes: K56.7 - Ileus, unspecified SNOMED: 670210325 (2) Sigmoid thickening ICD Codes: K63.9 - Disease of intestine, unspecified SNOMED: 592754333 (3) Leukocytosis ICD Codes: D72.829 - Elevated white blood cell count, unspecified SNOMED: 278732560, 055648780 (4) SBO (small bowel obstruction) ICD Codes: K56.69 - Other intestinal obstruction SNOMED: 388730070 Status: doing well, stable, progressing Status Narrative Discussed with Dr. Vega. Assessment/Plan Presentation of segmental SB inflammation and SBO - narrow differential OB stool negative OPERATIONS PERFORMED: 1. Diagnostic laparoscopy. 2. Laparoscopic lysis of adhesions. Recommendations colonoscopy deferred >> s/p surgery, see note. fu surgery recs regular diet Iv abx DVT prophylaxis prn imaging studies PT eval fu labs Subjective Subjective abdominal pain Objective Last 24 Hour Vital Signs Date Time Temp Pulse Resp B/P Pulse Ox O2 Delivery O2 Flow Rate FiO2 04/29/17 08:35 98.2 94 18 114/68 97 Room Air 04/29/17 08:20 103 18 100 Nasal Cannula 2.0 04/29/17 08:16 Nasal Cannula 2.0 04/29/17 08:15 98 Nasal Cannula 2.0 04/29/17 08:10 98 18 98 Nasal Cannula 3.0 32 04/29/17 05:09 91 18 98 Nasal Cannula 2.0 28 04/29/17 04:00 98.1 94 20 119/71 97 Nasal Cannula 2.0 04/29/17 00:00 97.5 87 20 111/81 95 Nasal Cannula 2.0 04/28/17 20:11 107 18 100 Nasal Cannula 2.0 04/28/17 20:06 Nasal Cannula 4.0 04/28/17 20:06 98 Nasal Cannula 4.0 04/28/17 20:05 97 17 96 Nasal Cannula 3.0 32 04/28/17 20:00 97.0 98 20 115/75 97 Nasal Cannula 2.0 04/28/17 16:50 97.9 100 19 103/74 95 Room Air 04/28/17 15:41 98.2 118 20 105/60 98 Nasal Cannula 4.0 04/28/17 14:23 100 20 100 Nasal Cannula 2.0 04/28/17 14:06 101 16 95 Room Air 04/28/17 12:00 98.3 106 19 106/63 95 Nasal Cannula 4.0 04/28/17 12:00 96 Intake and Output 04/28/17 04/29/17 19:00 07:00 Intake Total 476.7 ml 477.416 ml Output Total 1200 ml 600 ml Balance -723.3 ml -122.584 ml IV Total 476.7 ml 477.416 ml Output Urine Total 1200 ml 600 ml # Bowel Movements 1 Laboratory Tests Test 04/28/17 12:02 04/29/17 04:40 Vancomycin Level Trough 6.9 ug/mL (5.0-12.0) White Blood Count 6.6 K/UL (4.8-10.8) Red Blood Count 3.62 M/UL (4.20-5.40) L Hemoglobin 11.9 G/DL (12.0-16.0) L Hematocrit 34.0 % (37.0-47.0) L Mean Corpuscular Volume 94 FL (80-99) Mean Corpuscular Hemoglobin 33.0 PG (27.0-31.0) H Mean Corpuscular Hemoglobin Concent 35.1 G/DL (32.0-36.0) Red Cell Distribution Width 11.0 % (11.6-14.8) L Platelet Count 418 K/UL (150-450) Mean Platelet Volume 5.8 FL (6.5-10.1) L Neutrophils (%) (Auto) 61.1 % (45.0-75.0) Lymphocytes (%) (Auto) 24.6 % (20.0-45.0) Monocytes (%) (Auto) 10.5 % (1.0-10.0) H Eosinophils (%) (Auto) 2.8 % (0.0-3.0) Basophils (%) (Auto) 1.0 % (0.0-2.0) Sodium Level 130 mEQ/L (135-145) L Potassium Level 3.1 mEQ/L (3.4-4.9) L Chloride Level 86 mEQ/L (98-107) L Carbon Dioxide Level 29 mEQ/L (20-30) Anion Gap 15 (5-15) Blood Urea Nitrogen 22 mg/dL (7-23) Creatinine 1.0 mg/dL (0.5-0.9) H Estimat Glomerular Filtration Rate 55.3 mL/min (>60) Glucose Level 127 mg/dL (74-106) H Calcium Level 9.4 mg/dL (8.6-10.2) Magnesium Level 1.9 mg/dL (1.7-2.5) Height (Feet): 5 Height (Inches): 3.00 Weight (Pounds): 113 General Appearance: no apparent distress, alert, thin Cardiovascular: normal rate Respiratory/Chest: normal breath sounds, no respiratory distress Abdominal Exam: normal bowel sounds, non tender Extremities: normal range of motion Yaneth Young N.P. Apr 29, 2017 11:18
[2017-04-29 12:25] VITALS: BP 127/72
[2017-04-29] MEDS ORDERED: Vancomycin 1 GM in D5W 275 ML IVPB SCH (13:00)
[2017-04-29] MEDS ORDERED: Tubing IV Secondary IV ONE (15:53)
[2017-04-29] MEDS ORDERED: NS 275ml ONE (15:53)
[2017-04-29 16:00] VITALS: BP 125/83
[2017-04-29] MEDS ORDERED: NS 550ML IV ONE (16:54)
[2017-04-29 20:00] VITALS: BP 123/69
--- NOTE | 2017-04-29 22:20 | Pulmonology Progress Note ---
Assessment/Plan Problems: (1) Acute respiratory failure (2) Pulmonary edema (3) Pleural effusion (4) S/P laparoscopy (5) Ileus Assessment/Plan echo results noted CT angio results noted, no PE, alveolar and interstitial infiltrate respiratory treatment venous doppler negative US guided thoracentesis yielded 130 cc of fluid, cytology reviewed pt/ot continue pt/ dc planning Subjective ROS Limited/Unobtainable: No Interval Events: sitting up in the chair, less short of breath Allergies: Coded Allergies: No Known Allergies (Unverified , 04/17/17) Objective Last 24 Hour Vital Signs Date Time Temp Pulse Resp B/P Pulse Ox O2 Delivery O2 Flow Rate FiO2 04/29/17 20:22 93 18 100 Nasal Cannula 2.0 28 04/29/17 20:12 28 04/29/17 20:11 98 Nasal Cannula 2.0 28 04/29/17 20:11 97 19 98 Nasal Cannula 2.0 28 04/29/17 20:11 Nasal Cannula 2.0 28 04/29/17 20:00 97.3 95 18 123/69 99 Nasal Cannula 2.0 04/29/17 16:00 97.7 97 19 125/83 99 Nasal Cannula 2.0 04/29/17 13:58 Nasal Cannula 3.0 04/29/17 13:55 Nasal Cannula 3.0 04/29/17 12:25 98.1 89 18 127/72 98 Nasal Cannula 2.0 04/29/17 08:35 98.2 94 18 114/68 97 Room Air 04/29/17 08:20 103 18 100 Nasal Cannula 2.0 04/29/17 08:16 Nasal Cannula 2.0 04/29/17 08:15 98 Nasal Cannula 2.0 04/29/17 08:10 98 18 98 Nasal Cannula 3.0 32 04/29/17 05:09 91 18 98 Nasal Cannula 2.0 28 04/29/17 04:00 98.1 94 20 119/71 97 Nasal Cannula 2.0 04/29/17 00:00 97.5 87 20 111/81 95 Nasal Cannula 2.0 Intake and Output 04/28/17 04/29/17 19:00 07:00 Intake Total 476.7 ml 477.416 ml Output Total 1200 ml 600 ml Balance -723.3 ml -122.584 ml IV Total 476.7 ml 477.416 ml Output Urine Total 1200 ml 600 ml # Bowel Movements 1 General Appearance: cachetic HEENT: normocephalic, atraumatic Respiratory/Chest: chest wall non-tender, lungs clear Breasts: no masses Cardiovascular: normal peripheral pulses Abdomen: normal bowel sounds, no organomegaly Genitourinary: normal external genitalia Extremities: no cyanosis Microbiology Date/Time Source Procedure Growth Status 04/27/17 15:55 Pleural Fluid Gram Stain - Final Resulted 04/27/17 15:55 Pleural Fluid Body Fluid Culture - Preliminary NO GROWTH AFTER 48 HOURS Resulted Laboratory Tests 04/29/17 04:40: White Blood Count 6.6, Red Blood Count 3.62L, Hemoglobin 11.9L, Hematocrit 34.0L , Mean Corpuscular Volume 94, Mean Corpuscular Hemoglobin 33.0H, Mean Corpuscular Hemoglobin Concent 35.1, Red Cell Distribution Width 11.0L, Platelet Count 418, Mean Platelet Volume 5.8L, Neutrophils (%) (Auto) 61.1, Lymphocytes (%) (Auto) 24.6, Monocytes (%) (Auto) 10.5H, Eosinophils (%) (Auto) 2.8, Basophils (%) (Auto) 1.0, Sodium Level 130L, Potassium Level 3.1L, Chloride Level 86L, Carbon Dioxide Level 29, Anion Gap 15, Blood Urea Nitrogen 22, Creatinine 1.0H, Estimat Glomerular Filtration Rate 55.3, Glucose Level 127H , Calcium Level 9.4, Magnesium Level 1.9 Current Medications Medications (Trade) Dose Ordered Sig/Renuka Route PRN Reason Start Time Stop Time Status Last Admin Dose Admin Acetaminophen (Tylenol) 650 mg Q4H PRN ORAL Mild Pain/Temp > 100.5 04/28/17 16:00 05/28/17 15:59 04/28/17 21:38 Albuterol/ Ipratropium (DuoNeb 0.5-3(2.5)mg/3ml) 3 ml Q4H PRN HHN Shortness of Breath 04/28/17 16:00 05/03/17 15:59 04/29/17 05:05 Atorvastatin Calcium (Lipitor) 40 mg BEDTIME ORAL 04/28/17 21:00 05/28/17 20:59 04/29/17 20:45 Clonidine HCl (Catapres) 0.1 mg Q8H PRN ORAL SBP > 160 04/28/17 16:00 05/28/17 15:59 Diphenhydramine HCl (Benadryl) 25 mg Q6H PRN IVP Itching 04/28/17 16:00 05/28/17 15:59 Heparin Sodium (Porcine) (Heparin 5000 units/ml) 5,000 units EVERY 12 HOURS SUBQ 04/28/17 21:00 05/28/17 20:59 04/29/17 20:46 Hydrocortisone (Hydrocortisone) 1 applic Q6H PRN TOPIC Itching alternative to [place]adry 04/28/17 17:00 05/28/17 16:59 Hydromorphone HCl (Dilaudid) 0.5 mg Q4H PRN IVP pain 4 - 10 04/29/17 11:00 05/05/17 15:59 Levalbuterol HCl (Xopenex) 1.25 mg TIDRT HHN 04/28/17 19:00 05/03/17 18:59 04/29/17 19:00 Lorazepam (Ativan 2mg/ml 1ml) 0.5 mg Q4H PRN IV For Anxiety 04/28/17 16:00 05/05/17 15:59 04/29/17 17:58 Ondansetron HCl (Zofran) 4 mg Q6H PRN IVP Nausea & Vomiting 04/28/17 16:30 05/28/17 16:29 04/29/17 10:13 Zolpidem Tartrate (Ambien) 5 mg HSPRN PRN ORAL Insomnia 04/28/17 16:00 05/28/17 15:59 PABLO NAPOLES Apr 29, 2017 22:20
[2017-04-30] VITALS: BP 151/87
[2017-04-30 01:05] VITALS: BP 151/87
[2017-04-30] MEDS: LORazepam Inj 2mg/ml 1ml IV PRN (01:39)
[2017-04-30 04:51] VITALS: BP 116/70
[2017-04-30 06:56] LABS: BASOPHILS % (AUTO) 1.1 % (0.0-2.0); EOSINOPHILS % (AUTO) 1.5 % (0.0-3.0); LYMPHOCYTES % (AUTO) 20.4 % (20.0-45.0); MEAN CORPUSCULAR HEMOGLOBIN 32.5 PG (27.0-31.0); MEAN CORPUSCULAR HGB CONC 34.2 G/DL (32.0-36.0); MEAN CORPUSCULAR VOLUME 95 FL (80-99); MEAN PLATELET VOLUME 5.6 FL (6.5-10.1); MONOCYTES % (AUTO) 10.5 % (1.0-10.0); NEUTROPHILS % (AUTO) 66.6 % (45.0-75.0); PLATELET COUNT 358 K/UL (150-450); RED BLOOD COUNT 3.22 M/UL (4.20-5.40); WHITE BLOOD COUNT 5.8 K/UL (4.8-10.8)
[2017-04-30 07:03] LABS: ANION GAP 13 (5-15); CALCIUM 9.4 mg/dL (8.6-10.2); CARBON DIOXIDE 28 mEQ/L (20-30); CHLORIDE 96 mEQ/L (98-107); CREATININE 0.8 mg/dL (0.5-0.9); GLOMERULAR FILTRATION RATE > 60 mL/min (>60); HEMOLYSIS 1; POTASSIUM 4.5 mEQ/L (3.4-4.9); SODIUM 137 mEQ/L (135-145)
[2017-04-30] MEDS: Levalbuterol Inh UD 1.25mg/0.5ml HHN SCH ×3 (07:42→19:27)
[2017-04-30 08:39] VITALS: BP 114/68
[2017-04-30] MEDS: Heparin 5000 units/ml inj SUBQ SCH ×2 (09:18→21:47)
[2017-04-30] MEDS ORDERED: Tubing IV Secondary IV ONE (10:42)
--- NOTE | 2017-04-30 12:57 | GI Progress Note ---
Assessment/Plan Problems: (1) Ileus ICD Codes: K56.7 - Ileus, unspecified SNOMED: 695688520 (2) Sigmoid thickening ICD Codes: K63.9 - Disease of intestine, unspecified SNOMED: 299153401 (3) Leukocytosis ICD Codes: D72.829 - Elevated white blood cell count, unspecified SNOMED: 361141671, 863426541 (4) SBO (small bowel obstruction) ICD Codes: K56.69 - Other intestinal obstruction SNOMED: 062202947 Status: stable Status Narrative Discussed with Dr. Vega. Assessment/Plan Presentation of segmental SB inflammation and SBO - narrow differential OB stool negative OPERATIONS PERFORMED: 1. Diagnostic laparoscopy. 2. Laparoscopic lysis of adhesions. Recommendations colonoscopy deferred >> s/p surgery, see note. fu surgery recs regular diet Iv abx DVT prophylaxis prn imaging studies PT eval fu labs Subjective Subjective abdominal pain improved doing well Objective Last 24 Hour Vital Signs Date Time Temp Pulse Resp B/P Pulse Ox O2 Delivery O2 Flow Rate FiO2 04/30/17 12:19 90 16 100 Nasal Cannula 2.0 04/30/17 12:10 28 04/30/17 12:09 89 16 97 Nasal Cannula 2.0 04/30/17 08:39 97.5 82 20 114/68 100 Room Air 04/30/17 07:44 Nasal Cannula 04/30/17 07:44 97 Nasal Cannula 2.0 04/30/17 07:44 Nasal Cannula 2.0 28 04/30/17 07:43 Nasal Cannula 04/30/17 05:39 96.8 04/30/17 04:51 96.8 75 20 116/70 99 Room Air 04/30/17 01:05 97.2 74 20 151/87 99 Nasal Cannula 04/30/17 00:00 97.2 74 20 151/87 99 Room Air 04/29/17 20:22 93 18 100 Nasal Cannula 2.0 28 04/29/17 20:12 28 04/29/17 20:11 98 Nasal Cannula 2.0 28 04/29/17 20:11 97 19 98 Nasal Cannula 2.0 28 04/29/17 20:11 Nasal Cannula 2.0 28 04/29/17 20:00 97.3 95 18 123/69 99 Nasal Cannula 2.0 04/29/17 16:00 97.7 97 19 125/83 99 Nasal Cannula 2.0 04/29/17 13:58 Nasal Cannula 3.0 04/29/17 13:55 Nasal Cannula 3.0 Intake and Output 04/29/17 04/30/17 19:00 07:00 Intake Total 555 ml 360 ml Output Total 200 ml Balance 355 ml 360 ml Intake Oral 360 ml IV Total 555 ml Output Urine Total 200 ml # Voids 1 2 Laboratory Tests Test 04/30/17 05:50 White Blood Count 5.8 K/UL (4.8-10.8) Red Blood Count 3.22 M/UL (4.20-5.40) L Hemoglobin 10.5 G/DL (12.0-16.0) L Hematocrit 30.6 % (37.0-47.0) L Mean Corpuscular Volume 95 FL (80-99) Mean Corpuscular Hemoglobin 32.5 PG (27.0-31.0) H Mean Corpuscular Hemoglobin Concent 34.2 G/DL (32.0-36.0) Red Cell Distribution Width 11.0 % (11.6-14.8) L Platelet Count 358 K/UL (150-450) Mean Platelet Volume 5.6 FL (6.5-10.1) L Neutrophils (%) (Auto) 66.6 % (45.0-75.0) Lymphocytes (%) (Auto) 20.4 % (20.0-45.0) Monocytes (%) (Auto) 10.5 % (1.0-10.0) H Eosinophils (%) (Auto) 1.5 % (0.0-3.0) Basophils (%) (Auto) 1.1 % (0.0-2.0) Sodium Level 137 mEQ/L (135-145) Potassium Level 4.5 mEQ/L (3.4-4.9) Chloride Level 96 mEQ/L (98-107) L Carbon Dioxide Level 28 mEQ/L (20-30) Anion Gap 13 (5-15) Blood Urea Nitrogen 21 mg/dL (7-23) Creatinine 0.8 mg/dL (0.5-0.9) Estimat Glomerular Filtration Rate > 60 mL/min (>60) Glucose Level 129 mg/dL (74-106) H Calcium Level 9.4 mg/dL (8.6-10.2) Height (Feet): 5 Height (Inches): 3.00 Weight (Pounds): 113 General Appearance: no apparent distress, alert, thin Cardiovascular: normal rate Respiratory/Chest: normal breath sounds, no respiratory distress Abdominal Exam: incision site Extremities: normal range of motion Yaneth Young N.P. Apr 30, 2017 12:57
[2017-04-30] MEDS ORDERED: AMBIEN5 MG ORAL (13:00)
--- NOTE | 2017-04-30 13:09 | General Progress Note ---
Assessment/Plan Status: stable Assessment/Plan 1- Hypoxemic Respiratory failure: less Likely Aspiration HCA-PNA 2. Pleural effusion 2- Small Bowel Obstruction (partial), status post expl.laparotomy 3- HTN 4- Gi-DVT prophylaxia 6- HypoNatremia 7. Pleural effusion: etio?! cytology in progress 8. Deconditioning: loss of muscle mass, 9. High Risk for fall Plan: PT/OT followup as out patient DC antibiotic once cleared by Surgery, Home+HHC placement. Subjective ROS Limited/Unobtainable: No Constitutional: Reports: no symptoms HEENT: Reports: no symptoms Cardiovascular: Reports: no symptoms Respiratory: Reports: no symptoms Allergies: Coded Allergies: No Known Allergies (Unverified , 04/17/17) Objective Last 24 Hour Vital Signs Date Time Temp Pulse Resp B/P Pulse Ox O2 Delivery O2 Flow Rate FiO2 04/30/17 12:19 90 16 100 Nasal Cannula 2.0 04/30/17 12:10 28 04/30/17 12:09 89 16 97 Nasal Cannula 2.0 04/30/17 08:39 97.5 82 20 114/68 100 Room Air 04/30/17 07:44 Nasal Cannula 04/30/17 07:44 97 Nasal Cannula 2.0 04/30/17 07:44 Nasal Cannula 2.0 04/30/17 07:43 Nasal Cannula 04/30/17 05:39 96.8 04/30/17 04:51 96.8 75 20 116/70 99 Room Air 04/30/17 01:05 97.2 74 20 151/87 99 Nasal Cannula 04/30/17 00:00 97.2 74 20 151/87 99 Room Air 04/29/17 20:22 93 18 100 Nasal Cannula 2.0 04/29/17 20:12 28 04/29/17 20:11 98 Nasal Cannula 2.0 04/29/17 20:11 97 19 98 Nasal Cannula 2.0 04/29/17 20:11 Nasal Cannula 2.0 04/29/17 20:00 97.3 95 18 123/69 99 Nasal Cannula 2.0 04/29/17 16:00 97.7 97 19 125/83 99 Nasal Cannula 2.0 04/29/17 13:58 Nasal Cannula 3.0 04/29/17 13:55 Nasal Cannula 3.0 Intake and Output 04/29/17 04/30/17 19:00 07:00 Intake Total 555 ml 360 ml Output Total 200 ml Balance 355 ml 360 ml Intake Oral 360 ml IV Total 555 ml Output Urine Total 200 ml # Voids 1 2 Laboratory Tests 04/30/17 05:50: White Blood Count 5.8, Red Blood Count 3.22L, Hemoglobin 10.5L, Hematocrit 30.6L , Mean Corpuscular Volume 95, Mean Corpuscular Hemoglobin 32.5H, Mean Corpuscular Hemoglobin Concent 34.2, Red Cell Distribution Width 11.0L, Platelet Count 358, Mean Platelet Volume 5.6L, Neutrophils (%) (Auto) 66.6, Lymphocytes (%) (Auto) 20.4, Monocytes (%) (Auto) 10.5H, Eosinophils (%) (Auto) 1.5, Basophils (%) (Auto) 1.1, Sodium Level 137, Potassium Level 4.5, Chloride Level 96L, Carbon Dioxide Level 28, Anion Gap 13, Blood Urea Nitrogen 21, Creatinine 0.8, Estimat Glomerular Filtration Rate > 60, Glucose Level 129H, Calcium Level 9.4 Height (Feet): 5 Height (Inches): 3.00 Weight (Pounds): 113 General Appearance: no apparent distress EENT: PERRL/EOMI Neck: supple Cardiovascular: normal rate Respiratory/Chest: lungs clear Abdomen: soft Extremities: non-tender 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
--- NOTE | 2017-04-30 13:44 | Infectious Diseases Prog Note ---
Assessment/Plan Assessment/Plan A; Pneumonia s/p Rx Pleural effusion SBO s/p surgery P: observe off antibiotic Subjective ROS Limited/Unobtainable: No Constitutional: Reports: no symptoms Respiratory: Reports: no symptoms Cardiovascular: Reports: no symptoms Gastrointestinal/Abdominal: Reports: no symptoms Genitourinary: Reports: no symptoms Allergies: Coded Allergies: No Known Allergies (Unverified , 04/17/17) Objective Vital Signs Last 24 Hour Vital Signs Date Time Temp Pulse Resp B/P Pulse Ox O2 Delivery O2 Flow Rate FiO2 04/30/17 12:19 90 16 100 Nasal Cannula 2.0 28 04/30/17 12:10 28 04/30/17 12:09 89 16 97 Nasal Cannula 2.0 04/30/17 08:39 97.5 82 20 114/68 100 Room Air 04/30/17 07:44 Nasal Cannula 04/30/17 07:44 97 Nasal Cannula 2.0 28 04/30/17 07:44 Nasal Cannula 2.0 04/30/17 07:43 Nasal Cannula 04/30/17 05:39 96.8 04/30/17 04:51 96.8 75 20 116/70 99 Room Air 04/30/17 01:05 97.2 74 20 151/87 99 Nasal Cannula 04/30/17 00:00 97.2 74 20 151/87 99 Room Air 04/29/17 20:22 93 18 100 Nasal Cannula 2.0 04/29/17 20:12 28 04/29/17 20:11 98 Nasal Cannula 2.0 04/29/17 20:11 97 19 98 Nasal Cannula 2.0 04/29/17 20:11 Nasal Cannula 2.0 04/29/17 20:00 97.3 95 18 123/69 99 Nasal Cannula 2.0 04/29/17 16:00 97.7 97 19 125/83 99 Nasal Cannula 2.0 04/29/17 13:58 Nasal Cannula 3.0 04/29/17 13:55 Nasal Cannula 3.0 Height (Feet): 5 Height (Inches): 3.00 Weight (Pounds): 113 General Appearance: no acute distress HEENT: mucous membranes moist Respiratory/Chest: lungs clear Cardiovascular: normal rate Abdomen: soft, non tender Extremities: no edema Neurologic/Psychiatric: alert, oriented x 3, responsive Microbiology Date/Time Source Procedure Growth Status 04/27/17 15:55 Pleural Fluid Gram Stain - Final Resulted 04/27/17 15:55 Pleural Fluid Body Fluid Culture - Preliminary NO GROWTH AFTER 72 HOURS Resulted Laboratory Tests Test 04/30/17 05:50 White Blood Count 5.8 K/UL (4.8-10.8) Red Blood Count 3.22 M/UL (4.20-5.40) L Hemoglobin 10.5 G/DL (12.0-16.0) L Hematocrit 30.6 % (37.0-47.0) L Mean Corpuscular Volume 95 FL (80-99) Mean Corpuscular Hemoglobin 32.5 PG (27.0-31.0) H Mean Corpuscular Hemoglobin Concent 34.2 G/DL (32.0-36.0) Red Cell Distribution Width 11.0 % (11.6-14.8) L Platelet Count 358 K/UL (150-450) Mean Platelet Volume 5.6 FL (6.5-10.1) L Neutrophils (%) (Auto) 66.6 % (45.0-75.0) Lymphocytes (%) (Auto) 20.4 % (20.0-45.0) Monocytes (%) (Auto) 10.5 % (1.0-10.0) H Eosinophils (%) (Auto) 1.5 % (0.0-3.0) Basophils (%) (Auto) 1.1 % (0.0-2.0) Sodium Level 137 mEQ/L (135-145) Potassium Level 4.5 mEQ/L (3.4-4.9) Chloride Level 96 mEQ/L (98-107) L Carbon Dioxide Level 28 mEQ/L (20-30) Anion Gap 13 (5-15) Blood Urea Nitrogen 21 mg/dL (7-23) Creatinine 0.8 mg/dL (0.5-0.9) Estimat Glomerular Filtration Rate > 60 mL/min (>60) Glucose Level 129 mg/dL (74-106) H Calcium Level 9.4 mg/dL (8.6-10.2) Current Medications Medications (Trade) Dose Ordered Sig/Renuka Route PRN Reason Start Time Stop Time Status Last Admin Dose Admin Acetaminophen (Tylenol) 650 mg Q4H PRN ORAL Mild Pain/Temp > 100.5 04/28/17 16:00 05/28/17 15:59 04/30/17 04:40 Albuterol/ Ipratropium (DuoNeb 0.5-3(2.5)mg/3ml) 3 ml Q4H PRN HHN Shortness of Breath 04/28/17 16:00 05/03/17 15:59 04/29/17 05:05 Atorvastatin Calcium (Lipitor) 40 mg BEDTIME ORAL 04/28/17 21:00 05/28/17 20:59 04/29/17 20:45 Clonidine HCl (Catapres) 0.1 mg Q8H PRN ORAL SBP > 160 04/28/17 16:00 05/28/17 15:59 Diphenhydramine HCl (Benadryl) 25 mg Q6H PRN IVP Itching 04/28/17 16:00 05/28/17 15:59 Heparin Sodium (Porcine) (Heparin 5000 units/ml) 5,000 units EVERY 12 HOURS SUBQ 04/28/17 21:00 05/28/17 20:59 04/30/17 09:18 Hydrocortisone (Hydrocortisone) 1 applic Q6H PRN TOPIC Itching alternative to Benadry 04/28/17 17:00 05/28/17 16:59 Hydromorphone HCl (Dilaudid) 0.5 mg Q4H PRN IVP pain 4 - 10 04/29/17 11:00 05/05/17 15:59 Levalbuterol HCl (Xopenex) 1.25 mg TIDRT HHN 04/28/17 19:00 05/03/17 18:59 04/30/17 12:10 Lorazepam (Ativan 2mg/ml 1ml) 0.5 mg Q4H PRN IV For Anxiety 04/28/17 16:00 05/05/17 15:59 04/30/17 01:39 Ondansetron HCl (Zofran) 4 mg Q6H PRN IVP Nausea & Vomiting 04/28/17 16:30 05/28/17 16:29 04/29/17 10:13 Zolpidem Tartrate (Ambien) 5 mg HSPRN PRN ORAL Insomnia 04/28/17 16:00 05/28/17 15:59 ADRIANNA FRANZ Apr 30, 2017 13:44
[2017-04-30 16:00] VITALS: BP 132/68
--- NOTE | 2017-04-30 18:59 | Pulmonology Progress Note ---
Assessment/Plan Problems: (1) Acute respiratory failure (2) Pulmonary edema (3) Pleural effusion (4) S/P laparoscopy (5) Ileus Assessment/Plan improving pt/ot continue pt/ dc planning in process Subjective ROS Limited/Unobtainable: No Interval Events: doing better Allergies: Coded Allergies: No Known Allergies (Unverified , 04/17/17) Objective Last 24 Hour Vital Signs Date Time Temp Pulse Resp B/P Pulse Ox O2 Delivery O2 Flow Rate FiO2 04/30/17 16:00 98.6 100 18 132/68 98 Room Air 04/30/17 12:19 90 16 100 Nasal Cannula 2.0 28 04/30/17 12:10 28 04/30/17 12:09 89 16 97 Nasal Cannula 2.0 04/30/17 08:39 97.5 82 20 114/68 100 Room Air 04/30/17 07:44 Nasal Cannula 04/30/17 07:44 97 Nasal Cannula 2.0 04/30/17 07:44 Nasal Cannula 2.0 04/30/17 07:43 Nasal Cannula 04/30/17 05:39 96.8 04/30/17 04:51 96.8 75 20 116/70 99 Room Air 04/30/17 01:05 97.2 74 20 151/87 99 Nasal Cannula 04/30/17 00:00 97.2 74 20 151/87 99 Room Air 04/29/17 20:22 93 18 100 Nasal Cannula 2.0 28 04/29/17 20:12 28 04/29/17 20:11 98 Nasal Cannula 2.0 28 04/29/17 20:11 97 19 98 Nasal Cannula 2.0 04/29/17 20:11 Nasal Cannula 2.0 04/29/17 20:00 97.3 95 18 123/69 99 Nasal Cannula 2.0 Intake and Output 04/29/17 04/30/17 19:00 07:00 Intake Total 555 ml 360 ml Output Total 200 ml Balance 355 ml 360 ml Intake Oral 360 ml IV Total 555 ml Output Urine Total 200 ml # Voids 1 2 Objective General Appearance: WD/WN HEENT: normocephalic, atraumatic Respiratory/Chest: chest wall non-tender, lungs clear Cardiovascular: normal peripheral pulses, normal rate Abdomen: normal bowel sounds, soft, non tender Genitourinary: normal external genitalia Extremities: no cyanosis, no clubbing Skin: no rash Laboratory Tests 04/30/17 05:50: White Blood Count 5.8, Red Blood Count 3.22L, Hemoglobin 10.5L, Hematocrit 30.6L , Mean Corpuscular Volume 95, Mean Corpuscular Hemoglobin 32.5H, Mean Corpuscular Hemoglobin Concent 34.2, Red Cell Distribution Width 11.0L, Platelet Count 358, Mean Platelet Volume 5.6L, Neutrophils (%) (Auto) 66.6, Lymphocytes (%) (Auto) 20.4, Monocytes (%) (Auto) 10.5H, Eosinophils (%) (Auto) 1.5, Basophils (%) (Auto) 1.1, Sodium Level 137, Potassium Level 4.5, Chloride Level 96L, Carbon Dioxide Level 28, Anion Gap 13, Blood Urea Nitrogen 21, Creatinine 0.8, Estimat Glomerular Filtration Rate > 60, Glucose Level 129H, Calcium Level 9.4 Current Medications Medications (Trade) Dose Ordered Sig/Renuka Route PRN Reason Start Time Stop Time Status Last Admin Dose Admin Acetaminophen (Tylenol) 650 mg Q4H PRN ORAL Mild Pain/Temp > 100.5 04/28/17 16:00 05/28/17 15:59 04/30/17 04:40 Albuterol/ Ipratropium (DuoNeb 0.5-3(2.5)mg/3ml) 3 ml Q4H PRN HHN Shortness of Breath 04/28/17 16:00 05/03/17 15:59 04/29/17 05:05 Atorvastatin Calcium (Lipitor) 40 mg BEDTIME ORAL 04/28/17 21:00 05/28/17 20:59 04/29/17 20:45 Clonidine HCl (Catapres) 0.1 mg Q8H PRN ORAL SBP > 160 04/28/17 16:00 05/28/17 15:59 Diphenhydramine HCl (Benadryl) 25 mg Q6H PRN IVP Itching 04/28/17 16:00 05/28/17 15:59 Heparin Sodium (Porcine) (Heparin 5000 units/ml) 5,000 units EVERY 12 HOURS SUBQ 04/28/17 21:00 05/28/17 20:59 8/11/17 09:18 Hydrocortisone (Hydrocortisone) 1 applic Q6H PRN TOPIC Itching alternative to Benadry 04/28/17 17:00 05/28/17 16:59 Hydromorphone HCl (Dilaudid) 0.5 mg Q4H PRN IVP pain 4 - 10 04/29/17 11:00 05/05/17 15:59 Levalbuterol HCl (Xopenex) 1.25 mg TIDRT HHN 04/28/17 19:00 05/03/17 18:59 04/30/17 12:10 Lorazepam (Ativan 2mg/ml 1ml) 0.5 mg Q4H PRN IV For Anxiety 04/28/17 16:00 05/05/17 15:59 04/30/17 01:39 Ondansetron HCl (Zofran) 4 mg Q6H PRN IVP Nausea & Vomiting 04/28/17 16:30 05/28/17 16:29 04/29/17 10:13 Zolpidem Tartrate (Ambien) 5 mg HSPRN PRN ORAL Insomnia 04/28/17 16:00 05/28/17 15:59 PABLO NAPOLES Apr 30, 2017 18:59
[2017-04-30 20:00] VITALS: BP 141/74
--- NOTE | 2017-04-30 23:05 | Cardiology Progress Note ---
Assessment/Plan Assessment/Plan 1. Acute respiratory failure, resolved, CTA ruled out PE, continue O2 NC, continue pulmonary toilet. 2. Normal LVEF, normal filling pressures. 3. History of dyslipidemia. 4. Small bowel obstruction, s/p adhesion release, POD #7, no perioperative cardiac events. 5. Hypotension, resolved. Subjective Subjective s/p Lap lysis of adhesions for SBO, POD # 7 No CP or SOB. Objective Last 24 Hour Vital Signs Date Time Temp Pulse Resp B/P Pulse Ox O2 Delivery O2 Flow Rate FiO2 04/30/17 20:00 97.9 99 20 141/74 95 Room Air 04/30/17 19:28 Room Air 04/30/17 19:28 98 Room Air 04/30/17 19:28 97 16 97 Room Air 04/30/17 19:28 28 04/30/17 19:28 97 16 98 Room Air 1.0 04/30/17 16:00 98.6 100 18 132/68 98 Room Air 04/30/17 12:19 90 16 100 Nasal Cannula 2.0 04/30/17 12:10 28 04/30/17 12:09 89 16 97 Nasal Cannula 2.0 04/30/17 08:39 97.5 82 20 114/68 100 Room Air 04/30/17 07:44 Nasal Cannula 04/30/17 07:44 97 Nasal Cannula 2.0 04/30/17 07:44 Nasal Cannula 2.0 04/30/17 07:43 Nasal Cannula 04/30/17 05:39 96.8 04/30/17 04:51 96.8 75 20 116/70 99 Room Air 04/30/17 01:05 97.2 74 20 151/87 99 Nasal Cannula 04/30/17 00:00 97.2 74 20 151/87 99 Room Air Intake and Output 04/29/17 04/30/17 19:00 07:00 Intake Total 555 ml 360 ml Output Total 200 ml Balance 355 ml 360 ml Intake Oral 360 ml IV Total 555 ml Output Urine Total 200 ml # Voids 1 2 2D Echo: EF 60%, Grade I LVDD, normal filling pressures, RVSP 15 mmHg Laboratory Tests Test 04/30/17 05:50 White Blood Count 5.8 K/UL (4.8-10.8) Red Blood Count 3.22 M/UL (4.20-5.40) L Hemoglobin 10.5 G/DL (12.0-16.0) L Hematocrit 30.6 % (37.0-47.0) L Mean Corpuscular Volume 95 FL (80-99) Mean Corpuscular Hemoglobin 32.5 PG (27.0-31.0) H Mean Corpuscular Hemoglobin Concent 34.2 G/DL (32.0-36.0) Red Cell Distribution Width 11.0 % (11.6-14.8) L Platelet Count 358 K/UL (150-450) Mean Platelet Volume 5.6 FL (6.5-10.1) L Neutrophils (%) (Auto) 66.6 % (45.0-75.0) Lymphocytes (%) (Auto) 20.4 % (20.0-45.0) Monocytes (%) (Auto) 10.5 % (1.0-10.0) H Eosinophils (%) (Auto) 1.5 % (0.0-3.0) Basophils (%) (Auto) 1.1 % (0.0-2.0) Sodium Level 137 mEQ/L (135-145) Potassium Level 4.5 mEQ/L (3.4-4.9) Chloride Level 96 mEQ/L (98-107) L Carbon Dioxide Level 28 mEQ/L (20-30) Anion Gap 13 (5-15) Blood Urea Nitrogen 21 mg/dL (7-23) Creatinine 0.8 mg/dL (0.5-0.9) Estimat Glomerular Filtration Rate > 60 mL/min (>60) Glucose Level 129 mg/dL (74-106) H Calcium Level 9.4 mg/dL (8.6-10.2) Objective HEENT: Atraumatic and normocephalic. Anicteric. Pupils are equal, round, and reactive to light and accommodation. Extraocular muscles are intact. NECK: JVP is less than 5 cm. No carotid bruits. Carotid upstrokes 2+ bilaterally. CARDIOVASCULAR: Normal S1 and S2. Regular rate and rhythm. No murmurs, gallops, or rubs. PMI is at fourth intercostal space in the midclavicular line. LUNGS: Clear ABDOMEN: Soft, non-distended, positive bowel sounds. EXTREMITIES: No evidence of edema, clubbing, or cyanosis. HANDY MADRID Apr 30, 2017 23:05
[2017-05-01] VITALS: BP 132/70
[2017-05-01] MEDS: LORazepam Inj 2mg/ml 1ml IV PRN (01:08)
[2017-05-01 04:32] VITALS: BP 117/65
[2017-05-01 07:18] LABS: EOSINOPHILS % (AUTO) 1.6 % (0.0-3.0); LYMPHOCYTES % (AUTO) 27.6 % (20.0-45.0); MEAN CORPUSCULAR HEMOGLOBIN 32.6 PG (27.0-31.0); MEAN CORPUSCULAR VOLUME 96 FL (80-99); MEAN PLATELET VOLUME 5.4 FL (6.5-10.1); MONOCYTES % (AUTO) 6.6 % (1.0-10.0); NEUTROPHILS % (AUTO) 63.1 % (45.0-75.0); PLATELET COUNT 389 K/UL (150-450); RED BLOOD COUNT 3.34 M/UL (4.20-5.40); RED CELL DISTRIBUTION WIDTH 11.2 % (11.6-14.8); WHITE BLOOD COUNT 6.4 K/UL (4.8-10.8)
[2017-05-01 07:41] LABS: ANION GAP 13 (5-15); CALCIUM 9.5 mg/dL (8.6-10.2); CARBON DIOXIDE 28 mEQ/L (20-30); CHLORIDE 95 mEQ/L (98-107); CREATININE 0.9 mg/dL (0.5-0.9); GLOMERULAR FILTRATION RATE > 60 mL/min (>60); HEMOLYSIS 2; POTASSIUM 4.4 mEQ/L (3.4-4.9); SODIUM 136 mEQ/L (135-145)
[2017-05-01] MEDS: Levalbuterol Inh UD 1.25mg/0.5ml HHN SCH (07:56)
[2017-05-01 08:10] VITALS: BP 121/66
[2017-05-01] MEDS: Heparin 5000 units/ml inj SUBQ SCH (08:28)
[2017-05-01] MEDS ORDERED: PROAIR HFA8.5 GM INH ×2 (10:00→10:02)
[2017-05-01] MEDS ORDERED: AMBIEN5 MG ORAL (10:01)
--- NOTE | 2017-05-01 10:29 | General Progress Note ---
Progress Note Progress Note pending discharge. doing well sp laparoscopic YAIMA for adhesions causing SBO vss. abd soft. steristrips removed. instructed in aftercare. follwowup next week in office with DEJA Meyer May 01, 2017 10:29
--- NOTE | 2017-05-01 16:17 | Pulmonology Progress Note ---
Assessment/Plan Problems: (1) Acute respiratory failure (2) Pulmonary edema (3) Pleural effusion (4) S/P laparoscopy (5) Ileus Assessment/Plan improving pt/ot continue pt/ dc planning in process Subjective ROS Limited/Unobtainable: No Allergies: Coded Allergies: No Known Allergies (Unverified , 04/17/17) Objective Last 24 Hour Vital Signs Date Time Temp Pulse Resp B/P Pulse Ox O2 Delivery O2 Flow Rate FiO2 05/01/17 08:10 97.9 88 19 121/66 100 Room Air 05/01/17 08:04 96 16 100 Room Air 05/01/17 08:00 98 Room Air 21 05/01/17 07:59 Room Air 05/01/17 07:58 91 18 Room Air 05/01/17 07:55 28 05/01/17 07:54 91 18 98 Room Air 21 05/01/17 04:32 97.3 70 20 117/65 96 Room Air 05/01/17 00:00 98.2 89 18 132/70 97 Room Air 04/30/17 20:00 97.9 99 20 141/74 95 Room Air 04/30/17 19:28 Room Air 04/30/17 19:28 98 Room Air 21 04/30/17 19:28 97 16 97 Room Air 04/30/17 19:28 28 04/30/17 19:28 97 16 98 Room Air 1.0 21 Intake and Output 04/30/17 05/01/17 19:00 07:00 Intake Total 540 ml Balance 540 ml Intake Oral 540 ml # Voids 1 5 # Bowel Movements 1 Objective General Appearance: WD/WN HEENT: normocephalic, atraumatic Respiratory/Chest: chest wall non-tender, lungs clear Cardiovascular: normal peripheral pulses, normal rate Abdomen: normal bowel sounds, soft, non tender Genitourinary: normal external genitalia Extremities: no cyanosis, no clubbing Skin: no rash Laboratory Tests 05/01/17 05:25: White Blood Count 6.4, Red Blood Count 3.34L, Hemoglobin 10.9L, Hematocrit 31.9L , Mean Corpuscular Volume 96, Mean Corpuscular Hemoglobin 32.6H, Mean Corpuscular Hemoglobin Concent 34.0, Red Cell Distribution Width 11.2L, Platelet Count 389, Mean Platelet Volume 5.4L, Neutrophils (%) (Auto) 63.1, Lymphocytes (%) (Auto) 27.6, Monocytes (%) (Auto) 6.6, Eosinophils (%) (Auto) 1.6, Basophils (%) (Auto) 1.0, Sodium Level 136, Potassium Level 4.4, Chloride Level 95L, Carbon Dioxide Level 28, Anion Gap 13, Blood Urea Nitrogen 21, Creatinine 0.9, Estimat Glomerular Filtration Rate > 60, Glucose Level 110H, Calcium Level 9.5 PABLO NAPOLES May 01, 2017 16:17
--- NOTE | 2017-05-05 14:20 | Discharge Summary ---
Discharge Summary Hospital Course Date of Admission Apr 17, 2017 at 23:30 Date of Discharge May 01, 2017 at 11:00 Admitting Diagnosis SMALL BOWEL OBSTRUCTION RON Arroyo is a 66 year old female who was admitted on Apr 17, 2017 at 23: 30 for Small Bowel Obstruction Hospital Course dc summary #[id number] Discharge Medications New Medications: Zolpidem Tartrate* (Ambien*) 5 Mg Tablet 5 MG ORAL HSPRN PRN for 10 Days, #10 TAB Continued Medications: Aspirin Ec* (Aspirin Ec*) 81 Mg Tablet.dr 81 MG ORAL DAILY, TAB Biotin (Biotin) 5,000 Mcg Tab.rapdis 5000 MCG PO, TAB Cholecalciferol (Vitamin D3)* (Vitamin D*) 1,000 Unit Tablet 1000 UNIT ORAL DAILY, #30 TAB Mu-Vits-Min Th/Lycopene/Lutein (Centrum Silver Tablet) 1 Each Tablet 1 EACH PO, TAB Rosuvastatin Calcium* (Crestor*) 40 Mg Tablet 40 MG ORAL DAILY, TAB Discontinued Medications: Metoprolol Succinate* (Metoprolol Succinate*) 25 Mg Tab.er.24h 25 MG ORAL DAILY, TAB Discharge Condition Upon Discharge: stable Discharge Disposition Patient was discharged to Home with Home Health(06) Discharge Diagnoses: Discharge Instructions Discharge Instructions Special Instructions Sudheer (Darlene Espitia NP May 05, 2017 14:20
--- NOTE | 2017-05-06 | Discharge Summary 2 SIG ---
DATE OF ADMISSION: 04/17/2017 DATE OF DISCHARGE: 05/01/2017 REASON FOR ADMISSION: The patient is a 66-year-old female without significant past medical history, presented with a complaint of abdominal pain in the right lower quadrant. Pain described as sharp, 9/10 on a scale of 1 to 10. The patient reported nausea and vomiting, vomiting is nonbloody and nonbilious, and small amount of diarrhea, no blood. The patient took Compazine without much relief and called 911. Denied trauma. No fever. No chills. Last food intake was around noon time and symptoms started at 2 p.m. In the emergency department, vital signs were stable pulse oximetry was stable on the room air. The patient was afebrile, WBC was 13.9, electrolytes were stable, glucose was 156, lactic acid 1.2. Subsequently, the patient undergone CT of the abdomen and pelvis, which revealed moderately distended small bowel loops in the lower abdomen/pelvis with apparent transition point in the right lower quadrant in the pelvis. Moderate bowel wall thickening and hyperemia noted involving several loops. Small volume ascites. Urgent surgical evaluation was recommended, no evidence of free intraperitoneal air or loculated fluid collection. Sigmoid diverticulosis with apparent sigmoid wall thickening. Surgical evaluation requested urgently. The patient had no previous abdominal surgery. NG-tube was placed for low intermittent suction. The patient was admitted for further management. ADMITTING DIAGNOSES: Include: 1. Abdominal pain. 2. Small bowel obstruction. 3. Hypertension. HOSPITAL STAY: The patient admitted. The patient kept NPO. The patient started on IV fluids. Bowel rest provided with NG-tube for decompression. Surgery seen the patient along with the gastrointestinal. The patient was followed up with abdominal x-ray and initially conservative treatment was implemented by Surgery. Per surgeon initially was not a typical small bowel obstruction, more like inflammatory process such as Crohn disease or Campylobacter infection noted. Per surgery, must be ready to explore either laparoscopically or open if need to be. Surgeon discussed this case with the GI doctor, who recommended MRI enterography, not available at the hospital versus upper gastrointestinal series with small bowel followthrough. The patient subsequently undergone upper gastrointestinal with small bowel followthrough, which revealed partial, but nonetheless high-grade small bowel obstruction. That test was done on 04/21/2017. Subsequently, on 04/23/2017, the patient undergone diagnostic laparoscopy with laparoscopic lysis of adhesion causing small bowel obstruction. Course of recovery essentially was stable. The patient was afebrile using incentive spirometry. Pain management maintained. The patient was NPO. The patient was on IV fluids. Dressing was dry. Clean laboratory workup was stable, however, later in the day after the surgery, she became hypoxic and required placement of simple mask to keep pulse oximetry above 92%. At that time, Pulmonary consult was requested. The patient that day noted to have leukocytosis. Chest x-ray revealed right base infiltrate versus atelectasis along with right pleural effusion. The patient had leukocytosis and low-grade fever and tachycardic. The patient started on the IV antibiotics to cover for empiric pneumonia, healthcare associated versus aspiration. Venous duplex was requested and it revealed no evidence of acute DVT. The patient continued to be in leukocytosis and required 100% nonrebreathing mask. At that time, the patient was transferred to [facility]. Pulmonary toilet provided around the clock and as needed. During discussion, it was found that she was a smoker and smokes about a pack a day, however, no evidence of chronic obstructive pulmonary disease exacerbation. The patient was counseled on smoking cessation, but was not ready to quit and declined nicotine patch. The patient is not using inhalers would likely to benefit from inhalers on discharge and follow up as outpatient with the tile setter supervisor for PFTs or bedside spirometry. Followup chest x-ray. Infectious Disease closely followed the patient. Unable to obtain sputum culture since cough was dry and nonproductive. Stool culture revealed no Salmonella, Shigella, or Campylobacter. Chest x-ray was repeated on the 04/26/2017 and again revealed right pleural effusion, patchy alveolar and interstitial densities, likely representing pulmonary edema. The patient subsequently undergone thoracentesis on 04/27/2017. The patient was simultaneously getting antibiotics for presumed pneumonia, healthcare associated versus aspiration pneumonia. During the thoracentesis, which was done on the 04/27/2017, the patient had 130 mL of fluid . Chest x-ray post thoracentesis revealed no evidence of pneumothorax. CT of the chest revealed no evidence of pulmonary emboli or aortic dissection or aneurysm. Pleural fluid was sent for culture and cytology. Pleural fluid culture negative. Cytology of pleural fluid negative for malignancy. The patient started to improve. She was able to be weaned to nasal cannula and then subsequently to room air. Antibiotics were continued till 05/01/2017, last day of antibiotic 05/01/2017 as per Infectious Disease doctor. Gastrointestinal closely followed. Colonoscopy at this time deferred. The patient needs to fully recover and then undergo colonoscopy to rule out Crohn disease. DVT prophylaxis provided. The patient was working with physical and occupational therapy. The patient started on regular diet and progress as tolerated, antiemetic provided as needed. The patient able to tolerate diet. Legal Secretary followed the patient for hypertension. At some point, the patient's blood pressure was elevated, however, after the patient became normotensive without any need for antihypertensive medication, antihypertensive medication were on hold. Statin was continued. On 05/01/2017, the patient was stable for discharge, she is on room air, pulse oximetry is stable, no signs of respiratory distress, no cough. Leukocytosis resolved, status post antibiotic treatment. DISCHARGE DIAGNOSES: Include: 1. Partial distal small bowel obstruction, secondary to adhesion. 2. Abdominal pain, secondary to small bowel obstruction. 3. Hypertension. 4. Status post 04/23/2017 diagnostic laparoscopy with laparoscopic lysis of adhesion causing small bowel obstruction. 5. Acute hypoxemic respiratory failure. 6. Pulmonary edema. 7. Right pleural effusion. 8. Possible right lower lobe pneumonia/aspiration pneumonia versus healthcare associated. 9. Hyperlipidemia. 10. Possible chronic obstructive pulmonary disease. 11. Tobacco abuse. DISCHARGE MEDICATIONS: See medication reconciliation list. DISCHARGE INSTRUCTIONS: The patient discharged home with home health services. Follow up with the primary medical doctor. Recommended to follow up with the tile setter supervisor and obtain baseline bedside spirometry or pulmonary function tests. The patient likely have chronic obstructive pulmonary disease. Also, recommended the patient to go to the tile setter supervisor and initiate treatment if needed with inhaler. The patient was advised on smoking cessation. The patient is not ready to quit. Marilu Caldwell M.D. I have been assigned to dictate discharge summary on this account and I was not involved in the patient's management. Darlene Whitezucker [facility] hospital[facility]asm[facility] NGreyPGrey DR: NICHO JOB#: [id number] CC:
== END 2017-05-01 11:00 | disposition home health service (06) | DRG 335 ==
LOC: EDBD 20:16 → EMR 22:09 → EDBEDREQ 23:11 → 4E 23:30 → EDBEDREQ 23:36 → 4E 04-19 18:16 → 2W 04-25 10:19 → 4W 04-28 15:53
PROC: 0DNN4ZZ Release Sigmoid Colon, Percutaneous Endoscopic Approach (ICD-10-PCS; principal; 2017-04-23 15:45)
PROC: 0W993ZZ Drainage of Right Pleural Cavity, Percutaneous Approach (ICD-10-PCS; 2017-04-27)
DX: K56.5 Intestinal adhesions [bands] with obstruction (postinfection) (principal); J69.0 Pneumonitis due to inhalation of food and vomit; J96.01 Acute respiratory failure with hypoxia; I95.9 Hypotension, unspecified; R18.8 Other ascites; J90 Pleural effusion, not elsewhere classified; E87.1 Hypo-osmolality and hyponatremia; J44.9 Chronic obstructive pulmonary disease, unspecified; I10 Essential (primary) hypertension; F17.210 Nicotine dependence, cigarettes, uncomplicated; K57.90 Diverticulosis of intestine, part unspecified, without perforation or abscess without bleeding; E78.5 Hyperlipidemia, unspecified; D72.829 Elevated white blood cell count, unspecified; K56.7 Ileus, unspecified; R16.0 Hepatomegaly, not elsewhere classified
CPT/HCPCS: 36415; 36600; 71010; 71275; 74000; 74020; 74177; 74249; 76942; 80048; 80053; 80202; 81003; 82270; 82803; 83605; 83615; 83690; 83735; 83880; 84100; 84484; 85007; 85025; 85610; 85651; 85730; 86140; 87045; 87070; 87205; 88104; 89051; 93005; 93306; 93970; 94003; 94150; 94640; 94664; 94760; J2250; J2405; J2710; J7620; J8499